=== PATIENT | female | born 1955 | race African-American/Black ===

== ENCOUNTER 2019-03-14 11:44 | Inpatient (IN) | payer MEDICARE, MEDICAID ==
[~2019-03-14] VITALS: Ht 167.6 cm; Wt 110.7 kg
[~2019-03-14 11:44] MED LIST: ADVIL200 M2 ORAL; ALBUTEROL SULF8.5 GM INH; AMLODIPINE BESY10 MG ORAL; ASPIRIN81 MG ORAL; ATORVASTATIN CA40 MG ORAL; CELEXA20 MG PO; FUROSEMIDE40 MG ORAL; HYDROCHLOROTHIA25 MG ORAL; LANTUS SOL100 UNIT/1 SUBQ; LISINOPRIL20 MG ORAL; METFORMIN HCL1000 M1 ORAL; MEVACOR40 MG PO; QVAR7.3 GM INH; SPIRONOLACTONE25 MG ORAL; TYLENOL EXTRA500 MG ORAL; UNOBMED; ZANTAC150 MG ORAL
--- NOTE | 2019-03-14 11:45 | NUR ---
ED Nurse Note: Patient brought in by ambulance from home c/o shortness of breath since last night, not relieved with prescribed breathing treatment. patient is alert awake x4 ambulatory with assistance, daughter at bedside. patient placed on the athletic monitor, vitals stable at this time, daughter by the bedside.
[2019-03-14] MEDS: Levalbuterol Inh UD 1.25mg/0.5ml HHN SCH ×5 (12:06→13:00)
[2019-03-14] MEDS: Ipratropium 0.02% Inh Soln 2.5ml UD HHN SCH ×3 (12:06→12:22)
[2019-03-14 12:11] VITALS: BP 110/87
[2019-03-14 12:23] LABS: HEMATOCRIT 41.8 % (37.0-47.0); HEMOGLOBIN 12.9 G/DL (12.0-16.0); MEAN CORPUSCULAR VOLUME 93 FL (80-99); PLATELET COUNT 309 K/UL (150-450); RED BLOOD COUNT 4.48 M/UL (4.20-5.40); RED CELL DISTRIBUTION WIDTH 15.3 % (11.6-14.8); WHITE BLOOD COUNT 18.7 K/UL (4.8-10.8)
--- NOTE | 2019-03-14 12:30 | NUR ---
ED Nurse Note: bed side commode provided
[2019-03-14] MEDS ORDERED: Levalbuterol Inh UD 1.25mg/0.5ml HHN ONE (12:45)
[2019-03-14] MEDS ORDERED: Ipratropium 0.02% Inh Soln 2.5ml UD HHN ONE (12:45)
[2019-03-14] MEDS ORDERED: LORazepam 1mg tab ORAL ONE (13:00)
[2019-03-14] MEDS ORDERED: LEVOTHYROXINE75 MCG ORAL (13:01)
[2019-03-14] MEDS ORDERED: HUMALOG100 UNIT/4 SUBQ (13:01)
[2019-03-14] MEDS ORDERED: FLOVENT2 PUFF1 INH (13:01)
--- NOTE | 2019-03-14 13:25 | NUR ---
ED Nurse Note: sandwich and water provided to the patient, Dr Areli ahuja for the patient eating.
--- NOTE | 2019-03-14 13:58 | Diagnostic Imaging Report ---
Indication: Shortness of breath Technique: One view of the chest Comparison: 08/23/2013 Findings: The heart is enlarged. There is bilateral mild interstitial edema, extent of which appears similar to the previous study. There is a left chest unifocal AICD now present. Impression: Cardiomegaly with mild interstitial edema
[2019-03-14 14:24] LABS: ANION GAP 12 mmol/L (5-15); BLOOD UREA NITROGEN 31 mg/dL (7-18); CARBON DIOXIDE 22 MMOL/L (21-32); CHLORIDE 103 MMOL/L (98-107); CREATININE 1.4 MG/DL (0.55-1.30); POTASSIUM 4.7 MMOL/L (3.5-5.1); SODIUM 137 MMOL/L (136-145)
[2019-03-14 14:37] LABS: ALANINE AMINOTRANSFERASE 43 U/L (12-78); ALBUMIN 3.7 G/DL (3.4-5.0); ALBUMIN/GLOBULIN RATIO 0.9 (1.0-2.7); ALKALINE PHOSPHATASE 110 U/L (46-116); ASPARTATE AMINO TRANSFERASE 20 U/L (15-37); BILIRUBIN,TOTAL 0.7 MG/DL (0.2-1.0); CKMB 2.4 NG/ML (0.0-3.6); CREATINE KINASE 97 U/L (26-308)
--- NOTE | 2019-03-14 14:51 | Emergency Room Report ---
History of Present Illness General Chief Complaint: Dyspnea/Respdistress Source: Patient Present Illness HPI 63-year-old female presents ED for evaluation. Brought in by EMS from home for shortness of breath. Per EMS patient noted to have wheezing. Was given breathing treatments. Patient states she still feels short of breath but somewhat better. Also had some chest pain initially but denies any chest pain at this time. States that she does have a defibrillator in place. Denies fevers or chills. Denies cough. No other aggravating relieving factors. Denies any other associated symptoms Allergies: Coded Allergies: No Known Allergies (Unverified , 08/21/13) Patient History Past Medical History: DM, HTN, CO, CAD, CHF Past Surgical History: none, other - defibrillator Pertinent Family History: none Social History: Denies: smoking, alcohol use, drug use Now: No Immunizations: UTD Reviewed Nursing Documentation: PMH: Agreed; PSxH: Agreed Nursing Documentation-PMH Hx Cardiac Problems: Yes - CHF Hx Hypertension: Yes Hx Pacemaker: Yes - defibrillator Hx Asthma: Yes Hx COPD: Yes Hx Diabetes: Yes Hx Cancer: No Hx Neurological Problems: No Review of Systems All Other Systems: negative except mentioned in HPI Physical Exam Vital Signs Date Time Temp Pulse Resp B/P (MAP) Pulse Ox O2 Delivery O2 Flow Rate FiO2 03/14/19 11:39 118 22 118/77 (91) 100 Simple Mask 8.0 03/14/19 11:59 28 03/14/19 12:11 97.2 Sp02 EP Interpretation: reviewed, normal General Appearance: alert, GCS 15, non-toxic, obese Head: normocephalic, atraumatic Eyes: bilateral eye normal inspection, bilateral eye PERRL ENT: hearing grossly normal, normal pharynx, no angioedema, normal voice Neck: full range of motion, supple/symm/no masses Respiratory: chest non-tender, lungs clear, speaking full sentences, wheezing Cardiovascular #1: regular rate, rhythm, no edema Cardiovascular #2: 2+ carotid (R), 2+ carotid (L), 2+ radial (R), 2+ radial (L) , 2+ dorsalis pedis (R), 2+ dorsalis pedis (L) Gastrointestinal: normal bowel sounds, non tender, soft, non-distended, no guarding, no rebound Rectal: deferred Genitourinary: normal inspection, no CVA tenderness Musculoskeletal: back normal, gait/station normal, normal range of motion, non- tender Neurologic: alert, oriented x3, responsive, motor strength/tone normal, sensory intact, speech normal Psychiatric: judgement/insight normal, memory normal, mood/affect normal, no suicidal/homicidal ideation Reflexes: 3+ bicep (R), 3+ bicep (L), 3+ tricep (R), 3+ tricep (L), 3+ knee (R) , 3+ knee (L) Lymphatic: no adenopathy Medical Decision Making Diagnostic Impression: Primary Impression: CHF (congestive heart failure) Qualified Codes: I50.9 - Heart failure, unspecified Additional Impression: Renal insufficiency ER Course Hospital Course 63-year-old female presents ED complaining of shortness of breath. h/o asthma and CHF Differential diagnoses include: CO/unstable angina, contusion, muscle strain, PTX, rib fracture Clinical course Patient placed on stretcher. on campus monitor. After initial history and physical I ordered labs, EKG, chest x-ray, nebs labs reviewed- noted leukocytosis, hemoglobin/hematocrit stable, creatinine elevated, troponins negative, BNP elevated EKG - sinus tachycardia, no acute ischemic changes interpreted by me Chest x-ray- pulmonary congestion , defbrilator, chf Antibiotics given. Lasix given. Case discussed with Dr. Lambert and he agreed to accept the patient to his service for further care and support I. I feel this is a highly complex case requiring extensive working including EKG/Rhythm strip, Xray/CT/US, Blood/urine lab work, repeat exams while in ED, and administration of strong opiates/narcotics for pain control, admission to hospital or close patient follow up. Diagnosis - CHF exacerbation, renal insufficiency admitted to telemetry in serious condition Labs Test 03/14/19 12:00 03/14/19 13:45 White Blood Count 18.7 K/UL (4.8-10.8) Red Blood Count 4.48 M/UL (4.20-5.40) Hemoglobin 12.9 G/DL (12.0-16.0) Hematocrit 41.8 % (37.0-47.0) Mean Corpuscular Volume 93 FL (80-99) Mean Corpuscular Hemoglobin 28.7 PG (27.0-31.0) Mean Corpuscular Hemoglobin Concent 30.8 G/DL (32.0-36.0) Red Cell Distribution Width 15.3 % (11.6-14.8) Platelet Count 309 K/UL (150-450) Mean Platelet Volume 6.6 FL (6.5-10.1) Neutrophils (%) (Auto) % (45.0-75.0) Lymphocytes (%) (Auto) % (20.0-45.0) Monocytes (%) (Auto) % (1.0-10.0) Eosinophils (%) (Auto) % (0.0-3.0) Basophils (%) (Auto) % (0.0-2.0) Differential Total Cells Counted 100 Neutrophils % (Manual) 85 % (45-75) Lymphocytes % (Manual) 12 % (20-45) Monocytes % (Manual) 3 % (1-10) Eosinophils % (Manual) 0 % (0-3) Basophils % (Manual) 0 % (0-2) Band Neutrophils 0 % (0-8) Platelet Estimate Adequate Platelet Morphology Normal Anisocytosis 1+ Troponin I 0.001 ng/mL (0.000-0.056) Sodium Level 137 MMOL/L (136-145) Potassium Level 4.7 MMOL/L (3.5-5.1) Chloride Level 103 MMOL/L (98-107) Carbon Dioxide Level 22 MMOL/L (21-32) Anion Gap 12 mmol/L (5-15) Blood Urea Nitrogen 31 mg/dL (7-18) Creatinine 1.4 MG/DL (0.55-1.30) Estimat Glomerular Filtration Rate 45.8 mL/min (>60) Glucose Level 169 MG/DL (74-106) Calcium Level 9.0 MG/DL (8.5-10.1) Total Bilirubin 0.7 MG/DL (0.2-1.0) Aspartate Amino Transf (AST/SGOT) 20 U/L (15-37) Alanine Aminotransferase (ALT/SGPT) 43 U/L (12-78) Alkaline Phosphatase 110 U/L (46-116) Total Creatine Kinase 97 U/L (26-308) Creatine Kinase MB 2.4 NG/ML (0.0-3.6) Creatine Kinase MB Relative Index 2.4 Pro-B-Type Natriuretic Peptide 6639 pg/mL (0-125) Total Protein 7.7 G/DL (6.4-8.2) Albumin 3.7 G/DL (3.4-5.0) Globulin 4.0 g/dL Albumin/Globulin Ratio 0.9 (1.0-2.7) EKG Diagnostic Results Rate: tachycardiac Rhythm: NSR ST Segments: no acute changes ASA given to the pt in ED: No Rhythm Strip Diag. Results EP Interpretation: yes Rhythm: NSR, no PVC's, no ectopy Chest X-Ray Diagnostic Results Chest X-Ray Diagnostic Results : Chest X-Ray Ordered: Yes # of Views/Limited/Complete: 1 View Indication: Shortness of Breath EP Interpretation: Yes Interpretation: no pneumothorax, other - cardiomegaly. bilateral interstitial congestion. defibrillator Impression: Other Electronically Signed by: Electronically signed by Shashank Rowan MD Last Vital Signs Date Time Temp Pulse Resp B/P (MAP) Pulse Ox O2 Delivery O2 Flow Rate FiO2 03/14/19 12:58 113 18 100 Nasal Cannula 2.0 28 03/14/19 12:11 97.2 110/87 Status: improved Disposition: ADMITTED INPATIENT Condition: Serious Referrals: NON PHYSICIAN (PCP) Shashank Rowan MD Mar 14, 2019 14:51
[2019-03-14 15:14] VITALS: BP 115/85
--- NOTE | 2019-03-14 15:21 | NUR ---
ED Nurse Note: per Dr Singleton it's ok to transfer pt to 2E w/o urine sample.
--- NOTE | 2019-03-14 15:25 | NUR ---
ED Nurse Note: called 2E, unable to talk to the nurse at this time, will call back later.
--- NOTE | 2019-03-14 15:40 | NUR ---
ED Nurse Note: patient is being transferred to with all of her belongings. , report given to COLEMAN MELGOZA. ENDORSED ALL PLAN OF CARE TO COLEMAN MELGOZA.
--- NOTE | 2019-03-14 16:27 | NUR ---
NURSE NOTES: Patient transferred from ED to tele, received report from ABAD Albarran. ledger poster on, Patient on 2L oxygen, no active s/s cardiac distress noticed at this time. Patient having SOB, O2 sat 99% on 2L via NC. 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 Bed in lowest position, side rails upx2, call light within reach. Will continue to monitor.
[2019-03-14] MEDS ORDERED: Albuterol 90mcg Inhaler 8gm INH SCH (18:00)
--- NOTE | 2019-03-14 19:23 | Consultation ---
History of Present Illness General Date patient seen: Mar 14, 2019 Time patient seen: 19:17 Chief Complaint: Dyspnea/Respdistress Present Illness HPI Patient brought in by ambulance from home c/o shortness of breath since last night, not relieved with prescribed breathing treatment. Hx of CHF and CAD. Last stress test in 2012 Large infarcts in the distribution of the anterior and posterior descending arteries. No evidence of myocardial ischemia. Dilated left ventricle with diffuse wall motion abnormality and decreased left ventricular ejection fraction LVEF 30% no perfusion defects Echo LVEF 20-25 % Allergies: Coded Allergies: No Known Allergies (Unverified , 08/21/13) Medication History Scheduled Albuterol Sulfate* (Albuterol Sulfate Mdi*), 2 PUFF INH Q6H, (Reported) Amlodipine Besylate* (Amlodipine Besylate*), 10 MG ORAL DAILY, (Reported) Aspirin* (Aspirin*), 81 MG ORAL DAILY, (Reported) Atorvastatin Calcium* (Atorvastatin Calcium*), 80 MG ORAL BEDTIME, (Reported) Beclomethasone Dipropionate 40MCG Oral Inh (Qvar 40*), 2 PUFFS INH TWICE A DAY, (Reported) Citalopram Hydrobromide* (Celexa*), 20 MG PO DAILY, (Reported) Fluticasone Propionate (Flovent Hfa), 2 PUFFS INH BID, (Reported) Furosemide* (Lasix*), 40 MG ORAL DAILY, (Reported) Hydrochlorothiazide* (Hydrochlorothiazide*), 25 MG ORAL DAILY, (Reported) Ibuprofen* (Advil*), 600 MG ORAL BID, (Reported) Insulin Glargine (Lantus), 20 SUBQ DAILY, (Reported) Levothyroxine Sodium* (Levothyroxine Sodium*), 25 MCG ORAL DAILY, (Reported) Lisinopril (Lisinopril*), 20 MG ORAL DAILY, (Reported) Lovastatin (Mevacor), 40 MG PO HS, (Reported) Metformin Hcl* (Metformin Hcl*), 1,000 MG ORAL BID, (Reported) Ranitidine Hcl* (Zantac*), 150 MG ORAL TWICE A DAY, (Reported) Spironolactone* (Aldactone*), 25 MG ORAL DAILY, (Reported) Scheduled PRN Acetaminophen* (Tylenol Extra Strength*), 500 MG ORAL Q6H PRN for Mild Pain/ Temp > 100.5 Miscellaneous Medications Insulin Lispro (Humalog), 0 SUBQ, (Reported) Patient History Healthcare decision maker Vesta Robertson, Daughter Resuscitation status Full Code Advanced Directive on File Review of Systems Constitutional: Reports: no symptoms Eye: Reports: no symptoms ENT: Reports: no symptoms Respiratory: Reports: orthopnea, shortness of breath, wheezing, BLOCK Cardiovascular: Reports: PND Gastrointestinal: Reports: no symptoms Genitourinary: Reports: no symptoms Musculoskeletal: Reports: no symptoms Skin: Reports: no symptoms Psychiatric: Reports: no symptoms Neurological: Reports: no symptoms Endocrine: Reports: no symptoms Hematologic/Lymphatic: Reports: no symptoms Physical Exam General Appearance: mild distress Lines, tubes and drains: peripheral HEENT: normocephalic, atraumatic, anicteric, mucous membranes moist, PERRL Neck: non-tender, normal alignment Respiratory/Chest: chest wall non-tender, accessory muscle use, crackles/rales , rhonchi - bilaterally Cardiovascular/Chest: normal peripheral pulses, normal rate, regular rhythm Abdomen: normal bowel sounds, non tender, no organomegaly, no mass Extremities: normal range of motion, non-tender, normal inspection Skin Exam: normal pigmentation, warm/dry, cyanotic Neurologic: cardiac nurse II-XII grossly normal, no motor/sensory deficits Last 24 Hour Vital Signs Date Time Temp Pulse Resp B/P (MAP) Pulse Ox O2 Delivery O2 Flow Rate FiO2 03/14/19 16:46 Nasal Cannula 2.0 03/14/19 16:27 119 03/14/19 15:40 97.2 103 13 115/85 100 Nasal Cannula 2.0 03/14/19 15:14 97.2 103 13 115/85 100 Nasal Cannula 2.0 03/14/19 12:58 113 18 100 Nasal Cannula 2.0 03/14/19 12:47 116 17 100 Nasal Cannula 2.0 03/14/19 12:34 115 20 100 Nasal Cannula 2.0 03/14/19 12:21 112 19 100 Nasal Cannula 2.0 03/14/19 12:19 112 19 100 Nasal Cannula 2.0 03/14/19 12:13 116 24 Room Air 2.0 03/14/19 12:11 97.2 116 24 110/87 98 Room Air 03/14/19 12:10 112 21 100 Nasal Cannula 2.0 03/14/19 12:09 112 21 100 Nasal Cannula 2.0 03/14/19 12:04 100 Nasal Cannula 2.0 03/14/19 12:01 113 21 100 Nasal Cannula 2.0 03/14/19 11:59 113 21 100 Nasal Cannula 2.0 03/14/19 11:39 118 22 118/77 (91) 100 Simple Mask 8.0 Laboratory Tests Test 03/14/19 12:00 03/14/19 13:45 White Blood Count 18.7 K/UL (4.8-10.8) H Red Blood Count 4.48 M/UL (4.20-5.40) Hemoglobin 12.9 G/DL (12.0-16.0) Hematocrit 41.8 % (37.0-47.0) Mean Corpuscular Volume 93 FL (80-99) Mean Corpuscular Hemoglobin 28.7 PG (27.0-31.0) Mean Corpuscular Hemoglobin Concent 30.8 G/DL (32.0-36.0) L Red Cell Distribution Width 15.3 % (11.6-14.8) H Platelet Count 309 K/UL (150-450) Mean Platelet Volume 6.6 FL (6.5-10.1) Neutrophils (%) (Auto) % (45.0-75.0) Lymphocytes (%) (Auto) % (20.0-45.0) Monocytes (%) (Auto) % (1.0-10.0) Eosinophils (%) (Auto) % (0.0-3.0) Basophils (%) (Auto) % (0.0-2.0) Differential Total Cells Counted 100 Neutrophils % (Manual) 85 % (45-75) H Lymphocytes % (Manual) 12 % (20-45) L Monocytes % (Manual) 3 % (1-10) Eosinophils % (Manual) 0 % (0-3) Basophils % (Manual) 0 % (0-2) Band Neutrophils 0 % (0-8) Platelet Estimate Adequate Platelet Morphology Normal Anisocytosis 1+ Troponin I 0.001 ng/mL (0.000-0.056) Sodium Level 137 MMOL/L (136-145) Potassium Level 4.7 MMOL/L (3.5-5.1) Chloride Level 103 MMOL/L (98-107) Carbon Dioxide Level 22 MMOL/L (21-32) Anion Gap 12 mmol/L (5-15) Blood Urea Nitrogen 31 mg/dL (7-18) H Creatinine 1.4 MG/DL (0.55-1.30) H Estimat Glomerular Filtration Rate 45.8 mL/min (>60) Glucose Level 169 MG/DL (74-106) H Calcium Level 9.0 MG/DL (8.5-10.1) Total Bilirubin 0.7 MG/DL (0.2-1.0) Aspartate Amino Transf (AST/SGOT) 20 U/L (15-37) Alanine Aminotransferase (ALT/SGPT) 43 U/L (12-78) Alkaline Phosphatase 110 U/L (46-116) Total Creatine Kinase 97 U/L (26-308) Creatine Kinase MB 2.4 NG/ML (0.0-3.6) Creatine Kinase MB Relative Index 2.4 Pro-B-Type Natriuretic Peptide 6639 pg/mL (0-125) H Total Protein 7.7 G/DL (6.4-8.2) Albumin 3.7 G/DL (3.4-5.0) Globulin 4.0 g/dL Albumin/Globulin Ratio 0.9 (1.0-2.7) L Height (Feet): 5 Height (Inches): 6.00 Weight (Pounds): 240 Medications Current Medications Medications (Trade) Dose Ordered Sig/Cassidy Route PRN Reason Start Time Stop Time Status Last Admin Dose Admin Albuterol Sulfate (Proventil MDI) 2 puff Q6H PRN INH Shortness of Breath 03/14/19 18:00 04/13/19 17:59 Atorvastatin Calcium (Lipitor) 80 mg BEDTIME ORAL 03/14/19 21:00 04/13/19 20:59 Beclomethasone Dipropionate (Qvar 40 Inhaler) 2 puff TWICE A DAY INH 03/14/19 18:00 04/13/19 17:59 Dextrose (Dextrose 50%) 25 ml Q30M PRN IV Hypoglycemia 03/14/19 17:15 04/13/19 17:14 Dextrose (Dextrose 50%) 50 ml Q30M PRN IV Hypoglycemia 03/14/19 17:15 04/13/19 17:14 Insulin Aspart (NovoLOG) BEFORE MEALS AND HS SUBQ 03/14/19 21:00 04/13/19 20:59 Levothyroxine Sodium (Synthroid) 25 mcg DAILY@0630 ORAL 03/15/19 06:30 04/14/19 06:29 Metformin HCl (Glucophage) 1,000 mg BID ORAL 03/15/19 09:00 04/14/19 08:59 Spironolactone (Aldactone) 25 mg DAILY ORAL 03/15/19 09:00 04/14/19 08:59 Assessment/Plan Status: stable Assessment/Plan: Assessment: (1) CHF (congestive heart failure) (2) Respiratory insufficiency (3) Cardiomyopathy (4) COPD exacerbation (5) Leukocytosis (6) Hypoxemia (7) Coronary artery disease PLAN: -Aspirin -high dose statin -Echocardiogram -IV lasix -Aldactone -Hold beta blockers until discharge -Start lisinopril 5 mg for afterload reduction -Breathing treatment/steroids/pulmonary toilet -Viability study to be done outpatient/cedars to determine if revascularization is possible -Life vest -> ICD Aaron Guerra MD Mar 14, 2019 19:23
--- NOTE | 2019-03-14 19:25 | NUR ---
CASE MANAGEMENT: REVIEW 63Y/F BIBA FROM HOME CC: SOB . CHEST PAIN SI: CHF . RENAL INSUFFICIENCY T 97.2 HR 116 RR 110/87 SAT 98% ROOM AIR WBC 18.7 BUN 31 CR 1.4 BNP 6639 IS: XOPENEX HHN X1 ATROVENT HHN X1 ATIVAN PO X1 LASIX IV X1 LEVOFLOXACIN IV X1 PATIENT ADMITTED TO TELEMETRY UNIT 03/14/2019 DCP: PATIENT IS FROM HOME
[2019-03-14] MEDS ORDERED: ATROVENT HFA12.9 GM IH (19:33)
[2019-03-14] MEDS ORDERED: CARVEDILOL3.125 MG ORAL (19:33)
--- NOTE | 2019-03-14 19:48 | NUR ---
NURSE NOTES: Dr. Tomlin made aware patient anxious, shaking, c/o chest pain 10 min ago. EKG done, ST with HR 126. Xanax 0.25 mg PO TID. Order noted, entered, carried out.
--- NOTE | 2019-03-14 19:51 | NUR ---
HAND-OFF: Report given to ABAD Ruiz.
--- NOTE | 2019-03-14 19:52 | NUR ---
NURSE NOTES: Received pt from ABAD Ashraf. Pt awake, alert, and c/o anxiety. Bed in lowest position. Call light within reach. Will continue to monitor.
[2019-03-14] MEDS: Qvar 40mcg Inhaler 6.8 gm INH SCH (19:58)
[2019-03-14 20:00] VITALS: BP 120/79
[2019-03-14] MEDS: ALPRAZolam 0.25mg tab ORAL SCH (20:09)
[2019-03-14] MEDS: Atorvastatin 80mg tab ORAL SCH (20:09)
[2019-03-14] MEDS: NovoLOG Insulin Flexpen SUBQ SCH (20:42)
--- NOTE | 2019-03-14 21:27 | NUR ---
NURSE NOTES: Called and left a message with Dr. Guerra regarding pts sustained sinus tachy. Awaiting call back.
--- NOTE | 2019-03-14 21:35 | NUR ---
NURSE NOTES: Called and left a message with Dr. Lambert regarding pts request for sleep aid and also to report heart rate. He replied with No new orders. Will continue to monitor.
--- NOTE | 2019-03-14 23:45 | History and Physical Report ---
DATE OF ADMISSION: 03/14/2019 HISTORY OF PRESENT ILLNESS: This is a 53-year-old female with a past history of diabetes mellitus and hypertension who came to the hospital with shortness of breath. The patient reports some anxiety. She states that she is still taking medication at home, which was . She has history of dilated left ventricle with decreased LVEF 30%. The patient admitted to the hospital for exacerbation of heart failure. PAST MEDICAL HISTORY: Notable for hypertension, hyperlipidemia, questionable asthma, diabetes mellitus, hyperlipidemia. HOME MEDICATIONS: Aldactone, Zantac, metformin, lovastatin, lisinopril, levothyroxine, Lantus, hydrochlorothiazide, Lasix, fluticasone, Celexa, aspirin, amlodipine. ALLERGIES: None reported. REVIEW OF SYSTEMS: Denies any headaches, hematemesis, melena, or hematochezia. PHYSICAL EXAMINATION: VITAL SIGNS: Blood pressure is 110/80, heart rate 104, respirations 16, she is afebrile, O2 saturation on room air. GENERAL: Reveals an older female. HEENT: Unremarkable. LUNGS: Clear breath sounds bilaterally. ABDOMEN: Soft. NEUROLOGIC: Nonfocal LABORATORY DATA: Lab testing shows white count 8000. Urinalysis unremarkable. Creatinine 1.4. Glucose 159. IMPRESSION: 1. Decompensated heart failure. 2. Leukocytosis. 3. Diabetes mellitus. 4. Hypertension. PLAN: Discussion with the hospitalist. Continue medications. We will start diuresis. Consider empiric antibiotics. We will check serial troponins. Diabetic monitoring. Accu-Cheks. DVT prophylaxis. We will follow. Anders Lambert M.D. DR: Jonel JOB#: [id number] CC:
[2019-03-15] VITALS: BP 125/89
[2019-03-15 04:00] VITALS: BP 118/83
[2019-03-15] MEDS: ALPRAZolam 0.25mg tab ORAL SCH ×3 (05:16→17:29)
[2019-03-15] MEDS: Levothyroxine 25mcg tab ORAL SCH (05:40)
[2019-03-15] MEDS: NovoLOG Insulin Flexpen SUBQ SCH ×4 (05:41→20:42)
[2019-03-15] MEDS: Albuterol 90mcg Inhaler 8gm INH PRN ×2 (05:45→14:37)
--- NOTE | 2019-03-15 06:15 | NUR ---
NURSE NOTES: Called and left a message with Dr. Lambert asking for Venous duplex to be done before applying SCDs d/t pts darkening feet. No new orders.
--- NOTE | 2019-03-15 07:17 | NUR ---
NURSE NOTES: Report received from ABAD Ruiz. Patient awake. AOx4. In 3L NC. Complained of coughing. Denies any pain. IV flushed and SL. Bed on lowest position, side rails upx2, brakes engaged. Purewick canister changed. Patient positioned for comfort. Call light within easy reach.
--- NOTE | 2019-03-15 07:57 | NUR ---
HAND-OFF: Report given to ABAD Ashraf. Pt stable. Addendum: 03/15/19 at 0804 by Sara Tariq RN Report given to: ABAD Han*
[2019-03-15 08:00] VITALS: BP 105/73
[2019-03-15] MEDS: Qvar 40mcg Inhaler 6.8 gm INH SCH ×2 (08:29→18:48)
[2019-03-15 08:33] LABS: EOSINOPHILS % (AUTO) 0.6 % (0.0-3.0); HEMATOCRIT 40.1 % (37.0-47.0); HEMOGLOBIN 12.7 G/DL (12.0-16.0); LYMPHOCYTES % (AUTO) 20.4 % (20.0-45.0); MEAN CORPUSCULAR VOLUME 92 FL (80-99); MONOCYTES % (AUTO) 7.4 % (1.0-10.0); NEUTROPHILS % (AUTO) 70.7 % (45.0-75.0); PLATELET COUNT 252 K/UL (150-450); RED BLOOD COUNT 4.35 M/UL (4.20-5.40); RED CELL DISTRIBUTION WIDTH 15.2 % (11.6-14.8); WHITE BLOOD COUNT 13.7 K/UL (4.8-10.8)
[2019-03-15 08:39] LABS: ANION GAP 12 mmol/L (5-15); BLOOD UREA NITROGEN 33 mg/dL (7-18); CALCIUM 9.2 MG/DL (8.5-10.1); CARBON DIOXIDE 23 MMOL/L (21-32); CHLORIDE 100 MMOL/L (98-107); CREATININE 1.4 MG/DL (0.55-1.30); POTASSIUM 4.4 MMOL/L (3.5-5.1); SODIUM 135 MMOL/L (136-145)
[2019-03-15] MEDS: metFORMIN 500mg tab ORAL SCH ×2 (09:10→17:29)
[2019-03-15] MEDS: Lisinopril 2.5mg tab ORAL SCH (09:10)
[2019-03-15] MEDS: Spironolactone 25mg tab ORAL SCH (09:10)
--- NOTE | 2019-03-15 09:43 | NUR ---
CASE MANAGEMENT:REVIEW 03/15/19 SI: AC/CHR CHF. RESPIRATORY INSUFF LEUKOCYTOSIS. COPD EXACERBATION 98.4 124 22 105/73 99% ON 2L/NC WBC+13.7 BUN+33 CR+1.4 IS: ALDACTONE PO QD LISINOPRIL PO QD QVAR INH BID : TELEMETRY STATUS DCP: FROM HOME
--- NOTE | 2019-03-15 10:58 | Pulmonology Progress Note ---
Assessment/Plan Assessment/Plan IMPRESSION: 1. Decompensated heart failure. 2. Leukocytosis. 3. Diabetes mellitus. 4. Hypertension. PLAN: Continue medications including diuresis. continue empiric antibiotics. her serial troponins are negative. Diabetic monitoring. Accu-Cheks. DVT prophylaxis. Subjective Interval Events: states she is feeling better. WBC improved Constitutional: Reports: no symptoms HEENT: Repors: no symptoms Respiratory: Reports: no symptoms Cardiovascular: Reports: no symptoms Gastrointestinal/Abdominal: Reports: no symptoms Genitourinary: Reports: no symptoms Allergies: Coded Allergies: No Known Allergies (Unverified , 08/21/13) Objective Last 24 Hour Vital Signs Date Time Temp Pulse Resp B/P (MAP) Pulse Ox O2 Delivery O2 Flow Rate FiO2 03/15/19 09:10 105/73 03/15/19 08:33 124 22 99 Nasal Cannula 2.0 03/15/19 08:33 125 22 98 Nasal Cannula 2.0 28 03/15/19 08:00 98.4 112 18 105/73 (84) 100 03/15/19 08:00 129 03/15/19 07:45 98 Nasal Cannula 3.0 32 03/15/19 05:45 93 18 98 Nasal Cannula 2.0 28 03/15/19 05:45 93 18 98 Nasal Cannula 2.0 28 03/15/19 04:00 97.7 97 18 118/83 (95) 100 03/15/19 04:00 92 03/15/19 00:08 133 03/15/19 00:00 97.5 95 22 125/89 (101) 100 03/14/19 23:57 127 03/14/19 21:00 Nasal Cannula 2.0 03/14/19 20:00 97.4 130 22 120/79 (93) 100 03/14/19 19:53 126 22 98 Nasal Cannula 2.0 28 03/14/19 19:51 126 22 98 Nasal Cannula 2.0 03/14/19 19:51 98 Nasal Cannula 2.0 03/14/19 16:46 Nasal Cannula 2.0 03/14/19 16:27 119 03/14/19 15:40 97.2 103 13 115/85 100 Nasal Cannula 2.0 03/14/19 15:14 97.2 103 13 115/85 100 Nasal Cannula 2.0 03/14/19 12:58 113 18 100 Nasal Cannula 2.0 03/14/19 12:47 116 17 100 Nasal Cannula 2.0 03/14/19 12:34 115 20 100 Nasal Cannula 2.0 03/14/19 12:21 112 19 100 Nasal Cannula 2.0 03/14/19 12:19 112 19 100 Nasal Cannula 2.0 03/14/19 12:13 116 24 Room Air 2.0 03/14/19 12:11 97.2 116 24 110/87 98 Room Air 03/14/19 12:10 112 21 100 Nasal Cannula 2.0 03/14/19 12:09 112 21 100 Nasal Cannula 2.0 03/14/19 12:04 100 Nasal Cannula 2.0 03/14/19 12:01 113 21 100 Nasal Cannula 2.0 03/14/19 11:59 113 21 100 Nasal Cannula 2.0 03/14/19 11:39 118 22 118/77 (91) 100 Simple Mask 8.0 Intake and Output 03/14/19 03/15/19 19:00 07:00 Intake Total 240 ml 200 ml Output Total 600 ml Balance -360 ml 200 ml Intake Oral 240 ml 200 ml Output Urine Total 600 ml # Voids 4 # Bowel Movements 2 General Appearance: no acute distress HEENT: normocephalic Respiratory/Chest: chest wall non-tender, lungs clear Cardiovascular: normal peripheral pulses, normal rate Abdomen: normal bowel sounds, soft, non tender Laboratory Tests 03/14/19 12:00: White Blood Count 18.7H, Red Blood Count 4.48, Hemoglobin 12.9, Hematocrit 41.8 , Mean Corpuscular Volume 93, Mean Corpuscular Hemoglobin 28.7, Mean Corpuscular Hemoglobin Concent 30.8L, Red Cell Distribution Width 15.3H, Platelet Count 309, Mean Platelet Volume 6.6, Neutrophils (%) (Auto) , Lymphocytes (%) (Auto) , Monocytes (%) (Auto) , Eosinophils (%) (Auto) , Basophils (%) (Auto) , Differential Total Cells Counted 100, Neutrophils % ( Manual) 85H, Lymphocytes % (Manual) 12L, Monocytes % (Manual) 3, Eosinophils % ( Manual) 0, Basophils % (Manual) 0, Band Neutrophils 0, Platelet Estimate Adequate, Platelet Morphology Normal, Anisocytosis 1+, Troponin I 0.001 03/14/19 13:45: Sodium Level 137, Potassium Level 4.7, Chloride Level 103, Carbon Dioxide Level 22, Anion Gap 12, Blood Urea Nitrogen 31H, Creatinine 1.4H, Estimat Glomerular Filtration Rate 45.8, Glucose Level 169H, Calcium Level 9.0, Total Bilirubin 0.7 , Aspartate Amino Transf (AST/SGOT) 20, Alanine Aminotransferase (ALT/SGPT) 43, Alkaline Phosphatase 110, Total Creatine Kinase 97, Creatine Kinase MB 2.4, Creatine Kinase MB Relative Index 2.4, Pro-B-Type Natriuretic Peptide 6639H, Total Protein 7.7, Albumin 3.7, Globulin 4.0, Albumin/Globulin Ratio 0.9L 03/15/19 07:04: White Blood Count 13.7H, Red Blood Count 4.35, Hemoglobin 12.7, Hematocrit 40.1 , Mean Corpuscular Volume 92, Mean Corpuscular Hemoglobin 29.3, Mean Corpuscular Hemoglobin Concent 31.7L, Red Cell Distribution Width 15.2H, Platelet Count 252, Mean Platelet Volume 6.5, Neutrophils (%) (Auto) 70.7, Lymphocytes (%) (Auto) 20.4, Monocytes (%) (Auto) 7.4, Eosinophils (%) (Auto) 0.6, Basophils (%) (Auto) 1.0, Troponin I 0.000, Sodium Level 135L, Potassium Level 4.4, Chloride Level 100, Carbon Dioxide Level 23, Anion Gap 12, Blood Urea Nitrogen 33H, Creatinine 1.4H, Estimat Glomerular Filtration Rate 45.8, Glucose Level 148H, Calcium Level 9.2 Current Medications Medications (Trade) Dose Ordered Sig/Cassidy Route PRN Reason Start Time Stop Time Status Last Admin Dose Admin Albuterol Sulfate (Proventil MDI) 2 puff Q6H PRN INH Shortness of Breath 03/14/19 18:00 04/13/19 17:59 03/15/19 05:45 Alprazolam (Xanax) 0.25 mg THREE TIMES A DAY ORAL 03/14/19 19:48 03/21/19 19:47 03/15/19 05:16 Atorvastatin Calcium (Lipitor) 80 mg BEDTIME ORAL 03/14/19 21:00 04/13/19 20:59 03/14/19 20:09 Beclomethasone Dipropionate (Qvar 40 Inhaler) 2 puff TWICE A DAY INH 03/14/19 18:00 04/13/19 17:59 03/15/19 08:29 Dextrose (Dextrose 50%) 25 ml Q30M PRN IV Hypoglycemia 03/14/19 17:15 04/13/19 17:14 Dextrose (Dextrose 50%) 50 ml Q30M PRN IV Hypoglycemia 03/14/19 17:15 04/13/19 17:14 Insulin Aspart (NovoLOG) BEFORE MEALS AND HS SUBQ 03/14/19 21:00 04/13/19 20:59 03/15/19 05:41 Levothyroxine Sodium (Synthroid) 25 mcg DAILY@0630 ORAL 03/15/19 06:30 04/14/19 06:29 03/15/19 05:40 Lisinopril (Zestril) 2.5 mg DAILY ORAL 03/15/19 09:00 04/14/19 08:59 03/15/19 09:10 Metformin HCl (Glucophage) 1,000 mg BID ORAL 03/15/19 09:00 04/14/19 08:59 03/15/19 09:10 Spironolactone (Aldactone) 25 mg DAILY ORAL 03/15/19 09:00 04/14/19 08:59 03/15/19 09:10 Anders Lambert MD Mar 15, 2019 10:58
[2019-03-15 12:00] VITALS: BP 115/83
--- NOTE | 2019-03-15 12:03 | Cardiology Progress Note ---
Assessment/Plan Status: stable Assessment/Plan Assessment/Plan Status: stable Assessment/Plan: Assessment: (1) CHF (congestive heart failure) (2) Respiratory insufficiency (3) Cardiomyopathy (4) COPD exacerbation (5) Leukocytosis (6) Hypoxemia (7) Coronary artery disease PLAN: -Aspirin -high dose statin -Echocardiogram pending -IV lasix -> transition to PO in a few days -Aldactone -Start coreg 3.125 bid -Continue lisinopril 5 mg for afterload reduction -Breathing treatment/steroids/pulmonary toilet -Viability study to be done outpatient/[facility] to determine if revascularization is possible -Life vest -> ICD Subjective Cardiovascular: Reports: no symptoms Respiratory: Reports: no symptoms Gastrointestinal/Abdominal: Reports: no symptoms Genitourinary: Reports: no symptoms Subjective NO acute events, no chest pain, Pulse elevated, troponin negative. Objective Last 24 Hour Vital Signs Date Time Temp Pulse Resp B/P (MAP) Pulse Ox O2 Delivery O2 Flow Rate FiO2 03/15/19 09:10 105/73 03/15/19 08:33 124 22 99 Nasal Cannula 2.0 28 03/15/19 08:33 125 22 98 Nasal Cannula 2.0 28 03/15/19 08:00 98.4 112 18 105/73 (84) 100 03/15/19 08:00 129 03/15/19 07:45 98 Nasal Cannula 3.0 32 03/15/19 05:45 93 18 98 Nasal Cannula 2.0 28 03/15/19 05:45 93 18 98 Nasal Cannula 2.0 28 03/15/19 04:00 97.7 97 18 118/83 (95) 100 03/15/19 04:00 92 03/15/19 00:08 133 03/15/19 00:00 97.5 95 22 125/89 (101) 100 03/14/19 23:57 127 03/14/19 21:00 Nasal Cannula 2.0 03/14/19 20:00 97.4 130 22 120/79 (93) 100 03/14/19 19:53 126 22 98 Nasal Cannula 2.0 28 03/14/19 19:51 126 22 98 Nasal Cannula 2.0 28 03/14/19 19:51 98 Nasal Cannula 2.0 28 03/14/19 16:46 Nasal Cannula 2.0 03/14/19 16:27 119 03/14/19 15:40 97.2 103 13 115/85 100 Nasal Cannula 2.0 28 03/14/19 15:14 97.2 103 13 115/85 100 Nasal Cannula 2.0 03/14/19 12:58 113 18 100 Nasal Cannula 2.0 03/14/19 12:47 116 17 100 Nasal Cannula 2.0 03/14/19 12:34 115 20 100 Nasal Cannula 2.0 03/14/19 12:21 112 19 100 Nasal Cannula 2.0 03/14/19 12:19 112 19 100 Nasal Cannula 2.0 03/14/19 12:13 116 24 Room Air 2.0 03/14/19 12:11 97.2 116 24 110/87 98 Room Air 03/14/19 12:10 112 21 100 Nasal Cannula 2.0 03/14/19 12:09 112 21 100 Nasal Cannula 2.0 03/14/19 12:04 100 Nasal Cannula 2.0 03/14/19 12:01 113 21 100 Nasal Cannula 2.0 28 General Appearance: no apparent distress EENT: PERRL/EOMI, normal ENT inspection Neck: non-tender, normal alignment, supple, normal inspection, no JVD Rhythm: ST Cardiovascular: normal rate, tachycardia Respiratory/Chest: lungs clear, normal breath sounds Abdomen: normal bowel sounds, non tender, soft Extremities: normal range of motion, non-tender, normal inspection 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, no motor/sensory deficits Intake and Output 03/14/19 03/15/19 19:00 07:00 Intake Total 240 ml 200 ml Output Total 600 ml Balance -360 ml 200 ml Intake Oral 240 ml 200 ml Output Urine Total 600 ml # Voids 4 # Bowel Movements 2 Laboratory Tests Test 03/14/19 13:45 03/15/19 07:04 Sodium Level 137 MMOL/L (136-145) 135 MMOL/L (136-145) L Potassium Level 4.7 MMOL/L (3.5-5.1) 4.4 MMOL/L (3.5-5.1) Chloride Level 103 MMOL/L (98-107) 100 MMOL/L (98-107) Carbon Dioxide Level 22 MMOL/L (21-32) 23 MMOL/L (21-32) Anion Gap 12 mmol/L (5-15) 12 mmol/L (5-15) Blood Urea Nitrogen 31 mg/dL (7-18) H 33 mg/dL (7-18) H Creatinine 1.4 MG/DL (0.55-1.30) H 1.4 MG/DL (0.55-1.30) H Estimat Glomerular Filtration Rate 45.8 mL/min (>60) 45.8 mL/min (>60) Glucose Level 169 MG/DL (74-106) H 148 MG/DL (74-106) H Calcium Level 9.0 MG/DL (8.5-10.1) 9.2 MG/DL (8.5-10.1) Total Bilirubin 0.7 MG/DL (0.2-1.0) Aspartate Amino Transf (AST/SGOT) 20 U/L (15-37) Alanine Aminotransferase (ALT/SGPT) 43 U/L (12-78) Alkaline Phosphatase 110 U/L (46-116) Total Creatine Kinase 97 U/L (26-308) Creatine Kinase MB 2.4 NG/ML (0.0-3.6) Creatine Kinase MB Relative Index 2.4 Pro-B-Type Natriuretic Peptide 6639 pg/mL (0-125) H Total Protein 7.7 G/DL (6.4-8.2) Albumin 3.7 G/DL (3.4-5.0) Globulin 4.0 g/dL Albumin/Globulin Ratio 0.9 (1.0-2.7) L White Blood Count 13.7 K/UL (4.8-10.8) H Red Blood Count 4.35 M/UL (4.20-5.40) Hemoglobin 12.7 G/DL (12.0-16.0) Hematocrit 40.1 % (37.0-47.0) Mean Corpuscular Volume 92 FL (80-99) Mean Corpuscular Hemoglobin 29.3 PG (27.0-31.0) Mean Corpuscular Hemoglobin Concent 31.7 G/DL (32.0-36.0) L Red Cell Distribution Width 15.2 % (11.6-14.8) H Platelet Count 252 K/UL (150-450) Mean Platelet Volume 6.5 FL (6.5-10.1) Neutrophils (%) (Auto) 70.7 % (45.0-75.0) Lymphocytes (%) (Auto) 20.4 % (20.0-45.0) Monocytes (%) (Auto) 7.4 % (1.0-10.0) Eosinophils (%) (Auto) 0.6 % (0.0-3.0) Basophils (%) (Auto) 1.0 % (0.0-2.0) Troponin I 0.000 ng/mL (0.000-0.056) Aaron Guerra MD Mar 15, 2019 12:03
--- NOTE | 2019-03-15 12:58 | Cardiology Report ---
APPROVED REPORT EXAM: Two-dimensional and M-mode echocardiogram with Doppler and color Doppler. INDICATION Dyspnea M-Mode DIMENSIONS LVDd7.7 (3.5-5.6cm) PWd0.9 (0.7-1.1cm) IVSs1.1 cm LVDs6.6 (2.5-4.0cm) PWs0.9 cm Technically difficult study due to poor acoustical windows . VERY POOR ENDOCARDIAL AND VALVULAR DEFINITION left ventricular enlargement . Global left ventricular hypokinesis . RV FUNCTION APPEARS NORMAL ON THE SUBCOSTAL IMAGES Left ventricular ejection fraction estimated to be 15-20%. No evidence of left ventricular hypertrophy. Possible pericardial effusion. Mild left atrial enlargement . Right cardiac chamber sizes are within normal limits. Focal aortic valve sclerosis with adequate cusp excursion. Thickened mitral valve leaflets with normal excursion. Mitral annulus and aortic root calcification. Pulmonic valve not well visualized. PACING WIRE IN RV Normal tricuspid valve structure. IVC at normal size with physiologic collapse. A color flow and spectral Doppler study was performed and revealed: No aortic insufficiency. Mild mitral regurgitation. Mild tricuspid regurgitation. Tricuspid systolic velocities suggests peak right ventricular systolic pressure of 27 mmHg.
--- NOTE | 2019-03-15 13:13 | Cardiology Report ---
APPROVED REPORT EKG Measurement Heart [id number] [id number] Sinus tachycardia Left axis deviation Moderate voltage criteria for LVH, may be normal variant Abnormal ECG
--- NOTE | 2019-03-15 15:57 | NUR ---
*-* INSURANCE *-* ALL CLINICALS AND REVIEWS HAVE BEEN FAXED TO: [facility] F:[phone]
[2019-03-15 16:00] VITALS: BP 101/70
--- NOTE | 2019-03-15 19:35 | NUR ---
HAND-OFF: Report given to ABAD Esposito. Patient in stable condition.
--- NOTE | 2019-03-15 19:45 | NUR ---
NURSE NOTES: Received patient AOx4, breathing O2 via NC at 3L, verbalized no acute distress. monitoring analyst is in place. Fall and safety precautions maintained. Placed call junior within patient's easy reach. Will continue patient plan of care.
[2019-03-15 20:00] VITALS: BP 108/76
[2019-03-15] MEDS: Atorvastatin 80mg tab ORAL SCH (20:40)
[2019-03-16] VITALS: BP 100/64
[2019-03-16 04:00] VITALS: BP 102/70
[2019-03-16] MEDS: NovoLOG Insulin Flexpen SUBQ SCH ×4 (05:20→20:56)
[2019-03-16] MEDS: Levothyroxine 25mcg tab ORAL SCH (05:51)
--- NOTE | 2019-03-16 07:15 | NUR ---
NURSE NOTES: Report received from ABAD sEposito. Patient awake, having breakfast. AOx4. In 2L NC. Denies any pain or SOB. IV patent, SL. Bed on lowest position, side rails upx2, brakes engaged. Call light within easy reach.
--- NOTE | 2019-03-16 07:22 | NUR ---
HAND-OFF: Report given to ABAD Quiñonez. No acute s/s of distress noted.
[2019-03-16 08:00] VITALS: BP 130/87
[2019-03-16] MEDS: metFORMIN 500mg tab ORAL SCH ×2 (08:42→17:21)
[2019-03-16] MEDS: ALPRAZolam 0.25mg tab ORAL SCH ×3 (08:42→17:21)
[2019-03-16] MEDS: Lisinopril 2.5mg tab ORAL SCH (08:43)
[2019-03-16] MEDS: Spironolactone 25mg tab ORAL SCH (08:43)
[2019-03-16] MEDS: Qvar 40mcg Inhaler 6.8 gm INH SCH ×2 (09:02→19:21)
--- NOTE | 2019-03-16 09:02 | Cardiology Progress Note ---
Assessment/Plan Status: stable Assessment/Plan Assessment/Plan Status: stable Assessment/Plan: Assessment: (1) CHF (congestive heart failure) (2) Respiratory insufficiency (3) Cardiomyopathy (4) COPD exacerbation (5) Leukocytosis (6) Hypoxemia (7) Coronary artery disease PLAN: -Aspirin -high dose statin -Echocardiogram reviewed, severe systolic dysfunction -IV lasix -> transition to PO in a few days -Aldactone -Continue coreg 3.125 bid - increase to max tolerated as outpatient -Continue lisinopril 5 mg for afterload reduction -Breathing treatment/steroids/pulmonary toilet -Viability study to be done outpatient/[facility] to determine if revascularization is possible -Patient has ICD - will need to interrogate as outpatient Subjective Cardiovascular: Reports: no symptoms Respiratory: Reports: no symptoms Gastrointestinal/Abdominal: Reports: no symptoms Genitourinary: Reports: no symptoms Subjective NO acute events, no chest pain, Pulse elevated from breathing treatment, troponin negative. Echo with severe LV dysfunction LVEF 15-20% Objective Last 24 Hour Vital Signs Date Time Temp Pulse Resp B/P (MAP) Pulse Ox O2 Delivery O2 Flow Rate FiO2 03/16/19 08:54 95 Nasal Cannula 2.0 03/16/19 08:43 130/87 03/16/19 08:42 105 130/87 03/16/19 08:00 97.5 105 18 130/87 (101) 96 03/16/19 04:00 101 03/16/19 04:00 97.6 101 18 102/70 (81) 96 03/16/19 00:00 97.9 105 18 100/64 (76) 97 03/15/19 21:00 Nasal Cannula 2.0 03/15/19 20:40 124 117/69 03/15/19 20:00 91 03/15/19 20:00 97.8 95 18 108/76 (87) 100 03/15/19 18:52 113 20 97 Nasal Cannula 2.0 03/15/19 18:48 112 20 97 Nasal Cannula 2.0 03/15/19 18:47 97 Nasal Cannula 2.0 03/15/19 16:00 102 03/15/19 16:00 98.7 108 20 101/70 (80) 100 03/15/19 14:40 103 20 98 Nasal Cannula 2.0 03/15/19 14:39 103 20 97 Nasal Cannula 2.0 28 03/15/19 12:00 97.3 126 20 115/83 (94) 100 03/15/19 12:00 121 03/15/19 09:10 105/73 General Appearance: no apparent distress, alert EENT: PERRL/EOMI, normal ENT inspection, TMs normal Neck: non-tender, normal alignment, supple, normal inspection, JVD Rhythm: ST Cardiovascular: normal peripheral pulses, tachycardia, gallop/S4 Respiratory/Chest: chest wall non-tender, lungs clear, normal breath sounds Abdomen: normal bowel sounds, non tender, soft, no organomegaly, no mass Extremities: normal range of motion, non-tender, normal inspection Neurologic: screening representative II-XII grossly normal, no motor/sensory deficits Intake and Output 03/15/19 03/16/19 19:00 07:00 Intake Total 800 ml Output Total 1300 ml 1300 ml Balance -500 ml -1300 ml Intake Oral 800 ml Output Urine Total 1300 ml 1300 ml Aaron uGerra MD Mar 16, 2019 09:02
--- NOTE | 2019-03-16 09:30 | Pulmonology Progress Note ---
Assessment/Plan Assessment/Plan IMPRESSION: 1. Decompensated heart failure. 2. Leukocytosis. 3. Diabetes mellitus. 4. Hypertension. 5. Exacerbation of COPD PLAN: Continue medications including diuresis. continue empiric antibiotics. her serial troponins are negative. Diabetic monitoring. Accu-Cheks. DVT prophylaxis. Dc planning for homr in AM Added Xanax for anxiety Subjective Interval Events: Feeling better Constitutional: Reports: no symptoms HEENT: Repors: no symptoms Respiratory: Reports: no symptoms Cardiovascular: Reports: no symptoms Gastrointestinal/Abdominal: Reports: no symptoms Allergies: Coded Allergies: No Known Allergies (Unverified , 08/21/13) Objective Last 24 Hour Vital Signs Date Time Temp Pulse Resp B/P (MAP) Pulse Ox O2 Delivery O2 Flow Rate FiO2 03/16/19 09:03 76 20 96 Nasal Cannula 2.0 03/16/19 08:59 75 20 95 Nasal Cannula 2.0 03/16/19 08:54 95 Nasal Cannula 2.0 03/16/19 08:43 130/87 03/16/19 08:42 105 130/87 03/16/19 08:00 97.5 105 18 130/87 (101) 96 03/16/19 04:00 101 03/16/19 04:00 97.6 101 18 102/70 (81) 96 03/16/19 00:00 97.9 105 18 100/64 (76) 97 03/15/19 21:00 Nasal Cannula 2.0 03/15/19 20:40 124 117/69 03/15/19 20:00 91 03/15/19 20:00 97.8 95 18 108/76 (87) 100 03/15/19 18:52 113 20 97 Nasal Cannula 2.0 03/15/19 18:48 112 20 97 Nasal Cannula 2.0 03/15/19 18:47 97 Nasal Cannula 2.0 03/15/19 16:00 102 03/15/19 16:00 98.7 108 20 101/70 (80) 100 03/15/19 14:40 103 20 98 Nasal Cannula 2.0 03/15/19 14:39 103 20 97 Nasal Cannula 2.0 03/15/19 12:00 97.3 126 20 115/83 (94) 100 03/15/19 12:00 121 Intake and Output 03/15/19 03/16/19 19:00 07:00 Intake Total 800 ml Output Total 1300 ml 1300 ml Balance -500 ml -1300 ml Intake Oral 800 ml Output Urine Total 1300 ml 1300 ml General Appearance: no acute distress HEENT: normocephalic Respiratory/Chest: chest wall non-tender, lungs clear Abdomen: soft, non tender Current Medications Medications (Trade) Dose Ordered Sig/Cassidy Route PRN Reason Start Time Stop Time Status Last Admin Dose Admin Albuterol Sulfate (Proventil MDI) 2 puff Q6H PRN INH Shortness of Breath 03/14/19 18:00 04/13/19 17:59 03/15/19 14:37 Alprazolam (Xanax) 0.25 mg THREE TIMES A DAY ORAL 03/14/19 19:48 03/21/19 19:47 03/16/19 08:42 Atorvastatin Calcium (Lipitor) 80 mg BEDTIME ORAL 03/14/19 21:00 04/13/19 20:59 03/15/19 20:40 Beclomethasone Dipropionate (Qvar 40 Inhaler) 2 puff TWICE A DAY INH 03/14/19 18:00 04/13/19 17:59 03/16/19 09:02 Carvedilol (Coreg) 3.125 mg EVERY 12 HOURS ORAL 03/15/19 21:00 04/14/19 20:59 03/16/19 08:42 Dextrose (Dextrose 50%) 25 ml Q30M PRN IV Hypoglycemia 03/14/19 17:15 04/13/19 17:14 Dextrose (Dextrose 50%) 50 ml Q30M PRN IV Hypoglycemia 03/14/19 17:15 04/13/19 17:14 Furosemide (Lasix) 20 mg EVERY 12 HOURS IV 03/15/19 21:00 04/14/19 20:59 03/16/19 08:43 Insulin Aspart (NovoLOG) BEFORE MEALS AND HS SUBQ 03/14/19 21:00 04/13/19 20:59 03/15/19 20:42 Levofloxacin 150 ml @ 100 mls/hr Q48H IVPB 03/15/19 13:00 03/22/19 12:59 03/15/19 12:19 Levothyroxine Sodium (Synthroid) 25 mcg DAILY@0630 ORAL 03/15/19 06:30 04/14/19 06:29 03/16/19 05:51 Lisinopril (Zestril) 2.5 mg DAILY ORAL 03/15/19 09:00 04/14/19 08:59 03/16/19 08:43 Metformin HCl (Glucophage) 1,000 mg BID ORAL 03/15/19 09:00 04/14/19 08:59 03/16/19 08:42 Spironolactone (Aldactone) 25 mg DAILY ORAL 03/15/19 09:00 04/14/19 08:59 03/16/19 08:43 Anders Lambert MD Mar 16, 2019 09:30
--- NOTE | 2019-03-16 09:47 | NUR ---
*-* INSURANCE *-* UDPATED CLINICALS AND REVIEWS HAVE BEEN FAXED TO: [facility] F:[phone]
--- NOTE | 2019-03-16 10:30 | NUR ---
NURSE NOTES: Helped Pt. to turn right. Reminder given not to stay on back for long. Cavilon applied on old sacral healed site. Will help turn side to side per protocol to avoid skin breakdown.
[2019-03-16 12:00] VITALS: BP 97/63
--- NOTE | 2019-03-16 15:50 | CDS Physician Query ---
Clarification is required for compliance, coding accuracy, and to reflect severity of illness for this patient Dear Dr. Aaron Guerra Date: 03/16/2019 Program Control Analyst/CDS Name: Marianne Hedrick Clinical Documentation States: HNP: 53-year-old female with a past history of diabetes mellitus and hypertension who came to the hospital with shortness of breath...Decompensated heart failure Echo: Left ventricular ejection fraction estimated to be 15-20% Please Clarify: Acuity [] Acute [] Chronic [] Acute on Chronic Type [] Systolic [] Diastolic [] Systolic & Diastolic (Combined) [] Other: Present on Admission: [] Yes [] No [] Clinically Undetermined Physician signature Date Please also document in your Progress Notes and/or Discharge Summary and indicate if the condition was present on admission. LAURA
[2019-03-16 16:00] VITALS: BP 95/61
--- NOTE | 2019-03-16 16:01 | CDS Physician Query ---
Clarification is required for compliance, coding accuracy, and to reflect severity of illness for this patient Dear Dr. Anders Lambert Date: 03/16/2019 Problem Manager/CDS Name: Marianne Hedrick Clinical Documentation States: HNP: 53-year-old female with a past history of diabetes mellitus and hypertension who came to the hospital with shortness of breath...Decompensated heart failure Labs: creat on 03/14 and 03/15: 1.4 Please respond to the following question: Is there a diagnosis specific to these symptoms or values? If so please state below. PHYSICIAN RESPONSE: [] CKD - please specify stage: [] KENNETH [] Other [] Unknown Present on Admission: [] Yes [] No [] Clinically Undetermined Physician signature Date Please also document in your Progress Notes and/or Discharge Summary and indicate if the condition was present on admission. ELVIRAD
--- NOTE | 2019-03-16 16:06 | NUR ---
CASE MANAGEMENT:REVIEW 03/16/19 SI: AC/CHR CHF. LEUKOCYTOSIS. COPD EXACERBATION 97.8 100 18 97/63 97% ON 2L/NC IS: COREG PO Q12 IV LASIX Q12 IV LEVAQUIN Q48HRS ALDACTONE PO QD LISINOPRIL PO QD QVAR INH BID XANAX PO TID : TELEMETRY STATUS DCP: FROM HOME PLAN: XANAX ADDED FOR ANXIETY PLAN TO DC HOME IN AM
--- NOTE | 2019-03-16 16:09 | NUR ---
NURSE NOTES:Pt presented on admission with dusky discoloration to 3rd through 5th metatarsals of R foot. R 2nd metatarsal is more black in colour and noted to have stable dry eschar at tip of R 2nd metatarsal.Pt stated post CABG all 5 metatarsals R foot became black but gradually colour returned to feet with exception of R 2nd metatarsal. Pt also stated eschar was being debrided by a silver solderer at previous skilled facility. last debridement was done in November 2018 per pt. small scars also noted at base of metatarsals of R foot and per pt scars from Historical surgical repair of Hammer toes. Both heels are dry and callused .Pt is mobile in bed .No other skin concerns noted .Pt educated on wound prevention and good foot care. Encouraged to frequently turn while in bed . Recommendations: Swab R 2nd metatarsal with Betadine Daily. Encourage and assist as needed with repositioning at least every 2hours or as tolerated. Off-load heels with pillow.
--- NOTE | 2019-03-16 16:53 | NUR ---
NURSE NOTES: Informed Dr. Guerra regarding Pt.'s decreased BP after admin Lasix and spironolactone. confirmed Ok to give both. No new orders at this time.
--- NOTE | 2019-03-16 16:56 | NUR ---
NURSE NOTES: Left a message to Dr. Guerra regarding PT eval. Waiting for a call back.
--- NOTE | 2019-03-16 19:42 | NUR ---
HAND-OFF: Report given to ABAD Sharma. Pt. in stable condition.
--- NOTE | 2019-03-16 19:45 | NUR ---
NURSE NOTES: Report received from ABAD Jaquez. Observed pt lying in bed, denies any pain at this time. SR with supervisor stave finishing. On 2L NC, with no signs of SOB. Abd round, soft, and non-tender. IV on RH 22G, SL. Noted sacral DTI with maroon color. Bed in the lowest position. Side rails up x2. Call light within reach. Will continue to monitor.
[2019-03-16 20:00] VITALS: BP 102/65
[2019-03-16] MEDS: Atorvastatin 80mg tab ORAL SCH (20:56)
[2019-03-17] VITALS: BP 106/63
--- NOTE | 2019-03-17 | NUR ---
NURSE NOTES: PT c/o chest pain when lying flat. BP of 110/81, P [address] on EKG noted. Notified and no new order received. Will continue to monitor.
[2019-03-17 04:00] VITALS: BP 105/68
[2019-03-17] MEDS: Levothyroxine 25mcg tab ORAL SCH (06:01)
[2019-03-17] MEDS: NovoLOG Insulin Flexpen SUBQ SCH ×4 (06:01→21:25)
--- NOTE | 2019-03-17 07:40 | NUR ---
HAND-OFF: Report given to ABAD Horton. No acute distress noted at this time.
[2019-03-17 08:00] VITALS: BP 96/64
[2019-03-17] MEDS: Qvar 40mcg Inhaler 6.8 gm INH SCH ×2 (08:20→20:52)
--- NOTE | 2019-03-17 08:37 | Cardiology Progress Note ---
Assessment/Plan Status: stable Assessment/Plan Assessment/Plan Status: stable Assessment/Plan: Assessment: (1) CHF (congestive heart failure) (2) Respiratory insufficiency (3) Cardiomyopathy (4) COPD exacerbation (5) Leukocytosis (6) Hypoxemia (7) Coronary artery disease PLAN: -Aspirin -high dose statin -Echocardiogram reviewed, severe systolic dysfunction -PO lasix and aldactone -Continue coreg 3.125 bid - increase to max tolerated as outpatient -Continue lisinopril 5 mg for afterload reduction -Breathing treatment/steroids/pulmonary toilet -Viability study to be done outpatient/[facility] to determine if revascularization is possible -Patient has ICD - will need to interrogate as outpatient -Recommend JOLLY to evaluate for peripheral vascular disease Subjective Cardiovascular: Reports: no symptoms Respiratory: Reports: no symptoms Gastrointestinal/Abdominal: Reports: no symptoms Genitourinary: Reports: no symptoms Subjective NO acute events, no chest pain, Pulse elevated from breathing treatment, troponin negative. Echo with severe LV dysfunction LVEF 15-20% Breathing improved. Nurses note dusky LE, no swelling, reduce pulse amplitude likely from poor cardiac output Objective Last 24 Hour Vital Signs Date Time Temp Pulse Resp B/P (MAP) Pulse Ox O2 Delivery O2 Flow Rate FiO2 03/17/19 08:22 72 21 97 Nasal Cannula 2.0 28 03/17/19 08:20 72 22 97 Nasal Cannula 2.0 28 03/17/19 07:50 97 Nasal Cannula 2.0 28 03/17/19 04:00 97.5 108 18 105/68 (80) 100 03/17/19 04:00 108 03/17/19 00:00 100 03/17/19 00:00 98.2 105 18 106/63 (77) 100 03/16/19 21:00 Nasal Cannula 2.0 03/16/19 20:58 100 102/65 03/16/19 20:00 100 03/16/19 20:00 97.3 104 20 102/65 (77) 95 03/16/19 19:21 94 20 98 Nasal Cannula 2.0 28 03/16/19 19:21 94 20 98 Nasal Cannula 2.0 28 03/16/19 19:21 98 Nasal Cannula 2.0 28 03/16/19 16:00 97.6 98 20 95/61 (72) 97 03/16/19 16:00 98 03/16/19 12:00 97.8 100 18 97/63 (74) 97 03/16/19 12:00 100 03/16/19 09:03 76 20 96 Nasal Cannula 2.0 28 03/16/19 09:00 Nasal Cannula 2.0 03/16/19 08:59 75 20 95 Nasal Cannula 2.0 28 03/16/19 08:54 95 Nasal Cannula 2.0 28 03/16/19 08:43 130/87 03/16/19 08:42 105 130/87 General Appearance: no apparent distress, alert EENT: PERRL/EOMI, normal ENT inspection, TMs normal, pharynx normal Neck: non-tender, normal alignment, supple, normal inspection, no JVD Rhythm: ST Cardiovascular: normal peripheral pulses, regular rhythm, tachycardia, gallop/ S4 Respiratory/Chest: chest wall non-tender, crackles/rales, expiratory wheezing Abdomen: normal bowel sounds, non tender, soft, no organomegaly, no mass Extremities: normal range of motion, non-tender, normal inspection, slow capillary refill 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
[2019-03-17] MEDS: metFORMIN 500mg tab ORAL SCH ×2 (09:23→18:10)
[2019-03-17] MEDS: ALPRAZolam 0.25mg tab ORAL SCH ×3 (09:24→18:10)
[2019-03-17] MEDS: Spironolactone 25mg tab ORAL SCH (09:24)
[2019-03-17] MEDS: Lisinopril 2.5mg tab ORAL SCH (09:25)
--- NOTE | 2019-03-17 09:50 | NUR ---
CASE MANAGEMENT:REVIEW 03/17/19 SI: CHF. COPD. CAD RESPIRATORY INSUFFICIENCY. HAS AICD 98.3 110 24 96/64 97% ON 2L/NC IS: IV LEVAQUIN Q48 COREG PO Q12 IV LASIX Q12 ALDACTONE PO QD LISINOPRIL PO QD XANAX PO TID QVAR INHALER INH BID : TELEMETRY STATUS DCP: FROM HOME
--- NOTE | 2019-03-17 11:42 | Pulmonology Progress Note ---
Assessment/Plan Assessment/Plan IMPRESSION: 1. Decompensated heart failure. 2. Leukocytosis. 3. Diabetes mellitus. 4. Hypertension. 5. Exacerbation of COPD PLAN: Continue medications including diuresis. continue empiric antibiotics. her serial troponins are negative. Diabetic monitoring. Accu-Cheks. DVT prophylaxis. ECHO noted; EF 15% Dc planning for home in AM 03/18/19 On Xanax for anxiety Subjective Interval Events: Still SOB; requiring O2 Constitutional: Reports: no symptoms HEENT: Repors: no symptoms Respiratory: Reports: shortness of breath Cardiovascular: Reports: no symptoms Gastrointestinal/Abdominal: Reports: no symptoms Genitourinary: Reports: no symptoms Allergies: Coded Allergies: No Known Allergies (Unverified , 08/21/13) Objective Last 24 Hour Vital Signs Date Time Temp Pulse Resp B/P (MAP) Pulse Ox O2 Delivery O2 Flow Rate FiO2 03/17/19 09:25 96/64 03/17/19 09:24 72 96/64 03/17/19 09:00 Nasal Cannula 2.0 03/17/19 08:22 72 21 97 Nasal Cannula 2.0 28 03/17/19 08:20 72 22 97 Nasal Cannula 2.0 28 03/17/19 08:00 108 03/17/19 08:00 98.3 110 24 96/64 (75) 03/17/19 07:50 97 Nasal Cannula 2.0 28 03/17/19 04:00 97.5 108 18 105/68 (80) 100 03/17/19 04:00 108 03/17/19 00:00 100 03/17/19 00:00 98.2 105 18 106/63 (77) 100 03/16/19 21:00 Nasal Cannula 2.0 03/16/19 20:58 100 102/65 03/16/19 20:00 100 03/16/19 20:00 97.3 104 20 102/65 (77) 95 03/16/19 19:21 94 20 98 Nasal Cannula 2.0 28 03/16/19 19:21 94 20 98 Nasal Cannula 2.0 28 03/16/19 19:21 98 Nasal Cannula 2.0 28 03/16/19 16:00 97.6 98 20 95/61 (72) 97 03/16/19 16:00 98 03/16/19 12:00 97.8 100 18 97/63 (74) 97 03/16/19 12:00 100 Intake and Output 03/16/19 03/17/19 19:00 07:00 Intake Total 720 ml 240 ml Output Total 1300 ml 700 ml Balance -580 ml -460 ml Intake Oral 720 ml 240 ml Output Urine Total 1300 ml 700 ml General Appearance: no acute distress HEENT: normocephalic Respiratory/Chest: chest wall non-tender Cardiovascular: normal peripheral pulses, normal rate Abdomen: soft, non tender Current Medications Medications (Trade) Dose Ordered Sig/Cassidy Route PRN Reason Start Time Stop Time Status Last Admin Dose Admin Acetaminophen (Tylenol) 650 mg Q6H PRN ORAL Mild Pain/Temp > 100.5 03/16/19 10:00 04/15/19 09:59 03/16/19 20:57 Albuterol Sulfate (Proventil MDI) 2 puff Q6H PRN INH Shortness of Breath 03/14/19 18:00 04/13/19 17:59 03/15/19 14:37 Alprazolam (Xanax) 0.25 mg THREE TIMES A DAY ORAL 03/14/19 19:48 03/21/19 19:47 03/17/19 09:24 Atorvastatin Calcium (Lipitor) 80 mg BEDTIME ORAL 03/14/19 21:00 04/13/19 20:59 03/16/19 20:56 Beclomethasone Dipropionate (Qvar 40 Inhaler) 2 puff TWICE A DAY INH 03/14/19 18:00 04/13/19 17:59 03/17/19 08:20 Carvedilol (Coreg) 3.125 mg EVERY 12 HOURS ORAL 03/15/19 21:00 04/14/19 20:59 03/17/19 09:24 Dextrose (Dextrose 50%) 25 ml Q30M PRN IV Hypoglycemia 03/14/19 17:15 04/13/19 17:14 Dextrose (Dextrose 50%) 50 ml Q30M PRN IV Hypoglycemia 03/14/19 17:15 04/13/19 17:14 Furosemide (Lasix) 20 mg EVERY 12 HOURS IV 03/15/19 21:00 04/14/19 20:59 03/17/19 09:24 Insulin Aspart (NovoLOG) BEFORE MEALS AND HS SUBQ 03/14/19 21:00 04/13/19 20:59 03/16/19 20:56 Levofloxacin 150 ml @ 100 mls/hr Q48H IVPB 03/15/19 13:00 03/22/19 12:59 03/15/19 12:19 Levothyroxine Sodium (Synthroid) 25 mcg DAILY@0630 ORAL 03/15/19 06:30 04/14/19 06:29 03/17/19 06:01 Lisinopril (Zestril) 2.5 mg DAILY ORAL 03/15/19 09:00 04/14/19 08:59 03/17/19 09:25 Metformin HCl (Glucophage) 1,000 mg BID ORAL 03/15/19 09:00 04/14/19 08:59 03/17/19 09:23 Spironolactone (Aldactone) 25 mg DAILY ORAL 03/15/19 09:00 04/14/19 08:59 03/17/19 09:24 Anders Lambert MD Mar 17, 2019 11:42
--- NOTE | 2019-03-17 11:43 | CDS Physician Query ---
Clarification is required for compliance, coding accuracy, and to reflect severity of illness for this patient Dear Dr. Anders Lambert Date: 03/16/2019 Booster Station Operator/CDS Name: Marianne Hedrick Clinical Documentation States: HNP: 53-year-old female with a past history of diabetes mellitus and hypertension who came to the hospital with shortness of breath...Decompensated heart failure Echo: Left ventricular ejection fraction estimated to be 15-20% Please Clarify: Acuity [] Acute [] Chronic [] Acute on Chronic Type [] Systolic [] Diastolic [] Systolic & Diastolic (Combined) [] Other: Present on Admission: [] Yes [] No [] Clinically Undetermined Physician signature Date Please also document in your Progress Notes and/or Discharge Summary and indicate if the condition was present on admission. LAURA
[2019-03-17 12:00] VITALS: BP 90/54
--- NOTE | 2019-03-17 13:46 | NUR ---
RADIOLOGY DEPT., CHEST X-RAY DONE.-P.DYE
[2019-03-17 16:00] VITALS: BP 100/68
[2019-03-17] MEDS: Albuterol 90mcg Inhaler 8gm INH PRN (16:27)
--- NOTE | 2019-03-17 16:41 | Diagnostic Imaging Report ---
Indication: Abnormal breath sounds Comparison: 03/14/2019 A single view chest radiograph was obtained. Findings: Cardiomegaly and central pulmonary venous congestion demonstrated. There is a pacemaker on the left. Sternotomy noted. Similar findings noted previously. IMPRESSION: CHF/vascular congestion without significant change
--- NOTE | 2019-03-17 16:45 | NUR ---
HAND-OFF: Report given to .LES MELGOZA.
--- NOTE | 2019-03-17 16:49 | NUR ---
*-* INSURANCE *-* UDPATED CLINICALS AND REVIEWS HAVE BEEN FAXED TO: [facility] F:[phone]
[2019-03-17] MEDS ORDERED: Ipratropium 0.02% Inh Soln 2.5ml UD HHN PRN ×2 (18:30→18:45)
--- NOTE | 2019-03-17 18:30 | NUR ---
NURSE NOTES: Dr. Guerra paged for sinus tachycardia(HR: 130/MIN). Pt c/o chest pain but she states that the pain level has been the same as admission. Albuterol HHN D/C'd and changed Atrovent 500mcg HHN Q6 PRN for SOB and order read back and carried out.
--- NOTE | 2019-03-17 19:30 | NUR ---
HAND-OFF: Report given to Sara MELGOZA. Pt remains stable.
--- NOTE | 2019-03-17 19:54 | NUR ---
NURSE NOTES: Received pt from ABAD Durand. Pt asleep. Bed in lowest position. Call light within reach. Will continue to monitor.
[2019-03-17 20:00] VITALS: BP 103/72
[2019-03-17] MEDS: Atorvastatin 80mg tab ORAL SCH (21:24)
[2019-03-18] VITALS: BP 90/66
[2019-03-18] MEDS: ALPRAZolam 0.25mg tab ORAL SCH (02:56)
[2019-03-18 04:00] VITALS: BP 92/65
[2019-03-18] MEDS: Levothyroxine 25mcg tab ORAL SCH (05:27)
[2019-03-18] MEDS: NovoLOG Insulin Flexpen SUBQ SCH (05:32)
[2019-03-18 06:54] LABS: BASOPHILS % (AUTO) 0.7 % (0.0-2.0); EOSINOPHILS % (AUTO) 3.3 % (0.0-3.0); HEMATOCRIT 33.2 % (37.0-47.0); HEMOGLOBIN 10.9 G/DL (12.0-16.0); LYMPHOCYTES % (AUTO) 25.7 % (20.0-45.0); MEAN CORPUSCULAR VOLUME 86 FL (80-99); MONOCYTES % (AUTO) 5.1 % (1.0-10.0); NEUTROPHILS % (AUTO) 65.3 % (45.0-75.0); PLATELET COUNT 216 K/UL (150-450); RED BLOOD COUNT 3.87 M/UL (4.20-5.40); RED CELL DISTRIBUTION WIDTH 11.3 % (11.6-14.8)
[2019-03-18 07:15] LABS: ANION GAP 7 mmol/L (5-15); BLOOD UREA NITROGEN 9 mg/dL (7-18); CALCIUM 8.8 MG/DL (8.5-10.1); CARBON DIOXIDE 26 MMOL/L (21-32); CHLORIDE 107 MMOL/L (98-107); POTASSIUM 3.7 MMOL/L (3.5-5.1); SODIUM 140 MMOL/L (136-145)
--- NOTE | 2019-03-18 07:20 | NUR ---
NURSE NOTES: I received the patient resting in bed. Patient does not display any signs of distress or SOB. Bed in the lowest position and call light within reach. I will continue to monitor the patient and implement care.
[2019-03-18 08:00] VITALS: BP 80/59
--- NOTE | 2019-03-18 08:04 | NUR ---
HAND-OFF: Report given to ABAD Shea. Pt stable.
[2019-03-18] MEDS: Qvar 40mcg Inhaler 6.8 gm INH SCH (08:31)
[2019-03-18] MEDS: metFORMIN 500mg tab ORAL SCH (08:42)
[2019-03-18 08:43] VITALS: BP 101/69
[2019-03-18] MEDS: Lisinopril 2.5mg tab ORAL SCH (09:00)
--- NOTE | 2019-03-18 09:21 | Pulmonology Progress Note ---
Assessment/Plan Assessment/Plan IMPRESSION: 1. Decompensated heart failure. 2. Leukocytosis. 3. Diabetes mellitus. 4. Hypertension. 5. Exacerbation of COPD PLAN: Dc home Outpt fopllow up Subjective Interval Events: Much better Constitutional: Reports: no symptoms HEENT: Repors: no symptoms Respiratory: Reports: no symptoms Cardiovascular: Reports: no symptoms Gastrointestinal/Abdominal: Reports: no symptoms Genitourinary: Reports: no symptoms Neurologic: Reports: no symptoms Allergies: Coded Allergies: No Known Allergies (Unverified , 08/21/13) Objective Last 24 Hour Vital Signs Date Time Temp Pulse Resp B/P (MAP) Pulse Ox O2 Delivery O2 Flow Rate FiO2 03/18/19 09:00 Nasal Cannula 2.0 03/18/19 08:43 109 101/69 (80) 03/18/19 08:32 70 18 97 Nasal Cannula 2.0 28 03/18/19 08:32 70 18 97 Nasal Cannula 2.0 28 03/18/19 08:00 105 03/18/19 08:00 98.7 112 18 80/59 (66) 97 03/18/19 06:48 97 Nasal Cannula 2.0 28 03/18/19 04:44 91 18 99 Nasal Cannula 2.0 28 03/18/19 04:34 87 16 96 Nasal Cannula 2.0 28 03/18/19 04:00 130 03/18/19 04:00 97.9 108 18 92/65 (74) 100 03/18/19 00:00 104 03/18/19 00:00 98.1 109 18 90/66 (74) 100 03/17/19 21:24 101 103/72 03/17/19 21:00 Nasal Cannula 2.0 03/17/19 20:52 101 20 99 Nasal Cannula 2.0 28 03/17/19 20:51 99 Nasal Cannula 2.0 03/17/19 20:50 103 20 99 Nasal Cannula 2.0 28 03/17/19 20:00 98.1 132 18 103/72 (82) 100 03/17/19 20:00 129 03/17/19 16:27 89 18 98 Nasal Cannula 2.0 28 03/17/19 16:27 90 16 97 Nasal Cannula 2.0 28 03/17/19 16:00 97.7 116 22 100/68 (79) 100 03/17/19 16:00 114 7/11/19 12:00 117 03/17/19 12:00 98.2 112 22 90/54 (66) 98 03/17/19 09:25 96/64 03/17/19 09:24 72 96/64 Intake and Output 03/17/19 03/18/19 18:59 06:59 Output Total 400 ml 1800 ml Balance -400 ml -1800 ml Output Urine Total 400 ml 1800 ml # Voids 6 General Appearance: no acute distress HEENT: normocephalic Respiratory/Chest: chest wall non-tender, lungs clear Cardiovascular: normal peripheral pulses, normal rate Abdomen: normal bowel sounds Laboratory Tests 03/18/19 04:49: White Blood Count 7.0, Red Blood Count 3.87L, Hemoglobin 10.9L, Hematocrit 33.2L , Mean Corpuscular Volume 86, Mean Corpuscular Hemoglobin 28.0, Mean Corpuscular Hemoglobin Concent 32.7, Red Cell Distribution Width 11.3L, Platelet Count 216, Mean Platelet Volume 7.8, Neutrophils (%) (Auto) 65.3, Lymphocytes (%) (Auto) 25.7, Monocytes (%) (Auto) 5.1, Eosinophils (%) (Auto) 3.3H, Basophils (%) (Auto) 0.7, Sodium Level 140, Potassium Level 3.7, Chloride Level 107, Carbon Dioxide Level 26, Anion Gap 7, Blood Urea Nitrogen 9, Creatinine 1.0, Estimat Glomerular Filtration Rate > 60, Glucose Level 187H, Calcium Level 8.8 Current Medications Medications (Trade) Dose Ordered Sig/Cassidy Route PRN Reason Start Time Stop Time Status Last Admin Dose Admin Acetaminophen (Tylenol) 650 mg Q6H PRN ORAL Mild Pain/Temp > 100.5 03/16/19 10:00 04/15/19 09:59 03/16/19 20:57 Alprazolam (Xanax) 0.25 mg THREE TIMES A DAY ORAL 03/14/19 19:48 03/21/19 19:47 03/18/19 02:56 Atorvastatin Calcium (Lipitor) 80 mg BEDTIME ORAL 03/14/19 21:00 04/13/19 20:59 03/17/19 21:24 Beclomethasone Dipropionate (Qvar 40 Inhaler) 2 puff TWICE A DAY INH 03/14/19 18:00 04/13/19 17:59 03/18/19 08:31 Carvedilol (Coreg) 3.125 mg EVERY 12 HOURS ORAL 03/15/19 21:00 04/14/19 20:59 03/17/19 21:24 Dextrose (Dextrose 50%) 25 ml Q30M PRN IV Hypoglycemia 03/14/19 17:15 04/13/19 17:14 Dextrose (Dextrose 50%) 50 ml Q30M PRN IV Hypoglycemia 03/14/19 17:15 04/13/19 17:14 Furosemide (Lasix) 20 mg EVERY 12 HOURS IV 03/15/19 21:00 04/14/19 20:59 03/17/19 21:24 Insulin Aspart (NovoLOG) BEFORE MEALS AND HS SUBQ 03/14/19 21:00 04/13/19 20:59 03/18/19 05:32 Ipratropium [place] (Atrovent) 500 mcg Q6H PRN HHN Shortness of Breath 03/17/19 18:30 03/22/19 18:29 03/18/19 04:34 Levofloxacin 150 ml @ 100 mls/hr Q48H IVPB 03/15/19 13:00 03/22/19 12:59 03/17/19 12:32 Levofloxacin (Levaquin) 750 mg Q48H ORAL 03/19/19 09:00 03/22/19 08:59 Levothyroxine Sodium (Synthroid) 25 mcg DAILY@0630 ORAL 03/15/19 06:30 04/14/19 06:29 03/18/19 05:27 Lisinopril (Zestril) 2.5 mg DAILY ORAL 03/15/19 09:00 04/14/19 08:59 03/17/19 09:25 Metformin HCl (Glucophage) 1,000 mg BID ORAL 03/15/19 09:00 04/14/19 08:59 03/18/19 08:42 Spironolactone (Aldactone) 25 mg DAILY ORAL 03/15/19 09:00 04/14/19 08:59 03/17/19 09:24 Anders Lambert MD Mar 18, 2019 09:21
[2019-03-18] MEDS ORDERED: FUROSEMIDE40 MG ORAL (09:22)
[2019-03-18] MEDS: Spironolactone 25mg tab ORAL SCH (09:34)
--- NOTE | 2019-03-18 11:44 | Cardiology Progress Note ---
Assessment/Plan Status: stable, progressing Assessment/Plan Assessment/Plan Status: stable Assessment/Plan: Assessment: (1) CHF (congestive heart failure) (2) Respiratory insufficiency (3) Cardiomyopathy (4) COPD exacerbation (5) Leukocytosis (6) Hypoxemia (7) Coronary artery disease PLAN: -Aspirin -high dose statin -Echocardiogram reviewed, severe systolic dysfunction -PO lasix and aldactone -Continue coreg 3.125 bid - increase to max tolerated as outpatient -Continue lisinopril 5 mg for afterload reduction -Breathing treatment/steroids/pulmonary toilet -Viability [facility] be done [facility] determine if [facility] is possible -Patient has ICD - will need to interrogate as outpatient -Recommend JOLLY to evaluate for peripheral vascular disease - can do as outpatient -Ok to d/c home today Subjective Cardiovascular: Reports: no symptoms Respiratory: Reports: no symptoms Gastrointestinal/Abdominal: Reports: no symptoms Genitourinary: Reports: no symptoms Subjective NO acute events, no chest pain, Pulse elevated from breathing treatment, troponin negative. Echo with severe LV dysfunction LVEF 15-20% Breathing improved. Nurses note dusky LE, no swelling, reduce pulse amplitude likely from poor cardiac output Objective Last 24 Hour Vital Signs Date Time Temp Pulse Resp B/P (MAP) Pulse Ox O2 Delivery O2 Flow Rate FiO2 03/18/19 09:00 Nasal Cannula 2.0 03/18/19 09:00 109 101/69 03/18/19 09:00 101/69 03/18/19 08:43 109 101/69 (80) 03/18/19 08:32 70 18 97 Nasal Cannula 2.0 28 03/18/19 08:32 70 18 97 Nasal Cannula 2.0 28 03/18/19 08:00 105 03/18/19 08:00 98.7 112 18 80/59 (66) 97 03/18/19 06:48 97 Nasal Cannula 2.0 28 03/18/19 04:44 91 18 99 Nasal Cannula 2.0 28 03/18/19 04:34 87 16 96 Nasal Cannula 2.0 28 03/18/19 04:00 130 03/18/19 04:00 97.9 108 18 92/65 (74) 100 03/18/19 00:00 104 03/18/19 00:00 98.1 109 18 90/66 (74) 100 03/17/19 21:24 101 103/72 03/17/19 21:00 Nasal Cannula 2.0 03/17/19 20:52 101 20 99 Nasal Cannula 2.0 28 03/17/19 20:51 99 Nasal Cannula 2.0 28 03/17/19 20:50 103 20 99 Nasal Cannula 2.0 28 03/17/19 20:00 98.1 132 18 103/72 (82) 100 03/17/19 20:00 129 03/17/19 16:27 89 18 98 Nasal Cannula 2.0 28 03/17/19 16:27 90 16 97 Nasal Cannula 2.0 28 03/17/19 16:00 97.7 116 22 100/68 (79) 100 03/17/19 16:00 114 03/17/19 12:00 117 03/17/19 12:00 98.2 112 22 90/54 (66) 98 General Appearance: no apparent distress, alert EENT: PERRL/EOMI, normal ENT inspection, TMs normal, pharynx normal Neck: non-tender, normal alignment, supple, normal inspection, no JVD Rhythm: NSR Cardiovascular: normal peripheral pulses, normal rate, regular rhythm Respiratory/Chest: chest wall non-tender, lungs clear, normal breath sounds Abdomen: normal bowel sounds, non tender, soft, no organomegaly, no mass Extremities: normal range of motion, non-tender, normal inspection, no calf tenderness, no swelling 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 normal, no motor/sensory deficits Intake and Output 03/17/19 03/18/19 19:00 07:00 Output Total 400 ml 1800 ml Balance -400 ml -1800 ml Output Urine Total 400 ml 1800 ml # Voids 6 Laboratory Tests Test 03/18/19 04:49 White Blood Count 7.0 K/UL (4.8-10.8) Red Blood Count 3.87 M/UL (4.20-5.40) L Hemoglobin 10.9 G/DL (12.0-16.0) L Hematocrit 33.2 % (37.0-47.0) L Mean Corpuscular Volume 86 FL (80-99) Mean Corpuscular Hemoglobin 28.0 PG (27.0-31.0) Mean Corpuscular Hemoglobin Concent 32.7 G/DL (32.0-36.0) Red Cell Distribution Width 11.3 % (11.6-14.8) L Platelet Count 216 K/UL (150-450) Mean Platelet Volume 7.8 FL (6.5-10.1) Neutrophils (%) (Auto) 65.3 % (45.0-75.0) Lymphocytes (%) (Auto) 25.7 % (20.0-45.0) Monocytes (%) (Auto) 5.1 % (1.0-10.0) Eosinophils (%) (Auto) 3.3 % (0.0-3.0) H Basophils (%) (Auto) 0.7 % (0.0-2.0) Sodium Level 140 MMOL/L (136-145) Potassium Level 3.7 MMOL/L (3.5-5.1) Chloride Level 107 MMOL/L (98-107) Carbon Dioxide Level 26 MMOL/L (21-32) Anion Gap 7 mmol/L (5-15) Blood Urea Nitrogen 9 mg/dL (7-18) Creatinine 1.0 MG/DL (0.55-1.30) Estimat Glomerular Filtration Rate > 60 mL/min (>60) Glucose Level 187 MG/DL (74-106) H Calcium Level 8.8 MG/DL (8.5-10.1) Aaron Guerra MD Mar 18, 2019 11:44
[2019-03-18 12:00] VITALS: BP 95/65
--- NOTE | 2019-03-18 12:09 | NUR ---
NURSE NOTES: Patient discharged in stable condition. Patient's IV removed and the IV site did not display any signs of bleeding or redness. Patient confirmed she was in possession of all her belongings. Patient provided with discharge instructions and a prescription. Patient was transported to the [facility] in a wheelchair and transported home in a private vehicle. Patient was alert and oriented x4 and did not display any signs of distress or SOB.
--- NOTE | 2019-03-18 12:51 | NUR ---
P.T Note: late entry 03/17/19 1130 P.T evaluation completed and tx initiated. Please refer to P.T evaluation for current functional status. Pt is alert, oriented x 4, pleasant and cooperative. Pt denied pain however reports c/o generalized weakness and fatigue. Pt currently require MIN A X 1 and extended on bed mobility and transfer mobility tasks. Pt was able to ambulate 10 ft using the FWW , MIN A x 1 with c/o fatigue but no SOB. BP: was 87/64 mmhg however asymptomatic. SKilled P.T service is warranted to increase her strength , endurance and balance to increase her mobility independence and safety. Recommend home P.T at [place].
--- NOTE | 2019-03-18 12:57 | NUR ---
NURSE NOTES: Information faxed for [employer] Vest to .
[2019-03-18] MEDS ORDERED: Levofloxacin 750mg tab ORAL SCH (13:00)
--- NOTE | 2019-03-18 15:54 | NUR ---
INSURANCE UPDATED CLINICALS and REVIEW HAVE BEEN FAXED TO: JENN [facility]ERDA (PROFESSIONAL) P: [phone] F: [phone] (FAX CLINICALS) [facility] FAX CLINICALS TO: [phone] PLEASE FAX THE REVIEW AND CLINICAL TO
--- NOTE | 2019-03-18 16:00 | Cardiology Report ---
APPROVED REPORT EKG Measurement Heart [id number] [place] P23 [id number] Sinus tachycardia with occasional premature ventricular complexes Left axis deviation Anterior infarct, age undetermined Abnormal ECG
--- NOTE | 2019-03-20 11:55 | Discharge Summary ---
Discharge Summary Discharge Summary _ DATE OF ADMISSION: 03/14/2019 DATE OF DISCHARGE: 03/18/2019 DISCHARGED BY: Dr. Lambert REASON FOR ADMISSION: 63 years old female with past medical history of hypertension, hyperlipidemia, diabetes mellitus, coronary artery disease, status post OR, congestive heart failure, defibrillator, questionable asthma, presented to the hospital with shortness of breath. Per EMS patient noted to be wheezing and received breathing treatment en route to the hospital. Patient somewhat improved, but still felt short of breath. She also reported chest pain initially, but denied chest pain upon presentation to emergency department. Patient reported that she had a defibrillator in place. No fever, no chills. No cough. Upon evaluation patient was hypoxic and required simple mask to keep pulse oximetry at 100%. Laboratory work-up revealed significant leukocytosis WBC 18.7, stable hemoglobin and hematocrit. Troponin- 0.001. Stable electrolytes. BUN 31, creatinine 1.4. Glucose 169. Stable LFT. Pro BNP 669. CK 97. Albumin 3.7. EKG revealed sinus tachycardia , no acute ischemic changes. Chest x-ray revealed evidence of left chest unifocal automatic implantable cardiac defibrillator. Noted cardiomegaly with mild interstitial edema. In emergency department patient received 1 dose of diuretic and started on empiric antibiotic Patient subsequently admitted for further evaluation and management to telemetry floor. CONSULTANTS: stock trader dr. Guerra HOSPITAL COURSE: Patient admitted to telemetry floor. Director Of Patient Care followed. Echocardiogram demonstrated global left ventricular hypokinesis with left ventricular ejection fraction estimated to be 15 to 20%. No evidence of left ventricular hypertrophy. Pacing wires in right ventricle. Right ventricular function appeared normal in the subcostal images. The study was technically difficult due to poor acoustic windows and very poor endocardial and valvular definition. Right ventricular systolic pressure of 27. Supplemental oxygen provided as needed to keep pulse oximetry above 92%. Pulmonary toilet provided as needed. Patient provided with bronchodilator treatment with Xopenex [id number] and as needed via handheld nebulizing therapy. Patient was started on Qvar. Repeated troponin was negative. EKG revealed no acute ischemic changes. Patient was ruled out for acute myocardial infarction. Patient was on antiplatelet therapy with aspirin and high-dose statin. Diuresis provided with IV Lasix twice daily and Aldactone. Volumes and renal parameters were closely monitored. Guideline directed medical therapy for congestive heart failure with reduced ejection fraction continued with beta-hiro, PHILIPPE inhibitor, Lasix and Aldactone. Director Of Patient Care recommended to increase beta-hiro to maximum dose as tolerated as outpatient. Director Of Patient Care recommended outpatient interrogation of ICD. Patient will need JOLLY/arterial brachial index/ study to evaluate for peripheral vascular disease , which can be done as outpatient. Director Of Patient Care also recommended a viability study to be done as outpatient at [facility] to determine if revascularization was possible. Patient started on empiric antibiotic due to leukocytosis. Leukocytosis resolved, no fever. Antibiotic stopped. Follow-up chest x-ray revealed CHF/pulmonary vascular congestion without significant changes. Blood sugar was managed with sliding scale of insulin. Synthroid continued. Renal parameters and electrolytes were closely monitored. Creatinine from 1.4 down to 1.0 and BUN from 21 down to 9 prior to discharge. Patient clinically stabilized and was ready for discharge home with outpatient follow-up with primary care provider and stock trader. FINAL DIAGNOSES: Congestive heart failure , decompensated Cardiomyopathy with ejection fraction 15 to 20% COPD exacerbation Leukocytosis-resolved Coronary artery disease Respiratory insufficiency with hypoxemia- improved Diabetes mellitus Hypertension Renal insufficiency /acute kidney injury-present on admission DISCHARGE MEDICATIONS: See Medication Reconciliation list. DISCHARGE INSTRUCTIONS: Patient was discharged home. Follow up with primary care provider in one week. Follow-up with stock trader as outpatient. I have been assigned to dictate discharge summary for this account. I was not involved in the patient's management. Katelyn Alfaro NP Mar 20, 2019 11:55
--- NOTE | 2019-03-21 10:00 | NUR ---
*-* INSURANCE *-* DISCHARGE SUMMARY HAS BEEN FAXED TO: JENN CERDA (PROFESSIONAL) P: [phone] F: [phone] (FAX CLINICALS) & [facility] FAX CLINICALS TO: [phone] PLEASE FAX THE REVIEW AND CLINICAL TO
== END 2019-03-18 12:12 | disposition home or self-care (01) | DRG 194 ==
LOC: EDBD 11:44 → EMR 12:20 → 2E 13:16 → EDBEDREQ 15:02 → 2E 03-15 10:33
DX: I13.0 Hypertensive heart and chronic kidney disease with heart failure and stage 1 through stage 4 chronic kidney disease, or unspecified chronic kidney disease (principal); N17.9 Acute kidney failure, unspecified; E11.22 Type 2 diabetes mellitus with diabetic chronic kidney disease; I42.9 Cardiomyopathy, unspecified; J44.1 Chronic obstructive pulmonary disease with (acute) exacerbation; N18.3 Chronic kidney disease, stage 3 (moderate); I50.23 Acute on chronic systolic (congestive) heart failure; R09.02 Hypoxemia; E11.9 Type 2 diabetes mellitus without complications; I25.10 Atherosclerotic heart disease of native coronary artery without angina pectoris; N18.9 Chronic kidney disease, unspecified; Z79.4 Long term (current) use of insulin
CPT/HCPCS: 36415; 71045; 80048; 80053; 82550; 82553; 82962; 83880; 84484; 85007; 85025; 93005; 93306; 94640; 94664; 96365; 96375; 99285; J1815

== ENCOUNTER 2019-03-19 16:44 | Inpatient (IN) | payer MEDICARE, MEDICAID ==
[~2019-03-19] VITALS: Ht 170.2 cm; Wt 105.7 kg
[~2019-03-19 16:44] MED LIST changes: +ATROVENT HFA12.9 GM IH; +CARVEDILOL3.125 MG ORAL; +FLOVENT2 PUFF1 INH; +HUMALOG100 UNIT/4 SUBQ; +LEVOTHYROXINE75 MCG ORAL
--- NOTE | 2019-03-19 16:59 | Emergency Room Report ---
History of Present Illness General Chief Complaint: Dyspnea/Respdistress Source: Medical Record, EMS Present Illness HPI 63-year-old female, past no history of CHF, hypertension, multiple comorbidities , presents with chest pressure that comes and goes, worsened with exertion, alleviated with rest, patient states she was just discharged, chart review shows she was just discharged, in stable condition, she started having symptoms prior to arrival, was brought in by EMS, she denies any nausea, she does endorse some shortness of breath, no diaphoresis, patient presents for evaluation Allergies: Coded Allergies: No Known Allergies (Unverified , 08/21/13) Patient History Past Medical History: see triage record Reviewed Nursing Documentation: PMH: Agreed; PSxH: Agreed Nursing Documentation-PMH Past Medical History: No History, Except For Hx Cardiac Problems: Yes - CHF, open heart surgery 2018 Hx Hypertension: Yes Hx Pacemaker: Yes - defibrillator Hx Asthma: Yes Hx COPD: Yes Hx Diabetes: Yes Hx Cancer: No Hx Neurological Problems: No Review of Systems Constitutional: Denies: chills, fever Eye: Denies: blurred vision, double vision ENT: Denies: throat pain, nasal discharge Respiratory: Reports: shortness of breath; Denies: cough Cardiovascular: Reports: chest pain, palpitations Gastrointestinal: Denies: abdominal pain, diarrhea, nausea, vomiting Genitourinary: Denies: dysuria, pain Musculoskeletal: Denies: back pain, muscle pain Skin: Denies: rash, lesions Neurological: Denies: headache, focal weakness Hematologic/Lymphatic: Denies: easy bleeding, easy bruising All Other Systems: negative except mentioned in HPI Physical Exam Vital Signs Date Time Temp Pulse Resp B/P (MAP) Pulse Ox O2 Delivery O2 Flow Rate FiO2 03/19/19 16:37 97.9 128 19 95/71 (79) 99 Room Air Sp02 EP Interpretation: reviewed, normal General Appearance: well appearing, no apparent distress, alert Head: normocephalic, atraumatic Eyes: bilateral eye PERRL, bilateral eye EOMI ENT: uvula midline, moist mucus membranes Neck: supple, thyroid normal, supple/symm/no masses Respiratory: no respiratory distress, no retraction, no accessory muscle use, crackles - Some crackles right base Cardiovascular #1: normal peripheral pulses, no gallop, no murmur, tachycardia Gastrointestinal: non tender, soft, no guarding, no rebound Musculoskeletal: normal inspection Neurologic: alert, oriented x3 Psychiatric: mood/affect normal Skin: no rash, warm/dry Medical Decision Making Diagnostic Impression: Primary Impression: Chest pain Additional Impressions: CHF (congestive heart failure) SOB (shortness of breath) Acute kidney injury ER Course 63-year-old female multiple comorbidities presents with symptoms of chest pain, shortness of breath, concerns for ACS, pneumonia. Patient found to have crackles on exam, consistent with CHF exacerbation, patient also with an acute kidney injury, will admit patient to stepdown unit for observation Lasix given, antibiotics given. Patient endorsed to inpatient doctor Laboratory Tests Test 03/19/19 17:00 03/19/19 17:29 White Blood Count 13.8 K/UL (4.8-10.8) H Red Blood Count 4.29 M/UL (4.20-5.40) Hemoglobin 12.3 G/DL (12.0-16.0) Hematocrit 39.3 % (37.0-47.0) Mean Corpuscular Volume 92 FL (80-99) Mean Corpuscular Hemoglobin 28.7 PG (27.0-31.0) Mean Corpuscular Hemoglobin Concent 31.3 G/DL (32.0-36.0) L Red Cell Distribution Width 14.8 % (11.6-14.8) Platelet Count 324 K/UL (150-450) Mean Platelet Volume 5.8 FL (6.5-10.1) L Neutrophils (%) (Auto) 76.5 % (45.0-75.0) H Lymphocytes (%) (Auto) 17.3 % (20.0-45.0) L Monocytes (%) (Auto) 3.9 % (1.0-10.0) Eosinophils (%) (Auto) 0.8 % (0.0-3.0) Basophils (%) (Auto) 1.5 % (0.0-2.0) Sodium Level 138 MMOL/L (136-145) Potassium Level 4.6 MMOL/L (3.5-5.1) Chloride Level 100 MMOL/L (98-107) Carbon Dioxide Level 26 MMOL/L (21-32) Anion Gap 12 mmol/L (5-15) Blood Urea Nitrogen 47 mg/dL (7-18) H Creatinine 1.7 MG/DL (0.55-1.30) H Estimate Glomerular Filtration Rate 36.6 mL/min (>60) Glucose Level 112 MG/DL (74-106) H Calcium Level 9.2 MG/DL (8.5-10.1) Total Bilirubin 0.2 MG/DL (0.2-1.0) Aspartate Amino Transferase (AST) 22 U/L (15-37) Alanine Aminotransferase (ALT) 25 U/L (12-78) Alkaline Phosphatase 92 U/L (46-116) Total Creatine Kinase 112 U/L (26-308) Creatine Kinase MB 1.8 NG/ML (0.0-3.6) Creatine Kinase MB Relative Index 1.6 Troponin I 0.025 ng/mL (0.000-0.056) Pro-B-Type Natriuretic Peptide 2020 pg/mL (0-125) H Total Protein 7.9 G/DL (6.4-8.2) Albumin 3.9 G/DL (3.4-5.0) Globulin 4.0 g/dL Albumin/Globulin Ratio 1.0 (1.0-2.7) Urine Color Pale yellow Urine Appearance Clear Urine pH 5 (4.5-8.0) Urine Specific Mcdaniels 1.010 (1.005-1.035) Urine Protein 1+ (NEGATIVE) H Urine Glucose (UA) Negative (NEGATIVE) Urine Ketones 1+ (NEGATIVE) H Urine Blood Negative (NEGATIVE) Urine Nitrite Negative (NEGATIVE) Urine Bilirubin Negative (NEGATIVE) Urine Urobilinogen 1 MG/DL (0.0-1.0) H Urine Leukocyte Esterase 1+ (NEGATIVE) H Urine RBC 0-2 /HPF (0 - 2) Urine WBC 2-4 /HPF (0 - 2) Urine Squamous Epithelial Cells Moderate /LPF (NONE/OCC) H Urine Bacteria Few /HPF (NONE) Lab Results Impression KENNETH EKG Diagnostic Results EKG Time: 16:49 EP Interpretation: Sinus tachycardia, rate 128, QTc 475, no acute ST elevations , left axis dev Rate: tachycardiac ST Segments: no acute changes ASA given to the pt in ED: Yes Rhythm Strip Diag. Results Rhythm Strip Time: 16:59 EP Interpretation: yes Rate: 126 Rhythm: no PVC's, no ectopy, other - Sinus tachycardia Last Vital Signs Date Time Temp Pulse Resp B/P (MAP) Pulse Ox O2 Delivery O2 Flow Rate FiO2 03/19/19 16:37 97.9 128 19 95/71 (79) 99 Room Air Disposition: ADMITTED INPATIENT Condition: Improved Alfie Barreto M.D. Mar 19, 2019 16:59
[2019-03-19 17:00] VITALS: BP 90/70
[2019-03-19] MEDS ORDERED: Nitroglycerin 2% oint pkt TOPIC ONE (17:00)
--- NOTE | 2019-03-19 17:00 | NUR ---
ED Nurse Note: pt was brought in by ambulance c/o shortness of breath. pt was dc in the hospital few days ago. pt stated she feels short of breath when walking, and has that symptom like when he was admitted in the past. pt has defibrilator attached to her, seen by gustavo. iv stablished in pt right hand. blood drawn and sent to lab. will continue to monitor.
--- NOTE | 2019-03-19 17:07 | NUR ---
ED Nurse Note: pt medicated as ordered. pt bp 90/70, ermd rinku hogan and dc nitroglycerin patch. aspirin po given and pt able to tolerate. will continue to monitor
[2019-03-19 17:34] LABS: BASOPHILS % (AUTO) 1.5 % (0.0-2.0); EOSINOPHILS % (AUTO) 0.8 % (0.0-3.0); HEMATOCRIT 39.3 % (37.0-47.0); HEMOGLOBIN 12.3 G/DL (12.0-16.0); LYMPHOCYTES % (AUTO) 17.3 % (20.0-45.0); MEAN CORPUSCULAR VOLUME 92 FL (80-99); MONOCYTES % (AUTO) 3.9 % (1.0-10.0); NEUTROPHILS % (AUTO) 76.5 % (45.0-75.0); PLATELET COUNT 324 K/UL (150-450); RED BLOOD COUNT 4.29 M/UL (4.20-5.40); RED CELL DISTRIBUTION WIDTH 14.8 % (11.6-14.8); WHITE BLOOD COUNT 13.8 K/UL (4.8-10.8)
[2019-03-19 17:45] LABS: APPEARANCE,URINE CLEAR; BILIRUBIN, URINE NEGATIVE (NEGATIVE); COLOR,URINE PALE YELLOW; GLUCOSE, URINE (UA) NEGATIVE (NEGATIVE); KETONES,URINE 1+ (NEGATIVE); LEUKOCYTE ESTERASE ,URINE 1+ (NEGATIVE); NITRITE,URINE NEGATIVE (NEGATIVE); PH,URINE 5 (4.5-8.0); PROTEIN,URINE 1+ (NEGATIVE); UROBILINOGEN,URINE 1 MG/DL (0.0-1.0)
[2019-03-19] MEDS ORDERED: Metoprolol 5mg/5ml Inj IVP ONE (17:45)
[2019-03-19 17:47] LABS: ANION GAP 12 mmol/L (5-15); BLOOD UREA NITROGEN 47 mg/dL (7-18); CALCIUM 9.2 MG/DL (8.5-10.1); CARBON DIOXIDE 26 MMOL/L (21-32); CHLORIDE 100 MMOL/L (98-107); CREATININE 1.7 MG/DL (0.55-1.30); POTASSIUM 4.6 MMOL/L (3.5-5.1); SODIUM 138 MMOL/L (136-145)
[2019-03-19 18:02] LABS: ALANINE AMINOTRANSFERASE 25 U/L (12-78); ALBUMIN 3.9 G/DL (3.4-5.0); ALKALINE PHOSPHATASE 92 U/L (46-116); ASPARTATE AMINO TRANSFERASE 22 U/L (15-37); BILIRUBIN,TOTAL 0.2 MG/DL (0.2-1.0); CKMB 1.8 NG/ML (0.0-3.6); CREATINE KINASE 112 U/L (26-308)
[2019-03-19] MEDS ORDERED: cefTRIAXone 1 GM in NS 55 ML IVPB ONE (18:15)
[2019-03-19 18:51] VITALS: BP 107/74
[2019-03-19 19:45] VITALS: BP 97/70
--- NOTE | 2019-03-19 19:45 | NUR ---
ED Nurse Note: Patient is relaxing, no one at bedside. vital signs stable and updated.
--- NOTE | 2019-03-19 20:15 | NUR ---
NURSE NOTES: Received patient from ER Nurse Bertha MELGOZA. Patient is awake and oriented x4. She is receiving oxygen via Nasal Cannula at 3L/min, tolerating well. IV site is Right hand 20g, patent and intact. Purewick is patent and draining. Heart Monitor is on and tracing. Bed is locked, placed in lowest position, side rails up x3, bed alarm on, call light within reach. Will continue to monitor.
--- NOTE | 2019-03-19 20:55 | NUR ---
ED Nurse Note: Patient reports abdominal pain on the right abdomen 04/16, ERMd informed. No orders from this department pending.
--- NOTE | 2019-03-19 21:40 | NUR ---
ED Nurse Note: Report called in to Omid RN. Still awaiting packet.
--- NOTE | 2019-03-19 22:00 | NUR ---
ED Nurse Note: Patient transported to floor by sewing pattern layout technician and RN without incident.
[2019-03-19 22:14] VITALS: BP 100/73
[2019-03-20] VITALS: BP 99/72
[2019-03-20] MEDS: Nitroglycerin Subl 0.4mg tab SL PRN ×4 (00:03→23:45)
--- NOTE | 2019-03-20 00:18 | NUR ---
NURSE NOTES: Patient complained of chest pain, after 0.4mg of Nitroglycerin sublingual was given, patient was relieved of chest pain. EKG was done and will notify professional driver.
--- NOTE | 2019-03-20 02:16 | NUR ---
NURSE NOTES: Patient complained of chest pain. 0.4mg of nitroglycerin sublingual was given. Will continue to monitor.
--- NOTE | 2019-03-20 02:28 | NUR ---
NURSE NOTES: After 0.8mg of nitroglycerin, patient no longer has symptoms of chest pain.
[2019-03-20 04:00] VITALS: BP 107/70
[2019-03-20] MEDS: NovoLOG Insulin Flexpen SUBQ SCH ×4 (06:25→20:36)
[2019-03-20 06:54] LABS: BASOPHILS % (AUTO) 0.9 % (0.0-2.0); EOSINOPHILS % (AUTO) 0.8 % (0.0-3.0); HEMATOCRIT 39.3 % (37.0-47.0); HEMOGLOBIN 12.8 G/DL (12.0-16.0); LYMPHOCYTES % (AUTO) 23.4 % (20.0-45.0); MEAN CORPUSCULAR VOLUME 90 FL (80-99); MONOCYTES % (AUTO) 4.8 % (1.0-10.0); NEUTROPHILS % (AUTO) 70.1 % (45.0-75.0); PLATELET COUNT 309 K/UL (150-450); RED BLOOD COUNT 4.37 M/UL (4.20-5.40); RED CELL DISTRIBUTION WIDTH 14.8 % (11.6-14.8); WHITE BLOOD COUNT 14.1 K/UL (4.8-10.8)
[2019-03-20 07:02] LABS: ANION GAP 11 mmol/L (5-15); BLOOD UREA NITROGEN 46 mg/dL (7-18); CALCIUM 9.5 MG/DL (8.5-10.1); CARBON DIOXIDE 30 MMOL/L (21-32); CHLORIDE 103 MMOL/L (98-107); CREATININE 1.7 MG/DL (0.55-1.30); POTASSIUM 4.3 MMOL/L (3.5-5.1); SODIUM 143 MMOL/L (136-145)
--- NOTE | 2019-03-20 07:34 | NUR ---
HAND-OFF: Report given to Leonid MELGOZA. Patient in stable condition.
--- NOTE | 2019-03-20 07:57 | NUR ---
NURSE NOTES: Report received from ABAD Marcos. Patient awake and having breakfast. AOx4. Denies chest pain at this time. On 3L NC. IV flushed, SL. Bed on lowest position, side rails upx2, brakes engaged. Call light within easy reach.
[2019-03-20 08:00] VITALS: BP 107/75
[2019-03-20] MEDS ORDERED: Enoxaparin 30mg Inj SUBQ SCH (09:00)
[2019-03-20] MEDS ORDERED: Aspirin Baby 81mg ORAL SCH (09:00)
--- NOTE | 2019-03-20 09:30 | History and Physical Report ---
DATE OF ADMISSION: 03/19/2019 REASON FOR ADMISSION: 1. Shortness of breath. 2. Chest pressure. HISTORY OF PRESENT ILLNESS: The patient is a 63-year-old female who was recently discharged from [facility] for similar complaint. She returns feeling some shortness of breath and chest pressure. She denies any current nausea, vomiting, or diarrhea. Her shortness of breath is mild. She does say that her chest pressure comes and goes and feels better with nitroglycerin. In the emergency room, the patient was noted to be slightly hypotensive with an elevated creatinine of 1.7. ALLERGIES: No known drug allergies. PAST MEDICAL HISTORY: 1. CHF. 2. Hypertension. 3. Hypothyroidism. 4. Diabetes mellitus. 5. COPD. FAMILY HISTORY: Positive for hypertension and diabetes. PAST SURGICAL HISTORY: Noncontributory. REVIEW OF SYSTEMS: NEUROLOGIC: The patient denies headache, change in vision, syncope, presyncopal episodes. CARDIOVASCULAR: No current palpitations. Having mild chest pressure and pain. GASTROINTESTINAL/GENITOURINARY: No change in urine or bowel habits. No nausea, vomiting, diarrhea. ENDOCRINOLOGY: No night sweats, fevers, chills. MUSCULOSKELETAL: The patient feeling tired, fatigued. LABORATORY DATA: Labs dated 03/20/2019, sodium 143, potassium 4.3, creatinine 1.7. Troponin 0.02. Natriuretic peptide 2020. PHYSICAL EXAMINATION: VITAL SIGNS: Blood pressure 107/70, respiratory rate 20, pulse 124, temperature 97.5, 97% oxygen saturation on 3 liters by nasal cannula. GENERAL: The patient awake, alert, in no overt distress. HEENT: Extraocular muscles intact. No lymphadenopathy noted. CARDIOVASCULAR: S1, S2. No rubs or gallops. PULMONARY: Mild upper rhonchi with fair air movement in all foy. ABDOMEN: Obese, nondistended, nontender. EXTREMITIES: No edema noted. ASSESSMENT AND PLAN: 1. Acute kidney injury. At this time secondary to component of cardiorenal and hypotension. Avoid nephrotoxins and hypotensive ischemic events. Maintain mean arterial blood pressure greater than 65 mmHg to ensure adequate renal perfusion. Renal ultrasound to rule out the possibility of any obstruction. 2. Acute coronary syndrome, chest pain. Cardiology has been consulted. 3. CHF. Could be secondary to mild volume overload. Continue gentle diuresis. We are consulting Pulmonary. 4. Diabetes mellitus. Continue insulin therapy, Accu-Cheks, and low-carbohydrate diet. 5. Hypothyroidism. The patient on Synthroid. 6. DVT prophylaxis with Lovenox. Alejandro Boland MD DR: SILVIO JOB#: [id number] CC:
[2019-03-20 12:00] VITALS: BP 117/78
--- NOTE | 2019-03-20 14:30 | Diagnostic Imaging Report ---
Indication: Chest pain Comparison: 03/17/2019 A single view chest radiograph was obtained. Findings: Pulmonary vascularity is mildly prominent as is heart size without overt CHF. Sternotomy is noted. There is a pacemaker on the left. Left hemidiaphragm is slightly elevated. IMPRESSION: No acute findings
--- NOTE | 2019-03-20 15:50 | NUR ---
HAND-OFF: Report given to ABAD Mcmanus. Patient in stable condition.
--- NOTE | 2019-03-20 15:51 | NUR ---
NURSE NOTES: Received patient in bed. Awake, alert, on room air. No respiratory distress. Call light within reach. Will continue plan of care.
[2019-03-20 16:55] VITALS: BP 99/72
--- NOTE | 2019-03-20 17:45 | Consultation ---
DATE OF CONSULTATION: 03/20/2019 PULMONARY CONSULTATION HISTORY OF PRESENT ILLNESS: This is a 53-year-old female who was discharged recently from [facility] after being admitted for exacerbation of chronic obstructive pulmonary disease and mild congestive heart failure. She was discharged home with medications however she returned with worsening renal function. She also feels short of breath. She also report that she is having chest pain which comes and goes. PAST HISTORY: CHF, hypertension, hypothyroidism, diabetes mellitus, COPD. FAMILY HISTORY: Notable for hypertension, diabetes. PAST SURGICAL HISTORY: None. ALLERGIES: None. HOME MEDICATIONS: Reviewed and reconciled on chart. REVIEW OF SYSTEMS: Denies any headaches, hematemesis, melena, or hematochezia. PHYSICAL EXAMINATION: GENERAL: Reveals a 63-year-old female. HEENT: Unremarkable. LUNGS: Decreased breath sounds bilaterally with normal heart sounds. ABDOMEN: Soft. EXTREMITIES: There is no edema. IMPRESSION: 1. Renal insufficiency. 2. Chest pain. 3. Mild CHF. 4. COPD. 5. Diabetes mellitus. 6. Hypothyroidism. DISCUSSION: Agree with admission and care. I note, the patient has been started on aspirin, Coreg, Rocephin, Lovenox, Pepcid, Lasix, insulin sliding scale, Synthroid with which I concur. Cardiology has been consulted. Currently her laboratory testings are noncontributory with mild leukocytosis which may be due to steroid usage. We will follow carefully. X-ray chest is from several days ago which only shows mild vascular congestion. We will follow carefully. Anders Lambert M.D. DR: Jonel JOB#: [id number] CC:
[2019-03-20] MEDS ORDERED: cefTRIAXone 1 GM in NS 55 ML IVPB SCH (18:00)
[2019-03-20] MEDS ORDERED: traMADol 50mg tab ORAL PRN (19:15)
--- NOTE | 2019-03-20 19:15 | NUR ---
HAND-OFF: Report given to BART Berger RN.
--- NOTE | 2019-03-20 19:16 | NUR ---
NURSE NOTES: Received bedside report from ABAD Mcmanus.Patient stable,sitting in a bed,watching TV,no c/o pain,no respiratory distress noted,A&Ox 4,ST on head automatic sawyer,tolerated r/air well,BS active in all quadrants,IV asymptomatic,intact on R hand G 20 SL,bed secured in a low safety position,call light within a reach,will continue to follow POC
[2019-03-20 20:00] VITALS: BP 110/67
--- NOTE | 2019-03-20 21:45 | NUR ---
NURSE NOTES: Transferred pt to Tele 208-2.Report given to ABAD Coulter.Patient stable,tolerated portable Oxygen well,no respiratory distress during transfer,belongings list signed,cell phone at bedside with weigher and charger.All orders transferred.
--- NOTE | 2019-03-20 22:00 | NUR ---
NURSE NOTES: Report received from ABAD Cervantes. Pt is in stable condition and lying comfortably in bed. radiation monitor applied and belongings verified. Bed in the lowest position, bed brakes engaged, side rails up x3 and call light within reach. Will continue to monitor.
--- NOTE | 2019-03-20 22:18 | Consultation ---
History of Present Illness General Date patient seen: Mar 20, 2019 Time patient seen: 19:52 Chief Complaint: Dyspnea/Respdistress Present Illness HPI The patient is a 63-year-old female who was recently discharged from [facility] for similar complaint. She returns feeling some shortness of breath and chest pressure. She denies any current nausea, vomiting, or diarrhea. Her shortness of breath is mild. She does say that her chest pressure comes and goes and feels better with nitroglycerin. In the emergency room, the patient was noted to be slightly hypotensive with an elevated creatinine of 1.7. Allergies: Coded Allergies: SIMVASTATIN (Verified Adverse Reaction, Intermediate, NAUSEA AND VOMITTING , 03/20/19) Medication History Scheduled Albuterol Sulfate* (Albuterol Sulfate Mdi*), 2 PUFF INH Q6H, (Reported) Beclomethasone Dipropionate 40MCG Oral Inh (Qvar 40*), 2 PUFFS INH TWICE A DAY, (Reported) Carvedilol* (Carvedilol*), 1 TAB ORAL BID, (Reported) Fluticasone Propionate (Flovent Hfa), 2 PUFFS INH BID, (Reported) Furosemide* (Lasix*), 40 MG ORAL DAILY Insulin Lispro (Humalog), Unknown Dose SUBQ BID, (Reported) Ipratropium [place] (Atrovent Hfa), 12.9 GM IH FOUR TIMES A DAY, (Reported) Levothyroxine Sodium* (Levothyroxine Sodium*), 75 MCG ORAL DAILY, (Reported) Metformin Hcl* (Metformin Hcl*), 1,000 MG ORAL BID, (Reported) Spironolactone* (Aldactone*), 25 MG ORAL DAILY, (Reported) Scheduled PRN Acetaminophen* (Tylenol Extra Strength*), 500 MG ORAL Q6H PRN for Mild Pain/ Temp > 100.5 Discontinued Medications Amlodipine Besylate* (Amlodipine Besylate*), 10 MG ORAL DAILY, (Reported) Discontinued Reason: Pt stopped taking med Aspirin* (Aspirin*), 81 MG ORAL DAILY, (Reported) Discontinued Reason: Pt stopped taking med Atorvastatin Calcium* (Atorvastatin Calcium*), 80 MG ORAL BEDTIME, (Reported) Discontinued Reason: Pt stopped taking med Citalopram Hydrobromide* (Celexa*), 20 MG PO DAILY, (Reported) Discontinued Reason: Pt stopped taking med Furosemide* (Lasix*), 40 MG ORAL DAILY, (Reported) Discontinued Reason: Pt stopped taking med Hydrochlorothiazide* (Hydrochlorothiazide*), 25 MG ORAL DAILY, (Reported) Discontinued Reason: Pt stopped taking med Ibuprofen* (Advil*), 600 MG ORAL BID, (Reported) Discontinued Reason: Pt stopped taking med Insulin Glargine (Lantus), 20 SUBQ DAILY, (Reported) Discontinued Reason: Pt stopped taking med Lisinopril (Lisinopril*), 20 MG ORAL DAILY, (Reported) Discontinued Reason: Pt stopped taking med Lovastatin (Mevacor), 40 MG PO HS, (Reported) Discontinued Reason: Pt stopped taking med Ranitidine Hcl* (Zantac*), 150 MG ORAL TWICE A DAY, (Reported) Discontinued Reason: Pt stopped taking med Patient History Healthcare decision maker Resuscitation status Full Code Advanced Directive on File Review of Systems Constitutional: Reports: malaise, weakness Eye: Reports: no symptoms ENT: Reports: no symptoms Respiratory: Reports: cough, orthopnea, shortness of breath, stridor, wheezing , BLOCK Cardiovascular: Reports: no symptoms Gastrointestinal: Reports: no symptoms Genitourinary: Reports: no symptoms Musculoskeletal: Reports: no symptoms Skin: Reports: no symptoms Psychiatric: Reports: no symptoms Neurological: Reports: no symptoms Endocrine: Reports: no symptoms Hematologic/Lymphatic: Reports: no symptoms Physical Exam General Appearance: no apparent distress, alert Lines, tubes and drains: peripheral HEENT: normocephalic, atraumatic, anicteric, mucous membranes moist, PERRL Neck: normal alignment, supple, normal inspection Respiratory/Chest: chest wall non-tender, lungs clear Cardiovascular/Chest: normal peripheral pulses, normal rate, regular rhythm Abdomen: normal bowel sounds, non tender, soft, no organomegaly, no mass Extremities: normal range of motion, non-tender, normal inspection, no calf tenderness, normal capillary refill, non-pitting Skin Exam: normal pigmentation, warm/dry 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, no motor/sensory deficits Last 24 Hour Vital Signs Date Time Temp Pulse Resp B/P (MAP) Pulse Ox O2 Delivery O2 Flow Rate FiO2 03/20/19 20:00 97.4 114 26 110/67 (81) 99 03/20/19 20:00 Nasal Cannula 3.0 7/14/19 19:47 131 03/20/19 17:04 126 99/72 03/20/19 16:55 97.2 126 20 99/72 (81) 100 03/20/19 16:00 Nasal Cannula 3.0 03/20/19 15:27 109 03/20/19 12:00 97.7 121 22 117/78 (91) 99 03/20/19 12:00 Nasal Cannula 3.0 03/20/19 11:30 128 03/20/19 08:48 126 107/75 03/20/19 08:00 Nasal Cannula 3.0 03/20/19 08:00 97.9 126 22 107/75 (86) 99 03/20/19 08:00 123 03/20/19 07:21 97 Nasal Cannula 3.0 32 03/20/19 04:00 97.5 124 20 107/70 (82) 98 03/20/19 04:00 Nasal Cannula 3.0 03/20/19 03:43 126 03/20/19 02:20 110/70 03/20/19 02:12 102/60 03/20/19 00:03 99/72 03/20/19 00:00 97.7 118 22 99/72 (81) 98 03/20/19 00:00 Nasal Cannula 3.0 03/19/19 23:36 118 03/19/19 22:30 Nasal Cannula 3.0 Intake and Output 03/19/19 03/20/19 19:00 07:00 Intake Total 240 ml Output Total 300 ml Balance -60 ml Intake Oral 240 ml Output Urine Total 300 ml # Bowel Movements 2 Laboratory Tests Test 03/20/19 05:35 White Blood Count 14.1 K/UL (4.8-10.8) H Red Blood Count 4.37 M/UL (4.20-5.40) Hemoglobin 12.8 G/DL (12.0-16.0) Hematocrit 39.3 % (37.0-47.0) Mean Corpuscular Volume 90 FL (80-99) Mean Corpuscular Hemoglobin 29.2 PG (27.0-31.0) Mean Corpuscular Hemoglobin Concent 32.5 G/DL (32.0-36.0) Red Cell Distribution Width 14.8 % (11.6-14.8) Platelet Count 309 K/UL (150-450) Mean Platelet Volume 5.5 FL (6.5-10.1) L Neutrophils (%) (Auto) 70.1 % (45.0-75.0) Lymphocytes (%) (Auto) 23.4 % (20.0-45.0) Monocytes (%) (Auto) 4.8 % (1.0-10.0) Eosinophils (%) (Auto) 0.8 % (0.0-3.0) Basophils (%) (Auto) 0.9 % (0.0-2.0) Sodium Level 143 MMOL/L (136-145) Potassium Level 4.3 MMOL/L (3.5-5.1) Chloride Level 103 MMOL/L (98-107) Carbon Dioxide Level 30 MMOL/L (21-32) Anion Gap 11 mmol/L (5-15) Blood Urea Nitrogen 46 mg/dL (7-18) H Creatinine 1.7 MG/DL (0.55-1.30) H Estimat Glomerular Filtration Rate 36.6 mL/min (>60) Glucose Level 151 MG/DL (74-106) H Calcium Level 9.5 MG/DL (8.5-10.1) Height (Feet): 5 Height (Inches): 7.00 Weight (Pounds): 242 Medications Current Medications Medications (Trade) Dose Ordered Sig/Cassidy Route PRN Reason Start Time Stop Time Status Last Admin Dose Admin Acetaminophen (Tylenol) 650 mg Q4H PRN ORAL Mild Pain (Pain Scale 1-3) 03/21/19 00:15 04/18/19 20:14 UNV Aspirin (ASA) 81 mg DAILY ORAL 03/21/19 09:00 04/19/19 08:59 UNV Carvedilol (Coreg) 3.125 mg BID ORAL 03/21/19 09:00 04/19/19 08:59 UNV Ceftriaxone Sodium 1 gm/ Sodium Chloride 55 ml @ 110 mls/hr DAILY@1800 IVPB 03/21/19 18:00 03/27/19 17:59 UNV Dextrose (Dextrose 50%) 25 ml Q30M PRN IV Hypoglycemia 03/20/19 21:45 04/18/19 20:14 UNV Dextrose (Dextrose 50%) 50 ml Q30M PRN IV Hypoglycemia 03/20/19 21:45 8/12/19 20:14 UNV Enoxaparin Sodium (Lovenox) 30 mg DAILY SUBQ 03/21/19 09:00 04/19/19 08:59 UNV Famotidine (Pepcid) 20 mg DAILY ORAL 03/21/19 09:00 04/19/19 08:59 UNV Furosemide (Lasix) 20 mg TID IV 03/21/19 09:00 04/19/19 08:59 UNV Insulin Aspart (NovoLOG) BEFORE MEALS AND HS SUBQ 03/21/19 06:30 04/19/19 06:29 UNV Levothyroxine Sodium (Synthroid) 75 mcg DAILY@0630 ORAL 03/21/19 06:30 04/19/19 06:29 UNV Nitroglycerin (Ntg) 0.4 mg Q5M PRN SL Prn Chest Pain 03/20/19 21:35 04/19/19 00:00 UNV Ondansetron HCl (Zofran) 4 mg Q6H PRN IVP Nausea & Vomiting 03/21/19 02:15 04/18/19 20:14 UNV Tramadol HCl (Ultram) 50 mg Q6H PRN ORAL pain 4-10 03/21/19 01:15 03/27/19 19:14 UNV Assessment/Plan Status: stable Assessment/Plan: Assessment/Plan Status: stable Assessment/Plan: Assessment: (1) CHF (congestive heart failure) (2) Respiratory insufficiency (3) Cardiomyopathy (4) COPD exacerbation (5) Leukocytosis (6) Hypoxemia (7) Coronary artery disease PLAN: -Aspirin -high dose statin -Echocardiogram reviewed, severe systolic dysfunction -PO lasix and aldactone -Continue coreg 3.125 bid - increase to max tolerated as outpatient -Continue lisinopril 5 mg for afterload reduction -Breathing treatment/steroids/pulmonary toilet -Viability study to be done outpatient/cedars to determine if revascularization is possible -Patient has ICD - will need to interrogate as outpatient -Recommend JOLLY to evaluate for peripheral vascular disease - can do as outpatient Aaron Guerra MD Mar 20, 2019 22:18
[2019-03-21] VITALS: BP 116/84
[2019-03-21] MEDS: traMADol 50mg tab ORAL PRN ×3 (03:00→21:39)
[2019-03-21 04:00] VITALS: BP 120/88
[2019-03-21] MEDS: NovoLOG Insulin Flexpen SUBQ SCH ×4 (05:30→21:40)
[2019-03-21 06:59] LABS: BASOPHILS % (AUTO) 1.6 % (0.0-2.0); HEMATOCRIT 41.7 % (37.0-47.0); HEMOGLOBIN 13.5 G/DL (12.0-16.0); LYMPHOCYTES % (AUTO) 22.5 % (20.0-45.0); MEAN CORPUSCULAR VOLUME 90 FL (80-99); MONOCYTES % (AUTO) 6.2 % (1.0-10.0); NEUTROPHILS % (AUTO) 68.8 % (45.0-75.0); PLATELET COUNT 344 K/UL (150-450); RED BLOOD COUNT 4.62 M/UL (4.20-5.40); RED CELL DISTRIBUTION WIDTH 15.1 % (11.6-14.8); WHITE BLOOD COUNT 13.6 K/UL (4.8-10.8)
[2019-03-21 07:04] LABS: ANION GAP 5 mmol/L (5-15); BLOOD UREA NITROGEN 38 mg/dL (7-18); CALCIUM 9.7 MG/DL (8.5-10.1); CARBON DIOXIDE 29 MMOL/L (21-32); CHLORIDE 102 MMOL/L (98-107); CREATININE 1.5 MG/DL (0.55-1.30); POTASSIUM 4.2 MMOL/L (3.5-5.1); SODIUM 136 MMOL/L (136-145)
--- NOTE | 2019-03-21 07:26 | NUR ---
HAND-OFF: Report given to ABAD Dasilva.
--- NOTE | 2019-03-21 07:30 | NUR ---
NURSE NOTES: Received report from ABAD Coulter. The patient is resting on the bed without acute distress or shortness of breath. The patient's bed in the lowest position, call light in reach, and fall and aspiration precaution reinforced. IV is intact and patent. Will continue plan of care.
--- NOTE | 2019-03-21 07:46 | Nephrology Progress Note ---
Assessment/Plan Status: stable Assessment/Plan: A/P 1. KENNETH- CRS - hold PHILIPPE-I and Aldactone until renal function stabilizes - Cr improved to 1.5 2. CHF- on IV tid lasix, convert to po tomorrow - anticipate DC tomorrow 3. SOB- improved, defer to pulmonary 4. Hypotension- resolved 5. DVT prophylaxsis- with lovenox Subjective Date patient seen: Mar 21, 2019 Time patient seen: 07:44 Allergies: Coded Allergies: SIMVASTATIN (Verified Adverse Reaction, Intermediate, NAUSEA AND VOMITTING , 03/20/19) Subjective Patient feeling better. Still ocassional chest pain Objective Last 24 Hour Vital Signs Date Time Temp Pulse Resp B/P (MAP) Pulse Ox O2 Delivery O2 Flow Rate FiO2 03/21/19 04:00 98.7 112 16 120/88 (99) 96 03/21/19 04:00 107 03/21/19 03:30 97.6 03/21/19 00:00 97.6 128 16 116/84 (95) 98 03/21/19 00:00 122 03/20/19 23:45 115/82 03/20/19 22:17 94 Nasal Cannula 3.0 32 03/20/19 20:00 97.4 114 26 110/67 (81) 99 03/20/19 20:00 Nasal Cannula 3.0 03/20/19 19:47 131 03/20/19 17:04 126 99/72 03/20/19 16:55 97.2 126 20 99/72 (81) 100 03/20/19 16:00 Nasal Cannula 3.0 03/20/19 15:27 109 03/20/19 12:00 97.7 121 22 117/78 (91) 99 03/20/19 12:00 Nasal Cannula 3.0 03/20/19 11:30 128 03/20/19 08:48 126 107/75 03/20/19 08:00 Nasal Cannula 3.0 03/20/19 08:00 97.9 126 22 107/75 (86) 99 03/20/19 08:00 123 Intake and Output 03/20/19 03/21/19 19:00 07:00 Intake Total 55 ml Output Total 1000 ml 300 ml Balance -1000 ml -245 ml IV Total 55 ml Output Urine Total 1000 ml 300 ml # Bowel Movements 2 Laboratory Tests 03/21/19 06:02: White Blood Count 13.6H, Red Blood Count 4.62, Hemoglobin 13.5, Hematocrit 41.7 , Mean Corpuscular Volume 90, Mean Corpuscular Hemoglobin 29.2, Mean Corpuscular Hemoglobin Concent 32.4, Red Cell Distribution Width 15.1H, Platelet Count 344, Mean Platelet Volume 5.7L, Neutrophils (%) (Auto) 68.8, Lymphocytes (%) (Auto) 22.5, Monocytes (%) (Auto) 6.2, Eosinophils (%) (Auto) 1.0, Basophils (%) (Auto) 1.6, Sodium Level 136, Potassium Level 4.2, Chloride Level 102, Carbon Dioxide Level 29, Anion Gap 5, Blood Urea Nitrogen 38H, Creatinine 1.5H, Estimat Glomerular Filtration Rate 42.3, Glucose Level 166H, Calcium Level 9.7 Height (Feet): 5 Height (Inches): 7.00 Weight (Pounds): 240 General Appearance: no apparent distress, alert EENT: normal ENT inspection Neck: normal alignment, supple Cardiovascular: normal rate, regular rhythm Respiratory/Chest: lungs clear, normal breath sounds Abdomen: non tender, soft Edema: no edema noted Arm (L), no edema noted Arm (R), no edema noted Leg (L), no edema noted Leg (R), no edema noted Pedal (L), no edema noted Pedal (R), no edema noted Generalized Alejandro Boland MD Mar 21, 2019 07:46
[2019-03-21 08:00] VITALS: BP 121/83
[2019-03-21] MEDS: Aspirin Baby 81mg ORAL SCH (08:55)
[2019-03-21] MEDS: Nitroglycerin Subl 0.4mg tab SL PRN ×2 (08:57→21:48)
[2019-03-21] MEDS: Enoxaparin 40mg Inj SUBQ SCH (08:57)
--- NOTE | 2019-03-21 08:57 | NUR ---
NURSE NOTES: The patient complained of 5/10 chest pain and NTG SL administered. After 5 minute, the patient verbalized that she does not have chest pain anymore. Notified to Dr. Guerra. Per Dr. Guerra, stress test, jordi scan cardiolite SPECT for tomorrow. Will continue to monitor the patient. Will carry out the order.
--- NOTE | 2019-03-21 09:00 | NUR ---
NURSE NOTES: Dr. Guerra was notified regarding Troponin of 0.019 and 0.025 on 03/19/2019. Will continue plan of care.
--- NOTE | 2019-03-21 09:30 | NUR ---
CASE MANAGEMENT:REVIEW 63 YR OLD FEMALE BIBA FROM HOME CC; CHEST PAIN AND SOB. 89% ON RA PMH: OPEN HEART SURGERY. PACEMAKER. COPD SI: CHF. KENNETH. SOB. CHEST PAIN 97.8 128 19 95/71 99% ON RA WBC+13.8 BUN+47 CR+1.7 IS: ASA GIVEN EN ROUTE PLACED ON OXYGEN EN ROUTE ASA PO NITRO 1" IV METOPROLOL IV LASIX IV ROCEPHIN CHEST XRAY : TO TELEMETRY 03/21/19 SI: RENAL INSUFFICIENCY. COPD. MILD CHF 98.1 113 18 121/83 99% ON 3L/NC WBC+13.6 IS: IV ROCEPHIN Q24 ASA PO QD COREG PO BID LOVENOX SQ QD IV LASIX TID : TELEMETRY STATUS DCP: FROM HOME
--- NOTE | 2019-03-21 10:03 | NUR ---
*-* NO INSURANCE INFORMATION IN THE BAR UNABLE TO SEND CLINICALS OR REVIEWS *-*
[2019-03-21] MEDS ORDERED: Lexiscan 0.4mg/5ml syringe IV PRN (11:00)
[2019-03-21 12:00] VITALS: BP 113/81
--- NOTE | 2019-03-21 12:00 | NUR ---
NURSE NOTES: Dr. Lambert and Dr. Guerra was notified regarding consistent sinus tachycardia. Will continue to monitor the patient. Will carry out the order as soon as receives it.
--- NOTE | 2019-03-21 12:00 | NUR ---
NURSE NOTES: Dr. Guerra ordered Brisa scan for 03/22/2019. Kuldip, manufacturing plant technician, said that Brisa scan may not be good option for her due to underlying condition of left chest defibrillator and history of COPD. The patient verbalized that she has history of stress test in the past but was not able to continue due to symptom of heart attack. Vesta Robertson, daughter, called in and said that she was informed that the patient is scheduled for the Brisa scan procedure tomorrow but concerned due to history of [place] like symptom during stress test in the past. Notified to charge nurse. Per charge nurse, it is better to contact Dr. Guerra so that he can explain the necessity of the Brisa scan so that the testing can be done. Contacted Dr. Guerra again. Per Dr. Guerra, he will come and explain the Brisa scan procedure so that the procedure can be done. Per Dr. Guerra, keep the Brisa scan order for tomorrow. Will continue plan of care for the patient.
--- NOTE | 2019-03-21 12:24 | Cardiology Progress Note ---
Assessment/Plan Status: stable Assessment/Plan Assessment/Plan Status: stable Assessment/Plan: Assessment: (1) CHF (congestive heart failure) (2) Respiratory insufficiency (3) Cardiomyopathy (4) COPD exacerbation (5) Leukocytosis (6) Hypoxemia (7) Coronary artery disease PLAN: -Aspirin -high dose statin -Echocardiogram reviewed, severe systolic dysfunction -PO lasix and aldactone -Continue coreg 3.125 bid - increase to max tolerated as outpatient -Continue lisinopril 5 mg for afterload reduction -Breathing treatment/steroids/pulmonary toilet -Given recurrent chest pain will do stress test this admission -Patient has ICD - will need to interrogate as outpatient -Recommend JOLLY to evaluate for peripheral vascular disease - can do as outpatient -May need cardiac cath depending on degree of ischemia Subjective Cardiovascular: Reports: no symptoms Respiratory: Reports: no symptoms Gastrointestinal/Abdominal: Reports: no symptoms Genitourinary: Reports: no symptoms Subjective NO acute events, patient continues to have chest pain, relieved with nitro SL For stress test tomorrow Objective Last 24 Hour Vital Signs Date Time Temp Pulse Resp B/P (MAP) Pulse Ox O2 Delivery O2 Flow Rate FiO2 03/21/19 09:00 Nasal Cannula 3.0 03/21/19 08:57 121/83 03/21/19 08:56 113 121/83 03/21/19 08:00 98.1 113 18 121/83 (96) 99 03/21/19 04:00 98.7 112 16 120/88 (99) 96 03/21/19 04:00 107 03/21/19 03:30 97.6 03/21/19 00:00 97.6 128 16 116/84 (95) 98 03/21/19 00:00 122 03/20/19 23:45 115/82 03/20/19 22:17 94 Nasal Cannula 3.0 32 03/20/19 20:00 97.4 114 26 110/67 (81) 99 03/20/19 20:00 Nasal Cannula 3.0 03/20/19 19:47 131 03/20/19 17:04 126 99/72 03/20/19 16:55 97.2 126 20 99/72 (81) 100 03/20/19 16:00 Nasal Cannula 3.0 03/20/19 15:27 109 General Appearance: no apparent distress, alert EENT: PERRL/EOMI, normal ENT inspection, TMs normal Neck: non-tender, normal alignment, supple, normal inspection, no JVD Rhythm: NSR Cardiovascular: normal peripheral pulses, normal rate, regular rhythm Respiratory/Chest: chest wall non-tender, lungs clear, normal breath sounds Abdomen: normal bowel sounds, non tender, soft, no organomegaly Extremities: normal range of motion, non-tender, normal inspection, no calf tenderness Neurologic: slubber hand II-XII grossly normal, no motor/sensory deficits, oriented x 3 Intake and Output 03/20/19 03/21/19 19:00 07:00 Intake Total 55 ml Output Total 1000 ml 300 ml Balance -1000 ml -245 ml IV Total 55 ml Output Urine Total 1000 ml 300 ml # Bowel Movements 2 Laboratory Tests Test 03/21/19 06:02 White Blood Count 13.6 K/UL (4.8-10.8) H Red Blood Count 4.62 M/UL (4.20-5.40) Hemoglobin 13.5 G/DL (12.0-16.0) Hematocrit 41.7 % (37.0-47.0) Mean Corpuscular Volume 90 FL (80-99) Mean Corpuscular Hemoglobin 29.2 PG (27.0-31.0) Mean Corpuscular Hemoglobin Concent 32.4 G/DL (32.0-36.0) Red Cell Distribution Width 15.1 % (11.6-14.8) H Platelet Count 344 K/UL (150-450) Mean Platelet Volume 5.7 FL (6.5-10.1) L Neutrophils (%) (Auto) 68.8 % (45.0-75.0) Lymphocytes (%) (Auto) 22.5 % (20.0-45.0) Monocytes (%) (Auto) 6.2 % (1.0-10.0) Eosinophils (%) (Auto) 1.0 % (0.0-3.0) Basophils (%) (Auto) 1.6 % (0.0-2.0) Sodium Level 136 MMOL/L (136-145) Potassium Level 4.2 MMOL/L (3.5-5.1) Chloride Level 102 MMOL/L (98-107) Carbon Dioxide Level 29 MMOL/L (21-32) Anion Gap 5 mmol/L (5-15) Blood Urea Nitrogen 38 mg/dL (7-18) H Creatinine 1.5 MG/DL (0.55-1.30) H Estimat Glomerular Filtration Rate 42.3 mL/min (>60) Glucose Level 166 MG/DL (74-106) H Calcium Level 9.7 MG/DL (8.5-10.1) Microbiology Date/Time Source Procedure Growth Status 03/19/19 19:00 Nasal Nares MRSA Culture - Final NO METHICILLIN RESISTANT STAPH AUREUS... Complete 03/19/19 19:00 Rectum VRE Culture - Final Enterococcus Faecalis - Vre Resulted 03/19/19 19:00 Rectum Pending Resulted Aaron Guerra MD Mar 21, 2019 12:24
--- NOTE | 2019-03-21 13:00 | NUR ---
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 Per wound care nurse and the nurse in charge of the patient, there is no pressure ulcer but hyperpigmentation on sacral area. Also, there is healed but no s/s of infection on right 2nd toe amputation area. Dressing change completed. Will continue plan of care.
--- NOTE | 2019-03-21 15:30 | NUR ---
NURSE NOTES: The patient requested medication for constipation and mouth sore. Left VM to Dr. Lambert for the order. Will carry out the order as soon as receives it. Will continue plan of care.
[2019-03-21 16:00] VITALS: BP 114/84
--- NOTE | 2019-03-21 16:28 | Pulmonology Progress Note ---
Assessment/Plan Assessment/Plan IMPRESSION: 1. Renal insufficiency. 2. Chest pain. 3. Mild CHF. 4. COPD. 5. Diabetes mellitus. 6. Hypothyroidism. DISCUSSION: Continue aspirin, Coreg, Rocephin, Lovenox, Pepcid, Lasix, insulin sliding scale, Synthroid. I will follow carefully. Agree with stress test. May need cath Subjective Interval Events: C/o constipation; reluctant to undergo stress test Constitutional: Reports: no symptoms HEENT: Repors: no symptoms Respiratory: Reports: shortness of breath Cardiovascular: Reports: no symptoms Gastrointestinal/Abdominal: Reports: no symptoms Genitourinary: Reports: no symptoms Allergies: Coded Allergies: SIMVASTATIN (Verified Adverse Reaction, Intermediate, NAUSEA AND VOMITTING , 03/20/19) Objective Last 24 Hour Vital Signs Date Time Temp Pulse Resp B/P (MAP) Pulse Ox O2 Delivery O2 Flow Rate FiO2 03/21/19 16:00 112 03/21/19 16:00 97.4 111 20 114/84 (94) 98 03/21/19 12:00 107 03/21/19 12:00 98.2 113 20 113/81 (92) 99 03/21/19 09:00 Nasal Cannula 3.0 03/21/19 08:57 121/83 03/21/19 08:56 113 121/83 03/21/19 08:00 98.1 113 18 121/83 (96) 99 03/21/19 08:00 113 03/21/19 04:00 98.7 112 16 120/88 (99) 96 03/21/19 04:00 107 03/21/19 03:30 97.6 03/21/19 00:00 97.6 128 16 116/84 (95) 98 03/21/19 00:00 122 03/20/19 23:45 115/82 03/20/19 22:17 94 Nasal Cannula 3.0 32 03/20/19 20:00 97.4 114 26 110/67 (81) 99 03/20/19 20:00 Nasal Cannula 3.0 03/20/19 19:47 131 03/20/19 17:04 126 99/72 03/20/19 16:55 97.2 126 20 99/72 (81) 100 Intake and Output 03/20/19 03/21/19 18:59 06:59 Intake Total 55 ml Output Total 1000 ml 300 ml Balance -1000 ml -245 ml IV Total 55 ml Output Urine Total 1000 ml 300 ml # Bowel Movements 2 General Appearance: WD/WN HEENT: normocephalic Respiratory/Chest: chest wall non-tender Cardiovascular: normal peripheral pulses Microbiology Date/Time Source Procedure Growth Status 03/19/19 19:00 Nasal Nares MRSA Culture - Final NO METHICILLIN RESISTANT STAPH AUREUS... Complete 03/19/19 19:00 Rectum VRE Culture - Final Enterococcus Faecalis - Vre Resulted 03/19/19 19:00 Rectum Pending Resulted Laboratory Tests 03/21/19 06:02: White Blood Count 13.6H, Red Blood Count 4.62, Hemoglobin 13.5, Hematocrit 41.7 , Mean Corpuscular Volume 90, Mean Corpuscular Hemoglobin 29.2, Mean Corpuscular Hemoglobin Concent 32.4, Red Cell Distribution Width 15.1H, Platelet Count 344, Mean Platelet Volume 5.7L, Neutrophils (%) (Auto) 68.8, Lymphocytes (%) (Auto) 22.5, Monocytes (%) (Auto) 6.2, Eosinophils (%) (Auto) 1.0, Basophils (%) (Auto) 1.6, Sodium Level 136, Potassium Level 4.2, Chloride Level 102, Carbon Dioxide Level 29, Anion Gap 5, Blood Urea Nitrogen 38H, Creatinine 1.5H, Estimat Glomerular Filtration Rate 42.3, Glucose Level 166H, Calcium Level 9.7 Current Medications Medications (Trade) Dose Ordered Sig/Cassidy Route PRN Reason Start Time Stop Time Status Last Admin Dose Admin Acetaminophen (Tylenol) 650 mg Q4H PRN ORAL Mild Pain (Pain Scale 1-3) 03/21/19 00:15 04/18/19 20:14 Aspirin (ASA) 81 mg DAILY ORAL 03/21/19 09:00 04/19/19 08:59 03/21/19 08:55 Carvedilol (Coreg) 3.125 mg BID ORAL 03/21/19 09:00 04/19/19 08:59 03/21/19 08:56 Ceftriaxone Sodium 1 gm/ Sodium Chloride 55 ml @ 110 mls/hr DAILY@1800 IVPB 03/21/19 18:00 03/27/19 17:59 Dextrose (Dextrose 50%) 25 ml Q30M PRN IV Hypoglycemia 03/20/19 21:45 8/12/19 20:14 Dextrose (Dextrose 50%) 50 ml Q30M PRN IV Hypoglycemia 03/20/19 21:45 04/18/19 20:14 Enoxaparin Sodium (Lovenox) 40 mg DAILY SUBQ 03/21/19 09:00 04/20/19 08:59 03/21/19 08:57 Famotidine (Pepcid) 20 mg DAILY ORAL 03/21/19 09:00 04/19/19 08:59 03/21/19 08:56 Furosemide (Lasix) 20 mg TID IV 03/21/19 09:00 04/19/19 08:59 03/21/19 13:23 Insulin Aspart (NovoLOG) BEFORE MEALS AND HS SUBQ 03/21/19 06:30 04/19/19 06:29 03/21/19 12:25 Levothyroxine Sodium (Synthroid) 75 mcg DAILY@0630 ORAL 03/21/19 06:30 04/19/19 06:29 03/21/19 05:34 Nitroglycerin (Ntg) 0.4 mg Q5M PRN SL Prn Chest Pain 03/20/19 21:35 04/19/19 00:00 03/21/19 08:57 Ondansetron HCl (Zofran) 4 mg Q6H PRN IVP Nausea & Vomiting 03/21/19 02:15 04/18/19 20:14 Regadenoson (Lexiscan) 0.4 mg ONCE PRN IV STRESS TEST 03/21/19 11:00 03/23/19 23:59 Tramadol HCl (Ultram) 50 mg Q6H PRN ORAL pain 4-10 03/21/19 01:15 03/27/19 19:14 03/21/19 12:27 Anders Lambert MD Mar 21, 2019 16:28
[2019-03-21] MEDS: Docusate 250mg cap ORAL SCH (17:14)
--- NOTE | 2019-03-21 17:57 | NUR ---
NURSE NOTES: Waiting for Dr. Guerra to arrive to the unit for explanation of Brisa scan procedure and clarification. Will continue to monitor the patient.
[2019-03-21] MEDS: cefTRIAXone 1 GM in NS 55 ML IVPB SCH (18:07)
--- NOTE | 2019-03-21 19:26 | NUR ---
HAND-OFF: Report given to ABAD Frey. The patient is resting on the bed without acute distress or shortness of breath. Informed about possible Brisa scan tomorrow, but Dr. Guerra needs to come in and explain before moving forward. The patient's bed in the lowest position, call light in reach, call and aspiration precaution reinforced. Endorsed plan of care.
--- NOTE | 2019-03-21 19:27 | NUR ---
HAND-OFF: The patient is awake, alert resting in the bed with no acute distress or shortness of breath. Informed about Brisa scan tomorrow, but Dr. Guerra still needs to come in and explain before moving forward. The patient's bed in the lowest position, call light in reach, bed alarm on, side railsx2 call and aspiration precaution reinforced. Addendum: 03/22/19 at 0025 by Shante Monson RN not hand off NURSE NOTES: The patient is awake, alert resting in the bed with no acute distress or shortness of breath. Informed about Brisa scan tomorrow, but Dr. Guerra still needs to come in and explain before moving forward. The patient's bed in the lowest position, call light in reach, bed alarm on, side railsx2 call and aspiration precaution reinforced.
[2019-03-21 20:00] VITALS: BP 121/89
--- NOTE | 2019-03-21 21:54 | NUR ---
NURSE NOTES: Pt had episode of chest pain. Gave nitroglycerin 1 tablet sublingual. BP taken initially, 130/77. After 1 tablet at 21:44 BP 113/81. Relief within another 5 minutes was a 0/10. Pt is no longer experiencing chest pain. Current vitals at 22:05 is 102/66. Will continue to monitor pt. pt on 2 L NC satting at 99%
[2019-03-22] VITALS: BP 118/88
[2019-03-22 03:22] VITALS: BP 121/87
--- NOTE | 2019-03-22 03:23 | NUR ---
NURSE NOTES: Pt is feeling SOB, said her head is spinning and feels anxious about the procedure this morning, is worried about her health. I asked her if she has ever had this happen before and she said she has a history of panic attacks.
--- NOTE | 2019-03-22 03:33 | NUR ---
All vital signs are within normal limits BP 117/84, she is tachycardic at 125 and has been tachycardic - trending high. I placed head of ed up in high fowlers and she has 2 L NC on satting at 99 % O2.
[2019-03-22] MEDS: traMADol 50mg tab ORAL PRN ×3 (03:58→20:14)
[2019-03-22] MEDS: NovoLOG Insulin Flexpen SUBQ SCH ×3 (06:30→17:00)
--- NOTE | 2019-03-22 07:17 | NUR ---
HAND-OFF: Report given to Landon Acevedo RN.
--- NOTE | 2019-03-22 07:20 | NUR ---
NURSE NOTES: Received report from ABAD Frey. The patient is resting on the bed without acute distress or shortness of breath. The patient's bed in the lowest position, call light in reach, and fall and aspiration precaution reinforced. ABAD Frey completed 2nd part of cardiology procedure checklist and will complete the 3rd part by the nurse. Dr. Guerra was notified yesterday and today regarding contraindication of Brisa scan due to left chest ICD placement, active history of asthma and COPD. Also informed Dr. Guerra regarding history of WI like symptom during the stress test in the past. Shared the patient's anxiousness of the procedure today to Dr. Guerra. Spoke with Kuldip, rn cardiology, and still the consent was obtained 03/21/2019. Dr. Rodríguez is attending dairy farmer and will reach back to me around 0900. Waiting for response from Dr. Guerra for the final decision regarding Brisa scan today. Will continue plan of care.
--- NOTE | 2019-03-22 07:21 | NUR ---
MEDIA JOB TITLES Landon quintanaod me. I said Lexiscan was not a good choice of test because pt has asthma. But I was also concerned that Dobutamine stress test may not be a good choice of test either because pt has Defibrillator.
[2019-03-22 07:37] LABS: ANION GAP 12 mmol/L (5-15); BLOOD UREA NITROGEN 39 mg/dL (7-18); CALCIUM 9.8 MG/DL (8.5-10.1); CARBON DIOXIDE 26 MMOL/L (21-32); CHLORIDE 102 MMOL/L (98-107); CREATININE 1.5 MG/DL (0.55-1.30); POTASSIUM 4.1 MMOL/L (3.5-5.1); SODIUM 140 MMOL/L (136-145)
[2019-03-22 08:00] VITALS: BP 115/83
--- NOTE | 2019-03-22 08:00 | NUR ---
NURSE NOTES: Kuldip, the communications technician, misunderstood about the communication that was made. Per Kuldip, Brisa scan is not a good choice for the patient do to history of asthma but no contraindication notified regarding Dobutamine stress test. Understood correctly.
--- NOTE | 2019-03-22 08:09 | NUR ---
NURSE NOTES: Per Dr. Guerra, cancel Brisa scan due to contraindication. Dr. Guerra ordered dobutamine test and case management consult to transfer the patient to [facility] for cardiac cath. Reported to the charge nurse. Will carry out the order.
[2019-03-22] MEDS ORDERED: Lexiscan 0.4mg/5ml syringe IV PRN (08:19)
--- NOTE | 2019-03-22 08:19 | NUR ---
NURSE NOTES: Spoke with Kim, case filler, regarding Dr. Guerra's order to transfer the patient to [facility] for cardiac cath. Kim, the case filler, will work on the case. Will wait for the response.
--- NOTE | 2019-03-22 08:30 | NUR ---
Attempted to start first part of Myocardial Perfusion scan. Apparently there is confusion between the RN, ordering physician, and supervising bell spinner whether the stress test will be conducted or the pt will be transferred out of the facility. Was told by ABAD Dasilva and lye boiler to wait and not start scan yet. RN is to be in contact with Dr. Rodríguez (supervising bell spinner) at 0900hrs and will call Nuclear Medicine Department with further instruction. Addendum: 03/22/19 at 1054 by LAI PRESTON Received phone call from ABAD Dasilva. Pt is declining stress test and will await transfer to outside facility.
--- NOTE | 2019-03-22 09:07 | NUR ---
CASE MANAGEMENT:REVIEW 03/22/19 SI: CHF. COPD. CARDIOMYOPATHY 97.7 113 18 115/83 99% ON RA IS: IV LEXISCAN X1 IV ROCEPHIN Q24 ASA PO QD COREG PO BID LOVENOX SQ QD IV LASIX TID : TELEMETRY STATUS DCP: FROM HOME PLAN: TRANSFER TO HIGHER LEVEL OF CARE FOR CARDIAC CATH
--- NOTE | 2019-03-22 09:11 | Nephrology Progress Note ---
Assessment/Plan Status: stable Assessment/Plan: A/P 1. KENNETH- CRS - hold PHILIPPE-I and Aldactone until renal function stabilizes. Cr down to 1.5 2. CHF- switch lasix to po - anticipate DC once cleared by cards 3. SOB- improved, defer to pulmonary 4. Hypotension- resolved 5. DVT prophylaxsis- with lovenox 6. UTI- Rocephin Patient has requested assistance at home with medications and Home Health Subjective Date patient seen: Mar 22, 2019 Time patient seen: 09:09 ROS Limited/Unobtainable: No Allergies: Coded Allergies: SIMVASTATIN (Verified Adverse Reaction, Intermediate, NAUSEA AND VOMITTING , 03/20/19) Subjective Patient resting. Awaiting stress test Objective Last 24 Hour Vital Signs Date Time Temp Pulse Resp B/P (MAP) Pulse Ox O2 Delivery O2 Flow Rate FiO2 03/22/19 08:00 97.7 113 18 115/83 (94) 99 03/22/19 04:00 114 03/22/19 03:22 97.4 130 20 121/87 (98) 98 03/22/19 00:00 98.3 132 20 118/88 (98) 100 03/22/19 00:00 133 03/21/19 21:48 130/77 03/21/19 21:00 Nasal Cannula 2.0 03/21/19 20:00 132 03/21/19 20:00 97.7 136 20 121/89 (100) 98 03/21/19 17:24 113 115/86 03/21/19 16:00 112 03/21/19 16:00 97.4 111 20 114/84 (94) 98 03/21/19 12:00 107 03/21/19 12:00 98.2 113 20 113/81 (92) 99 Intake and Output 03/21/19 03/22/19 19:00 07:00 Intake Total 240 ml Output Total 1200 ml 700 ml Balance -960 ml -700 ml Intake Oral 240 ml Output Urine Total 1200 ml 700 ml # Voids 2 Laboratory Tests 03/22/19 06:09: Sodium Level 140, Potassium Level 4.1, Chloride Level 102, Carbon Dioxide Level 26, Anion Gap 12, Blood Urea Nitrogen 39H, Creatinine 1.5H, Estimat Glomerular Filtration Rate 42.3, Glucose Level 184H, Calcium Level 9.8 Height (Feet): 5 Height (Inches): 7.00 Weight (Pounds): 233 General Appearance: no apparent distress, alert EENT: normal ENT inspection Neck: normal alignment, supple Cardiovascular: normal rate, regular rhythm Respiratory/Chest: lungs clear, normal breath sounds Abdomen: non tender, soft Edema: no edema noted Arm (L), no edema noted Arm (R), no edema noted Leg (L), no edema noted Leg (R), no edema noted Pedal (L), no edema noted Pedal (R), no edema noted Generalized Alejandro Boland MD Mar 22, 2019 09:11
--- NOTE | 2019-03-22 09:11 | NUR ---
TRANSFER ORDER NOTED CALLED [facility] AND SPOKE WITH ISMAEL. PER ISMAEL PATIENT HAS NOT BEEN PLACED ON TRANSFER LIST. [employer] CONTACTED DR SYED AND REQUESTED HE PLACE PATIENT ON LIST FOR TRANSFER. FAXED FACESHEET TO [facility] F: [phone] THIS [employer] CALLED PAT[facility]'S H[facility], [facility], AND LEFT [facility] REQUESTING AUTHORIZATION FOR TRANSFER TO [facility] OR ANY OTHER HIGHER LEVEL OF CARE FOR CARDIAC CATH AWAITING RETURNING CALL
[2019-03-22] MEDS: Docusate 250mg cap ORAL SCH (09:12)
[2019-03-22] MEDS: Aspirin Baby 81mg ORAL SCH (09:12)
[2019-03-22] MEDS: Enoxaparin 40mg Inj SUBQ SCH (09:13)
[2019-03-22 09:36] LABS: BASOPHILS % (AUTO) 0.8 % (0.0-2.0); EOSINOPHILS % (AUTO) 0.9 % (0.0-3.0); HEMATOCRIT 41.9 % (37.0-47.0); HEMOGLOBIN 13.6 G/DL (12.0-16.0); LYMPHOCYTES % (AUTO) 17.8 % (20.0-45.0); MEAN CORPUSCULAR VOLUME 90 FL (80-99); MONOCYTES % (AUTO) 6.3 % (1.0-10.0); NEUTROPHILS % (AUTO) 74.3 % (45.0-75.0); PLATELET COUNT 358 K/UL (150-450); RED BLOOD COUNT 4.63 M/UL (4.20-5.40); RED CELL DISTRIBUTION WIDTH 15.4 % (11.6-14.8); WHITE BLOOD COUNT 16.9 K/UL (4.8-10.8)
--- NOTE | 2019-03-22 09:38 | NUR ---
INSURANCE FAXED CLINICALS TO [facility] T; [phone] [id number] F: [phone] Addendum: 03/22/19 at 1004 by ALEX MEJIA LVN LVN LEFT [facility] AND FAXED CLINICALS TO [facility] T; [phone] [id number] F: [phone] REF #[id number] Addendum: 03/22/19 at 1008 by ALEX MEJIA LVN LVN SPOKE WITH RICHELLE AT [facility] WHO STATED [facility] NEEDED TO BE CONTACTED FOR TRANSFER CALLED [facility] AND SPOKE WITH POLO WHO STATED [facility] IS RESPONSIBLE FOR TRANSFER
--- NOTE | 2019-03-22 10:15 | NUR ---
TRANSFER UPDATE RECEIVED CALL FROM POLO SALAMANCA SHE WILL HELP COORDINATE TRANSFER
--- NOTE | 2019-03-22 10:46 | NUR ---
NURSE NOTES: Communicated with the patient and Vesta Robertson, the daughter, regarding Dr. Guerra's order in cancellation of Brisa scan but ordering of Dobutamine stress ECHO and Myoview and transferring the patient to other hospital possibly [facility] for cardiac cath. The patient and Vesta declined to do dobutamine stress test at this time and would like to be transferred to other hospital. Communicated the patient's and family member's decision to Dr. Guerra. Per Dr. Guerra, cancel dobutamine stress test but wait to be transferred to other hospital for cardiac cath as soon as possible. Spoke with iKm, the nurse outreach case manager, and she is working on the patient to be transferred to other hospital for the proper service. Spoke with Kuldip, the engine test cell technician, for change of Dr. Guerra's order. Communicated with Merrick, the senior nuclear medicine technologist, regarding change of Dr. Guerra's order. Will continue to monitor the patient closely. Will carry out the additional order as soon as receives it.
--- NOTE | 2019-03-22 10:55 | NUR ---
NURSE NOTES: Notified Dr. Lambert regarding change and cancellation of Brisa scan and Dobutamine stress test. Also, notified elevation of WBC from 13.6 to 16.9. No new order at this time. Will continue to monitor the patient.
--- NOTE | 2019-03-22 11:03 | NUR ---
NURSE NOTES: Waiting to get a call from Kim block and case maker, for transferring information. Will continue plan of care.
--- NOTE | 2019-03-22 11:17 | NUR ---
NURSE NOTES: 0900 Carvedilol was hold per Dr. Guerra's order prior to Dobutamine test today. The patient and Vesta, the family member, declined Dobutamine test but would like to be transferred to other hospital. Asked Dr. Guerra whether late dose of Carvedilol should be given since the patient's heart rate is 110s. Per Dr. Guerra, do not give medication as she is going to be transferred to other hospital today. Will continue to monitor the patient and will continue plan of care.
--- NOTE | 2019-03-22 11:50 | Cardiology Progress Note ---
Assessment/Plan Status: stable Assessment/Plan Assessment/Plan Status: stable Assessment/Plan: Assessment: (1) CHF (congestive heart failure) (2) Respiratory insufficiency (3) Cardiomyopathy (4) COPD exacerbation (5) Leukocytosis (6) Hypoxemia (7) Coronary artery disease PLAN: -Aspirin -high dose statin -Echocardiogram reviewed, severe systolic dysfunction -PO lasix and aldactone -Continue coreg 3.125 bid - increase to max tolerated as outpatient -Continue lisinopril 5 mg for afterload reduction -Breathing treatment/steroids/pulmonary toilet -Patient has ICD - will need to interrogate as outpatient -Recommend JOLLY to evaluate for peripheral vascular disease - can do as outpatient -May need cardiac cath depending on degree of ischemia ->plan to transfer to [place] for cath Subjective Cardiovascular: Reports: no symptoms Respiratory: Reports: no symptoms Gastrointestinal/Abdominal: Reports: no symptoms Genitourinary: Reports: no symptoms Subjective NO acute events, patient continues to have chest pain, relieved with nitro SL Plan to transfer to [place] for cath Objective Last 24 Hour Vital Signs Date Time Temp Pulse Resp B/P (MAP) Pulse Ox O2 Delivery O2 Flow Rate FiO2 03/22/19 09:00 Nasal Cannula 3.0 03/22/19 09:00 113 115/83 03/22/19 08:00 97.7 113 18 115/83 (94) 99 03/22/19 08:00 112 03/22/19 04:00 114 03/22/19 03:22 97.4 130 20 121/87 (98) 98 03/22/19 00:00 98.3 132 20 118/88 (98) 100 03/22/19 00:00 133 03/21/19 21:48 130/77 03/21/19 21:00 Nasal Cannula 2.0 03/21/19 20:00 132 03/21/19 20:00 97.7 136 20 121/89 (100) 98 03/21/19 17:24 113 115/86 03/21/19 16:00 112 03/21/19 16:00 97.4 111 20 114/84 (94) 98 03/21/19 12:00 107 03/21/19 12:00 98.2 113 20 113/81 (92) 99 General Appearance: no apparent distress, alert EENT: PERRL/EOMI, normal ENT inspection, TMs normal, pharynx normal Neck: non-tender, normal alignment, supple, normal inspection, no JVD Rhythm: NSR Cardiovascular: normal peripheral pulses, normal rate Respiratory/Chest: chest wall non-tender, lungs clear Abdomen: normal bowel sounds, non tender, soft, no organomegaly, no mass Extremities: normal range of motion, non-tender, normal inspection, no calf tenderness, no swelling Neurologic: university relations director II-XII grossly normal, no motor/sensory deficits Intake and Output 03/21/19 03/22/19 19:00 07:00 Intake Total 240 ml Output Total 1200 ml 700 ml Balance -960 ml -700 ml Intake Oral 240 ml Output Urine Total 1200 ml 700 ml # Voids 2 Laboratory Tests Test 03/22/19 06:09 White Blood Count 16.9 K/UL (4.8-10.8) H Red Blood Count 4.63 M/UL (4.20-5.40) Hemoglobin 13.6 G/DL (12.0-16.0) Hematocrit 41.9 % (37.0-47.0) Mean Corpuscular Volume 90 FL (80-99) Mean Corpuscular Hemoglobin 29.4 PG (27.0-31.0) Mean Corpuscular Hemoglobin Concent 32.5 G/DL (32.0-36.0) Red Cell Distribution Width 15.4 % (11.6-14.8) H Platelet Count 358 K/UL (150-450) Mean Platelet Volume 5.8 FL (6.5-10.1) L Neutrophils (%) (Auto) 74.3 % (45.0-75.0) Lymphocytes (%) (Auto) 17.8 % (20.0-45.0) L Monocytes (%) (Auto) 6.3 % (1.0-10.0) Eosinophils (%) (Auto) 0.9 % (0.0-3.0) Basophils (%) (Auto) 0.8 % (0.0-2.0) Sodium Level 140 MMOL/L (136-145) Potassium Level 4.1 MMOL/L (3.5-5.1) Chloride Level 102 MMOL/L (98-107) Carbon Dioxide Level 26 MMOL/L (21-32) Anion Gap 12 mmol/L (5-15) Blood Urea Nitrogen 39 mg/dL (7-18) H Creatinine 1.5 MG/DL (0.55-1.30) H Estimat Glomerular Filtration Rate 42.3 mL/min (>60) Glucose Level 184 MG/DL (74-106) H Calcium Level 9.8 MG/DL (8.5-10.1) Microbiology Date/Time Source Procedure Growth Status 03/19/19 19:00 Nasal Nares MRSA Culture - Final NO METHICILLIN RESISTANT STAPH AUREUS... Complete 03/19/19 19:00 Rectum VRE Culture - Final Enterococcus Faecalis - Vre Resulted 03/19/19 19:00 Rectum Pending Resulted Aaron Guerra MD Mar 22, 2019 11:50
[2019-03-22 12:00] VITALS: BP 114/81
--- NOTE | 2019-03-22 12:49 | Diagnostic Imaging Report ---
Indication: Abnormal renal function tests, history of diabetes and urinary tract infection Technique: Grayscale and duplex images of the kidneys, retroperitoneum, and bladder were obtained. Comparison: none Findings: Right kidney measures 10.1 cm in length. Left kidney measures 9.6 cm in length. Both kidneys demonstrate normal echogenicity. No hydronephrosis. The right kidney demonstrates a small interpolar region cyst. Normal inferior vena cava. Bladder is normal, calculated volume 75 mL. Impression: Negative for hydronephrosis Incidental finding right renal cyst.
--- NOTE | 2019-03-22 12:56 | Pulmonology Progress Note ---
Assessment/Plan Assessment/Plan IMPRESSION: 1. Renal insufficiency. 2. Chest pain. 3. Mild CHF. 4. COPD. 5. Diabetes mellitus. 6. Hypothyroidism. DISCUSSION: Continue aspirin, Coreg, Rocephin, Lovenox, Pepcid, Lasix, insulin sliding scale, Synthroid. I will follow carefully. May need cath Subjective Interval Events: None new; refuses dobutamine stress test Constitutional: Reports: no symptoms HEENT: Repors: no symptoms Respiratory: Reports: no symptoms Cardiovascular: Reports: no symptoms Gastrointestinal/Abdominal: Reports: no symptoms Genitourinary: Reports: no symptoms Allergies: Coded Allergies: SIMVASTATIN (Verified Adverse Reaction, Intermediate, NAUSEA AND VOMITTING , 03/20/19) Objective Last 24 Hour Vital Signs Date Time Temp Pulse Resp B/P (MAP) Pulse Ox O2 Delivery O2 Flow Rate FiO2 03/22/19 12:00 97.9 117 18 114/81 (92) 100 03/22/19 09:00 Nasal Cannula 3.0 03/22/19 09:00 113 115/83 03/22/19 08:00 97.7 113 18 115/83 (94) 99 03/22/19 08:00 112 03/22/19 04:00 114 03/22/19 03:22 97.4 130 20 121/87 (98) 98 03/22/19 00:00 98.3 132 20 118/88 (98) 100 03/22/19 00:00 133 03/21/19 21:48 130/77 03/21/19 21:00 Nasal Cannula 2.0 03/21/19 20:00 132 03/21/19 20:00 97.7 136 20 121/89 (100) 98 03/21/19 17:24 113 115/86 03/21/19 16:00 112 03/21/19 16:00 97.4 111 20 114/84 (94) 98 Intake and Output 03/21/19 03/22/19 19:00 07:00 Intake Total 240 ml Output Total 1200 ml 700 ml Balance -960 ml -700 ml Intake Oral 240 ml Output Urine Total 1200 ml 700 ml # Voids 2 General Appearance: no acute distress HEENT: normocephalic Respiratory/Chest: chest wall non-tender, lungs clear Cardiovascular: normal peripheral pulses, normal rate Abdomen: normal bowel sounds Extremities: no cyanosis Microbiology Date/Time Source Procedure Growth Status 03/19/19 19:00 Nasal Nares MRSA Culture - Final NO METHICILLIN RESISTANT STAPH AUREUS... Complete 03/19/19 19:00 Rectum VRE Culture - Final Enterococcus Faecalis - Vre Resulted 03/19/19 19:00 Rectum Pending Resulted Laboratory Tests 03/22/19 06:09: White Blood Count 16.9H, Red Blood Count 4.63, Hemoglobin 13.6, Hematocrit 41.9 , Mean Corpuscular Volume 90, Mean Corpuscular Hemoglobin 29.4, Mean Corpuscular Hemoglobin Concent 32.5, Red Cell Distribution Width 15.4H, Platelet Count 358, Mean Platelet Volume 5.8L, Neutrophils (%) (Auto) 74.3, Lymphocytes (%) (Auto) 17.8L, Monocytes (%) (Auto) 6.3, Eosinophils (%) (Auto) 0.9, Basophils (%) (Auto) 0.8, Sodium Level 140, Potassium Level 4.1, Chloride Level 102, Carbon Dioxide Level 26, Anion Gap 12, Blood Urea Nitrogen 39H, Creatinine 1.5H, Estimat Glomerular Filtration Rate 42.3, Glucose Level 184H, Calcium Level 9.8 Current Medications Medications (Trade) Dose Ordered Sig/Cassidy Route PRN Reason Start Time Stop Time Status Last Admin Dose Admin Acetaminophen (Tylenol) 650 mg Q4H PRN ORAL Mild Pain (Pain Scale 1-3) 03/21/19 00:15 04/18/19 20:14 Aspirin (ASA) 81 mg DAILY ORAL 03/21/19 09:00 04/19/19 08:59 03/22/19 09:12 Carvedilol (Coreg) 3.125 mg BID ORAL 03/21/19 09:00 04/19/19 08:59 03/21/19 17:24 Ceftriaxone Sodium 1 gm/ Sodium Chloride 55 ml @ 110 mls/hr DAILY@1800 IVPB 03/21/19 18:00 03/27/19 17:59 03/21/19 18:07 Dextrose (Dextrose 50%) 25 ml Q30M PRN IV Hypoglycemia 03/20/19 21:45 04/18/19 20:14 Dextrose (Dextrose 50%) 50 ml Q30M PRN IV Hypoglycemia 03/20/19 21:45 04/18/19 20:14 Docusate Sodium (Colace) 250 mg DAILY ORAL 03/21/19 16:30 04/20/19 16:29 03/22/19 09:12 Enoxaparin Sodium (Lovenox) 40 mg DAILY SUBQ 03/21/19 09:00 04/20/19 08:59 03/22/19 09:13 Famotidine (Pepcid) 20 mg DAILY ORAL 03/21/19 09:00 04/19/19 08:59 03/22/19 09:12 Furosemide (Lasix) 20 mg TID IV 03/21/19 09:00 04/19/19 08:59 03/22/19 12:13 Insulin Aspart (NovoLOG) BEFORE MEALS AND HS SUBQ 03/21/19 06:30 04/19/19 06:29 03/22/19 12:13 Levothyroxine Sodium (Synthroid) 75 mcg DAILY@0630 ORAL 03/21/19 06:30 04/19/19 06:29 03/22/19 06:53 Nitroglycerin (Ntg) 0.4 mg Q5M PRN SL Prn Chest Pain 03/20/19 21:35 04/19/19 00:00 03/21/19 21:48 Ondansetron HCl (Zofran) 4 mg Q6H PRN IVP Nausea & Vomiting 03/21/19 02:15 04/18/19 20:14 03/22/19 03:58 Tramadol HCl (Ultram) 50 mg Q6H PRN ORAL pain 4-10 03/21/19 01:15 03/27/19 19:14 03/22/19 03:58 Anders Lambert MD Mar 22, 2019 12:55
--- NOTE | 2019-03-22 13:29 | NUR ---
TRANSFER UPDATE PATIENT WILL TRANSFER TO [facility] FOR CARDIAC CATH.....DO NOT HAVE AN ETA AT THIS TIME ACCEPTING PHYSICIANS AT [facility] ARE DR YG MCKEON DIRECTOR PROSPECT DR LOVETT ~ HOSPITALIST [facility] T: [phone] F: [phone] WAITING FOR ROOM NUMBER, PHONE NUMBER FOR REPORT AND THE OKAY TO TRANSFER
--- NOTE | 2019-03-22 14:22 | NUR ---
NURSE NOTES: Per Kim, the spring encaser, the patient will be transferred to [place] for cardia cath procedure. Per Kim, still waiting for ETA and room #. Will continue to monitor the patient and will continue plan of care.
--- NOTE | 2019-03-22 14:59 | NUR ---
P.T Note: P.T evaluation completed and tx initiated. Please refer to P.T evaluation for current functional status. Pt is alert, oriented x 4, pleasant and cooperative. Pt denied pain however reports c/o generalized weakness and fatigue. Pt currently requires MIN A X 1 and extended on bed mobility and transfer mobility tasks. Pt was able to ambulate 15 ft using the FWW , MIN A x 1 with c/o fatigue. Skilled P.T service is warranted to increase her strength , endurance and balance to increase her mobility independence and safety. Recommend home P.T at [place].
[2019-03-22 16:00] VITALS: BP 111/82
--- NOTE | 2019-03-22 16:19 | NUR ---
DISCHARGE PLANNED PATIENT HAS BEEN ACCEPTED AT [facility] ROOM [id number] T: [phone] FOR NURSE TO NURSE REPORT [facility] HAS BEEN ARRANGED FOR [id number] FRAME [facility] ACCEPTING PHYSICIANS ARE: DR YG MCKEON~ OIL DERRICK OPERATOR DR LOVETT ~ HOSPITALIST
--- NOTE | 2019-03-22 16:20 | NUR ---
NURSE NOTES: Kim informed that [facility] will cook pickled meat the patient between 1730 to 1800. Called the family member about the update in status. Will continue plan of care.
[2019-03-22] MEDS ORDERED: ACETAMINOPHEN325 M1 ORAL (16:42)
[2019-03-22] MEDS ORDERED: ASPIRIN81 MG ORAL (16:42)
[2019-03-22] MEDS ORDERED: CARVEDILOL3.125 MG ORAL (16:43)
[2019-03-22] MEDS ORDERED: DOCUSATE SODIU250 MG ORAL (16:43)
[2019-03-22] MEDS ORDERED: FAMOTIDINE20 MG ORAL (16:44)
[2019-03-22] MEDS ORDERED: LOVENOX10 M4 SUBQ (16:44)
[2019-03-22] MEDS ORDERED: FUROSEMIDE20 M1 IVP (16:46)
[2019-03-22] MEDS ORDERED: NOVOLOG100 UNITS1 (16:47)
[2019-03-22] MEDS ORDERED: LEVOTHYROXINE75 MCG ORAL (16:47)
[2019-03-22] MEDS ORDERED: NITROSTAT0.4 M2 SL (16:49)
[2019-03-22] MEDS ORDERED: ZOFRAN4 M3 IVP (16:50)
[2019-03-22] MEDS ORDERED: TRAMADOL HCL50 MG ORAL (16:50)
[2019-03-22] MEDS ORDERED: NOVOLOG100 UNIT/4 SQ (17:44)
[2019-03-22] MEDS ORDERED: NITROSTAT0.4 M1 SL (17:47)
--- NOTE | 2019-03-22 18:00 | NUR ---
Gave report to ABAD Shields who is receiving nurse at [place]. Course of hospitalization, medications, and reason for transfer which is cardiac cath. Ninoska and Vesta, the daughters, are also informed that the patient is expected to be transferred to [place] room 620. The patient is stable without acute distress or shortness of breath at this time. Will continue to monitor the patient until the transportation arrives.
[2019-03-22] MEDS ORDERED: Albuterol/Ipratropium 3ml neb HHN PRN (18:15)
[2019-03-22] MEDS: cefTRIAXone 1 GM in NS 55 ML IVPB SCH (18:29)
--- NOTE | 2019-03-22 19:45 | NUR ---
HAND-OFF: Report given to ABAD Stewart. The patient is resting on the bed without acute distress or shortness of breath. The patient's bed in the lowest position, call light in reach, and fall and aspiration precaution reinforced. Discharge instruction and teaching given and signed by the patient. Belongings checked with the patient and signed by the patient. Wound care done and picture taken and signed by the patient. After having case management consult, the patient will be transferred to [place] for cadiac cath placement. Informed to ABAD Shields the receiving nurse, Ninoska and Vesta who are daughters, and ABAD Stewart who is mine shifter nurse. Tele box removed by the nurse. Per ABAD Shields, keep the IV. Endorsed plan of care.
--- NOTE | 2019-03-22 19:46 | NUR ---
NURSE NOTES: RECEIVED PATIENT RESTING IN BED. ENDORSED BY OUTGOING RN AMBULANCE SHOULD ARRIVE AROUND 194
[2019-03-22 20:00] VITALS: BP 99/65
--- NOTE | 2019-03-22 20:45 | CDS Physician Query ---
Clarification is required for compliance, coding accuracy, and to reflect severity of illness for this patient Dear Severino Iraheta Date: 03/22/2019 Superintendent Sales/CDS Name: Sara Waddell 63 year old female, admitted with shortness of breath and chest pressure. BNP 2019, ECHO severe systolic dysfunction, CXR- no acute disease. Cardiology, consulted patient started on coreg 3.125 mg bid, lasix iv 20 mg bid. "Heart Failure / CHF" documented in cassandra consultant /progress notes. Please Clarify: Acuity Acute Type Systolic & Diastolic (Combined) Present on Admission: [] Yes joo crowley _03/23/2019____ Physician signature Date Please also document in your Progress Notes and/or Discharge Summary and indicate if the condition was present on admission. MTDD
--- NOTE | 2019-03-22 21:52 | NUR ---
NURSE NOTES: AT 2050 PATIENT LEFT FLOOR VIA [facility]. PATIENT HAD NO SIGNS OF DISTRESS, SOB OR PAIN. BELONGINGS WERE WITH PATIENT.
--- NOTE | 2019-03-23 15:10 | Discharge Summary ---
Discharge Summary Discharge Summary _ Summary DATE OF ADMISSION: 03/19/2019 DATE OF DISCHARGE: 03/22/2019 DISCHARGED BY: Dr. Boland REASON FOR ADMISSION: 63 years old female with past medical 30 of CHF, cardiomyopathy, COPD, diabetes mellitus, was recently discharged from [facility] , presented with shortness of breath and chest pressure. She denied nausea , vomiting, or diarrhea. Chest pressure reported as intermittent, improved with nitroglycerin. In emergency department patient was slightly hypotensive. Laboratory work-up revealed mild leukocytosis with WBC 13.8, stable hemoglobin and hematocrit. BUN 47, creatinine 1.7. Troponin 0 0.025. pro BNP 2020. EKG reveals sinus tachycardia, no acute ischemic changes. Urinalysis revealed +1 protein +1 leukocyte esterase few bacteria. No pyuria. Chest x-ray demonstrated no acute cardiopulmonary pathology. Patient subsequently was admitted for further management. CONSULTANTS: labor custodian pulmonary Dr. Lambert [facility] COURSE: Patient admitted to telemetry floor. Research Associate Professor consulted. Patient started on diuresis with close monitoring of volumes and cardiorenal parameters. Serial troponin were negative. EKG revealed no acute ischemic changes. Patient was rule out for acute myocardial infarction. Echocardiogram on previous admission demonstrated global left ventricular hypokinesis with left ventricular ejection fraction estimated to be 15 to 20%. No evidence of left ventricular hypertrophy. Right ventricular systolic pressure 27. Patient was on antiplatelet therapy with aspirin. Diuresis provided with close monitoring of volumes and cardiorenal parameters. Patient was continued on beta-hiro with plan to maximize dose as tolerated. Consider PHILIPPE inhibitor for afterload reduction if blood pressures allow. Patient will require AICD interrogation as outpatient. Research Associate Professor recommended arterial brachial index to evaluate for peripheral vascular disease , which can be done as outpatient. Research Associate Professor advised on cardiac catheterization and transfer to higher level of care. DVT and GI prophylaxis provided. Hemodynamic status was closely monitored to keep mean arterial blood pressure above 65. Lacquer Coater followed. Supplemental oxygen provided as needed to keep pulse oximetry above 92%. Pulmonary toilet was on standby as needed. Pulse oximetry on 3 L of oxygen via nasal cannula was stable. He plans to keep it still stable he still renal parameters electrolytes are closely monitor electrolytes corrected as needed nephrotoxins were avoided. Hemodynamic status was closely monitored to keep mean arterial blood pressure above 65. PHILIPPE inhibitor and Aldactone were hold until renal function stabilized. Renal ultrasound revealed no evidence of hydronephrosis, bilateral normal kidney echogenicity. Creatinine trended down to 1.5 from initial 1.7. Lasix changed to oral. Hypotension resolved. Levothyroxine continued. Blood sugar was managed with sliding scale of insulin. Diabetic diet provided. Patient initially started on antibiotic for possible UTI. Urinalysis revealed +1 leukocyte esterase, no evidence of pyuria and only few bacteria. Leukocytosis was probably due to steroids the patient was taken when discharged , no fevers. Antibiotic stopped. Placement was secured , and patient was ready for transfer via [facility] ambulance to [facility] for cardiac catheterization. FINAL DIAGNOSES: Congestive heart failure with severe systolic dysfunction Chest pain, possible acute coronary syndrome Cardiomyopathy with ejection fraction 15 to 20% Acute kidney injury COPD Diabetes mellitus Hypothyroidism Hypoxemia Coronary artery disease DISCHARGE MEDICATIONS: See Medication Reconciliation list. DISCHARGE INSTRUCTIONS: Patient was transferred to [facility] for further management I have been assigned to dictate discharge summary for this account. I was not involved in the patient's management. Katelyn Alfaro NP Mar 23, 2019 15:10
== END 2019-03-22 20:51 | disposition short-term general hospital (02) | DRG 198 ==
LOC: EDBD 16:44 → EMR 18:50 → 2W 19:07 → EDBEDREQ 19:27 → EDBEDREQSVC 20:13 → EDBEDREQ 21:37 → 2E 03-20 21:41
DX: I24.9 Acute ischemic heart disease, unspecified (principal); N17.9 Acute kidney failure, unspecified; I95.9 Hypotension, unspecified; I11.0 Hypertensive heart disease with heart failure; I42.9 Cardiomyopathy, unspecified; I50.20 Unspecified systolic (congestive) heart failure; J44.1 Chronic obstructive pulmonary disease with (acute) exacerbation; I10 Essential (primary) hypertension; E11.9 Type 2 diabetes mellitus without complications; E03.9 Hypothyroidism, unspecified; N39.0 Urinary tract infection, site not specified; R09.02 Hypoxemia; Z88.8 Allergy status to other drugs, medicaments and biological substances; I25.10 Atherosclerotic heart disease of native coronary artery without angina pectoris; Z95.810 Presence of automatic (implantable) cardiac defibrillator
CPT/HCPCS: 36415; 71045; 76770; 80048; 80053; 81003; 82550; 82553; 83880; 84484; 85025; 87081; 93005; 94640; 94664; 96365; 96375; 99285; J1815; J2405; J7620

== ENCOUNTER 2019-04-06 00:58 | Emergency (ER) | payer MEDICARE, MEDICAID ==
[~2019-04-06] VITALS: Ht 170.2 cm; Wt 99.8 kg
[~2019-04-06 00:58] MED LIST changes: +ACETAMINOPHEN325 M1 ORAL; +DOCUSATE SODIU250 MG ORAL; +FAMOTIDINE20 MG ORAL; +FUROSEMIDE20 M1 IVP; +LOVENOX10 M4 SUBQ; +NITROSTAT0.4 M1 SL; +NITROSTAT0.4 M2 SL; +NOVOLOG100 UNIT/4 SQ; +NOVOLOG100 UNITS1; +TRAMADOL HCL50 MG ORAL; +ZOFRAN4 M3 IVP
[2019-04-06 01:00] VITALS: BP 132/76
--- NOTE | 2019-04-06 01:00 | NUR ---
ED Nurse Note: Pt BIBA RA 66, brought from home, c/o 810 pain in saccrum from previous decub ulcers, Pt is A&Ox4. Skin is intact on saccrum
--- NOTE | 2019-04-06 01:14 | Emergency Room Report ---
History of Present Illness General Chief Complaint: Lower Back Pain or Injury Source: Patient Present Illness HPI 63-year-old female presents with perianal pain that started 1 week ago, patient with a history of decubitus ulcers, she states her decubitus ulcer has healed but she now has residual left buttock pain, no fever no chills, no chest pain or shortness of breath, she endorses a moderate pain achy in nature does not radiate, has acutely worsened over the past day, patient presents for evaluation of her decubitus ulcer Allergies: Coded Allergies: SIMVASTATIN (Verified Adverse Reaction, Intermediate, NAUSEA AND VOMITTING , 03/20/19) Patient History Past Medical History: see triage record Last Menstrual Period: n/a Reviewed Nursing Documentation: PMH: Agreed; PSxH: Agreed Nursing Documentation-PMH Past Medical History: No History, Except For Hx Cardiac Problems: Yes - CHF, open heart surgery 2018 Hx Hypertension: Yes Hx Pacemaker: Yes - defibrillator Hx Asthma: Yes Hx COPD: Yes Hx Diabetes: Yes Hx Cancer: No Hx Neurological Problems: No Hx Cerebrovascular Accident: No Hx Transient Ischemic Attacks: No Hx Dementia: No Hx Alzheimer's Disease: No Hx Parkinson's Disease: No Hx Meningitis: No Hx Encephalitis: No Hx Seizures: No Hx Epilepsy: No Hx Multiple Sclerosis: No Hx Cerebral Palsy: No Hx Amyotrophic Lat Sclerosis: No Hx Guillian-Oliver Syndrome: No Hx Paralysis: No Hx Peripheral Neuropathy: No Hx Spinal Cord Injury: No Hx Head Trauma: No Hx Traumatic Brain Injury: No Hx Memory Loss: No Hx Concentration Difficulty: No Hx Speech Problem: No Hx Tremors: No Hx Vertigo: No Hx Dizziness: Yes Hx Syncope: No Hx Headaches: Yes Hx Aphasia: No Hx Dysphasia: No Hx Numbness: Yes - Bilateral feet Hx Weakness: Yes - General weakness Hx Fatigue: Yes Hx Neurologic Surgery: No Hx Brain Shunt: No Review of Systems Constitutional: Denies: chills, fever Eye: Denies: blurred vision, double vision ENT: Denies: throat pain, nasal discharge Respiratory: Denies: cough, shortness of breath Cardiovascular: Denies: chest pain, palpitations Gastrointestinal: Reports: other - Left buttock pain; Denies: abdominal pain, diarrhea, nausea, vomiting Genitourinary: Denies: dysuria, pain Musculoskeletal: Denies: back pain, muscle pain Skin: Denies: rash, lesions Neurological: Denies: headache, focal weakness Hematologic/Lymphatic: Denies: easy bleeding, easy bruising All Other Systems: negative except mentioned in HPI Physical Exam Vital Signs Date Time Temp Pulse Resp B/P (MAP) Pulse Ox O2 Delivery O2 Flow Rate FiO2 04/06/19 00:55 98.4 91 18 132/76 (94) 98 Room Air Sp02 EP Interpretation: reviewed, normal General Appearance: well appearing, no apparent distress, alert Head: normocephalic, atraumatic Eyes: bilateral eye PERRL, bilateral eye EOMI ENT: uvula midline, moist mucus membranes Neck: supple, thyroid normal, supple/symm/no masses Respiratory: lungs clear, no respiratory distress, no retraction, no accessory muscle use Cardiovascular #1: normal peripheral pulses, regular rate, rhythm, no edema, no gallop, no murmur Gastrointestinal: non tender, soft, no guarding, no rebound Rectal: other - Supervisor [employer] Emily RN, well-healed decubitus ulcer left buttock, tender to palpation, no erythema, no fluctuance, no evidence of infection Musculoskeletal: normal inspection Neurologic: alert, oriented x3 Psychiatric: mood/affect normal Skin: no rash, warm/dry Medical Decision Making Diagnostic Impression: Primary Impression: Skin ulcer ER Course 63-year-old female presents with pain perianally, no evidence of infection, wound is clean dry and intact, CT abdomen pelvis shows no acute changes, CBC shows an elevated white count, which may be secondary to a stress reaction however previous hospital visits show an increased white count, and states she has recently been taking steroids. Patient on reevaluation pain is well controlled, joint decision-making was made with patient to pursue outpatient care, patient states that she will get a prescription for pain medication with her doctor. Cures was checked Disposition home with return precautions Laboratory Tests Test 04/06/19 01:45 White Blood Count 18.6 K/UL (4.8-10.8) H Red Blood Count 4.31 M/UL (4.20-5.40) Hemoglobin 12.6 G/DL (12.0-16.0) Hematocrit 39.6 % (37.0-47.0) Mean Corpuscular Volume 92 FL (80-99) Mean Corpuscular Hemoglobin 29.2 PG (27.0-31.0) Mean Corpuscular Hemoglobin Concent 31.8 G/DL (32.0-36.0) L Red Cell Distribution Width 15.3 % (11.6-14.8) H Platelet Count 325 K/UL (150-450) Mean Platelet Volume 6.7 FL (6.5-10.1) Neutrophils (%) (Auto) % (45.0-75.0) Lymphocytes (%) (Auto) % (20.0-45.0) Monocytes (%) (Auto) % (1.0-10.0) Eosinophils (%) (Auto) % (0.0-3.0) Basophils (%) (Auto) % (0.0-2.0) Prothrombin Time 10.3 SEC (9.30-11.50) Prothrombin Time INR 1.0 (0.9-1.1) PTT 33 SEC (23-33) Sodium Level 139 MMOL/L (136-145) Potassium Level 4.5 MMOL/L (3.5-5.1) Chloride Level 104 MMOL/L (98-107) Carbon Dioxide Level 27 MMOL/L (21-32) Anion Gap 8 mmol/L (5-15) Blood Urea Nitrogen 27 mg/dL (7-18) H Creatinine 1.3 MG/DL (0.55-1.30) Estimate Glomerular Filtration Rate 49.8 mL/min (>60) Glucose Level 137 MG/DL (74-106) H Calcium Level 9.9 MG/DL (8.5-10.1) Total Bilirubin 0.3 MG/DL (0.2-1.0) Aspartate Amino Transferase (AST) 16 U/L (15-37) Alanine Aminotransferase (ALT) 22 U/L (12-78) Alkaline Phosphatase 102 U/L (46-116) Total Protein 8.1 G/DL (6.4-8.2) Albumin 3.6 G/DL (3.4-5.0) Globulin 4.5 g/dL Albumin/Globulin Ratio 0.8 (1.0-2.7) L Lipase 230 U/L (73-393) CT/MRI/US Diagnostic Results CT/MRI/US Diagnostic Results : Impression T ABDOMEN & PELVIS With Contrast: Normal appendix. Diverticulosis of the colon. No acute diverticulitis. Status post cholecystectomy. Degenerative changes of the spine. Bibasilar subsegmental atelectasis. Radiologist: Mitchell Sherman MD Last Vital Signs Date Time Temp Pulse Resp B/P (MAP) Pulse Ox O2 Delivery O2 Flow Rate FiO2 04/06/19 00:55 98.4 91 18 132/76 (94) 98 Room Air Disposition: HOME, SELF-CARE Condition: Stable Scripts Psyllium Husk (METAMUCIL) 0.52 Gm Capsule 0.52 GM PO DAILY, #30 CAP Prov: Alfie Barreto MD 04/06/19 Referrals: [facility] Patient Instructions: Pressure Ulcer, Skin Ulcer Additional Instructions: The patient was provided with discharge instructions, notified to follow-up with a primary care doctor and or specialist in the next 24-48 hours, and to return to the ED if they have worsening of their symptoms. Please note that this report is being documented using DRAGON technology. This can lead to erroneous entry secondary to incorrect interpretation by the dictating instrument. Alfie Barreto MD Apr 06, 2019 01:14
[2019-04-06] MEDS ORDERED: Morphine Sulfate 4mg/ml Inj (IV USE ONLY) IVP ONE ×2 (01:15→04:15)
[2019-04-06] MEDS ORDERED: Isovue-300 100ml vial INJ PRN (01:15)
[2019-04-06] MEDS ORDERED: Albuterol ud Inhalation HHN ONE (01:30)
[2019-04-06] MEDS ORDERED: Ipratropium 0.02% Inh Soln 2.5ml UD HHN ONE (01:30)
[2019-04-06 01:54] LABS: HEMATOCRIT 39.6 % (37.0-47.0); HEMOGLOBIN 12.6 G/DL (12.0-16.0); MEAN CORPUSCULAR VOLUME 92 FL (80-99); PLATELET COUNT 325 K/UL (150-450); RED BLOOD COUNT 4.31 M/UL (4.20-5.40); RED CELL DISTRIBUTION WIDTH 15.3 % (11.6-14.8); WHITE BLOOD COUNT 18.6 K/UL (4.8-10.8)
[2019-04-06] MEDS ORDERED: LORazepam Inj 2mg/ml 1ml IV ONE (02:00)
[2019-04-06 02:12] LABS: ANION GAP 8 mmol/L (5-15); BLOOD UREA NITROGEN 27 mg/dL (7-18); CALCIUM 9.9 MG/DL (8.5-10.1); CARBON DIOXIDE 27 MMOL/L (21-32); CHLORIDE 104 MMOL/L (98-107); CREATININE 1.3 MG/DL (0.55-1.30); POTASSIUM 4.5 MMOL/L (3.5-5.1); SODIUM 139 MMOL/L (136-145)
[2019-04-06 02:14] LABS: ALANINE AMINOTRANSFERASE 22 U/L (12-78); ALBUMIN 3.6 G/DL (3.4-5.0); ALBUMIN/GLOBULIN RATIO 0.8 (1.0-2.7); ALKALINE PHOSPHATASE 102 U/L (46-116); ASPARTATE AMINO TRANSFERASE 16 U/L (15-37); BILIRUBIN,TOTAL 0.3 MG/DL (0.2-1.0)
--- NOTE | 2019-04-06 03:00 | NUR ---
ED Nurse Note: Pt in bed resting, states breathing tx helped her feel better. will continue to monitor
--- NOTE | 2019-04-06 03:41 | Diagnostic Imaging Report ---
Indication: Abdominal pain Technique: Continuous helical transaxial imaging of the abdomen and pelvis was obtained from the lung bases to the pubic symphysis during intravenous contrast administration. Coronal 2-D reformats were also obtained. Study obtained in a Siemens sensation [address] Automatic Exposure Control was utilized. Total Dose length Product (DLP): 1668.[address] Dose Index Volume (CTDIvol): 19.51,19.75 mGy Comparison: None Findings: Streaky densities are noted at the lung bases nonspecific but probably atelectasis. Cardiomegaly and a pacemaker noted. There is some artifact limiting evaluation of the abdomen. Cholecystectomy clips are present. There is no hydronephrosis. There is right extrarenal pelvis likely present. Aortoiliac calcifications are present. Diverticula noted in the colon. Atrophic uterus demonstrated. Normal appendix noted. There is no free fluid identified. Bladder is unremarkable. There is narrowing of intervertebral discs and accompanying endplate osteophyte formation. Hypertrophied facet joints also demonstrated. IMPRESSION: No acute findings identified. Prominent degenerative changes of the spine moderate to severe in degree. Patchy basilar atelectasis versus infiltrate. Cardiomegaly and pacemaker Status post cholecystectomy Right extrarenal pelvis Normal appendix Diverticulosis of the colon. [facility] has communicated the preliminary results to the Emergency Department. Their findings are largely concordant with this report. The CT scanner at [facility] is accredited by the [employer] and the scans are performed using dose optimization techniques as appropriate to a performed exam including Automatic Exposure control.
[2019-04-06] MEDS ORDERED: METAMUCIL0.52 G1 PO (03:49)
--- NOTE | 2019-04-06 03:50 | NUR ---
Called patient's daughter regarding vegetable picker, [email or web address] states that she is unable to pick her mom up. will arrange transport.
--- NOTE | 2019-04-06 04:04 | NUR ---
ED Nurse Note: Dr Barreto verbal order for 4mg IVP Morphine.
[2019-04-06] MEDS ORDERED: Morphine Sulfate 4mg/ml Inj (IV USE ONLY) ONE (04:07)
[2019-04-06 06:00] VITALS: BP 132/76
--- NOTE | 2019-04-06 06:00 | NUR ---
ER DISCHARGE NOTE: Patient is cleared to be discharged per ERMD, pt is aox4, on room air, with stable vital signs. pt was given dc and prescription instructions, pt was able to verbalize understanding, pt id band and iv site removed without complications. pt is able to ambulate with steady gait. pt took all belongings.
== END 2019-04-06 06:00 | disposition home or self-care (01) ==
LOC: EDBD 00:58 → EMR 01:23
DX: L89.329 Pressure ulcer of left buttock, unspecified stage (principal); M53.3 Sacrococcygeal disorders, not elsewhere classified; E11.9 Type 2 diabetes mellitus without complications; J44.9 Chronic obstructive pulmonary disease, unspecified; Z95.810 Presence of automatic (implantable) cardiac defibrillator; I11.0 Hypertensive heart disease with heart failure; I50.9 Heart failure, unspecified; Z88.8 Allergy status to other drugs, medicaments and biological substances; K57.30 Diverticulosis of large intestine without perforation or abscess without bleeding
CPT/HCPCS: 36415; 74177; 80053; 83690; 85025; 85610; 85730; 94640; 94664; 96374; 96375; 96376; 99284; J2270; J2405; J7040; Q9967

== ENCOUNTER 2019-04-06 20:43 | Inpatient (IN) | payer MEDICARE, MEDICAID ==
[~2019-04-06] VITALS: Ht 165.1 cm; Wt 136.1 kg
[~2019-04-06 20:43] MED LIST changes: -FUROSEMIDE20 M1 IVP; +FUROSEMIDE20 M1 PO; +METAMUCIL0.52 G1 PO; -ZOFRAN4 M3 IVP; +ZOFRAN4 M3 PO
[2019-04-06 20:55] VITALS: BP 110/76
--- NOTE | 2019-04-06 20:55 | NUR ---
ER Nurse Note: Pt BIBDamir 66 from home c/o generalized pain that started years ago s/p various surgeries. Pt stated 10 pain; pain is not controlled by pain meds she takes, unk name and dose, and stated she has an appointment with her PCP on 04/08. Per pt, she was at [facility] 04/05 for same reason. Pt VSS, no signs of distress. Wheezes heard, O2 >96% RA with hx of asthma. Will continue to [facility]. Daughter at bedside; Vesta, .
[2019-04-06] MEDS ORDERED: Morphine Sulfate 4mg/ml Inj (IV USE ONLY) IVP ONE (21:30)
[2019-04-06] MEDS ORDERED: Solu-MEDROL 125mg Inj IVP ONE (21:30)
[2019-04-06] MEDS ORDERED: LORazepam Inj 2mg/ml 1ml IV ONE (21:30)
[2019-04-06 21:38] LABS: BASOPHILS % (AUTO) 1.1 % (0.0-2.0); EOSINOPHILS % (AUTO) 0.5 % (0.0-3.0); HEMATOCRIT 37.5 % (37.0-47.0); HEMOGLOBIN 12.1 G/DL (12.0-16.0); LYMPHOCYTES % (AUTO) 12.9 % (20.0-45.0); MEAN CORPUSCULAR VOLUME 90 FL (80-99); MONOCYTES % (AUTO) 5.6 % (1.0-10.0); NEUTROPHILS % (AUTO) 79.9 % (45.0-75.0); PLATELET COUNT 295 K/UL (150-450); RED BLOOD COUNT 4.16 M/UL (4.20-5.40); RED CELL DISTRIBUTION WIDTH 14.8 % (11.6-14.8); WHITE BLOOD COUNT 15.7 K/UL (4.8-10.8)
[2019-04-06] MEDS: Albuterol ud Inhalation HHN SCH ×3 (21:44→22:44)
[2019-04-06] MEDS: Ipratropium 0.02% Inh Soln 2.5ml UD HHN SCH ×3 (21:44→22:44)
[2019-04-06 21:58] LABS: ANION GAP 8 mmol/L (5-15); BLOOD UREA NITROGEN 24 mg/dL (7-18); CALCIUM 9.7 MG/DL (8.5-10.1); CARBON DIOXIDE 27 MMOL/L (21-32); CHLORIDE 104 MMOL/L (98-107); CREATININE 1.3 MG/DL (0.55-1.30); POTASSIUM 4.8 MMOL/L (3.5-5.1); SODIUM 138 MMOL/L (136-145)
[2019-04-06 22:13] LABS: ALANINE AMINOTRANSFERASE 19 U/L (12-78); ALBUMIN 3.6 G/DL (3.4-5.0); ALBUMIN/GLOBULIN RATIO 0.8 (1.0-2.7); ALKALINE PHOSPHATASE 94 U/L (46-116); ASPARTATE AMINO TRANSFERASE 18 U/L (15-37); BILIRUBIN,TOTAL 0.5 MG/DL (0.2-1.0); CKMB 1.7 NG/ML (0.0-3.6); CREATINE KINASE 133 U/L (26-308)
[2019-04-07 00:18] VITALS: BP 118/78
--- NOTE | 2019-04-07 00:19 | NUR ---
ER Nurse Note: All orders completed per ERMD orders. Pt a&ox4, VSS, no signs of distress; calm. Pt has old scars on chest, RT knee, lower back. Pt was at [facility] 04/05, wound photos taken 04/05. Skin intact. All safety measures met; will conitnue to adelfo.
[2019-04-07] MEDS ORDERED: Morphine Sulfate 4mg/ml Inj (IV USE ONLY) IVP ONE (01:30)
[2019-04-07 01:50] VITALS: BP 122/74
--- NOTE | 2019-04-07 01:50 | NUR ---
ER Nurse Note: Report given to ABAD Mcconnell in tele for continuity of care. Pt a&ox4, VSS, no signs of distress. Pt left with all belongings.
--- NOTE | 2019-04-07 01:54 | NUR ---
NURSE NOTES: Report received from ABAD Infante, patient in stable condition, VSS, AOx4, O2 N/C @2L, denies pain at this time,Left AC, patent, intact, asymptomatic, applied monitoring coordinator, oriented the patient to room and unit, received admission orders, noted and carried out.
[2019-04-07] MEDS ORDERED: Morphine Sulfate 2mg/ml Inj(IV/IM USE ONLY) IVP PRN (02:00)
[2019-04-07] MEDS ORDERED: traMADol 50mg tab ORAL PRN (02:45)
[2019-04-07] MEDS ORDERED: Nitroglycerin Subl 0.4mg tab SL PRN ×2 (02:45→12:00)
--- NOTE | 2019-04-07 02:55 | Emergency Room Report ---
History of Present Illness General Chief Complaint: Pain Source: Patient, Family Member Present Illness HPI 63-year-old female presents ED complaining of chest pain. Brought home by EMS. States she is been having episodic chest pain x1 day. Comes and goes. Sharp , 7 out of 10, nonradiating. Also feels short of breath. History of CHF. History of defibrillator. Also has history of healing decubitus ulcer on her sacrum. Was here yesterday for this and was evaluated including labs and CT. No other aggravating relieving factors. Denies any other associated symptoms Allergies: Coded Allergies: SIMVASTATIN (Verified Adverse Reaction, Intermediate, NAUSEA AND VOMITTING , 03/20/19) Patient History Past Medical History: none, DM, HTN, AR, CAD, CHF, asthma, COPD Past Surgical History: none Pertinent Family History: none Social History: Denies: smoking, alcohol use, drug use Now: No Immunizations: UTD Reviewed Nursing Documentation: PMH: Agreed; PSxH: Agreed Nursing Documentation-PMH Past Medical History: No History, Except For Hx Cardiac Problems: Yes - CHF, open heart surgery 2018 Hx Hypertension: Yes Hx Pacemaker: Yes - defibrillator Hx Asthma: Yes Hx COPD: Yes Hx Diabetes: Yes Hx Cancer: No Hx Neurological Problems: No Hx Cerebrovascular Accident: No Hx Transient Ischemic Attacks: No Hx Dementia: No Hx Alzheimer's Disease: No Hx Parkinson's Disease: No Hx Meningitis: No Hx Encephalitis: No Hx Seizures: No Hx Epilepsy: No Hx Multiple Sclerosis: No Hx Cerebral Palsy: No Hx Amyotrophic Lat Sclerosis: No Hx Guillian-Stuttgart Syndrome: No Hx Paralysis: No Hx Peripheral Neuropathy: No Hx Spinal Cord Injury: No Hx Head Trauma: No Hx Traumatic Brain Injury: No Hx Memory Loss: No Hx Concentration Difficulty: No Hx Speech Problem: No Hx Tremors: No Hx Vertigo: No Hx Dizziness: Yes Hx Syncope: No Hx Headaches: Yes Hx Aphasia: No Hx Dysphasia: No Hx Numbness: Yes - Bilateral feet Hx Weakness: Yes - General weakness Hx Fatigue: Yes Hx Neurologic Surgery: No Hx Brain Shunt: No Review of Systems All Other Systems: negative except mentioned in HPI Physical Exam Vital Signs Date Time Temp Pulse Resp B/P (MAP) Pulse Ox O2 Delivery O2 Flow Rate FiO2 04/06/19 20:43 98.6 90 22 110/76 (87) 90 Room Air 04/06/19 21:45 21 7/31/19 23:10 2.0 Sp02 EP Interpretation: reviewed, normal General Appearance: no apparent distress, alert, GCS 15, non-toxic, obese Head: normocephalic, atraumatic Eyes: bilateral eye normal inspection, bilateral eye PERRL ENT: hearing grossly normal, normal pharynx, no angioedema, normal voice Neck: full range of motion, supple/symm/no masses Respiratory: chest non-tender, normal breath sounds, speaking full sentences, wheezing Cardiovascular #1: regular rate, rhythm, no edema Cardiovascular #2: 2+ carotid (R), 2+ carotid (L), 2+ radial (R), 2+ radial (L) , 2+ dorsalis pedis (R), 2+ dorsalis pedis (L) Gastrointestinal: normal bowel sounds, non tender, soft, non-distended, no guarding, no rebound Rectal: deferred Genitourinary: normal inspection, no CVA tenderness Musculoskeletal: non-tender Neurologic: alert, oriented x3, responsive, motor strength/tone normal, sensory intact, speech normal Psychiatric: judgement/insight normal, memory normal, mood/affect normal, no suicidal/homicidal ideation Reflexes: 3+ bicep (R), 3+ bicep (L), 3+ tricep (R), 3+ tricep (L), 3+ knee (R) , 3+ knee (L) Skin: other - healing decubitus ulcer on sacrum. see nursing notes. Lymphatic: no adenopathy Medical Decision Making Diagnostic Impression: Primary Impression: ACS (acute coronary syndrome) Additional Impression: CHF (congestive heart failure) Qualified Codes: I50.9 - Heart failure, unspecified ER Course Hospital Course 63 yo F presents to ED c/o chest pain, SOB Differential diagnoses include: AR/unstable angina, contusion, muscle strain, PTX, rib fracture Clinical course Patient placed on stretcher. on ekg monitor tech. After initial history and physical I ordered labs, EKG, chest x-ray, pain meds, nebs labs reviewed- noted leukocytosis, hemoglobin/hematocrit stable, troponins negative, BNP greater than 2000 EKG - NSR, no acute ischemic changes interpreted by me Chest x-ray- CHF, ICD in place Review of labs from yesterday's visit patient's leukocytosis is improving. Given significant cardiac risk factors with ICD patient will be admitted given aspirin. patient will be admitted to Dr Pimentel's service I. I feel this is a highly complex case requiring extensive working including EKG/Rhythm strip, Xray/CT/US, Blood/urine lab work, repeat exams while in ED, and administration of strong opiates/narcotics for pain control, admission to hospital or close patient follow up. Diagnosis - CHF exacerbation, ACS admitted to telemetry in serious condition Labs Test 04/06/19 21:20 04/07/19 02:45 White Blood Count 15.7 K/UL (4.8-10.8) Red Blood Count 4.16 M/UL (4.20-5.40) Hemoglobin 12.1 G/DL (12.0-16.0) Hematocrit 37.5 % (37.0-47.0) Mean Corpuscular Volume 90 FL (80-99) Mean Corpuscular Hemoglobin 29.2 PG (27.0-31.0) Mean Corpuscular Hemoglobin Concent 32.4 G/DL (32.0-36.0) Red Cell Distribution Width 14.8 % (11.6-14.8) Platelet Count 295 K/UL (150-450) Mean Platelet Volume 6.1 FL (6.5-10.1) Neutrophils (%) (Auto) 79.9 % (45.0-75.0) Lymphocytes (%) (Auto) 12.9 % (20.0-45.0) Monocytes (%) (Auto) 5.6 % (1.0-10.0) Eosinophils (%) (Auto) 0.5 % (0.0-3.0) Basophils (%) (Auto) 1.1 % (0.0-2.0) Sodium Level 138 MMOL/L (136-145) Potassium Level 4.8 MMOL/L (3.5-5.1) Chloride Level 104 MMOL/L (98-107) Carbon Dioxide Level 27 MMOL/L (21-32) Anion Gap 8 mmol/L (5-15) Blood Urea Nitrogen 24 mg/dL (7-18) Creatinine 1.3 MG/DL (0.55-1.30) Estimat Glomerular Filtration Rate 49.8 mL/min (>60) Glucose Level 164 MG/DL (74-106) Calcium Level 9.7 MG/DL (8.5-10.1) Total Bilirubin 0.5 MG/DL (0.2-1.0) Aspartate Amino Transf (AST/SGOT) 18 U/L (15-37) Alanine Aminotransferase (ALT/SGPT) 19 U/L (12-78) Alkaline Phosphatase 94 U/L (46-116) Total Creatine Kinase 133 U/L (26-308) Creatine Kinase MB 1.7 NG/ML (0.0-3.6) Creatine Kinase MB Relative Index 1.2 Troponin I 0.011 ng/mL (0.000-0.056) Pro-B-Type Natriuretic Peptide 2435 pg/mL (0-125) Total Protein 8.3 G/DL (6.4-8.2) Albumin 3.6 G/DL (3.4-5.0) Globulin 4.7 g/dL Albumin/Globulin Ratio 0.8 (1.0-2.7) Digoxin Level 0.9 NG/ML (0.9-2.0) EKG Diagnostic Results Rate: normal Rhythm: NSR ST Segments: no acute changes ASA given to the pt in ED: No Rhythm Strip Diag. Results EP Interpretation: yes Rhythm: NSR, no PVC's, no ectopy Chest X-Ray Diagnostic Results Chest X-Ray Diagnostic Results : Chest X-Ray Ordered: Yes # of Views/Limited/Complete: 1 View Indication: Chest Pain EP Interpretation: Yes Interpretation: no pneumothorax, other - cardiomegaly. interstital congestion. ICD Impression: Other - chf Electronically Signed by: Electronically signed by Shashank Rowan MD Last Vital Signs Date Time Temp Pulse Resp B/P (MAP) Pulse Ox O2 Delivery O2 Flow Rate FiO2 04/07/19 00:18 98.5 80 18 118/78 96 Nasal Cannula 2.0 28 Status: improved Disposition: ADMITTED INPATIENT Condition: Serious Referrals: NOT CHOSEN IPA/,REFERRING (PCP) Shashank Rowan MD Apr 07, 2019 02:55
[2019-04-07 03:22] LABS: HEMATOCRIT 36.4 % (37.0-47.0); HEMOGLOBIN 11.3 G/DL (12.0-16.0); MEAN CORPUSCULAR VOLUME 93 FL (80-99); PLATELET COUNT 267 K/UL (150-450); RED BLOOD COUNT 3.92 M/UL (4.20-5.40); RED CELL DISTRIBUTION WIDTH 15.3 % (11.6-14.8); WHITE BLOOD COUNT 17.8 K/UL (4.8-10.8)
[2019-04-07 03:23] LABS: ANION GAP 10 mmol/L (5-15); BLOOD UREA NITROGEN 25 mg/dL (7-18); CALCIUM 9.2 MG/DL (8.5-10.1); CARBON DIOXIDE 26 MMOL/L (21-32); CHLORIDE 104 MMOL/L (98-107); CREATININE 1.2 MG/DL (0.55-1.30); POTASSIUM 4.6 MMOL/L (3.5-5.1); SODIUM 139 MMOL/L (136-145)
[2019-04-07] MEDS ORDERED: Albuterol/Ipratropium 3ml neb HHN SCH (07:00)
--- NOTE | 2019-04-07 07:34 | NUR ---
NURSE NOTES: Received report from ABAD Borrego. Patient in bed resting, no active s/s cardiac, respiratory distress noticed at this time, denies pain at this time. Patient AOx4, patient on 2L oxygen via NC, SR with HR 86. IV on left AC 20G, asymptomatic, patent, intact. Bed in lowest position, side rails upx3, call light within reach. Will continue to monitor.
--- NOTE | 2019-04-07 07:34 | NUR ---
HAND-OFF: Report given to ABAD Ashraf, patient in stable condition, plan of care endorsed.
[2019-04-07] MEDS: Albuterol/Ipratropium 3ml neb HHN SCH ×3 (07:40→18:50)
[2019-04-07 08:00] VITALS: BP 100/68
[2019-04-07] MEDS: Docusate 250mg cap ORAL SCH (08:16)
[2019-04-07] MEDS: Enoxaparin 40mg Inj SUBQ SCH (08:17)
[2019-04-07] MEDS: traMADol 50mg tab ORAL PRN ×2 (08:21→14:40)
[2019-04-07] MEDS ORDERED: Aspirin Baby 81mg ORAL SCH (09:00)
--- NOTE | 2019-04-07 09:17 | NUR ---
CASE MANAGEMENT:REVIEW 63 YR OLD FEMALE BIBA FROM HOME PMH: CHF. OPEN HEART SURGERY. HTN. PACEMAKER. ASTHMA. COPD. DM CC: PAIN SI: PAIN 98.6 90 22 110/76 90% ON RA WBC+15.7 IS: DUONEB HHN X3 IV SOLUMEDROL IV ATIVAN X1 IV MORPHINE X1 CXR : TO TELEMETRY DCP: FROM HOME
--- NOTE | 2019-04-07 11:07 | Cardiac Electrophysiology PN ---
Subjective Subjective [id number] Objective Last 24 Hour Vital Signs Date Time Temp Pulse Resp B/P (MAP) Pulse Ox O2 Delivery O2 Flow Rate FiO2 04/07/19 09:00 Nasal Cannula 2.0 Nasal Cannula 2.0 04/07/19 08:27 79 100/68 04/07/19 08:00 97.3 79 12 100/68 (79) 99 04/07/19 07:48 78 20 99 Nasal Cannula 2.0 04/07/19 07:44 98 Nasal Cannula 2.0 04/07/19 07:43 76 20 98 Nasal Cannula 2.0 04/07/19 07:39 75 04/07/19 03:17 Nasal Cannula 2.0 Nasal Cannula 2.0 04/07/19 02:57 98.4 04/07/19 02:16 86 04/07/19 01:50 98.4 86 17 122/74 100 Nasal Cannula 2.0 04/07/19 01:50 98.4 86 17 122/74 100 Nasal Cannula 2.0 04/07/19 00:18 98.5 80 18 118/78 96 Nasal Cannula 2.0 04/06/19 23:10 81 21 97 Nasal Cannula 2.0 04/06/19 22:45 89 24 98 Room Air 04/06/19 22:39 86 21 100 Room Air 04/06/19 22:14 86 23 100 Room Air 04/06/19 22:12 98.6 04/06/19 22:01 87 21 100 Room Air 04/06/19 21:45 87 23 97 Room Air 04/06/19 21:45 87 23 97 Room Air 04/06/19 20:55 98.6 88 22 110/76 90 Room Air 04/06/19 20:43 98.6 90 22 110/76 (87) 90 Room Air Intake and Output 04/06/19 04/07/19 19:00 07:00 Intake Total 1416 ml Output Total 275 ml Balance 1141 ml Intake Oral 416 ml IV Total 1000 ml Output Urine Total 275 ml # Bowel Movements 1 Laboratory Tests Test 04/06/19 21:20 04/07/19 02:45 White Blood Count 15.7 K/UL (4.8-10.8) H 17.8 K/UL (4.8-10.8) H Red Blood Count 4.16 M/UL (4.20-5.40) L 3.92 M/UL (4.20-5.40) L Hemoglobin 12.1 G/DL (12.0-16.0) 11.3 G/DL (12.0-16.0) L Hematocrit 37.5 % (37.0-47.0) 36.4 % (37.0-47.0) L Mean Corpuscular Volume 90 FL (80-99) 93 FL (80-99) Mean Corpuscular Hemoglobin 29.2 PG (27.0-31.0) 28.9 PG (27.0-31.0) Mean Corpuscular Hemoglobin Concent 32.4 G/DL (32.0-36.0) 31.1 G/DL (32.0-36.0) L Red Cell Distribution Width 14.8 % (11.6-14.8) 15.3 % (11.6-14.8) H Platelet Count 295 K/UL (150-450) 267 K/UL (150-450) Mean Platelet Volume 6.1 FL (6.5-10.1) L 6.6 FL (6.5-10.1) Neutrophils (%) (Auto) 79.9 % (45.0-75.0) H % (45.0-75.0) Lymphocytes (%) (Auto) 12.9 % (20.0-45.0) L % (20.0-45.0) Monocytes (%) (Auto) 5.6 % (1.0-10.0) % (1.0-10.0) Eosinophils (%) (Auto) 0.5 % (0.0-3.0) % (0.0-3.0) Basophils (%) (Auto) 1.1 % (0.0-2.0) % (0.0-2.0) Sodium Level 138 MMOL/L (136-145) 139 MMOL/L (136-145) Potassium Level 4.8 MMOL/L (3.5-5.1) 4.6 MMOL/L (3.5-5.1) Chloride Level 104 MMOL/L (98-107) 104 MMOL/L (98-107) Carbon Dioxide Level 27 MMOL/L (21-32) 26 MMOL/L (21-32) Anion Gap 8 mmol/L (5-15) 10 mmol/L (5-15) Blood Urea Nitrogen 24 mg/dL (7-18) H 25 mg/dL (7-18) H Creatinine 1.3 MG/DL (0.55-1.30) 1.2 MG/DL (0.55-1.30) Estimat Glomerular Filtration Rate 49.8 mL/min (>60) 54.7 mL/min (>60) Glucose Level 164 MG/DL (74-106) H 220 MG/DL (74-106) H Calcium Level 9.7 MG/DL (8.5-10.1) 9.2 MG/DL (8.5-10.1) Total Bilirubin 0.5 MG/DL (0.2-1.0) Aspartate Amino Transf (AST/SGOT) 18 U/L (15-37) Alanine Aminotransferase (ALT/SGPT) 19 U/L (12-78) Alkaline Phosphatase 94 U/L (46-116) Total Creatine Kinase 133 U/L (26-308) Creatine Kinase MB 1.7 NG/ML (0.0-3.6) Creatine Kinase MB Relative Index 1.2 Troponin I 0.011 ng/mL (0.000-0.056) 0.012 ng/mL (0.000-0.056) Pro-B-Type Natriuretic Peptide 2435 pg/mL (0-125) H Total Protein 8.3 G/DL (6.4-8.2) H Albumin 3.6 G/DL (3.4-5.0) Globulin 4.7 g/dL Albumin/Globulin Ratio 0.8 (1.0-2.7) L Digoxin Level 0.9 NG/ML (0.9-2.0) Microbiology Date/Time Source Procedure Growth Status 04/07/19 00:00 Rectum Received Dexter Dewitt MD Apr 07, 2019 11:07
[2019-04-07] MEDS ORDERED: Lexiscan 0.4mg/5ml syringe IV PRN (11:15)
--- NOTE | 2019-04-07 11:45 | Consultation ---
History of Present Illness General Chief Complaint: Pain Present Illness Allergies: Coded Allergies: SIMVASTATIN (Verified Adverse Reaction, Intermediate, NAUSEA AND VOMITTING , 03/20/19) Medication History Scheduled Aspirin* (Aspirin*), 81 MG ORAL DAILY, (Reported) Carvedilol* (Carvedilol*), 1 TAB ORAL BID, (Reported) Docusate Sodium* (Docusate Sodium*), 250 MG ORAL DAILY, (Reported) Enoxaparin* (Lovenox*), 40 MG SUBQ DAILY, (Reported) Famotidine (Famotidine), 20 MG ORAL DAILY, (Reported) Furosemide* (Lasix*), 20 MG IVP TID, (Reported) Insulin Aspart (Novolog), 100 UNIT SQ AC+HS, (Reported) Levothyroxine Sodium* (Levothyroxine Sodium*), 75 MCG ORAL DAILY, (Reported) Psyllium Husk (Metamucil), 0.52 GM PO DAILY Scheduled PRN Acetaminophen* (Acetaminophen 325MG Tablet*), 650 MG ORAL Q4H PRN for For Pain, (Reported) Nitroglycerin (Nitrostat), 0.4 MG SL Q5M X3 DOSES PRN for CHEST PAIN, (Reported) Ondansetron* (Zofran*), 4 MG IVP Q6H PRN for Nausea & Vomiting, (Reported) Tramadol Hcl* (Ultram*), 50 MG ORAL Q6H PRN for For Pain, (Reported) Patient History Healthcare decision maker Resuscitation status Full Code Advanced Directive on File Physical Exam Last 24 Hour Vital Signs Date Time Temp Pulse Resp B/P (MAP) Pulse Ox O2 Delivery O2 Flow Rate FiO2 04/07/19 09:00 Nasal Cannula 2.0 Nasal Cannula 2.0 04/07/19 08:27 79 100/68 04/07/19 08:00 97.3 79 12 100/68 (79) 99 04/07/19 07:48 78 20 99 Nasal Cannula 2.0 28 04/07/19 07:44 98 Nasal Cannula 2.0 28 04/07/19 07:43 76 20 98 Nasal Cannula 2.0 28 04/07/19 07:39 75 04/07/19 03:17 Nasal Cannula 2.0 Nasal Cannula 2.0 04/07/19 02:57 98.4 04/07/19 02:16 86 04/07/19 01:50 98.4 86 17 122/74 100 Nasal Cannula 2.0 04/07/19 01:50 98.4 86 17 122/74 100 Nasal Cannula 2.0 04/07/19 00:18 98.5 80 18 118/78 96 Nasal Cannula 2.0 04/06/19 23:10 81 21 97 Nasal Cannula 2.0 04/06/19 22:45 89 24 98 Room Air 04/06/19 22:39 86 21 100 Room Air 04/06/19 22:14 86 23 100 Room Air 04/06/19 22:12 98.6 04/06/19 22:01 87 21 100 Room Air 04/06/19 21:45 87 23 97 Room Air 04/06/19 21:45 87 23 97 Room Air 04/06/19 20:55 98.6 88 22 110/76 90 Room Air 04/06/19 20:43 98.6 90 22 110/76 (87) 90 Room Air Intake and Output 04/06/19 04/07/19 19:00 07:00 Intake Total 1416 ml Output Total 275 ml Balance 1141 ml Intake Oral 416 ml IV Total 1000 ml Output Urine Total 275 ml # Bowel Movements 1 Laboratory Tests Test 04/06/19 21:20 04/07/19 02:45 White Blood Count 15.7 K/UL (4.8-10.8) H 17.8 K/UL (4.8-10.8) H Red Blood Count 4.16 M/UL (4.20-5.40) L 3.92 M/UL (4.20-5.40) L Hemoglobin 12.1 G/DL (12.0-16.0) 11.3 G/DL (12.0-16.0) L Hematocrit 37.5 % (37.0-47.0) 36.4 % (37.0-47.0) L Mean Corpuscular Volume 90 FL (80-99) 93 FL (80-99) Mean Corpuscular Hemoglobin 29.2 PG (27.0-31.0) 28.9 PG (27.0-31.0) Mean Corpuscular Hemoglobin Concent 32.4 G/DL (32.0-36.0) 31.1 G/DL (32.0-36.0) L Red Cell Distribution Width 14.8 % (11.6-14.8) 15.3 % (11.6-14.8) H Platelet Count 295 K/UL (150-450) 267 K/UL (150-450) Mean Platelet Volume 6.1 FL (6.5-10.1) L 6.6 FL (6.5-10.1) Neutrophils (%) (Auto) 79.9 % (45.0-75.0) H % (45.0-75.0) Lymphocytes (%) (Auto) 12.9 % (20.0-45.0) L % (20.0-45.0) Monocytes (%) (Auto) 5.6 % (1.0-10.0) % (1.0-10.0) Eosinophils (%) (Auto) 0.5 % (0.0-3.0) % (0.0-3.0) Basophils (%) (Auto) 1.1 % (0.0-2.0) % (0.0-2.0) Sodium Level 138 MMOL/L (136-145) 139 MMOL/L (136-145) Potassium Level 4.8 MMOL/L (3.5-5.1) 4.6 MMOL/L (3.5-5.1) Chloride Level 104 MMOL/L (98-107) 104 MMOL/L (98-107) Carbon Dioxide Level 27 MMOL/L (21-32) 26 MMOL/L (21-32) Anion Gap 8 mmol/L (5-15) 10 mmol/L (5-15) Blood Urea Nitrogen 24 mg/dL (7-18) H 25 mg/dL (7-18) H Creatinine 1.3 MG/DL (0.55-1.30) 1.2 MG/DL (0.55-1.30) Estimat Glomerular Filtration Rate 49.8 mL/min (>60) 54.7 mL/min (>60) Glucose Level 164 MG/DL (74-106) H 220 MG/DL (74-106) H Calcium Level 9.7 MG/DL (8.5-10.1) 9.2 MG/DL (8.5-10.1) Total Bilirubin 0.5 MG/DL (0.2-1.0) Aspartate Amino Transf (AST/SGOT) 18 U/L (15-37) Alanine Aminotransferase (ALT/SGPT) 19 U/L (12-78) Alkaline Phosphatase 94 U/L (46-116) Total Creatine Kinase 133 U/L (26-308) Creatine Kinase MB 1.7 NG/ML (0.0-3.6) Creatine Kinase MB Relative Index 1.2 Troponin I 0.011 ng/mL (0.000-0.056) 0.012 ng/mL (0.000-0.056) Pro-B-Type Natriuretic Peptide 2435 pg/mL (0-125) H Total Protein 8.3 G/DL (6.4-8.2) H Albumin 3.6 G/DL (3.4-5.0) Globulin 4.7 g/dL Albumin/Globulin Ratio 0.8 (1.0-2.7) L Digoxin Level 0.9 NG/ML (0.9-2.0) Microbiology Date/Time Source Procedure Growth Status 04/07/19 00:00 Rectum Received Height (Feet): 5 Height (Inches): 5.00 Weight (Pounds): 300 Medications Current Medications Medications (Trade) Dose Ordered Sig/Cassidy Route PRN Reason Start Time Stop Time Status Last Admin Dose Admin Acetaminophen (Tylenol) 650 mg Q4H PRN ORAL Mild Pain/Temp > 100.5 04/07/19 03:45 05/07/19 03:44 Albuterol/ Ipratropium (Albuterol/ Ipratropium) 3 ml Q6HRT HHN 04/07/19 07:00 04/12/19 06:59 04/07/19 07:40 Aspirin (ASA) 81 mg DAILY ORAL 04/07/19 09:00 05/07/19 08:59 04/07/19 08:15 Carvedilol (Coreg) 3.125 mg BID@0900,2100 ORAL 04/07/19 21:00 05/07/19 08:59 Docusate Sodium (Colace) 250 mg DAILY ORAL 04/07/19 09:00 05/07/19 08:59 04/07/19 08:16 Enoxaparin Sodium (Lovenox) 40 mg DAILY SUBQ 04/07/19 09:00 05/07/19 08:59 8/1/19 08:17 Famotidine (Pepcid) 20 mg DAILY ORAL 04/07/19 09:00 05/07/19 08:59 04/07/19 08:15 Furosemide (Lasix) 40 mg EVERY 12 HOURS IV 04/07/19 21:00 05/07/19 20:59 Levothyroxine Sodium (Synthroid) 75 mcg DAILY@0630 ORAL 04/07/19 06:30 05/07/19 06:29 04/07/19 06:04 Nitroglycerin (Ntg) 0.4 mg PRN PRN SL Prn Chest Pain 04/07/19 02:45 05/07/19 02:44 Ondansetron HCl (Zofran) 4 mg Q6H PRN IVP Nausea & Vomiting 04/07/19 02:45 05/07/19 02:44 Regadenoson (Lexiscan) 0.4 mg ONCE PRN IV stress test 04/07/19 11:15 04/09/19 11:14 Tramadol HCl (Ultram) 50 mg Q6H PRN ORAL Moderate Pain (Pain Scale 4-6) 04/07/19 03:45 04/14/19 03:44 04/07/19 08:21 Assessment/Plan Assessment/Plan: Hematology Consultation REQ MD: Chiki Pimentel DOS: 04/07/19 RFC: Anemia, leukocytosis and high protein ID 63-year-old female presents ED complaining of chest pain. Brought home by EMS. States she is been having episodic chest pain x1 day. Comes and goes. Sharp , 7 out of 10, nonradiating. Also feels short of breath. History of CHF. History of defibrillator. Also has history of healing decubitus ulcer on her sacrum. Was here yesterday for this and was evaluated including labs and CT. No other aggravating relieving factors. Denies any other associated symptoms, has been seen by cardiology, recs to be reviewed Allergies: SIMVASTATIN (Verified Adverse Reaction, Intermediate, NAUSEA AND VOMITTING , 03/20/19) Patient History Past Medical History: none, DM, HTN, NH, CAD, CHF, asthma, COPD Past Surgical History: none Pertinent Family History: none Social History: Denies: smoking, alcohol use, drug use Now: No Past Medical History: No History, Except For Hx Cardiac Problems: Yes - CHF, open heart surgery 2018 Hx Hypertension: Yes Hx Pacemaker: Yes - defibrillator Hx Asthma: Yes Hx COPD: Yes Hx Diabetes: Yes Hx Cancer: No Hx Neurological Problems: No Hx Cerebrovascular Accident: No Hx Transient Ischemic Attacks: No Hx Dementia: No Hx Alzheimer's Disease: No Hx Parkinson's Disease: No Hx Meningitis: No Hx Encephalitis: No Hx Seizures: No Hx Epilepsy: No Hx Multiple Sclerosis: No Hx Cerebral Palsy: No Hx Amyotrophic Lat Sclerosis: No Hx Guillian-H[place]gro[place] Syndrome: No Hx Paralysis: No Hx Peripheral Neuropathy: No Hx Spinal Cord Injury: No Hx Head Trauma: No Hx Traumatic Brain Injury: No Hx Memory Loss: No Hx Concentration Difficulty: No Hx Speech Problem: No Hx Tremors: No Hx Vertigo: No Hx Dizziness: Yes Hx Syncope: No Hx Headaches: Yes Hx Aphasia: No Hx Dysphasia: No Hx Numbness: Yes - Bilateral feet Hx Weakness: Yes - General weakness Hx Fatigue: Yes Hx Neurologic Surgery: No Hx Brain Shunt: No Review of Systems negative except mentioned in HPI Physical Exam Vital Signs reviewed General: nad, alert, GCS 15, non-toxic Head: PERRL ENT: hearing grossly normal, normal pharynx Neck: full range of motion, supple/symm/no masses Respiratory: chest non-tender, normal breath sounds, speaking full sentences, wheezing CV: regular rate, rhythm, no edema Gastrointestinal: normal bowel sounds, nt, nd Lymphatic: no adenopathy Labs: noted Imaging: noted Assessment and Recs: # Anemia of chronic disease (or of iron deficiency) due to underlying chronic medical issues, multifactorial --> Anemia workup has been ordered, rule out gi bleed --> No evidence of hemolysis is noted, peripheral smear has been reviewed. --> Hgb goal >7. Transfuse prn. --> Epogen or iron at this time is not particularly indicated --> Medications have been reviewed --> low threshold for gi evaluation in case has occult + # Leukocytosis/elevated white blood cell count, unspecified likely related to underlying stress reaction, smoking --> have reviewed peripheral smear and bandemia/neutrophilia noted --> continue antibiotics if they have been started by ID team # Hyperproteinemia with decreased albumin -- this is a dissociation that is abnormal --> obtain SPEP (serum protein electrophoresis) and UPEP (urine protein electrophoresis) if spep is negative --> if above results in a m-spike or abnormally enhanced protein, will need to send off immunofixation serum/urine --> in the case of a m-spike or abnormally enhanced protein, will obtain a bone marrow biopsy # ACS (acute coronary syndrome), asa was given --> troponins negative, BNP greater than 2000 --> EKG - NSR, no acute ischemic changes interpreted by me # CHF (congestive heart failure) --> Chest x-ray- CHF, ICD in place --> appreciate cards recs Greatly appreciate consultation. Emmett Evangelista MD Apr 07, 2019 11:45
--- NOTE | 2019-04-07 11:50 | NUR ---
NURSE NOTES: Dr. Jo made aware patient history DM, no sliding scale ordered, per Dr. Jo will order insulin, and made aware patient c/o anxiety, requesting Ativan, per Dr. Jo, Ativan 0.5mg PO Q4h prn anxiety. Will continue to monitor.
--- NOTE | 2019-04-07 11:55 | NUR ---
NURSE NOTES: Dr. Jo made aware patient c/o anxiety, requesting for Ativan. Per Dr. Jo, 0.5mg Ativan PO q4h prn anxiety. Order noted, entered, carried out.
--- NOTE | 2019-04-07 11:58 | Consultation ---
History of Present Illness General Date patient seen: Apr 07, 2019 Chief Complaint: Pain Present Illness HPI 63-year-old female with hx of DM, HTN, MS, CAD, CHF, asthma, COPD presented to ED complaining of episodic chest pain x1 day. . Also feels short of breath. History of CHF. History of defibrillator.No other aggravating relieving factors. she is admitted to telemetry for further evaluation. Allergies: Coded Allergies: SIMVASTATIN (Verified Adverse Reaction, Intermediate, NAUSEA AND VOMITTING , 03/20/19) Medication History Scheduled Aspirin* (Aspirin*), 81 MG ORAL DAILY, (Reported) Carvedilol* (Carvedilol*), 1 TAB ORAL BID, (Reported) Docusate Sodium* (Docusate Sodium*), 250 MG ORAL DAILY, (Reported) Enoxaparin* (Lovenox*), 40 MG SUBQ DAILY, (Reported) Famotidine (Famotidine), 20 MG ORAL DAILY, (Reported) Furosemide* (Lasix*), 20 MG IVP TID, (Reported) Insulin Aspart (Novolog), 100 UNIT SQ AC+HS, (Reported) Levothyroxine Sodium* (Levothyroxine Sodium*), 75 MCG ORAL DAILY, (Reported) Psyllium Husk (Metamucil), 0.52 GM PO DAILY Scheduled PRN Acetaminophen* (Acetaminophen 325MG Tablet*), 650 MG ORAL Q4H PRN for For Pain, (Reported) Nitroglycerin (Nitrostat), 0.4 MG SL Q5M X3 DOSES PRN for CHEST PAIN, (Reported) Ondansetron* (Zofran*), 4 MG IVP Q6H PRN for Nausea & Vomiting, (Reported) Tramadol Hcl* (Ultram*), 50 MG ORAL Q6H PRN for For Pain, (Reported) Patient History Healthcare decision maker Resuscitation status Full Code Advanced Directive on File Past Medical/Surgical History Past Medical/Surgical History: (1) COPD (chronic obstructive pulmonary disease) (2) Diabetes mellitus (3) Hypertension Review of Systems Constitutional: Reports: no symptoms ENT: Reports: no symptoms All Other Systems: negative except mentioned in HPI Physical Exam General Appearance: WD/WN, no apparent distress Lines, tubes and drains: peripheral, central line HEENT: normocephalic, atraumatic Neck: non-tender, normal alignment Respiratory/Chest: chest wall non-tender, lungs clear Breasts: no masses Cardiovascular/Chest: normal rate Abdomen: normal bowel sounds, non tender Genitourinary/Rectal: normal genital exam Extremities: normal range of motion Last 24 Hour Vital Signs Date Time Temp Pulse Resp B/P (MAP) Pulse Ox O2 Delivery O2 Flow Rate FiO2 04/07/19 09:00 Nasal Cannula 2.0 Nasal Cannula 2.0 04/07/19 08:27 79 100/68 04/07/19 08:00 97.3 79 12 100/68 (79) 99 04/07/19 07:48 78 20 99 Nasal Cannula 2.0 28 04/07/19 07:44 98 Nasal Cannula 2.0 28 04/07/19 07:43 76 20 98 Nasal Cannula 2.0 04/07/19 07:39 75 04/07/19 03:17 Nasal Cannula 2.0 Nasal Cannula 2.0 04/07/19 02:57 98.4 04/07/19 02:16 86 04/07/19 01:50 98.4 86 17 122/74 100 Nasal Cannula 2.0 28 04/07/19 01:50 98.4 86 17 122/74 100 Nasal Cannula 2.0 28 04/07/19 00:18 98.5 80 18 118/78 96 Nasal Cannula 2.0 04/06/19 23:10 81 21 97 Nasal Cannula 2.0 04/06/19 22:45 89 24 98 Room Air 21 04/06/19 22:39 86 21 100 Room Air 04/06/19 22:14 86 23 100 Room Air 04/06/19 22:12 98.6 04/06/19 22:01 87 21 100 Room Air 04/06/19 21:45 87 23 97 Room Air 21 04/06/19 21:45 87 23 97 Room Air 04/06/19 20:55 98.6 88 22 110/76 90 Room Air 04/06/19 20:43 98.6 90 22 110/76 (87) 90 Room Air Intake and Output 04/06/19 04/07/19 19:00 07:00 Intake Total 1416 ml Output Total 275 ml Balance 1141 ml Intake Oral 416 ml IV Total 1000 ml Output Urine Total 275 ml # Bowel Movements 1 Laboratory Tests Test 04/06/19 21:20 04/07/19 02:45 White Blood Count 15.7 K/UL (4.8-10.8) H 17.8 K/UL (4.8-10.8) H Red Blood Count 4.16 M/UL (4.20-5.40) L 3.92 M/UL (4.20-5.40) L Hemoglobin 12.1 G/DL (12.0-16.0) 11.3 G/DL (12.0-16.0) L Hematocrit 37.5 % (37.0-47.0) 36.4 % (37.0-47.0) L Mean Corpuscular Volume 90 FL (80-99) 93 FL (80-99) Mean Corpuscular Hemoglobin 29.2 PG (27.0-31.0) 28.9 PG (27.0-31.0) Mean Corpuscular Hemoglobin Concent 32.4 G/DL (32.0-36.0) 31.1 G/DL (32.0-36.0) L Red Cell Distribution Width 14.8 % (11.6-14.8) 15.3 % (11.6-14.8) H Platelet Count 295 K/UL (150-450) 267 K/UL (150-450) Mean Platelet Volume 6.1 FL (6.5-10.1) L 6.6 FL (6.5-10.1) Neutrophils (%) (Auto) 79.9 % (45.0-75.0) H % (45.0-75.0) Lymphocytes (%) (Auto) 12.9 % (20.0-45.0) L % (20.0-45.0) Monocytes (%) (Auto) 5.6 % (1.0-10.0) % (1.0-10.0) Eosinophils (%) (Auto) 0.5 % (0.0-3.0) % (0.0-3.0) Basophils (%) (Auto) 1.1 % (0.0-2.0) % (0.0-2.0) Sodium Level 138 MMOL/L (136-145) 139 MMOL/L (136-145) Potassium Level 4.8 MMOL/L (3.5-5.1) 4.6 MMOL/L (3.5-5.1) Chloride Level 104 MMOL/L (98-107) 104 MMOL/L (98-107) Carbon Dioxide Level 27 MMOL/L (21-32) 26 MMOL/L (21-32) Anion Gap 8 mmol/L (5-15) 10 mmol/L (5-15) Blood Urea Nitrogen 24 mg/dL (7-18) H 25 mg/dL (7-18) H Creatinine 1.3 MG/DL (0.55-1.30) 1.2 MG/DL (0.55-1.30) Estimat Glomerular Filtration Rate 49.8 mL/min (>60) 54.7 mL/min (>60) Glucose Level 164 MG/DL (74-106) H 220 MG/DL (74-106) H Calcium Level 9.7 MG/DL (8.5-10.1) 9.2 MG/DL (8.5-10.1) Total Bilirubin 0.5 MG/DL (0.2-1.0) Aspartate Amino Transf (AST/SGOT) 18 U/L (15-37) Alanine Aminotransferase (ALT/SGPT) 19 U/L (12-78) Alkaline Phosphatase 94 U/L (46-116) Total Creatine Kinase 133 U/L (26-308) Creatine Kinase MB 1.7 NG/ML (0.0-3.6) Creatine Kinase MB Relative Index 1.2 Troponin I 0.011 ng/mL (0.000-0.056) 0.012 ng/mL (0.000-0.056) Pro-B-Type Natriuretic Peptide 2435 pg/mL (0-125) H Total Protein 8.3 G/DL (6.4-8.2) H Albumin 3.6 G/DL (3.4-5.0) Globulin 4.7 g/dL Albumin/Globulin Ratio 0.8 (1.0-2.7) L Digoxin Level 0.9 NG/ML (0.9-2.0) Microbiology Date/Time Source Procedure Growth Status 04/07/19 00:00 Rectum Received Height (Feet): 5 Height (Inches): 5.00 Weight (Pounds): 300 Medications Current Medications Medications (Trade) Dose Ordered Sig/Cassidy Route PRN Reason Start Time Stop Time Status Last Admin Dose Admin Acetaminophen (Tylenol) 650 mg Q4H PRN ORAL Mild Pain/Temp > 100.5 04/07/19 03:45 05/07/19 03:44 Albuterol/ Ipratropium (Albuterol/ Ipratropium) 3 ml Q6HRT HHN 04/07/19 07:00 04/12/19 06:59 04/07/19 07:40 Aspirin (ASA) 81 mg DAILY ORAL 04/07/19 09:00 05/07/19 08:59 04/07/19 08:15 Carvedilol (Coreg) 3.125 mg BID@0900,2100 ORAL 04/07/19 21:00 05/07/19 08:59 Dextrose (Dextrose 50%) STAT PRN IV Hypoglycemia 04/07/19 12:00 05/07/19 11:59 UNV Dextrose (Dextrose 50%) 25 ml Q30M PRN IV Hypoglycemia 04/07/19 12:00 05/07/19 11:53 Dextrose (Dextrose 50%) 50 ml Q30M PRN IV hypoglycemia 04/07/19 12:00 05/07/19 11:59 Docusate Sodium (Colace) 250 mg DAILY ORAL 04/07/19 09:00 05/07/19 08:59 04/07/19 08:16 Enoxaparin Sodium (Lovenox) 40 mg DAILY SUBQ 04/07/19 09:00 05/07/19 08:59 04/07/19 08:17 Famotidine (Pepcid) 20 mg DAILY ORAL 04/07/19 09:00 05/07/19 08:59 04/07/19 08:15 Furosemide (Lasix) 40 mg EVERY 12 HOURS IV 04/07/19 21:00 05/07/19 20:59 Insulin Aspart (NovoLOG) BEFORE MEALS AND HS SUBQ 04/07/19 16:30 05/07/19 16:29 Levothyroxine Sodium (Synthroid) 75 mcg DAILY@0630 ORAL 04/07/19 06:30 05/07/19 06:29 04/07/19 06:04 Nitroglycerin (Ntg) 0.4 mg PRN PRN SL Prn Chest Pain 04/07/19 02:45 05/07/19 02:44 Ondansetron HCl (Zofran) 4 mg Q6H PRN IVP Nausea & Vomiting 04/07/19 02:45 05/07/19 02:44 Regadenoson (Lexiscan) 0.4 mg ONCE PRN IV stress test 04/07/19 11:15 04/09/19 11:14 Tramadol HCl (Ultram) 50 mg Q6H PRN ORAL Moderate Pain (Pain Scale 4-6) 04/07/19 03:45 04/14/19 03:44 04/07/19 08:21 Assessment/Plan Problem List: (1) ACS (acute coronary syndrome) ICD Codes: I24.9 - Acute ischemic heart disease, unspecified SNOMED: 251447968 (2) COPD (chronic obstructive pulmonary disease) ICD Codes: J44.9 - Chronic obstructive pulmonary disease, unspecified SNOMED: 63509713 (3) Cardiomyopathy ICD Codes: I42.9 - Cardiomyopathy SNOMED: 23563290 (4) Hypertension ICD Codes: I10 - Essential (primary) hypertension SNOMED: 96030702 (5) Diabetes mellitus ICD Codes: E11.9 - Type 2 diabetes mellitus without complications SNOMED: 44183611 Assessment/Plan: serial ekg, troponin echo cardiac evaluation symptomatic treatment diabetic diet insulin coverage. Shadi Jo MD Apr 07, 2019 11:58
[2019-04-07 12:00] VITALS: BP 113/71
[2019-04-07] MEDS ORDERED: Dextrose 50% 25ml Syringe IV PRN (12:00)
[2019-04-07] MEDS ORDERED: Miralax 17gm pkt ORAL PRN (12:00)
[2019-04-07] MEDS ORDERED: dilTIAZem HCl 25mg/5ml Inj IV PRN (12:00)
[2019-04-07] MEDS ORDERED: LORazepam 0.5mg tab ORAL PRN (12:00)
[2019-04-07] MEDS ORDERED: Enalaprilat 1.25mg/ml Inj IV PRN (12:00)
[2019-04-07 13:10] LABS: FERRITIN 198 NG/ML (8-388)
[2019-04-07 13:34] LABS: % IRON SATURATION 11 % (15-50); IRON 25 ug/dL (50-175); TOTAL IRON BINDING CAPACITY 222 ug/dL (250-450)
--- NOTE | 2019-04-07 14:29 | Consultation ---
History of Present Illness General Date patient seen: Apr 07, 2019 Chief Complaint: Pain Present Illness HPI 63 y/o F with hx of DM2, HTN, ME/CAD s/p CABG 2018, CHF s/p AICD, Asthma/COPD, sacral decubitus ulcer presented to ED on 04/07/19 with 1 day of chest pain, SOB. Chest pain is intermittent, sharp, 7/10 intensity, non radiating. ID consulted for leukocytosis Allergies: Coded Allergies: SIMVASTATIN (Verified Adverse Reaction, Intermediate, NAUSEA AND VOMITTING , 03/20/19) Medication History Scheduled Aspirin* (Aspirin*), 81 MG ORAL DAILY, (Reported) Carvedilol* (Carvedilol*), 1 TAB ORAL BID, (Reported) Docusate Sodium* (Docusate Sodium*), 250 MG ORAL DAILY, (Reported) Enoxaparin* (Lovenox*), 40 MG SUBQ DAILY, (Reported) Famotidine (Famotidine), 20 MG ORAL DAILY, (Reported) Furosemide* (Lasix*), 20 MG IVP TID, (Reported) Insulin Aspart (Novolog), 100 UNIT SQ AC+HS, (Reported) Levothyroxine Sodium* (Levothyroxine Sodium*), 75 MCG ORAL DAILY, (Reported) Psyllium Husk (Metamucil), 0.52 GM PO DAILY Scheduled PRN Acetaminophen* (Acetaminophen 325MG Tablet*), 650 MG ORAL Q4H PRN for For Pain, (Reported) Nitroglycerin (Nitrostat), 0.4 MG SL Q5M X3 DOSES PRN for CHEST PAIN, (Reported) Ondansetron* (Zofran*), 4 MG IVP Q6H PRN for Nausea & Vomiting, (Reported) Tramadol Hcl* (Ultram*), 50 MG ORAL Q6H PRN for For Pain, (Reported) Patient History Healthcare decision maker Resuscitation status Full Code Advanced Directive on File Patient History Narrative Pmhx: as above Shx: Denies: smoking, alcohol use, drug use Fhx: non contributory Physical Exam Physical Exam Narrative General Appearance: WD/WN, no apparent distress Lines, tubes and drains: peripheral, central line HEENT: normocephalic, atraumatic Neck: non-tender, normal alignment Respiratory/Chest: chest wall non-tender, lungs clear Cardiovascular/Chest: normal rate Abdomen: normal bowel sounds, non tender Extremities: normal range of motion Last 24 Hour Vital Signs Date Time Temp Pulse Resp B/P (MAP) Pulse Ox O2 Delivery O2 Flow Rate FiO2 04/07/19 13:28 75 20 99 Nasal Cannula 2.0 28 04/07/19 13:20 74 20 97 Nasal Cannula 2.0 28 04/07/19 12:00 77 04/07/19 12:00 98.2 84 20 113/71 (85) 98 04/07/19 09:00 Nasal Cannula 2.0 Nasal Cannula 2.0 04/07/19 08:27 79 100/68 04/07/19 08:00 97.3 79 12 100/68 (79) 99 04/07/19 07:48 78 20 99 Nasal Cannula 2.0 04/07/19 07:44 98 Nasal Cannula 2.0 04/07/19 07:43 76 20 98 Nasal Cannula 2.0 04/07/19 07:39 75 04/07/19 03:17 Nasal Cannula 2.0 Nasal Cannula 2.0 04/07/19 02:57 98.4 04/07/19 02:16 86 04/07/19 01:50 98.4 86 17 122/74 100 Nasal Cannula 2.0 04/07/19 01:50 98.4 86 17 122/74 100 Nasal Cannula 2.0 04/07/19 00:18 98.5 80 18 118/78 96 Nasal Cannula 2.0 04/06/19 23:10 81 21 97 Nasal Cannula 2.0 04/06/19 22:45 89 24 98 Room Air 04/06/19 22:39 86 21 100 Room Air 04/06/19 22:14 86 23 100 Room Air 04/06/19 22:12 98.6 04/06/19 22:01 87 21 100 Room Air 04/06/19 21:45 87 23 97 Room Air 04/06/19 21:45 87 23 97 Room Air 04/06/19 20:55 98.6 88 22 110/76 90 Room Air 04/06/19 20:43 98.6 90 22 110/76 (87) 90 Room Air Intake and Output 04/06/19 04/07/19 19:00 07:00 Intake Total 1416 ml Output Total 275 ml Balance 1141 ml Intake Oral 416 ml IV Total 1000 ml Output Urine Total 275 ml # Bowel Movements 1 Laboratory Tests Test 04/06/19 21:20 04/07/19 02:45 04/07/19 12:15 White Blood Count 15.7 K/UL (4.8-10.8) H 17.8 K/UL (4.8-10.8) H Red Blood Count 4.16 M/UL (4.20-5.40) L 3.92 M/UL (4.20-5.40) L Hemoglobin 12.1 G/DL (12.0-16.0) 11.3 G/DL (12.0-16.0) L Hematocrit 37.5 % (37.0-47.0) 36.4 % (37.0-47.0) L Mean Corpuscular Volume 90 FL (80-99) 93 FL (80-99) Mean Corpuscular Hemoglobin 29.2 PG (27.0-31.0) 28.9 PG (27.0-31.0) Mean Corpuscular Hemoglobin Concent 32.4 G/DL (32.0-36.0) 31.1 G/DL (32.0-36.0) L Red Cell Distribution Width 14.8 % (11.6-14.8) 15.3 % (11.6-14.8) H Platelet Count 295 K/UL (150-450) 267 K/UL (150-450) Mean Platelet Volume 6.1 FL (6.5-10.1) L 6.6 FL (6.5-10.1) Neutrophils (%) (Auto) 79.9 % (45.0-75.0) H % (45.0-75.0) Lymphocytes (%) (Auto) 12.9 % (20.0-45.0) L % (20.0-45.0) Monocytes (%) (Auto) 5.6 % (1.0-10.0) % (1.0-10.0) Eosinophils (%) (Auto) 0.5 % (0.0-3.0) % (0.0-3.0) Basophils (%) (Auto) 1.1 % (0.0-2.0) % (0.0-2.0) Sodium Level 138 MMOL/L (136-145) 139 MMOL/L (136-145) Potassium Level 4.8 MMOL/L (3.5-5.1) 4.6 MMOL/L (3.5-5.1) Chloride Level 104 MMOL/L (98-107) 104 MMOL/L (98-107) Carbon Dioxide Level 27 MMOL/L (21-32) 26 MMOL/L (21-32) Anion Gap 8 mmol/L (5-15) 10 mmol/L (5-15) Blood Urea Nitrogen 24 mg/dL (7-18) H 25 mg/dL (7-18) H Creatinine 1.3 MG/DL (0.55-1.30) 1.2 MG/DL (0.55-1.30) Estimat Glomerular Filtration Rate 49.8 mL/min (>60) 54.7 mL/min (>60) Glucose Level 164 MG/DL (74-106) H 220 MG/DL (74-106) H Calcium Level 9.7 MG/DL (8.5-10.1) 9.2 MG/DL (8.5-10.1) Total Bilirubin 0.5 MG/DL (0.2-1.0) Aspartate Amino Transf (AST/SGOT) 18 U/L (15-37) Alanine Aminotransferase (ALT/SGPT) 19 U/L (12-78) Alkaline Phosphatase 94 U/L (46-116) Total Creatine Kinase 133 U/L (26-308) Creatine Kinase MB 1.7 NG/ML (0.0-3.6) Creatine Kinase MB Relative Index 1.2 Troponin I 0.011 ng/mL (0.000-0.056) 0.012 ng/mL (0.000-0.056) 0.000 ng/mL (0.000-0.056) Pro-B-Type Natriuretic Peptide 2435 pg/mL (0-125) H Total Protein 8.3 G/DL (6.4-8.2) H Albumin 3.6 G/DL (3.4-5.0) Globulin 4.7 g/dL Albumin/Globulin Ratio 0.8 (1.0-2.7) L Pending Digoxin Level 0.9 NG/ML (0.9-2.0) Reticulocyte Count 1.1 % (0.5-2.0) Iron Level 25 ug/dL (50-175) L Total Iron Binding Capacity 222 ug/dL (250-450) L Percent Iron Saturation 11 % (15-50) L Unsaturated Iron Binding 197 ug/dL (112-346) Ferritin 198 NG/ML (8-388) Total Protein (PEP) Pending Albumin (PEP) Pending Globulin (PEP) Pending Oynnr-[id number] Pending Nrsnp-6-Wxmabfgfc Pending Beta Globulins Pending Beta Gamma Globulin Pending PEP Abnormal Protein Bands Pending Protein Electrophoresis Interpret Pending Folate 28.3 NG/ML (8.6-58.9) Homocystine Pending Microbiology Date/Time Source Procedure Growth Status 04/07/19 00:00 Rectum Received Height (Feet): 5 Height (Inches): 5.00 Weight (Pounds): 300 Medications Current Medications Medications (Trade) Dose Ordered Sig/Cassidy Route PRN Reason Start Time Stop Time Status Last Admin Dose Admin Acetaminophen (Tylenol) 650 mg Q4H PRN ORAL FEVER 04/07/19 12:00 05/07/19 11:59 Albuterol/ Ipratropium (Albuterol/ Ipratropium) 3 ml Q4H PRN HHN Shortness of Breath 04/07/19 12:00 04/12/19 11:59 Albuterol/ Ipratropium (Albuterol/ Ipratropium) 3 ml Q6HRT HHN 04/07/19 07:00 04/12/19 06:59 04/07/19 13:27 Aspirin (ASA) 162 mg DAILY ORAL 04/08/19 09:00 05/08/19 08:59 Carvedilol (Coreg) 3.125 mg BID@0900,2100 ORAL 04/07/19 21:00 05/07/19 08:59 Dextrose (Dextrose 50%) 25 ml Q30M PRN IV Hypoglycemia 04/07/19 12:00 05/07/19 11:53 Dextrose (Dextrose 50%) 50 ml Q30M PRN IV hypoglycemia 04/07/19 12:00 05/07/19 11:59 Diltiazem HCl (Cardizem) 10 mg Q1H PRN IV heart rate more than 120, 04/07/19 12:00 05/07/19 11:59 Docusate Sodium (Colace) 250 mg DAILY ORAL 04/07/19 09:00 05/07/19 08:59 04/07/19 08:16 Enalaprilat (Vasotec) 2.5 mg Q6H PRN IV sbp more than 160 04/07/19 12:00 05/07/19 11:59 Enoxaparin Sodium (Lovenox) 40 mg DAILY SUBQ 04/07/19 09:00 05/07/19 08:59 04/07/19 08:17 Famotidine (Pepcid) 20 mg DAILY ORAL 04/07/19 09:00 05/07/19 08:59 04/07/19 08:15 Furosemide (Lasix) 40 mg EVERY 12 HOURS IV 04/07/19 21:00 05/07/19 20:59 Insulin Aspart (NovoLOG) BEFORE MEALS AND HS SUBQ 04/07/19 16:30 05/07/19 16:29 Levothyroxine Sodium (Synthroid) 75 mcg DAILY@0630 ORAL 04/07/19 06:30 05/07/19 06:29 04/07/19 06:04 Lorazepam (Ativan) 0.5 mg Q4H PRN ORAL For Anxiety 04/07/19 12:00 04/14/19 11:59 Morphine Sulfate (Morphine Sulfate) 2 mg Q4H PRN IVP severe Pain (Pain Scale 7-10) 04/07/19 12:00 04/14/19 11:59 Nitroglycerin (Ntg) 0.4 mg Q5M PRN SL Prn Chest Pain 04/07/19 12:00 05/07/19 11:59 Ondansetron HCl (Zofran) 4 mg Q6H PRN IVP Nausea & Vomiting 04/07/19 02:45 05/07/19 02:44 Polyethylene Glycol (Miralax) 17 gm DAILYPRN PRN ORAL Constipation 04/07/19 12:00 05/07/19 11:59 Regadenoson (Lexiscan) 0.4 mg ONCE PRN IV stress test 04/07/19 11:15 04/09/19 11:14 Temazepam (Restoril) 15 mg HSPRN PRN ORAL Insomnia 04/07/19 12:00 04/14/19 11:59 Tramadol HCl (Ultram) 50 mg Q6H PRN ORAL Moderate Pain (Pain Scale 4-6) 04/07/19 03:45 04/14/19 03:44 04/07/19 08:21 Assessment/Plan Assessment/Plan: Abx: None Assessment: Afebrile Leukocytosis- r/o PNA (cough), r/o UTI (recent dysuria) Chest pain -CXR -2d Echo: EF 15-20%, no vegetations DM2 HTN ME/CAD s/p CABG 2017 CHF s/p AICD Asthma/COPD sacral decubitus ulcer Plan: -Start empiric Ceftriaxone pending CXR and u/a -f/u cx -Monitor CBC/CMP, temperatures -f.u CXR -Bcx x2 -u/a w/ reflex Thank you for this consultation. Will continue to follow along with you. Discussed with Bijal Montoya M.D. Apr 07, 2019 14:29
[2019-04-07 16:00] VITALS: BP 111/66
[2019-04-07] MEDS ORDERED: cefTRIAXone 1 GM in D5W 55 ML IVPB SCH (16:00)
--- NOTE | 2019-04-07 16:18 | Diagnostic Imaging Report ---
Indication: Chest pain Technique: One view of the chest Comparison: 03/19/2019 Findings: There is mild elevation of the left hemidiaphragm. There is equivocal minimal interstitial prominence. Lungs and pleural spaces are otherwise clear.. There is a left chest bifocal and ICD again demonstrated. There are median sternotomy sutures. No significant interim change Impression: Doubt but cannot exclude minimal interstitial congestion Other stable findings as described This agrees with the preliminary interpretation provided by the emergency room physician
[2019-04-07] MEDS: NovoLOG Insulin Flexpen SUBQ SCH ×2 (16:59→21:38)
--- NOTE | 2019-04-07 18:27 | CDS Physician Query ---
Clarification is required for compliance, coding accuracy, and to reflect severity of illness for this patient Dear Dr. Judd_Jhonny Date: _04/07/19 CDS Name: Elsi "Heart Failure / CHF" documented in consult note and ED CXR: Impression: Doubt but cannot exclude minimal interstitial congestion This agrees with the preliminary interpretation provided by the emergency room physician Echo: 15-20% BNP: 2435 Rx: IV Lasix 40 mg Please Clarify: Acuity [] Acute [] Chronic [] Acute on Chronic Type [] Systolic [] Diastolic [] Systolic & Diastolic (Combined) [] Other: Present on Admission: [] Yes [] No [] Clinically Undetermined Physician signature Date Please also document in your Progress Notes and/or Discharge Summary and indicate if the condition was present on admission. LAURA
--- NOTE | 2019-04-07 19:28 | NUR ---
NURSE NOTES: Received pt and report from ABAD Ashraf. Observed pt resting in bed with both eyes open and watching television. outdoor emergency care technician is in placed, IV site intact, asymptomatic and patent. Bed is in the lowest position and locked. Call light within reach. Pt will be NPO at midnight for stress test tomorrow. No signs/symptoms of acute distress noted at this time. Will continue plan of care.
--- NOTE | 2019-04-07 19:37 | NUR ---
HAND-OFF: Report given to AABD Hinds.
[2019-04-07 20:00] VITALS: BP 112/71
[2019-04-07] MEDS ORDERED: Heparin 5000 units/ml inj SUBQ SCH (21:00)
--- NOTE | 2019-04-07 23:00 | History and Physical Report ---
DATE OF ADMISSION: 04/07/2019 TIME SEEN: 1 p.m. CONSULTANTS: 1. Dexter Dewitt M.D. 2. Shadi Jo M.D. CHIEF COMPLAINT: Shortness of breath, chest pain. BRIEF HISTORY: This is a 63-year-old female, who lives at home, presents with shortness of breath for three weeks, getting worse, had chest pain for about one week, slightly dull, no radiation, slight dizzy, no loss of consciousness. No nausea or vomiting. The patient came to [place] last night, was diagnosed of ACS, CHF, and admitted to telemetry for further care. Currently calm, O2 NC, slight short of breath, no complaint. REVIEW OF SYSTEMS: Slight chest pain. Slight short of breath. No nausea, vomiting, or diarrhea. PAST MEDICAL HISTORY: Hypertension, diabetes, CHF. PAST SURGERY HISTORY: Gallbladder and trach, which was removed. MEDICATIONS: Include aspirin, furosemide, carvedilol, albuterol, nitroglycerin, morphine, , diltiazem, lorazepam, , enoxaparin, famotidine, levothyroxine, tramadol, Zofran. ALLERGIES: Simvastatin. SOCIAL HISTORY: No smoking. No alcohol. No intravenous drug abuse. FAMILY HISTORY: Noncontributory. PHYSICAL EXAMINATION: GENERAL: Slightly weak in bed, slight short of breath, oriented x3, in no acute distress. VITAL SIGNS: Temperature is 98 degrees, pulse 85, respirations 20, and blood pressure 113/71. CARDIOVASCULAR: No murmurs. LUNGS: Poor air exchange. ABDOMEN: Bowel sounds distant. EXTREMITIES: No cyanosis, clubbing, or edema. NEUROLOGIC: The patient moves all extremities, slightly weak. LABORATORY AND DIAGNOSTIC DATA: White count 17, H and H 11/36, otherwise CBC is normal. BMP shows BUN 25, glucose 220. Troponin 0.012 and 0.00. Urine tox . ASSESSMENT: 1. ACS. 2. CHF. 3. Diabetes. 4. Hypertension. 5. Leukocytosis. PLAN: 1. O2, pulmonary treatment, antibiotics per Infectious diseases. 2. Blood pressure and blood sugar control. 3. Resume home medications. 4. Dietary followup. 5. We will add Hematology and ID followup. Chiki Pimentel D.O. DR: Janae JOB#: [id number] CC:
[2019-04-07] MEDS: Morphine Sulfate 2mg/ml Inj(IV/IM USE ONLY) IVP PRN (23:06)
[2019-04-08] VITALS: BP 105/66
[2019-04-08] MEDS: Albuterol/Ipratropium 3ml neb HHN SCH ×4 (00:35→18:58)
[2019-04-08] MEDS: traMADol 50mg tab ORAL PRN ×4 (03:15→23:38)
--- NOTE | 2019-04-08 03:15 | Consultation ---
DATE OF CONSULTATION: 04/07/2019 CARDIOLOGY CONSULTATION REASON FOR CONSULTATION: Chest pain. HISTORY OF PRESENT ILLNESS: The patient is a 63-year-old lady that I am familiar with from previous hospitalization at [facility]. The patient has history of hypertension, diabetes, coronary artery disease, history of coronary artery bypass graft as well as history of a [employer] defibrillator implantation by me. She changed her insurance and was following up at [facility]. The patient presented to the emergency room with chest pain of one-day duration that was 7/10. It was nonradiating. The patient also has healing decubitus ulcer in her sacrum. The patient was here just last week and discharged. The patient came back for her recurrence of chest pain. The defibrillator was not also interrogated during the previous hospitalizations. REVIEW OF SYSTEMS: Review of systems was negative other than what was mentioned in the history of present illness. PAST MEDICAL HISTORY: As mentioned above. FAMILY HISTORY: Noncontributory. SOCIAL HISTORY: She lives at home. Does not smoke or drink alcohol. PHYSICAL EXAMINATION: VITAL SIGNS: Show blood pressure of 110/70, pulse is 70, respirations 18, and she is afebrile. HEAD AND NECK: Shows mild JVD. LUNGS: Clear. CARDIOVASCULAR: Shows regular S1 and S2. Sternotomy scar is intact. Defibrillator is in left subclavian. ABDOMEN: Soft. EXTREMITIES: No pitting edema. LABORATORY AND DIAGNOSTIC DATA: Her labs show white count of 17.8, hemoglobin of 11.3, hematocrit of 36, and platelet count of 267,000. Sodium 139, potassium 4.6, BUN of 25, and creatinine 1.2. Troponin is negative x2. BNP 2435. ASSESSMENT/PLAN: 1. Chest pain, the patient with history of coronary artery bypass graft. The patient will be ruled out for myocardial infarction. Continue aspirin and Coreg and Lipitor current medical regimen. Schedule the patient for nuclear stress test tomorrow. 2. Status post [employer] defibrillator implantation. We will interrogate device to make sure it is functioning normally as well as to further atrial fibrillation. 3. History of cardiomyopathy, high BNP, on Coreg 3.125 mg. Change Lasix to 40 IV b.i.d. and add lisinopril as well. 4. New diagnosis of atrial fibrillation on the EKG . Currently in sinus rhythm. Hold off on anticoagulation until her of atrial fibrillation for pacemaker interrogation. In the meantime, continue the patient on Coreg digitally 0.9. 5. Elevated white count, on antibiotic per ID. 6. COPD. 7. Obesity. Thank you very much for allowing me to participate in the care of this patient. Please do not hesitate to contact me for any questions regarding my evaluation. Dexter Dewitt M.D. DR: FABY JOB#: [id number] CC:
[2019-04-08 04:00] VITALS: BP 100/56
[2019-04-08 06:22] LABS: HEMATOCRIT 32.4 % (37.0-47.0); HEMOGLOBIN 10.3 G/DL (12.0-16.0); MEAN CORPUSCULAR VOLUME 92 FL (80-99); PLATELET COUNT 275 K/UL (150-450); RED BLOOD COUNT 3.53 M/UL (4.20-5.40); RED CELL DISTRIBUTION WIDTH 15.6 % (11.6-14.8); WHITE BLOOD COUNT 20.7 K/UL (4.8-10.8)
[2019-04-08] MEDS: NovoLOG Insulin Flexpen SUBQ SCH ×4 (06:24→22:44)
[2019-04-08 06:29] LABS: INR 0.9 (0.9-1.1)
[2019-04-08 06:34] LABS: ANION GAP 7 mmol/L (5-15); BLOOD UREA NITROGEN 29 mg/dL (7-18); CALCIUM 9.5 MG/DL (8.5-10.1); CARBON DIOXIDE 29 MMOL/L (21-32); CHLORIDE 100 MMOL/L (98-107); CREATININE 1.5 MG/DL (0.55-1.30); POTASSIUM 4.4 MMOL/L (3.5-5.1); SODIUM 136 MMOL/L (136-145)
[2019-04-08 06:56] LABS: CHOLESTEROL 112 MG/DL (< 200); HDL CHOLESTEROL 54 MG/DL (40-60); TRIGLYCERIDES 76 MG/DL (30-150)
--- NOTE | 2019-04-08 07:30 | NUR ---
CASE MANAGEMENT:review 04/08/19 SI: ACS. CHF. DM. HTN. LEUKOCYTOSIS 98.0 77 17 100/56 99% ON 2L/NC WBC+20.7 H/H-10.3/32.4 BUN+29 CR+1.5 IS: IV ROCEPHIN Q24 ASA PO QD IV LASIX Q12 COREG PO BID LOVENOX SQ QD PEPCID PO QD DUONEB HHN Q6HRS RTC SYNTHROID PO QD ULTRAM PO Q6HRS PRN IV MORPHINE Q4HRS PRN : TELEMETRY STATUS DCP: FROM HOME PLAN: BLOOD CX STRESS TEST
--- NOTE | 2019-04-08 07:46 | NUR ---
NURSE NOTES: Received patient in bed. awake and alert. report received from Eulalia Riojas. All safety precautions in place. call junior within reach. will monitor.
--- NOTE | 2019-04-08 07:46 | NUR ---
HAND-OFF: Report given to ABAD Penaloza.
[2019-04-08 08:00] VITALS: BP 95/60
--- NOTE | 2019-04-08 08:21 | General Progress Note ---
Assessment/Plan Problem List: (1) Diabetes mellitus ICD Codes: E11.9 - Type 2 diabetes mellitus without complications SNOMED: 27434390 (2) Hypertension ICD Codes: I10 - Essential (primary) hypertension SNOMED: 45777295 (3) Acute exacerbation of chronic bronchitis ICD Codes: J42 - Acute exacerbation of chronic bronchitis SNOMED: 210605574 (4) ACS (acute coronary syndrome) ICD Codes: I24.9 - Acute ischemic heart disease, unspecified SNOMED: 046937354 Status: unchanged Assessment/Plan: cardio pulm f/u o2 pulm tx abx prn cbc bmp am Subjective Constitutional: Reports: weakness Allergies: Coded Allergies: SIMVASTATIN (Verified Adverse Reaction, Intermediate, NAUSEA AND VOMITTING , 03/20/19) All Systems: reviewed and negative except above Subjective pulm tx sleepy Objective Last 24 Hour Vital Signs Date Time Temp Pulse Resp B/P (MAP) Pulse Ox O2 Delivery O2 Flow Rate FiO2 04/08/19 08:04 99 Nasal Cannula 2.0 28 04/08/19 08:04 75 16 99 Nasal Cannula 2.0 28 04/08/19 08:00 97.4 76 20 95/60 (72) 99 04/08/19 04:00 98.0 77 18 100/56 (71) 95 04/08/19 04:00 79 04/08/19 00:45 83 18 99 Nasal Cannula 2.0 28 04/08/19 00:35 78 18 97 Nasal Cannula 2.0 28 04/08/19 00:00 97.4 82 19 105/66 (79) 97 04/08/19 00:00 78 04/07/19 21:37 84 112/71 04/07/19 21:00 Nasal Cannula 2.0 Nasal Cannula 2.0 04/07/19 20:00 97.5 84 18 112/71 (85) 96 04/07/19 19:03 84 18 99 Nasal Cannula 2.0 28 04/07/19 18:54 84 18 91 Nasal Cannula 2.0 28 04/07/19 18:54 91 Nasal Cannula 2.0 28 04/07/19 16:00 97.8 85 20 111/66 (81) 97 04/07/19 15:51 84 04/07/19 13:28 75 20 99 Nasal Cannula 2.0 28 04/07/19 13:20 74 20 97 Nasal Cannula 2.0 28 04/07/19 12:00 77 04/07/19 12:00 98.2 84 20 113/71 (85) 98 04/07/19 09:00 Nasal Cannula 2.0 Nasal Cannula 2.0 04/07/19 08:27 79 100/68 Intake and Output 04/07/19 04/08/19 19:00 07:00 Intake Total 240 ml Output Total 1150 ml 2400 ml Balance -910 ml -2400 ml Intake Oral 240 ml Output Urine Total 1150 ml 2400 ml Laboratory Tests 04/07/19 12:15: Reticulocyte Count 1.1, Iron Level 25L, Total Iron Binding Capacity 222L, Percent Iron Saturation 11L, Unsaturated Iron Binding 197, Ferritin 198, Troponin I 0.000, Total Protein (PEP) [Pending], Albumin (PEP) [Pending], Globulin (PEP) [Pending], Albumin/Globulin Ratio [Pending], Evvwd-1-Pduvvshzt [ Pending], Gakpu-8-Sjnfwrbpi [Pending], Beta Globulins [Pending], Beta Gamma Globulin [Pending], PEP Abnormal Protein Bands [Pending], Protein Electrophoresis Interpret [Pending], Folate 28.3, Homocystine [Pending] 04/07/19 20:18: Troponin I 0.000 04/08/19 05:30: Troponin I 0.015, White Blood Count 20.7H, Red Blood Count 3.53L, Hemoglobin 10.3L, Hematocrit 32.4L, Mean Corpuscular Volume 92, Mean Corpuscular Hemoglobin 29.3, Mean Corpuscular Hemoglobin Concent 31.9L, Red Cell Distribution Width 15.6H, Platelet Count 275, Mean Platelet Volume 6.7, Neutrophils (%) (Auto) , Lymphocytes (%) (Auto) , Monocytes (%) (Auto) , Eosinophils (%) (Auto) , Basophils (%) (Auto) , Differential Total Cells Counted 100, Neutrophils % (Manual) 86H, Lymphocytes % (Manual) 7L, Monocytes % (Manual) 4, Eosinophils % (Manual) 1, Basophils % (Manual) 2, Band Neutrophils 0 , Platelet Estimate Adequate, Platelet Morphology Normal, Hypochromasia 1+, Anisocytosis 1+, Prothrombin Time 10.1, Prothromb Time International Ratio 0.9, Activated Partial Thromboplast Time 30, Sodium Level 136, Potassium Level 4.4, Chloride Level 100, Carbon Dioxide Level 29, Anion Gap 7, Blood Urea Nitrogen 29H, Creatinine 1.5H, Estimat Glomerular Filtration Rate 42.3, Glucose Level 190H, Calcium Level 9.5, C-Reactive Protein, Quantitative 4.5H, Triglycerides Level 76, Cholesterol Level 112, LDL Cholesterol 40, HDL Cholesterol 54, Cholesterol/HDL Ratio 2.1L, Thyroid Stimulating Hormone (TSH) 26.335H Height (Feet): 5 Height (Inches): 5.00 Weight (Pounds): 300 General Appearance: lethargic EENT: normal ENT inspection Neck: normal alignment Cardiovascular: normal peripheral pulses, normal rate, regular rhythm Respiratory/Chest: chest wall non-tender, lungs clear, no respiratory distress Abdomen: normal bowel sounds, non tender, soft Extremities: normal inspection Edema: no edema noted Arm (L), no edema noted Arm (R), no edema noted Leg (L), no edema noted Leg (R), no edema noted Pedal (L), no edema noted Pedal (R), no edema noted Generalized Neurologic: motor weakness Skin: normal pigmentation, warm/dry Chiki Pimentel DO Apr 08, 2019 08:21
[2019-04-08] MEDS: Aspirin Baby 81mg ORAL SCH (08:26)
[2019-04-08] MEDS: Docusate 250mg cap ORAL SCH (08:26)
[2019-04-08] MEDS: Enoxaparin 40mg Inj SUBQ SCH (08:30)
--- NOTE | 2019-04-08 08:39 | Hematology/Onc Progress Note ---
Assessment/Plan Assessment/Plan Assessment and Recs: # Anemia of chronic disease due to underlying chronic medical issues, multifactorial --> Anemia workup has been ordered, rule out gi bleed --> No evidence of hemolysis is noted, peripheral smear has been reviewed. --> Hgb goal >7. Transfuse prn. --> Epogen or iron at this time is not particularly indicated --> Medications have been reviewed --> low threshold for gi evaluation in case has occult + # Leukocytosis/elevated white blood cell count, unspecified likely related to underlying stress reaction, smoking --> have reviewed peripheral smear and bandemia/neutrophilia noted --> continue antibiotics if they have been started by ID team # Hyperproteinemia with decreased albumin -- this is a dissociation that is abnormal --> obtain SPEP (serum protein electrophoresis) and UPEP (urine protein electrophoresis) if spep is negative --> if above results in a m-spike or abnormally enhanced protein, will need to send off immunofixation serum/urine --> in the case of a m-spike or abnormally enhanced protein, will obtain a bone marrow biopsy # ACS (acute coronary syndrome), asa was given --> troponins negative, BNP greater than 2000 --> EKG - NSR, no acute ischemic changes interpreted by me # CHF (congestive heart failure) --> Chest x-ray- CHF, ICD in place --> stress test per cards --> appreciate cards recs Greatly appreciate consultation. Subjective Constitutional: Denies: no symptoms, chills, fever, malaise, weakness, other HEENT: Denies: no symptoms, eye pain, blurred vision, tearing, double vision, ear pain, ear discharge, nose pain, nose congestion, throat pain, throat swelling, mouth pain, mouth swelling, other Respiratory: Denies: no symptoms, cough, shortness of breath, SOB with excertion, SOB at rest, sputum, wheezing, other Gastrointestinal/Abdominal: Denies: no symptoms, abdomen distended, abdominal pain, black stools, tarry stools, blood in stool, constipated, diarrhea, difficulty swallowing, nausea, poor appetite, poor fluid intake, rectal bleeding , vomiting, other Genitourinary: Denies: no symptoms, burning, discharge, frequency, flank pain, hematuria, incontinence, pain, urgency, other Neurologic/Psychiatric: Denies: no symptoms, anxiety, depressed, emotional problems, headache, numbness, paresthesia, pre-existing deficit, seizure, tingling, tremors, weakness, other Allergies: Coded Allergies: SIMVASTATIN (Verified Adverse Reaction, Intermediate, NAUSEA AND VOMITTING , 03/20/19) Subjective 04/08: no fevers or chills or night sweats, seen by cards, potential for nuclear stress test, on abx Objective Objective Current Medications Medications (Trade) Dose Ordered Sig/Cassidy Route PRN Reason Start Time Stop Time Status Last Admin Dose Admin Acetaminophen (Tylenol) 650 mg Q4H PRN ORAL FEVER 04/07/19 12:00 05/07/19 11:59 Albuterol/ Ipratropium (Albuterol/ Ipratropium) 3 ml Q4H PRN HHN Shortness of Breath 04/07/19 12:00 04/12/19 11:59 Albuterol/ Ipratropium (Albuterol/ Ipratropium) 3 ml Q6HRT HHN 04/07/19 07:00 04/12/19 06:59 04/08/19 08:04 Aspirin (ASA) 162 mg DAILY ORAL 04/08/19 09:00 05/08/19 08:59 04/08/19 08:26 Carvedilol (Coreg) 3.125 mg BID@0900,2100 ORAL 04/07/19 21:00 05/07/19 08:59 04/07/19 21:37 Ceftriaxone Sodium 1 gm/ Dextrose 55 ml @ 110 mls/hr Q24H IVPB 04/07/19 16:00 04/14/19 15:59 04/07/19 16:46 Dextrose (Dextrose 50%) 25 ml Q30M PRN IV Hypoglycemia 04/07/19 12:00 05/07/19 11:53 Dextrose (Dextrose 50%) 50 ml Q30M PRN IV hypoglycemia 04/07/19 12:00 05/07/19 11:59 Diltiazem HCl (Cardizem) 10 mg Q1H PRN IV heart rate more than 120, 04/07/19 12:00 05/07/19 11:59 Docusate Sodium (Colace) 250 mg DAILY ORAL 04/07/19 09:00 05/07/19 08:59 04/08/19 08:26 Enalaprilat (Vasotec) 2.5 mg Q6H PRN IV sbp more than 160 04/07/19 12:00 05/07/19 11:59 Enoxaparin Sodium (Lovenox) 40 mg DAILY SUBQ 04/07/19 09:00 05/07/19 08:59 04/08/19 08:30 Famotidine (Pepcid) 20 mg DAILY ORAL 04/07/19 09:00 05/07/19 08:59 04/08/19 08:26 Furosemide (Lasix) 40 mg EVERY 12 HOURS IV 04/07/19 21:00 05/07/19 20:59 04/08/19 08:27 Insulin Aspart (NovoLOG) BEFORE MEALS AND HS SUBQ 04/07/19 16:30 05/07/19 16:29 04/07/19 21:38 Levothyroxine Sodium (Synthroid) 75 mcg DAILY@0630 ORAL 04/07/19 06:30 05/07/19 06:29 04/08/19 06:23 Lorazepam (Ativan) 0.5 mg Q4H PRN ORAL For Anxiety 04/07/19 12:00 04/14/19 11:59 Morphine Sulfate (Morphine Sulfate) 2 mg Q4H PRN IVP severe Pain (Pain Scale 7-10) 04/07/19 12:00 04/14/19 11:59 04/07/19 23:06 Nitroglycerin (Ntg) 0.4 mg Q5M PRN SL Prn Chest Pain 04/07/19 12:00 05/07/19 11:59 Ondansetron HCl (Zofran) 4 mg Q6H PRN IVP Nausea & Vomiting 04/07/19 02:45 05/07/19 02:44 Polyethylene Glycol (Miralax) 17 gm DAILYPRN PRN ORAL Constipation 04/07/19 12:00 05/07/19 11:59 Regadenoson (Lexiscan) 0.4 mg ONCE PRN IV stress test 04/07/19 11:15 04/09/19 11:14 Temazepam (Restoril) 15 mg HSPRN PRN ORAL Insomnia 04/07/19 12:00 04/14/19 11:59 Tramadol HCl (Ultram) 50 mg Q6H PRN ORAL Moderate Pain (Pain Scale 4-6) 04/07/19 03:45 04/14/19 03:44 04/08/19 03:15 Last 24 Hour Vital Signs Date Time Temp Pulse Resp B/P (MAP) Pulse Ox O2 Delivery O2 Flow Rate FiO2 04/08/19 08:04 99 Nasal Cannula 2.0 28 04/08/19 08:04 75 16 99 Nasal Cannula 2.0 28 04/08/19 08:00 97.4 76 20 95/60 (72) 99 04/08/19 04:00 98.0 77 18 100/56 (71) 95 04/08/19 04:00 79 04/08/19 00:45 83 18 99 Nasal Cannula 2.0 28 04/08/19 00:35 78 18 97 Nasal Cannula 2.0 28 04/08/19 00:00 97.4 82 19 105/66 (79) 97 04/08/19 00:00 78 04/07/19 21:37 84 112/71 04/07/19 21:00 Nasal Cannula 2.0 Nasal Cannula 2.0 04/07/19 20:00 97.5 84 18 112/71 (85) 96 04/07/19 19:03 84 18 99 Nasal Cannula 2.0 04/07/19 18:54 84 18 91 Nasal Cannula 2.0 04/07/19 18:54 91 Nasal Cannula 2.0 04/07/19 16:00 97.8 85 20 111/66 (81) 97 04/07/19 15:51 84 04/07/19 13:28 75 20 99 Nasal Cannula 2.0 28 04/07/19 13:20 74 20 97 Nasal Cannula 2.0 04/07/19 12:00 77 04/07/19 12:00 98.2 84 20 113/71 (85) 98 04/07/19 09:00 Nasal Cannula 2.0 Nasal Cannula 2.0 04/07/19 08:27 79 100/68 04/07/19 08:00 97.3 79 12 100/68 (79) 99 04/07/19 07:48 78 20 99 Nasal Cannula 2.0 28 04/07/19 07:44 98 Nasal Cannula 2.0 04/07/19 07:43 76 20 98 Nasal Cannula 2.0 04/07/19 07:39 75 04/07/19 03:17 Nasal Cannula 2.0 Nasal Cannula 2.0 04/07/19 02:57 98.4 04/07/19 02:16 86 04/07/19 01:50 98.4 86 17 122/74 100 Nasal Cannula 2.0 28 04/07/19 01:50 98.4 86 17 122/74 100 Nasal Cannula 2.0 28 04/07/19 00:18 98.5 80 18 118/78 96 Nasal Cannula 2.0 04/06/19 23:10 81 21 97 Nasal Cannula 2.0 04/06/19 22:45 89 24 98 Room Air 04/06/19 22:39 86 21 100 Room Air 04/06/19 22:14 86 23 100 Room Air 04/06/19 22:12 98.6 04/06/19 22:01 87 21 100 Room Air 04/06/19 21:45 87 23 97 Room Air 04/06/19 21:45 87 23 97 Room Air 04/06/19 20:55 98.6 88 22 110/76 90 Room Air 04/06/19 20:43 98.6 90 22 110/76 (87) 90 Room Air Intake and Output 04/07/19 04/08/19 19:00 07:00 Intake Total 240 ml Output Total 1150 ml 2400 ml Balance -910 ml -2400 ml Intake Oral 240 ml Output Urine Total 1150 ml 2400 ml Labs Test 04/06/19 21:20 04/07/19 02:45 04/07/19 12:15 04/07/19 20:18 White Blood Count 15.7 K/UL (4.8-10.8) 17.8 K/UL (4.8-10.8) Red Blood Count 4.16 M/UL (4.20-5.40) 3.92 M/UL (4.20-5.40) Hemoglobin 12.1 G/DL (12.0-16.0) 11.3 G/DL (12.0-16.0) Hematocrit 37.5 % (37.0-47.0) 36.4 % (37.0-47.0) Mean Corpuscular Volume 90 FL (80-99) 93 FL (80-99) Mean Corpuscular Hemoglobin 29.2 PG (27.0-31.0) 28.9 PG (27.0-31.0) Mean Corpuscular Hemoglobin Concent 32.4 G/DL (32.0-36.0) 31.1 G/DL (32.0-36.0) Red Cell Distribution Width 14.8 % (11.6-14.8) 15.3 % (11.6-14.8) Platelet Count 295 K/UL (150-450) 267 K/UL (150-450) Mean Platelet Volume 6.1 FL (6.5-10.1) 6.6 FL (6.5-10.1) Neutrophils (%) (Auto) 79.9 % (45.0-75.0) % (45.0-75.0) Lymphocytes (%) (Auto) 12.9 % (20.0-45.0) % (20.0-45.0) Monocytes (%) (Auto) 5.6 % (1.0-10.0) % (1.0-10.0) Eosinophils (%) (Auto) 0.5 % (0.0-3.0) % (0.0-3.0) Basophils (%) (Auto) 1.1 % (0.0-2.0) % (0.0-2.0) Sodium Level 138 MMOL/L (136-145) 139 MMOL/L (136-145) Potassium Level 4.8 MMOL/L (3.5-5.1) 4.6 MMOL/L (3.5-5.1) Chloride Level 104 MMOL/L (98-107) 104 MMOL/L (98-107) Carbon Dioxide Level 27 MMOL/L (21-32) 26 MMOL/L (21-32) Anion Gap 8 mmol/L (5-15) 10 mmol/L (5-15) Blood Urea Nitrogen 24 mg/dL (7-18) 25 mg/dL (7-18) Creatinine 1.3 MG/DL (0.55-1.30) 1.2 MG/DL (0.55-1.30) Estimat Glomerular Filtration Rate 49.8 mL/min (>60) 54.7 mL/min (>60) Glucose Level 164 MG/DL (74-106) 220 MG/DL (74-106) Calcium Level 9.7 MG/DL (8.5-10.1) 9.2 MG/DL (8.5-10.1) Total Bilirubin 0.5 MG/DL (0.2-1.0) Aspartate Amino Transf (AST/SGOT) 18 U/L (15-37) Alanine Aminotransferase (ALT/SGPT) 19 U/L (12-78) Alkaline Phosphatase 94 U/L (46-116) Total Creatine Kinase 133 U/L (26-308) Creatine Kinase MB 1.7 NG/ML (0.0-3.6) Creatine Kinase MB Relative Index 1.2 Troponin I 0.011 ng/mL (0.000-0.056) 0.012 ng/mL (0.000-0.056) 0.000 ng/mL (0.000-0.056) 0.000 ng/mL (0.000-0.056) Pro-B-Type Natriuretic Peptide 2435 pg/mL (0-125) Total Protein 8.3 G/DL (6.4-8.2) Albumin 3.6 G/DL (3.4-5.0) Globulin 4.7 g/dL Albumin/Globulin Ratio 0.8 (1.0-2.7) Digoxin Level 0.9 NG/ML (0.9-2.0) Reticulocyte Count 1.1 % (0.5-2.0) Iron Level 25 ug/dL (50-175) Total Iron Binding Capacity 222 ug/dL (250-450) Percent Iron Saturation 11 % (15-50) Unsaturated Iron Binding 197 ug/dL (112-346) Ferritin 198 NG/ML (8-388) Folate 28.3 NG/ML (8.6-58.9) Test 04/08/19 05:30 White Blood Count 20.7 K/UL (4.8-10.8) Red Blood Count 3.53 M/UL (4.20-5.40) Hemoglobin 10.3 G/DL (12.0-16.0) Hematocrit 32.4 % (37.0-47.0) Mean Corpuscular Volume 92 FL (80-99) Mean Corpuscular Hemoglobin 29.3 PG (27.0-31.0) Mean Corpuscular Hemoglobin Concent 31.9 G/DL (32.0-36.0) Red Cell Distribution Width 15.6 % (11.6-14.8) Platelet Count 275 K/UL (150-450) Mean Platelet Volume 6.7 FL (6.5-10.1) Neutrophils (%) (Auto) % (45.0-75.0) Lymphocytes (%) (Auto) % (20.0-45.0) Monocytes (%) (Auto) % (1.0-10.0) Eosinophils (%) (Auto) % (0.0-3.0) Basophils (%) (Auto) % (0.0-2.0) Differential Total Cells Counted 100 Neutrophils % (Manual) 86 % (45-75) Lymphocytes % (Manual) 7 % (20-45) Monocytes % (Manual) 4 % (1-10) Eosinophils % (Manual) 1 % (0-3) Basophils % (Manual) 2 % (0-2) Band Neutrophils 0 % (0-8) Platelet Estimate Adequate Platelet Morphology Normal Hypochromasia 1+ Anisocytosis 1+ Prothrombin Time 10.1 SEC (9.30-11.50) Prothromb Time International Ratio 0.9 (0.9-1.1) Activated Partial Thromboplast Time 30 SEC (23-33) Sodium Level 136 MMOL/L (136-145) Potassium Level 4.4 MMOL/L (3.5-5.1) Chloride Level 100 MMOL/L (98-107) Carbon Dioxide Level 29 MMOL/L (21-32) Anion Gap 7 mmol/L (5-15) Blood Urea Nitrogen 29 mg/dL (7-18) Creatinine 1.5 MG/DL (0.55-1.30) Estimat Glomerular Filtration Rate 42.3 mL/min (>60) Glucose Level 190 MG/DL (74-106) Calcium Level 9.5 MG/DL (8.5-10.1) Troponin I 0.015 ng/mL (0.000-0.056) C-Reactive Protein, Quantitative 4.5 mg/dL (0.00-0.90) Triglycerides Level 76 MG/DL (30-150) Cholesterol Level 112 MG/DL (< 200) LDL Cholesterol 40 mg/dL (<100) HDL Cholesterol 54 MG/DL (40-60) Cholesterol/HDL Ratio 2.1 (3.3-4.4) Thyroid Stimulating Hormone (TSH) 26.335 uiU/mL (0.358-3.740) Height (Feet): 5 Height (Inches): 5.00 Weight (Pounds): 300 Objective Vital Signs reviewed General: nad, alert Head: PERRL ENT: hearing grossly normal, normal pharynx Neck: full range of motion, supple/symm/no masses Respiratory: chest non-tender, normal breath sounds, speaking full sentences, wheezing CV: regular rate, rhythm, no edema ++ icd Gastrointestinal: normal bowel sounds, nt, nd Lymphatic: no adenopathy Emmett Evangelista MD Apr 08, 2019 08:39
--- NOTE | 2019-04-08 09:19 | NUR ---
*-* INSURANCE *-* ALL CLINICALS AND REVIEWS HAVE BEEN FAXED TO: [facility] REF# [id number] F:[phone] [facility] P: [phone]
--- NOTE | 2019-04-08 10:20 | NUR ---
PT EVALUATION NOTE Patient seen for initial evaluation, see complete evaluation for details. Patient presents with generalized weakness and impaired ability to perform bed mobility and transfer tasks, and to ambulate. Patient requires min/mod assist for bed mobility and transfers. Patient was unable to ambulate. Patient will benefit from skilled inpatient PT intervention to address balance, safety, strength and functional mobility. Recommend discharge home with home PT vs short term SNF for rehab once medically cleared by MD. Patient appears to have necessary DME at home. Addendum: 04/08/19 at 1220 by [facility] ESQUIVEL PT Amended: Links added.
--- NOTE | 2019-04-08 11:28 | Infectious Diseases Prog Note ---
Assessment/Plan Assessment/Plan Assessment: Afebrile Leukocytosis; worsening- r/o UTI (recent dysuria), r/o bacteremia (+AICD present ) -CXR: Doubt but cannot exclude minimal interstitial congestion. Other stable findings as described -u/a p Chest pain -2d Echo: EF 15-20%, no vegetations DM2 HTN DC/CAD s/p CABG 2018 CHF s/p AICD Asthma/COPD sacral decubitus ulcer VRE colonized Plan: -Switch empiric Ceftriaxone #2 to Zosyn and add IV Vancomycin pending u/a and Bcx -f/u cx -Monitor CBC/CMP, temperatures -f.u CXR -Bcx x2 -u/a w/ reflex -Cdiff if diarrhea Thank you for this consultation. Will continue to follow along with you. Discussed with RN. Subjective Allergies: Coded Allergies: SIMVASTATIN (Verified Adverse Reaction, Intermediate, NAUSEA AND VOMITTING , 03/20/19) Subjective afebrile wbc increased to 20 Objective Vital Signs Last 24 Hour Vital Signs Date Time Temp Pulse Resp B/P (MAP) Pulse Ox O2 Delivery O2 Flow Rate FiO2 04/08/19 10:27 97.4 04/08/19 09:00 78 04/08/19 09:00 Nasal Cannula 2.0 Nasal Cannula 2.0 04/08/19 08:50 75 95/60 04/08/19 08:14 85 18 99 Nasal Cannula 2.0 28 04/08/19 08:04 99 Nasal Cannula 2.0 28 04/08/19 08:04 75 16 99 Nasal Cannula 2.0 28 04/08/19 08:00 97.4 76 20 95/60 (72) 99 04/08/19 04:00 98.0 77 18 100/56 (71) 95 04/08/19 04:00 79 04/08/19 00:45 83 18 99 Nasal Cannula 2.0 28 04/08/19 00:35 78 18 97 Nasal Cannula 2.0 28 04/08/19 00:00 97.4 82 19 105/66 (79) 97 04/08/19 00:00 78 04/07/19 21:37 84 112/71 04/07/19 21:00 Nasal Cannula 2.0 Nasal Cannula 2.0 04/07/19 20:00 97.5 84 18 112/71 (85) 96 04/07/19 19:03 84 18 99 Nasal Cannula 2.0 28 04/07/19 18:54 84 18 91 Nasal Cannula 2.0 28 04/07/19 18:54 91 Nasal Cannula 2.0 28 04/07/19 16:00 97.8 85 20 111/66 (81) 97 04/07/19 15:51 84 04/07/19 13:28 75 20 99 Nasal Cannula 2.0 28 04/07/19 13:20 74 20 97 Nasal Cannula 2.0 28 04/07/19 12:00 77 04/07/19 12:00 98.2 84 20 113/71 (85) 98 Height (Feet): 5 Height (Inches): 5.00 Weight (Pounds): 300 Objective General Appearance: lethargic EENT: normal ENT inspection Neck: normal alignment Cardiovascular: normal peripheral pulses, normal rate, regular rhythm Respiratory/Chest: chest wall non-tender, lungs clear, no respiratory distress Abdomen: normal bowel sounds, non tender, soft Extremities: normal inspection Edema: no edema noted Arm (L), no edema noted Arm (R), no edema noted Leg (L), no edema noted Leg (R), no edema noted Pedal (L), no edema noted Pedal (R), no edema noted Generalized Neurologic: motor weakness Skin: normal pigmentation, warm/dry Microbiology Date/Time Source Procedure Growth Status 04/07/19 00:00 Rectum VRE Culture - Final Enterococcus Faecium - Vre Complete Laboratory Tests Test 04/07/19 12:15 04/07/19 20:18 04/08/19 05:30 Reticulocyte Count 1.1 % (0.5-2.0) Iron Level 25 ug/dL (50-175) L Total Iron Binding Capacity 222 ug/dL (250-450) L Percent Iron Saturation 11 % (15-50) L Unsaturated Iron Binding 197 ug/dL (112-346) Ferritin 198 NG/ML (8-388) Troponin I 0.000 ng/mL (0.000-0.056) 0.000 ng/mL (0.000-0.056) 0.015 ng/mL (0.000-0.056) Total Protein (PEP) 6.7 g/dL (6.0-8.5) Albumin (PEP) 3.3 g/dL (2.9-4.4) Globulin (PEP) 3.4 g/dL (2.2-3.9) Albumin/Globulin Ratio 1.0 (0.7-1.7) Epfdp-8-Rtdhxtbns 0.3 g/dL (0.0-0.4) Xftum-9-Nwcblyxhu 0.9 g/dL (0.4-1.0) Beta Globulins 1.1 g/dL (0.7-1.3) Beta Gamma Globulin 1.0 g/dL (0.4-1.8) PEP Abnormal Protein Bands Not observed g/dL (Not Protein Electrophoresis Interpret Comment (.) Folate 28.3 NG/ML (8.6-58.9) Homocystine 4.9 umol/L (0.0-15.0) White Blood Count 20.7 K/UL (4.8-10.8) H Red Blood Count 3.53 M/UL (4.20-5.40) L Hemoglobin 10.3 G/DL (12.0-16.0) L Hematocrit 32.4 % (37.0-47.0) L Mean Corpuscular Volume 92 FL (80-99) Mean Corpuscular Hemoglobin 29.3 PG (27.0-31.0) Mean Corpuscular Hemoglobin Concent 31.9 G/DL (32.0-36.0) L Red Cell Distribution Width 15.6 % (11.6-14.8) H Platelet Count 275 K/UL (150-450) Mean Platelet Volume 6.7 FL (6.5-10.1) Neutrophils (%) (Auto) % (45.0-75.0) Lymphocytes (%) (Auto) % (20.0-45.0) Monocytes (%) (Auto) % (1.0-10.0) Eosinophils (%) (Auto) % (0.0-3.0) Basophils (%) (Auto) % (0.0-2.0) Differential Total Cells Counted 100 Neutrophils % (Manual) 86 % (45-75) H Lymphocytes % (Manual) 7 % (20-45) L Monocytes % (Manual) 4 % (1-10) Eosinophils % (Manual) 1 % (0-3) Basophils % (Manual) 2 % (0-2) Band Neutrophils 0 % (0-8) Platelet Estimate Adequate Platelet Morphology Normal Hypochromasia 1+ Anisocytosis 1+ Prothrombin Time 10.1 SEC (9.30-11.50) Prothromb Time International Ratio 0.9 (0.9-1.1) Activated Partial Thromboplast Time 30 SEC (23-33) Sodium Level 136 MMOL/L (136-145) Potassium Level 4.4 MMOL/L (3.5-5.1) Chloride Level 100 MMOL/L (98-107) Carbon Dioxide Level 29 MMOL/L (21-32) Anion Gap 7 mmol/L (5-15) Blood Urea Nitrogen 29 mg/dL (7-18) H Creatinine 1.5 MG/DL (0.55-1.30) H Estimat Glomerular Filtration Rate 42.3 mL/min (>60) Glucose Level 190 MG/DL (74-106) H Calcium Level 9.5 MG/DL (8.5-10.1) C-Reactive Protein, Quantitative 4.5 mg/dL (0.00-0.90) H Triglycerides Level 76 MG/DL (30-150) Cholesterol Level 112 MG/DL (< 200) LDL Cholesterol 40 mg/dL (<100) HDL Cholesterol 54 MG/DL (40-60) Cholesterol/HDL Ratio 2.1 (3.3-4.4) L Thyroid Stimulating Hormone (TSH) 26.335 uiU/mL (0.358-3.740) Current Medications Medications (Trade) Dose Ordered Sig/Cassidy Route PRN Reason Start Time Stop Time Status Last Admin Dose Admin Acetaminophen (Tylenol) 650 mg Q4H PRN ORAL FEVER 04/07/19 12:00 05/07/19 11:59 Albuterol/ Ipratropium (Albuterol/ Ipratropium) 3 ml Q4H PRN HHN Shortness of Breath 04/07/19 12:00 04/12/19 11:59 Albuterol/ Ipratropium (Albuterol/ Ipratropium) 3 ml Q6HRT HHN 04/07/19 07:00 04/12/19 06:59 04/08/19 08:04 Aspirin (ASA) 162 mg DAILY ORAL 04/08/19 09:00 05/08/19 08:59 04/08/19 08:26 Carvedilol (Coreg) 3.125 mg BID@0900,2100 ORAL 04/07/19 21:00 05/07/19 08:59 04/07/19 21:37 Ceftriaxone Sodium 1 gm/ Dextrose 55 ml @ 110 mls/hr Q24H IVPB 04/07/19 16:00 04/14/19 15:59 04/07/19 16:46 Dextrose (Dextrose 50%) 25 ml Q30M PRN IV Hypoglycemia 04/07/19 12:00 05/07/19 11:53 Dextrose (Dextrose 50%) 50 ml Q30M PRN IV hypoglycemia 04/07/19 12:00 05/07/19 11:59 Diltiazem HCl (Cardizem) 10 mg Q1H PRN IV heart rate more than 120, 04/07/19 12:00 05/07/19 11:59 Docusate Sodium (Colace) 250 mg DAILY ORAL 04/07/19 09:00 05/07/19 08:59 04/08/19 08:26 Enalaprilat (Vasotec) 2.5 mg Q6H PRN IV sbp more than 160 04/07/19 12:00 05/07/19 11:59 Enoxaparin Sodium (Lovenox) 40 mg DAILY SUBQ 04/07/19 09:00 05/07/19 08:59 04/08/19 08:30 Famotidine (Pepcid) 20 mg DAILY ORAL 04/07/19 09:00 05/07/19 08:59 04/08/19 08:26 Furosemide (Lasix) 40 mg EVERY 12 HOURS IV 04/07/19 21:00 05/07/19 20:59 04/08/19 08:27 Insulin Aspart (NovoLOG) BEFORE MEALS AND HS SUBQ 04/07/19 16:30 05/07/19 16:29 04/07/19 21:38 Levothyroxine Sodium (Synthroid) 75 mcg DAILY@0630 ORAL 04/07/19 06:30 05/07/19 06:29 04/08/19 06:23 Lorazepam (Ativan) 0.5 mg Q4H PRN ORAL For Anxiety 04/07/19 12:00 04/14/19 11:59 Morphine Sulfate (Morphine Sulfate) 2 mg Q4H PRN IVP severe Pain (Pain Scale 7-10) 04/07/19 12:00 04/14/19 11:59 04/07/19 23:06 Nitroglycerin (Ntg) 0.4 mg Q5M PRN SL Prn Chest Pain 04/07/19 12:00 05/07/19 11:59 Ondansetron HCl (Zofran) 4 mg Q6H PRN IVP Nausea & Vomiting 04/07/19 02:45 05/07/19 02:44 Polyethylene Glycol (Miralax) 17 gm DAILYPRN PRN ORAL Constipation 04/07/19 12:00 05/07/19 11:59 Regadenoson (Lexiscan) 0.4 mg ONCE PRN IV stress test 04/07/19 11:15 04/09/19 11:14 Temazepam (Restoril) 15 mg HSPRN PRN ORAL Insomnia 04/07/19 12:00 04/14/19 11:59 Tramadol HCl (Ultram) 50 mg Q6H PRN ORAL Moderate Pain (Pain Scale 4-6) 04/07/19 03:45 04/14/19 03:44 04/08/19 09:57 Bijal Luque M.D. Apr 08, 2019 11:28
[2019-04-08 12:00] VITALS: BP 94/67
--- NOTE | 2019-04-08 12:50 | NUR ---
NURSE NOTES: Dobutamine Stress Test done at bedside @12:40 Dr. Martel present at bedside with 2 RN's and 3 technicians. Patient monitored closely the entire time. Complained of Chest pain towards the end of test but later subsided after discontinuation @ 12:47. VSS. Patient resting comfortably at this time. will continue to follow
[2019-04-08] MEDS ORDERED: Vancomycin 1.5gm Premix IVPB SCH (13:00)
--- NOTE | 2019-04-08 15:10 | NUR ---
Myocardial Perfusion scan complete.
--- NOTE | 2019-04-08 15:45 | Cardiac Electrophysiology PN ---
Assessment/Plan Assessment/Plan 1. Chest pain, the patient with history of heart surgery but denies CABG. 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 Will get records from [facility]. Ruled out for myocardial infarction. Continue aspirin and Coreg and Lipitor current medical regimen. Nuclear stress test report is pending. 2. Status post [employer] defibrillator implantation. We will interrogate device to make sure it is functioning normally as well as to atrial fibrillation. 3. History of cardiomyopathy, high BNP,EF 15% on Coreg 3.125 mg Lasix 40 IV b.i.d. and lisinopril 4. New diagnosis of atrial fibrillation on the EKG . Currently in sinus rhythm. Hold off on anticoagulation on Coreg 5. Elevated white count, on antibiotic per ID. 6. COPD. 7. Obesity. Subjective Subjective Feeling better. No CP. Had nuclear stress test today. Objective Last 24 Hour Vital Signs Date Time Temp Pulse Resp B/P (MAP) Pulse Ox O2 Delivery O2 Flow Rate FiO2 04/08/19 13:25 Nasal Cannula 2.0 28 04/08/19 13:25 Nasal Cannula 2.0 04/08/19 12:00 80 04/08/19 12:00 97.3 78 18 94/67 (76) 99 04/08/19 10:27 97.4 04/08/19 09:00 78 04/08/19 09:00 Nasal Cannula 2.0 Nasal Cannula 2.0 04/08/19 08:50 75 95/60 04/08/19 08:14 85 18 99 Nasal Cannula 2.0 28 04/08/19 08:04 99 Nasal Cannula 2.0 04/08/19 08:04 75 16 99 Nasal Cannula 2.0 04/08/19 08:00 97.4 76 20 95/60 (72) 99 04/08/19 04:00 98.0 77 18 100/56 (71) 95 04/08/19 04:00 79 04/08/19 00:45 83 18 99 Nasal Cannula 2.0 28 04/08/19 00:35 78 18 97 Nasal Cannula 2.0 28 04/08/19 00:00 97.4 82 19 105/66 (79) 97 04/08/19 00:00 78 04/07/19 21:37 84 112/71 04/07/19 21:00 Nasal Cannula 2.0 Nasal Cannula 2.0 04/07/19 20:00 97.5 84 18 112/71 (85) 96 04/07/19 19:03 84 18 99 Nasal Cannula 2.0 28 04/07/19 18:54 84 18 91 Nasal Cannula 2.0 28 04/07/19 18:54 91 Nasal Cannula 2.0 28 04/07/19 16:00 97.8 85 20 111/66 (81) 97 04/07/19 15:51 84 Intake and Output 04/07/19 04/08/19 19:00 07:00 Intake Total 240 ml Output Total 1150 ml 2400 ml Balance -910 ml -2400 ml Intake Oral 240 ml Output Urine Total 1150 ml 2400 ml Laboratory Tests Test 04/07/19 20:18 04/08/19 05:30 Troponin I 0.000 ng/mL (0.000-0.056) 0.015 ng/mL (0.000-0.056) White Blood Count 20.7 K/UL (4.8-10.8) H Red Blood Count 3.53 M/UL (4.20-5.40) L Hemoglobin 10.3 G/DL (12.0-16.0) L Hematocrit 32.4 % (37.0-47.0) L Mean Corpuscular Volume 92 FL (80-99) Mean Corpuscular Hemoglobin 29.3 PG (27.0-31.0) Mean Corpuscular Hemoglobin Concent 31.9 G/DL (32.0-36.0) L Red Cell Distribution Width 15.6 % (11.6-14.8) H Platelet Count 275 K/UL (150-450) Mean Platelet Volume 6.7 FL (6.5-10.1) Neutrophils (%) (Auto) % (45.0-75.0) Lymphocytes (%) (Auto) % (20.0-45.0) Monocytes (%) (Auto) % (1.0-10.0) Eosinophils (%) (Auto) % (0.0-3.0) Basophils (%) (Auto) % (0.0-2.0) Differential Total Cells Counted 100 Neutrophils % (Manual) 86 % (45-75) H Lymphocytes % (Manual) 7 % (20-45) L Monocytes % (Manual) 4 % (1-10) Eosinophils % (Manual) 1 % (0-3) Basophils % (Manual) 2 % (0-2) Band Neutrophils 0 % (0-8) Platelet Estimate Adequate Platelet Morphology Normal Hypochromasia 1+ Anisocytosis 1+ Prothrombin Time 10.1 SEC (9.30-11.50) Prothromb Time International Ratio 0.9 (0.9-1.1) Activated Partial Thromboplast Time 30 SEC (23-33) Sodium Level 136 MMOL/L (136-145) Potassium Level 4.4 MMOL/L (3.5-5.1) Chloride Level 100 MMOL/L (98-107) Carbon Dioxide Level 29 MMOL/L (21-32) Anion Gap 7 mmol/L (5-15) Blood Urea Nitrogen 29 mg/dL (7-18) H Creatinine 1.5 MG/DL (0.55-1.30) H Estimat Glomerular Filtration Rate 42.3 mL/min (>60) Glucose Level 190 MG/DL (74-106) H Calcium Level 9.5 MG/DL (8.5-10.1) C-Reactive Protein, Quantitative 4.5 mg/dL (0.00-0.90) H Triglycerides Level 76 MG/DL (30-150) Cholesterol Level 112 MG/DL (< 200) LDL Cholesterol 40 mg/dL (<100) HDL Cholesterol 54 MG/DL (40-60) Cholesterol/HDL Ratio 2.1 (3.3-4.4) L Thyroid Stimulating Hormone (TSH) 26.335 uiU/mL (0.358-3.740) Microbiology Date/Time Source Procedure Growth Status 04/07/19 00:00 Rectum VRE Culture - Final Enterococcus Faecium - Vre Complete Objective HEAD AND NECK: Mild JVD. LUNGS: Clear. CARDIOVASCULAR: Shows regular S1 and S2. Sternotomy scar is intact. Defibrillator is in left subclavian. ABDOMEN: Soft. EXTREMITIES: No pitting edema. Dexter Dewitt MD Apr 08, 2019 15:45
[2019-04-08] MEDS: Piperacillin/Tazobactam 3.375 GM in NS 110 ML IVPB SCH ×2 (15:59→22:20)
[2019-04-08 16:30] VITALS: BP 91/60
--- NOTE | 2019-04-08 16:46 | Diagnostic Imaging Report ---
Indications: Chest pain Technique: Single day single isotope protocol utilized. Initially, resting images obtained using IV administration 10.9 millicuries 99M technetium Myoview. Subsequently, patient underwent Dobutamine stress testing. See cardiology report for details. During dobutamine infusion, IV administration 32.5 mCi 99 M technetium Myoview. SPECT and planar images obtained. SPECT images gated to 8 phases of the cardiac cycle were also obtained, and reformatted into cine images for evaluation of ejection fraction. Comparison: 08/24/2013 Findings: Per cardiology report, patient experienced left-sided chest pain during infusion. Per cardiology report, resting EKG demonstrates normal sinus rhythm with nonspecific ST-T wave changes. No ST-T wave changes reported during infusion, although premature ventricular complexes were noted during infusion. Patient reached a peak heart rate of 108 these for minute, short of the target heart rate of 132 bpm. Imaging demonstrates a perfusion defect involving the apex and inferior wall. This appears mostly fixed, although there is equivocally some increased perfusion at the lateral wall edge of the defect on the resting images. Left ventricle is dilated. The calculated post stress ejection fraction is 26%. There is global hypokinesis with near akinesis of the inferior wall and apex on the gated images. The left ventricle is dilated. When compared to the previous exam, the previously demonstrated large fixed anterior wall defect is not evident on the current exam. Impression: Ischemic clinical response to pharmacologic stress, per cardiology report Nonischemic electrocardiographic response to pharmacologic stress, per cardiology report Inferoapical infarct. Doubt but cannot completely exclude a small area of ignacio-infarct ischemia at the lateral wall border of the infarct. Note that the anterior wall infarct described on prior 2013 exam is not evident on this study but the inferior wall infarct appears similar. The ejection fraction is similar to the previous value of 30% Calculated post stress ejection fraction 26%
--- NOTE | 2019-04-08 17:36 | Pulmonology Progress Note ---
Assessment/Plan Problems: (1) ACS (acute coronary syndrome) (2) COPD (chronic obstructive pulmonary disease) (3) Cardiomyopathy (4) Hypertension (5) Diabetes mellitus Assessment/Plan serial ekg, troponin cardiology to see sliding scale diabetic diet Subjective ROS Limited/Unobtainable: No Constitutional: Reports: no symptoms HEENT: Repors: no symptoms Respiratory: Reports: no symptoms Allergies: Coded Allergies: SIMVASTATIN (Verified Adverse Reaction, Intermediate, NAUSEA AND VOMITTING , 03/20/19) Objective Last 24 Hour Vital Signs Date Time Temp Pulse Resp B/P (MAP) Pulse Ox O2 Delivery O2 Flow Rate FiO2 04/08/19 16:00 87 04/08/19 13:25 Nasal Cannula 2.0 28 04/08/19 13:25 Nasal Cannula 2.0 04/08/19 12:00 80 04/08/19 12:00 97.3 78 18 94/67 (76) 99 04/08/19 10:27 97.4 04/08/19 09:00 78 04/08/19 09:00 Nasal Cannula 2.0 Nasal Cannula 2.0 04/08/19 08:50 75 95/60 04/08/19 08:14 85 18 99 Nasal Cannula 2.0 28 04/08/19 08:04 99 Nasal Cannula 2.0 28 04/08/19 08:04 75 16 99 Nasal Cannula 2.0 28 04/08/19 08:00 97.4 76 20 95/60 (72) 99 04/08/19 04:00 98.0 77 18 100/56 (71) 95 04/08/19 04:00 79 04/08/19 00:45 83 18 99 Nasal Cannula 2.0 28 04/08/19 00:35 78 18 97 Nasal Cannula 2.0 28 04/08/19 00:00 97.4 82 19 105/66 (79) 97 04/08/19 00:00 78 04/07/19 21:37 84 112/71 04/07/19 21:00 Nasal Cannula 2.0 Nasal Cannula 2.0 04/07/19 20:00 97.5 84 18 112/71 (85) 96 04/07/19 19:03 84 18 99 Nasal Cannula 2.0 28 04/07/19 18:54 84 18 91 Nasal Cannula 2.0 28 04/07/19 18:54 91 Nasal Cannula 2.0 28 Intake and Output 04/07/19 04/08/19 19:00 07:00 Intake Total 240 ml Output Total 1150 ml 2400 ml Balance -910 ml -2400 ml Intake Oral 240 ml Output Urine Total 1150 ml 2400 ml General Appearance: WD/WN HEENT: normocephalic, atraumatic Cardiovascular: normal peripheral pulses, normal rate Abdomen: normal bowel sounds, soft, non tender Extremities: no cyanosis 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 Lymphatic: no neck adenopathy Musculoskeletal: normal muscle bulk Microbiology Date/Time Source Procedure Growth Status 04/07/19 00:00 Rectum VRE Culture - Final Enterococcus Faecium - Vre Complete Laboratory Tests 04/07/19 20:18: Troponin I 0.000 04/08/19 05:30: Troponin I 0.015, White Blood Count 20.7H, Red Blood Count 3.53L, Hemoglobin 10.3L, Hematocrit 32.4L, Mean Corpuscular Volume 92, Mean Corpuscular Hemoglobin 29.3, Mean Corpuscular Hemoglobin Concent 31.9L, Red Cell Distribution Width 15.6H, Platelet Count 275, Mean Platelet Volume 6.7, Neutrophils (%) (Auto) , Lymphocytes (%) (Auto) , Monocytes (%) (Auto) , Eosinophils (%) (Auto) , Basophils (%) (Auto) , Differential Total Cells Counted 100, Neutrophils % (Manual) 86H, Lymphocytes % (Manual) 7L, Monocytes % (Manual) 4, Eosinophils % (Manual) 1, Basophils % (Manual) 2, Band Neutrophils 0 , Platelet Estimate Adequate, Platelet Morphology Normal, Hypochromasia 1+, Anisocytosis 1+, Prothrombin Time 10.1, Prothromb Time International Ratio 0.9, Activated Partial Thromboplast Time 30, Sodium Level 136, Potassium Level 4.4, Chloride Level 100, Carbon Dioxide Level 29, Anion Gap 7, Blood Urea Nitrogen 29H, Creatinine 1.5H, Estimat Glomerular Filtration Rate 42.3, Glucose Level 190H, Calcium Level 9.5, C-Reactive Protein, Quantitative 4.5H, Triglycerides Level 76, Cholesterol Level 112, LDL Cholesterol 40, HDL Cholesterol 54, Cholesterol/HDL Ratio 2.1L, Thyroid Stimulating Hormone (TSH) 26.335H Current Medications Medications (Trade) Dose Ordered Sig/Cassidy Route PRN Reason Start Time Stop Time Status Last Admin Dose Admin Acetaminophen (Tylenol) 650 mg Q4H PRN ORAL FEVER 04/07/19 12:00 05/07/19 11:59 Albuterol/ Ipratropium (Albuterol/ Ipratropium) 3 ml Q4H PRN HHN Shortness of Breath 04/07/19 12:00 04/12/19 11:59 Albuterol/ Ipratropium (Albuterol/ Ipratropium) 3 ml Q6HRT HHN 04/07/19 07:00 04/12/19 06:59 04/08/19 08:04 Aspirin (ASA) 162 mg DAILY ORAL 04/08/19 09:00 05/08/19 08:59 04/08/19 08:26 Carvedilol (Coreg) 3.125 mg BID@0900,2100 ORAL 04/07/19 21:00 05/07/19 08:59 04/07/19 21:37 Dextrose (Dextrose 50%) 25 ml Q30M PRN IV Hypoglycemia 04/07/19 12:00 05/07/19 11:53 Dextrose (Dextrose 50%) 50 ml Q30M PRN IV hypoglycemia 04/07/19 12:00 05/07/19 11:59 Diltiazem HCl (Cardizem) 10 mg Q1H PRN IV heart rate more than 120, 04/07/19 12:00 05/07/19 11:59 Docusate Sodium (Colace) 250 mg DAILY ORAL 04/07/19 09:00 05/07/19 08:59 04/08/19 08:26 Enalaprilat (Vasotec) 2.5 mg Q6H PRN IV sbp more than 160 04/07/19 12:00 05/07/19 11:59 Enoxaparin Sodium (Lovenox) 40 mg DAILY SUBQ 04/07/19 09:00 05/07/19 08:59 04/08/19 08:30 Famotidine (Pepcid) 20 mg DAILY ORAL 04/07/19 09:00 05/07/19 08:59 04/08/19 08:26 Furosemide (Lasix) 40 mg EVERY 12 HOURS IV 04/07/19 21:00 05/07/19 20:59 04/08/19 08:27 Insulin Aspart (NovoLOG) BEFORE MEALS AND HS SUBQ 04/07/19 16:30 05/07/19 16:29 04/08/19 17:00 Levothyroxine Sodium (Synthroid) 75 mcg DAILY@0630 ORAL 04/07/19 06:30 05/07/19 06:29 04/08/19 06:23 Lisinopril (Zestril) 10 mg DAILY ORAL 04/09/19 09:00 05/09/19 08:59 Lorazepam (Ativan) 0.5 mg Q4H PRN ORAL For Anxiety 04/07/19 12:00 04/14/19 11:59 Morphine Sulfate (Morphine Sulfate) 2 mg Q4H PRN IVP severe Pain (Pain Scale 7-10) 04/07/19 12:00 04/14/19 11:59 04/07/19 23:06 Nitroglycerin (Ntg) 0.4 mg Q5M PRN SL Prn Chest Pain 04/07/19 12:00 05/07/19 11:59 Ondansetron HCl (Zofran) 4 mg Q6H PRN IVP Nausea & Vomiting 04/07/19 02:45 05/07/19 02:44 Piperacillin Sod/ Tazobactam Sod 3.375 gm/Sodium Chloride 110 ml @ 27.5 mls/hr EVERY 8 HOURS IVPB 04/08/19 14:00 04/15/19 13:59 04/08/19 15:59 Polyethylene Glycol (Miralax) 17 gm DAILYPRN PRN ORAL Constipation 04/07/19 12:00 05/07/19 11:59 Regadenoson (Lexiscan) 0.4 mg ONCE PRN IV stress test 04/07/19 11:15 04/09/19 11:14 Temazepam (Restoril) 15 mg HSPRN PRN ORAL Insomnia 04/07/19 12:00 04/14/19 11:59 Tramadol HCl (Ultram) 50 mg Q6H PRN ORAL Moderate Pain (Pain Scale 4-6) 04/07/19 03:45 04/14/19 03:44 04/08/19 09:57 Vancomycin HCl (Vanco rx to dose) 1 ea DAILY PRN MISC Per rx protocol 04/08/19 11:30 05/08/19 11:29 Shadi Jo MD Apr 08, 2019 17:36
--- NOTE | 2019-04-08 19:23 | NUR ---
HAND-OFF: Report given to Eulalia Borrego. Patient stable. paln of care endorsed.
[2019-04-08 20:00] VITALS: BP 99/62
[2019-04-08] MEDS: Albuterol/Ipratropium 3ml neb HHN PRN (21:22)
[2019-04-09] VITALS (7 sets, daily range): BP systolic 80–120; BP diastolic 53–73
[2019-04-09] MEDS: Albuterol/Ipratropium 3ml neb HHN SCH ×4 (01:05→19:05)
[2019-04-09] MEDS: traMADol 50mg tab ORAL PRN ×2 (05:59→13:18)
[2019-04-09] MEDS: Piperacillin/Tazobactam 3.375 GM in NS 110 ML IVPB SCH ×3 (06:00→16:20)
[2019-04-09] MEDS: NovoLOG Insulin Flexpen SUBQ SCH ×4 (06:31→22:44)
--- NOTE | 2019-04-09 07:15 | NUR ---
NURSE NOTES: HAND-OFF: Report given to ABAD Richardson, patient in stable condition, plan of care endorsed.
--- NOTE | 2019-04-09 07:15 | NUR ---
NURSE NOTES: Nurse report given by ABAD Borrego. Patient's awake and comfortable in bed, laying on her right side with supporting pillow. No s/s of acute distress or SOB. Denies pain. L wrist IV site is running medication, asymptomatic and patent. Bed at lowest position, break engaged and call light within reach. Will continue to monitor.
[2019-04-09 07:40] LABS: BASOPHILS % (AUTO) 0.7 % (0.0-2.0); EOSINOPHILS % (AUTO) 0.8 % (0.0-3.0); HEMATOCRIT 36.1 % (37.0-47.0); HEMOGLOBIN 11.6 G/DL (12.0-16.0); LYMPHOCYTES % (AUTO) 18.4 % (20.0-45.0); MEAN CORPUSCULAR VOLUME 92 FL (80-99); MONOCYTES % (AUTO) 4.9 % (1.0-10.0); NEUTROPHILS % (AUTO) 75.2 % (45.0-75.0); PLATELET COUNT 313 K/UL (150-450); RED BLOOD COUNT 3.91 M/UL (4.20-5.40); WHITE BLOOD COUNT 16.5 K/UL (4.8-10.8)
[2019-04-09 07:52] LABS: ANION GAP 10 mmol/L (5-15); BLOOD UREA NITROGEN 31 mg/dL (7-18); CALCIUM 9.8 MG/DL (8.5-10.1); CARBON DIOXIDE 30 MMOL/L (21-32); CHLORIDE 96 MMOL/L (98-107); CREATININE 1.5 MG/DL (0.55-1.30); POTASSIUM 3.4 MMOL/L (3.5-5.1); SODIUM 135 MMOL/L (136-145)
[2019-04-09] MEDS: Lisinopril 10mg tab ORAL SCH (08:25)
[2019-04-09] MEDS: Docusate 250mg cap ORAL SCH (08:25)
[2019-04-09] MEDS: Aspirin Baby 81mg ORAL SCH (08:26)
[2019-04-09] MEDS: Enoxaparin 40mg Inj SUBQ SCH (08:28)
--- NOTE | 2019-04-09 08:55 | General Progress Note ---
Assessment/Plan Problem List: (1) Diabetes mellitus ICD Codes: E11.9 - Type 2 diabetes mellitus without complications SNOMED: 75692654 (2) Hypertension ICD Codes: I10 - Essential (primary) hypertension SNOMED: 41138261 (3) Acute exacerbation of chronic bronchitis ICD Codes: J42 - Acute exacerbation of chronic bronchitis SNOMED: 029634246 (4) ACS (acute coronary syndrome) ICD Codes: I24.9 - Acute ischemic heart disease, unspecified SNOMED: 921466599 Status: stable, progressing Assessment/Plan: cardio pulm f/u o2 pulm tx abx prn cbc bmp am Subjective Respiratory: Reports: shortness of breath Allergies: Coded Allergies: SIMVASTATIN (Verified Adverse Reaction, Intermediate, NAUSEA AND VOMITTING , 03/20/19) All Systems: reviewed and negative except above Subjective o2nc sleepy Objective Last 24 Hour Vital Signs Date Time Temp Pulse Resp B/P (MAP) Pulse Ox O2 Delivery O2 Flow Rate FiO2 04/09/19 08:26 75 120/63 04/09/19 08:25 120/63 04/09/19 08:00 Nasal Cannula 2.0 Nasal Cannula 2.0 04/09/19 07:56 97.9 75 18 120/63 (82) 98 04/09/19 06:39 88 18 100 Nasal Cannula 2.0 04/09/19 06:27 70 16 97 Nasal Cannula 2.0 04/09/19 06:27 97 Nasal Cannula 2.0 04/09/19 04:00 97.4 84 18 102/73 (83) 98 04/09/19 04:00 113 04/09/19 01:17 89 18 99 Nasal Cannula 2.0 04/09/19 01:08 86 20 94 Nasal Cannula 2.0 04/09/19 00:00 86 04/09/19 00:00 97.5 88 18 97/62 (74) 94 04/08/19 21:32 84 18 98 Nasal Cannula 2.0 04/08/19 21:22 86 18 97 Nasal Cannula 2.0 04/08/19 21:00 Nasal Cannula 2.0 Nasal Cannula 2.0 04/08/19 21:00 91 92/61 04/08/19 20:00 88 04/08/19 20:00 97.5 91 19 99/62 (74) 97 04/08/19 19:10 89 18 99 Nasal Cannula 2.0 28 04/08/19 19:00 95 Nasal Cannula 2.0 28 04/08/19 19:00 89 18 95 Nasal Cannula 2.0 28 04/08/19 18:13 97.6 04/08/19 16:30 97.6 89 20 91/60 (70) 100 04/08/19 16:00 87 04/08/19 13:25 Nasal Cannula 2.0 28 04/08/19 13:25 Nasal Cannula 2.0 04/08/19 12:00 80 04/08/19 12:00 97.3 78 18 94/67 (76) 99 04/08/19 09:00 78 04/08/19 09:00 Nasal Cannula 2.0 Nasal Cannula 2.0 Intake and Output 04/08/19 04/09/19 18:59 06:59 Intake Total 240 ml Output Total 1900 ml 2200 ml Balance -1660 ml -2200 ml Intake Oral 240 ml Output Urine Total 1900 ml 2200 ml Laboratory Tests 04/09/19 06:12: White Blood Count 16.5H, Red Blood Count 3.91L, Hemoglobin 11.6L, Hematocrit 36.1L, Mean Corpuscular Volume 92, Mean Corpuscular Hemoglobin 29.6, Mean Corpuscular Hemoglobin Concent 32.0, Red Cell Distribution Width 15.0H, Platelet Count 313, Mean Platelet Volume 5.8L, Neutrophils (%) (Auto) 75.2H, Lymphocytes (%) (Auto) 18.4L, Monocytes (%) (Auto) 4.9, Eosinophils (%) (Auto) 0.8, Basophils (%) (Auto) 0.7, Sodium Level 135L, Potassium Level 3.4L, Chloride Level 96L, Carbon Dioxide Level 30, Anion Gap 10, Blood Urea Nitrogen 31H, Creatinine 1.5H, Estimat Glomerular Filtration Rate 42.3, Glucose Level 144H, Calcium Level 9.8, Random Vancomycin Level 11.1 Height (Feet): 5 Height (Inches): 5.00 Weight (Pounds): 300 General Appearance: lethargic EENT: normal ENT inspection Neck: normal alignment Cardiovascular: normal peripheral pulses, normal rate, regular rhythm Respiratory/Chest: chest wall non-tender, lungs clear, normal breath sounds Abdomen: normal bowel sounds, non tender, soft Extremities: normal inspection Edema: no edema noted Arm (L), no edema noted Arm (R), no edema noted Leg (L), no edema noted Leg (R), no edema noted Pedal (L), no edema noted Pedal (R), no edema noted Generalized Neurologic: motor weakness Skin: normal pigmentation, warm/dry Chiki Pimentel Apr 09, 2019 08:55
--- NOTE | 2019-04-09 09:06 | Pulmonology Progress Note ---
Assessment/Plan Assessment/Plan ASSESSMENT Chest pain CHF with systolic dysfunction / EF 15 to 20% AICD A. fib Leukocytosis ? possible PNA COPD/asthma Hypertension Coronary artery disease with history of DC Diabetes mellitus Sacral decubitus ulcer , present on admission -healing Obesity Hypothyroidism with elevated TSH PLAN OF CARE tele serial troponin negative, EKG no acute ischemic changes, rule out for acute DC Echo with EF 15 to 20% , global LV hypokinesis grade 2 diastolic dysfunction RVSP 24 On a/PLT therapy with ASA and BB guideline directed medical therapy for CHF with BB, PHILIPPE inhibitor and IV Lasix monitor volumes and cardiorenal parameters BP management with BB, PHILIPPE inhibitor and Lasix stress test: Inferoapical infarct. Cannot completely exclude a small area of ignacio-infarct ischemia at the lateral wall border of the infarct. Anterior wall infarct described on prior 2012 exam was not evident on this study , but the inferior wall infarct appeared similar. The ejection fraction is similar to the previous value of 30%. currently in SR, no a/coag as per cardiology AICD interrogation - per cardio lipid panel stable ,continue statin O2 titrate to keep pulse ox above 92% HHN ATC and prn give steroid low dose repeat CXR DVT prophylaxis empiric antibiotic, follow-up with culture BS management with sliding scale of insulin TSH elevated , will increase Levothyroxine dose, repeat TSH in 1 month replace K case discussed and evaluated by supervising physician Subjective Allergies: Coded Allergies: SIMVASTATIN (Verified Adverse Reaction, Intermediate, NAUSEA AND VOMITTING , 03/20/19) Subjective leukocytosis trending down, afebrile, still cough with small amount of phlegm denies CP, SOB , remains tachy wheezing K-3.4 Objective Last 24 Hour Vital Signs Date Time Temp Pulse Resp B/P (MAP) Pulse Ox O2 Delivery O2 Flow Rate FiO2 04/09/19 08:26 75 120/63 04/09/19 08:25 120/63 04/09/19 08:00 Nasal Cannula 2.0 Nasal Cannula 2.0 04/09/19 07:56 97.9 75 18 120/63 (82) 98 04/09/19 06:39 88 18 100 Nasal Cannula 2.0 04/09/19 06:27 70 16 97 Nasal Cannula 2.0 04/09/19 06:27 97 Nasal Cannula 2.0 04/09/19 04:00 97.4 84 18 102/73 (83) 98 04/09/19 04:00 113 04/09/19 01:17 89 18 99 Nasal Cannula 2.0 28 04/09/19 01:08 86 20 94 Nasal Cannula 2.0 28 04/09/19 00:00 86 04/09/19 00:00 97.5 88 18 97/62 (74) 94 04/08/19 21:32 84 18 98 Nasal Cannula 2.0 28 04/08/19 21:22 86 18 97 Nasal Cannula 2.0 28 04/08/19 21:00 Nasal Cannula 2.0 Nasal Cannula 2.0 04/08/19 21:00 91 92/61 04/08/19 20:00 88 04/08/19 20:00 97.5 91 19 99/62 (74) 97 04/08/19 19:10 89 18 99 Nasal Cannula 2.0 28 04/08/19 19:00 95 Nasal Cannula 2.0 28 04/08/19 19:00 89 18 95 Nasal Cannula 2.0 28 04/08/19 18:13 97.6 04/08/19 16:30 97.6 89 20 91/60 (70) 100 04/08/19 16:00 87 04/08/19 13:25 Nasal Cannula 2.0 28 04/08/19 13:25 Nasal Cannula 2.0 04/08/19 12:00 80 04/08/19 12:00 97.3 78 18 94/67 (76) 99 04/08/19 09:00 78 04/08/19 09:00 Nasal Cannula 2.0 Nasal Cannula 2.0 Intake and Output 04/08/19 04/09/19 18:59 06:59 Intake Total 240 ml Output Total 1900 ml 2200 ml Balance -1660 ml -2200 ml Intake Oral 240 ml Output Urine Total 1900 ml 2200 ml General Appearance: no acute distress HEENT: normocephalic, atraumatic, anicteric, mucous membranes moist, PERRL Respiratory/Chest: no respiratory distress, no accessory muscle use, crackles/ rales - few bibasilar crackles , expiratory wheezing - scattered exp wheezes Cardiovascular: regular rhythm, tachycardia - ST on tele Abdomen: soft, non tender, non distended Extremities: no edema, pedal pulses normal Skin: ulcers - sacral healing Neurologic/Psychiatric: alert, responsive Musculoskeletal: normal muscle bulk Microbiology Date/Time Source Procedure Growth Status 04/07/19 15:25 Blood Blood Culture - Preliminary NO GROWTH AFTER 24 HOURS Resulted 04/07/19 15:17 Blood Blood Culture - Preliminary NO GROWTH AFTER 24 HOURS Resulted 04/07/19 00:00 Nasal Nares MRSA Culture - Final NO METHICILLIN RESISTANT STAPH AUREUS... Complete 04/07/19 00:00 Rectum VRE Culture - Final Enterococcus Faecium - Vre Complete Laboratory Tests 04/09/19 06:12: White Blood Count 16.5H, Red Blood Count 3.91L, Hemoglobin 11.6L, Hematocrit 36.1L, Mean Corpuscular Volume 92, Mean Corpuscular Hemoglobin 29.6, Mean Corpuscular Hemoglobin Concent 32.0, Red Cell Distribution Width 15.0H, Platelet Count 313, Mean Platelet Volume 5.8L, Neutrophils (%) (Auto) 75.2H, Lymphocytes (%) (Auto) 18.4L, Monocytes (%) (Auto) 4.9, Eosinophils (%) (Auto) 0.8, Basophils (%) (Auto) 0.7, Sodium Level 135L, Potassium Level 3.4L, Chloride Level 96L, Carbon Dioxide Level 30, Anion Gap 10, Blood Urea Nitrogen 31H, Creatinine 1.5H, Estimat Glomerular Filtration Rate 42.3, Glucose Level 144H, Calcium Level 9.8, Random Vancomycin Level 11.1 Current Medications Medications (Trade) Dose Ordered Sig/Cassidy Route PRN Reason Start Time Stop Time Status Last Admin Dose Admin Acetaminophen (Tylenol) 650 mg Q4H PRN ORAL FEVER 04/07/19 12:00 05/07/19 11:59 Albuterol/ Ipratropium (Albuterol/ Ipratropium) 3 ml Q4H PRN HHN Shortness of Breath 04/07/19 12:00 04/12/19 11:59 04/08/19 21:22 Albuterol/ Ipratropium (Albuterol/ Ipratropium) 3 ml Q6HRT HHN 04/07/19 07:00 04/12/19 06:59 04/09/19 06:27 Aspirin (ASA) 162 mg DAILY ORAL 04/08/19 09:00 05/08/19 08:59 04/09/19 08:26 Carvedilol (Coreg) 3.125 mg BID@0900,2100 ORAL 04/07/19 21:00 05/07/19 08:59 04/09/19 08:26 Dextrose (Dextrose 50%) 25 ml Q30M PRN IV Hypoglycemia 04/07/19 12:00 05/07/19 11:53 Dextrose (Dextrose 50%) 50 ml Q30M PRN IV hypoglycemia 04/07/19 12:00 05/07/19 11:59 Diltiazem HCl (Cardizem) 10 mg Q1H PRN IV heart rate more than 120, 04/07/19 12:00 05/07/19 11:59 Docusate Sodium (Colace) 250 mg DAILY ORAL 04/07/19 09:00 05/07/19 08:59 04/09/19 08:25 Enalaprilat (Vasotec) 2.5 mg Q6H PRN IV sbp more than 160 04/07/19 12:00 05/07/19 11:59 Enoxaparin Sodium (Lovenox) 40 mg DAILY SUBQ 04/07/19 09:00 05/07/19 08:59 04/09/19 08:28 Famotidine (Pepcid) 20 mg DAILY ORAL 04/07/19 09:00 05/07/19 08:59 04/09/19 08:25 Furosemide (Lasix) 40 mg EVERY 12 HOURS IV 04/07/19 21:00 05/07/19 20:59 04/09/19 08:26 Insulin Aspart (NovoLOG) BEFORE MEALS AND HS SUBQ 04/07/19 16:30 05/07/19 16:29 04/09/19 06:31 Levothyroxine Sodium (Synthroid) 75 mcg DAILY@0630 ORAL 04/07/19 06:30 05/07/19 06:29 04/09/19 05:58 Lisinopril (Zestril) 10 mg DAILY ORAL 04/09/19 09:00 05/09/19 08:59 04/09/19 08:25 Lorazepam (Ativan) 0.5 mg Q4H PRN ORAL For Anxiety 04/07/19 12:00 04/14/19 11:59 Morphine Sulfate (Morphine Sulfate) 2 mg Q4H PRN IVP severe Pain (Pain Scale 7-10) 04/07/19 12:00 04/14/19 11:59 04/07/19 23:06 Nitroglycerin (Ntg) 0.4 mg Q5M PRN SL Prn Chest Pain 04/07/19 12:00 05/07/19 11:59 Ondansetron HCl (Zofran) 4 mg Q6H PRN IVP Nausea & Vomiting 04/07/19 02:45 05/07/19 02:44 Piperacillin Sod/ Tazobactam Sod 3.375 gm/Sodium Chloride 110 ml @ 27.5 mls/hr EVERY 8 HOURS IVPB 04/08/19 14:00 04/15/19 13:59 04/09/19 06:00 Polyethylene Glycol (Miralax) 17 gm DAILYPRN PRN ORAL Constipation 04/07/19 12:00 05/07/19 11:59 Regadenoson (Lexiscan) 0.4 mg ONCE PRN IV stress test 04/07/19 11:15 04/09/19 11:14 Temazepam (Restoril) 15 mg HSPRN PRN ORAL Insomnia 04/07/19 12:00 04/14/19 11:59 Tramadol HCl (Ultram) 50 mg Q6H PRN ORAL Moderate Pain (Pain Scale 4-6) 04/07/19 03:45 04/14/19 03:44 04/09/19 05:59 Vancomycin HCl (Vanco rx to dose) 1 ea DAILY PRN MISC Per rx protocol 04/08/19 11:30 05/08/19 11:29 Katelyn Alfaro NP Apr 09, 2019 09:06
[2019-04-09] MEDS: Solu-MEDROL 40mg Inj IVP SCH ×2 (09:45→22:49)
--- NOTE | 2019-04-09 10:07 | Diagnostic Imaging Report ---
EXAM: XR Chest, 1 View CLINICAL HISTORY: SOB TECHNIQUE: Frontal view of the chest. COMPARISON: No relevant prior studies available. FINDINGS: Lungs: Reduced lung volumes. No confluent consolidation. No edema. Pleural space: Unremarkable. No pneumothorax. Heart: Cardiomegaly, surgical changes and AICD. Mediastinum: Unremarkable. Bones/joints: Sternotomy. IMPRESSION: Reduced lung volumes. No confluent consolidation. No edema.
[2019-04-09] MEDS ORDERED: Vancomycin 1.5gm Premix IVPB SCH (13:00)
--- NOTE | 2019-04-09 14:37 | Cardiology Report ---
APPROVED REPORT EKG Measurement Heart [id number] Sinusl rhythm Nonspecific T wave abnormality Abnormal ECG
--- NOTE | 2019-04-09 15:06 | Cardiac Electrophysiology PN ---
Assessment/Plan Assessment/Plan 1. Chest pain, the patient with history of heart surgery but denies CABG. 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 Awaiting records from [facility]. Ruled out for myocardial infarction. Continue aspirin, Coreg and Lipitor Nuclear stress test report Inferoapical infarct. Doubt but cannot completely exclude a small area of ignacio-infarct ischemia at the lateral wall border of the infarct. 2. Status post [employer] defibrillator implantation. Interrogated and showed nl Fx battery 4 years No events 3. History of cardiomyopathy, high BNP,EF 15% on Coreg 3.125 mg Lasix 40 IV b.i.d. and lisinopril 4. New diagnosis of atrial fibrillation on the EKG . Currently in sinus rhythm. Hold off on anticoagulation on Coreg 5. Elevated white count, on antibiotic per ID. 6. COPD. 7. Obesity. CIRILO RN Subjective Subjective Feeling better. No CP. Had nuclear stress test yesterday Objective Last 24 Hour Vital Signs Date Time Temp Pulse Resp B/P (MAP) Pulse Ox O2 Delivery O2 Flow Rate FiO2 04/09/19 12:57 84 18 99 Nasal Cannula 2.0 28 04/09/19 12:45 74 16 96 Nasal Cannula 2.0 28 04/09/19 12:00 98 04/09/19 12:00 97.2 90 18 91/59 (70) 98 04/09/19 08:26 75 120/63 04/09/19 08:25 120/63 04/09/19 08:00 120 04/09/19 08:00 Nasal Cannula 2.0 Nasal Cannula 2.0 04/09/19 07:56 97.9 75 18 120/63 (82) 98 04/09/19 06:39 88 18 100 Nasal Cannula 2.0 28 04/09/19 06:27 70 16 97 Nasal Cannula 2.0 28 04/09/19 06:27 97 Nasal Cannula 2.0 28 04/09/19 04:00 97.4 84 18 102/73 (83) 98 04/09/19 04:00 113 04/09/19 01:17 89 18 99 Nasal Cannula 2.0 28 04/09/19 01:08 86 20 94 Nasal Cannula 2.0 28 04/09/19 00:00 86 04/09/19 00:00 97.5 88 18 97/62 (74) 94 04/08/19 21:32 84 18 98 Nasal Cannula 2.0 28 04/08/19 21:22 86 18 97 Nasal Cannula 2.0 28 04/08/19 21:00 Nasal Cannula 2.0 Nasal Cannula 2.0 04/08/19 21:00 91 92/61 04/08/19 20:00 88 04/08/19 20:00 97.5 91 19 99/62 (74) 97 04/08/19 19:10 89 18 99 Nasal Cannula 2.0 28 04/08/19 19:00 95 Nasal Cannula 2.0 28 04/08/19 19:00 89 18 95 Nasal Cannula 2.0 28 04/08/19 18:13 97.6 04/08/19 16:30 97.6 89 20 91/60 (70) 100 04/08/19 16:00 87 Intake and Output 04/08/19 04/09/19 19:00 07:00 Intake Total 240 ml Output Total 1900 ml 2200 ml Balance -1660 ml -2200 ml Intake Oral 240 ml Output Urine Total 1900 ml 2200 ml Laboratory Tests Test 04/09/19 06:12 White Blood Count 16.5 K/UL (4.8-10.8) H Red Blood Count 3.91 M/UL (4.20-5.40) L Hemoglobin 11.6 G/DL (12.0-16.0) L Hematocrit 36.1 % (37.0-47.0) L Mean Corpuscular Volume 92 FL (80-99) Mean Corpuscular Hemoglobin 29.6 PG (27.0-31.0) Mean Corpuscular Hemoglobin Concent 32.0 G/DL (32.0-36.0) Red Cell Distribution Width 15.0 % (11.6-14.8) H Platelet Count 313 K/UL (150-450) Mean Platelet Volume 5.8 FL (6.5-10.1) L Neutrophils (%) (Auto) 75.2 % (45.0-75.0) H Lymphocytes (%) (Auto) 18.4 % (20.0-45.0) L Monocytes (%) (Auto) 4.9 % (1.0-10.0) Eosinophils (%) (Auto) 0.8 % (0.0-3.0) Basophils (%) (Auto) 0.7 % (0.0-2.0) Sodium Level 135 MMOL/L (136-145) L Potassium Level 3.4 MMOL/L (3.5-5.1) L Chloride Level 96 MMOL/L (98-107) L Carbon Dioxide Level 30 MMOL/L (21-32) Anion Gap 10 mmol/L (5-15) Blood Urea Nitrogen 31 mg/dL (7-18) H Creatinine 1.5 MG/DL (0.55-1.30) H Estimat Glomerular Filtration Rate 42.3 mL/min (>60) Glucose Level 144 MG/DL (74-106) H Calcium Level 9.8 MG/DL (8.5-10.1) Random Vancomycin Level 11.1 ug/mL Microbiology Date/Time Source Procedure Growth Status 04/07/19 15:25 Blood Blood Culture - Preliminary NO GROWTH AFTER 24 HOURS Resulted 04/07/19 15:17 Blood Blood Culture - Preliminary NO GROWTH AFTER 24 HOURS Resulted 04/07/19 00:00 Nasal Nares MRSA Culture - Final NO METHICILLIN RESISTANT STAPH AUREUS... Complete 04/07/19 00:00 Rectum VRE Culture - Final Enterococcus Faecium - Vre Complete Objective HEAD AND NECK: Mild JVD. LUNGS: Clear. CARDIOVASCULAR: Shows regular S1 and S2. Sternotomy scar is intact. Defibrillator is in left subclavian. ABDOMEN: Soft. EXTREMITIES: No pitting edema. Dexter Dewitt MD Apr 09, 2019 15:06
--- NOTE | 2019-04-09 15:41 | NUR ---
CASE MANAGEMENT: REVIEW SI: SACRAL DECUB . A-FIB T 97.2 HR 120 RR 18 BP 91/59 SAT 96% NC/2L WBC 16.5 H/H 11.6/36.1 NA 135 K 3.4 BUN 31 CR 1.5 IS: SOLU-MEDROL IV Q12HR ZOSYN IV Q8HR VANCO IV Q24HR ASA PO QD LASIX IV Q12HR ALBUTEROL HHN Q6HR LOVENOX SUBQ QD TELE UNIT STATUS DCP: PATIENT IS FROM HOME
[2019-04-09] MEDS: Morphine Sulfate 2mg/ml Inj(IV/IM USE ONLY) IVP PRN (17:39)
--- NOTE | 2019-04-09 19:00 | NUR ---
HAND-OFF: Report given to ABAD Borrego. Patient's comfortable, no s/s of acute distres or SOB. Plan of care endorsed.
[2019-04-09] MEDS ORDERED: ELIQUIS2.5 MG PO (19:09)
--- NOTE | 2019-04-09 19:15 | NUR ---
NURSE NOTES: Received report from ABAD Richardson, patient in stable condition, AOx4, denies pain at this time, O2 N/c @2 L, F/C draining to gravity,IV site L wrist G20, asymptomatic, patent, intact, bed lowest position, brakes on, call light within reach, will continue to monitor and reassess.
--- NOTE | 2019-04-09 22:40 | NUR ---
Patient's BP is low 80/50 L arm , 81/52 R arm, retook it several times, placed patient in Trendelenburg but she didn't tolerate it due to severe back pain.Held BP meds and Furosemide and Called Dr. Jo and obtained orders to D/C morphine and give 500 bolus NS. @2330 BP 90/60 will continue to monitor and reassess.
[2019-04-10] MEDS: Piperacillin/Tazobactam 3.375 GM in NS 110 ML IVPB SCH ×4 (00:17→23:56)
[2019-04-10] MEDS: Albuterol/Ipratropium 3ml neb HHN SCH ×4 (00:24→19:49)
[2019-04-10 04:00] VITALS: BP 96/61
[2019-04-10] MEDS: traMADol 50mg tab ORAL PRN ×4 (04:05→23:56)
--- NOTE | 2019-04-10 04:33 | NUR ---
NURSE NOTES: Received report from ABAD Cuevas. Patient is awake lying semi-sanchez's; resting comfortably. No signs of acute distress noted; denies pain at this time. On 2L nasal cannula. AOx4; able to make needs known. Checked IV site; patent and flushed. No erythema, bleeding, or infiltration noted. Arias catheter draining well to gravity. Bed at lowest position, brakes on, siderails up x3. Call light within reach. Will continue to monitor.
[2019-04-10] MEDS: NovoLOG Insulin Flexpen SUBQ SCH ×4 (06:39→21:53)
--- NOTE | 2019-04-10 07:13 | NUR ---
NURSE NOTES: Notified Dr. Jo regarding patient's positive CRE of rectum result. Awaiting callback.
--- NOTE | 2019-04-10 07:14 | NUR ---
HAND-OFF: Report given to ABAD Ashraf. Patient is awake lying semi-sanchez's receiving breathing treatment; resting comfortably. In stable condition.
[2019-04-10 08:00] VITALS: BP 95/60
[2019-04-10 08:03] LABS: HEMATOCRIT 38.9 % (37.0-47.0); HEMOGLOBIN 12.1 G/DL (12.0-16.0); MEAN CORPUSCULAR VOLUME 93 FL (80-99); PLATELET COUNT 332 K/UL (150-450); RED CELL DISTRIBUTION WIDTH 15.2 % (11.6-14.8); WHITE BLOOD COUNT 20.8 K/UL (4.8-10.8)
--- NOTE | 2019-04-10 08:16 | NUR ---
NURSE NOTES: Received report from ABAD Gardiner. Patient in bed resting, no active s/s cardiac, respiratory distress noticed at this time. Patient on 2L oxygen via NC, AOx4, Arias Catheter draining well to gravity. Endorsed Dr. Jo made aware of positive CRE rectum. IV on left wrist 20G, asymptomatic, patent, intact. Endorsed Dr. Dewitt requesting information from [facility], and was not able to get it yesterday, will try again today. One time 500ml bolus given last night for low BP. Bed in lowest position, side rails upx3, call light within reach. Will continue to monitor.
[2019-04-10] MEDS: Solu-MEDROL 40mg Inj IVP SCH (08:35)
[2019-04-10] MEDS: Docusate 250mg cap ORAL SCH (08:35)
[2019-04-10] MEDS: Enoxaparin 40mg Inj SUBQ SCH (08:36)
--- NOTE | 2019-04-10 08:54 | General Progress Note ---
Assessment/Plan Problem List: (1) Diabetes mellitus ICD Codes: E11.9 - Type 2 diabetes mellitus without complications SNOMED: 53074551 (2) Hypertension ICD Codes: I10 - Essential (primary) hypertension SNOMED: 52199063 (3) Acute exacerbation of chronic bronchitis ICD Codes: J42 - Acute exacerbation of chronic bronchitis SNOMED: 313928991 (4) ACS (acute coronary syndrome) ICD Codes: I24.9 - Acute ischemic heart disease, unspecified SNOMED: 143986599 Status: stable, progressing Assessment/Plan: cardio pulm f/u o2 pulm tx abx prn cbc bmp am aru eval Subjective Constitutional: Reports: weakness Allergies: Coded Allergies: SIMVASTATIN (Verified Adverse Reaction, Intermediate, NAUSEA AND VOMITTING , 03/20/19) All Systems: reviewed and negative except above Subjective o2nc sleepy Objective Last 24 Hour Vital Signs Date Time Temp Pulse Resp B/P (MAP) Pulse Ox O2 Delivery O2 Flow Rate FiO2 04/10/19 08:00 98.1 90 18 95/60 (72) 92 04/10/19 07:18 84 18 100 Nasal Cannula 2.0 28 04/10/19 07:00 98 Nasal Cannula 2.0 28 04/10/19 07:00 68 16 98 Nasal Cannula 2.0 28 04/10/19 04:00 93 04/10/19 04:00 97.5 92 18 96/61 (73) 98 04/10/19 00:34 88 18 99 Nasal Cannula 2.0 28 04/10/19 00:26 90 16 97 Nasal Cannula 2.0 28 04/10/19 00:00 96 04/09/19 23:33 97.7 98 18 87/53 (64) 97 04/09/19 21:00 Nasal Cannula 2.0 Nasal Cannula 2.0 04/09/19 21:00 101 80/54 04/09/19 20:00 97.4 101 18 80/54 (63) 97 04/09/19 20:00 100 04/09/19 19:12 81 18 100 Nasal Cannula 2.0 28 04/09/19 19:05 82 16 97 Nasal Cannula 2.0 28 04/09/19 19:05 97 Nasal Cannula 2.0 28 04/09/19 16:00 97.4 90 18 119/62 (81) 97 04/09/19 16:00 97 04/09/19 12:57 84 18 99 Nasal Cannula 2.0 28 04/09/19 12:45 74 16 96 Nasal Cannula 2.0 28 04/09/19 12:00 98 04/09/19 12:00 97.2 90 18 91/59 (70) 98 Intake and Output 04/09/19 04/10/19 18:59 06:59 Intake Total 930.0 ml 450 ml Output Total 1100 ml 700 ml Balance -170.0 ml -250 ml Intake Oral 600 ml 450 ml IV Total 330.0 ml Output Urine Total 1100 ml 700 ml Laboratory Tests 04/10/19 07:11: White Blood Count 20.8H, Red Blood Count 4.20, Hemoglobin 12.1, Hematocrit 38.9 , Mean Corpuscular Volume 93, Mean Corpuscular Hemoglobin 28.8, Mean Corpuscular Hemoglobin Concent 31.1L, Red Cell Distribution Width 15.2H, Platelet Count 332, Mean Platelet Volume 6.4L, Neutrophils (%) (Auto) , Lymphocytes (%) (Auto) , Monocytes (%) (Auto) , Eosinophils (%) (Auto) , Basophils (%) (Auto) , Sodium Level [Pending], Potassium Level [Pending], Chloride Level [Pending], Carbon Dioxide Level [Pending], Blood Urea Nitrogen [ Pending], Creatinine [Pending], Estimat Glomerular Filtration Rate [Pending], Glucose Level [Pending], Calcium Level [Pending] Height (Feet): 5 Height (Inches): 5.00 Weight (Pounds): 300 General Appearance: lethargic EENT: normal ENT inspection Neck: normal alignment Cardiovascular: normal peripheral pulses, normal rate, regular rhythm Respiratory/Chest: chest wall non-tender, lungs clear, normal breath sounds Abdomen: normal bowel sounds, non tender, soft Extremities: normal range of motion, non-tender, normal inspection Edema: no edema noted Arm (L), no edema noted Arm (R), no edema noted Leg (L), no edema noted Leg (R), no edema noted Pedal (L), no edema noted Pedal (R), no edema noted Generalized Neurologic: responsive, motor weakness Skin: normal pigmentation, warm/dry Chiki Pimentel DO Apr 10, 2019 08:54
--- NOTE | 2019-04-10 08:55 | Pulmonology Progress Note ---
Assessment/Plan Assessment/Plan ASSESSMENT Chest pain CHF with systolic dysfunction / EF15-20% AICD A. fib Leukocytosis ? possible PNA COPD/asthma Hypertension Coronary artery disease with history of IA Diabetes mellitus Sacral decubitus ulcer , present on admission -healing Obesity Hypothyroidism with elevated TSH PLAN OF CARE tele serial troponin negative, EKG no acute ischemic changes, rule out for acute IA Echo with EF 15 -20% , global LV hypokinesis grade 2 diastolic dysfunction RVSP 24 On a/PLT therapy with ASA and BB guideline directed medical therapy for CHF with BB, PHILIPPE inhibitor and IV Lasix monitor volumes and cardiorenal parameters BP management with BB, PHILIPPE inhibitor and Lasix stress test: Inferoapical infarct. Cannot completely exclude a small area of ignacio-infarct ischemia at the lateral wall border of the infarct. Anterior wall infarct described on prior 2012 exam was not evident on this study , but the inferior wall infarct appeared similar. The ejection fraction is similar to the previous value of 30%. currently in SR, no a/coag as per cardiology AICD interrogation - done, no events demonstrated lipid panel stable ,continue statin O2 titrate to keep pulse ox above 92% HHN ATC and prn steroid low dose 8/ and 8 dc after last dose , wheezing decreased, less cough repeat CXR DVT prophylaxis empiric antibiotic, follow-up with culture BS management with sliding scale of insulin TSH elevated , Levothyroxine dose increased , repeat TSH in 1 month chem still pending case discussed and evaluated by supervising physician Subjective Allergies: Coded Allergies: SIMVASTATIN (Verified Adverse Reaction, Intermediate, NAUSEA AND VOMITTING , 03/20/19) Subjective still with leukocytosis , afebrile, some cough with small amount of phlegm denies CP, SOB , tachy resolved wheezing less Objective Last 24 Hour Vital Signs Date Time Temp Pulse Resp B/P (MAP) Pulse Ox O2 Delivery O2 Flow Rate FiO2 04/10/19 08:00 98.1 90 18 95/60 (72) 92 04/10/19 07:18 84 18 100 Nasal Cannula 2.0 28 04/10/19 07:00 98 Nasal Cannula 2.0 28 04/10/19 07:00 68 16 98 Nasal Cannula 2.0 28 04/10/19 04:00 93 04/10/19 04:00 97.5 92 18 96/61 (73) 98 04/10/19 00:34 88 18 99 Nasal Cannula 2.0 28 04/10/19 00:26 90 16 97 Nasal Cannula 2.0 28 04/10/19 00:00 96 04/09/19 23:33 97.7 98 18 87/53 (64) 97 04/09/19 21:00 Nasal Cannula 2.0 Nasal Cannula 2.0 04/09/19 21:00 101 80/54 04/09/19 20:00 97.4 101 18 80/54 (63) 97 04/09/19 20:00 100 04/09/19 19:12 81 18 100 Nasal Cannula 2.0 28 04/09/19 19:05 82 16 97 Nasal Cannula 2.0 28 04/09/19 19:05 97 Nasal Cannula 2.0 28 04/09/19 16:00 97.4 90 18 119/62 (81) 97 04/09/19 16:00 97 04/09/19 12:57 84 18 99 Nasal Cannula 2.0 28 04/09/19 12:45 74 16 96 Nasal Cannula 2.0 28 04/09/19 12:00 98 04/09/19 12:00 97.2 90 18 91/59 (70) 98 Intake and Output 04/09/19 04/10/19 18:59 06:59 Intake Total 930.0 ml 450 ml Output Total 1100 ml 700 ml Balance -170.0 ml -250 ml Intake Oral 600 ml 450 ml IV Total 330.0 ml Output Urine Total 1100 ml 700 ml Objective General Appearance: no acute distress HEENT: normocephalic, atraumatic, anicteric, mucous membranes moist, PERRL Respiratory/Chest: no respiratory distress, no accessory muscle use, few bibasilar crackles , few scattered expiratory wheezes Cardiovascular: regular rhythm, Abdomen: soft, non tender, non distended Extremities: no edema, pedal pulses normal Neurologic/Psychiatric: alert, responsive Musculoskeletal: normal muscle bulk Microbiology Date/Time Source Procedure Growth Status 04/07/19 15:25 Blood Blood Culture - Preliminary NO GROWTH AFTER 48 HOURS Resulted 04/07/19 15:17 Blood Blood Culture - Preliminary NO GROWTH AFTER 48 HOURS Resulted Laboratory Tests 04/10/19 07:11: White Blood Count 20.8H, Red Blood Count 4.20, Hemoglobin 12.1, Hematocrit 38.9 , Mean Corpuscular Volume 93, Mean Corpuscular Hemoglobin 28.8, Mean Corpuscular Hemoglobin Concent 31.1L, Red Cell Distribution Width 15.2H, Platelet Count 332, Mean Platelet Volume 6.4L, Neutrophils (%) (Auto) , Lymphocytes (%) (Auto) , Monocytes (%) (Auto) , Eosinophils (%) (Auto) , Basophils (%) (Auto) , Sodium Level [Pending], Potassium Level [Pending], Chloride Level [Pending], Carbon Dioxide Level [Pending], Blood Urea Nitrogen [ Pending], Creatinine [Pending], Estimat Glomerular Filtration Rate [Pending], Glucose Level [Pending], Calcium Level [Pending] Current Medications Medications (Trade) Dose Ordered Sig/Cassidy Route PRN Reason Start Time Stop Time Status Last Admin Dose Admin Acetaminophen (Tylenol) 650 mg Q4H PRN ORAL FEVER 04/07/19 12:00 05/07/19 11:59 Albuterol/ Ipratropium (Albuterol/ Ipratropium) 3 ml Q4H PRN HHN Shortness of Breath 04/07/19 12:00 04/12/19 11:59 04/08/19 21:22 Albuterol/ Ipratropium (Albuterol/ Ipratropium) 3 ml Q6HRT HHN 04/07/19 07:00 04/12/19 06:59 04/10/19 07:06 Aspirin (ASA) 162 mg DAILY ORAL 04/08/19 09:00 05/08/19 08:59 04/09/19 08:26 Carvedilol (Coreg) 3.125 mg BID@0900,2100 ORAL 04/07/19 21:00 05/07/19 08:59 04/09/19 08:26 Dextrose (Dextrose 50%) 25 ml Q30M PRN IV Hypoglycemia 04/07/19 12:00 05/07/19 11:53 Dextrose (Dextrose 50%) 50 ml Q30M PRN IV hypoglycemia 04/07/19 12:00 05/07/19 11:59 Diltiazem HCl (Cardizem) 10 mg Q1H PRN IV heart rate more than 120, 04/07/19 12:00 05/07/19 11:59 Docusate Sodium (Colace) 250 mg DAILY ORAL 04/07/19 09:00 05/07/19 08:59 04/10/19 08:35 Enalaprilat (Vasotec) 2.5 mg Q6H PRN IV sbp more than 160 04/07/19 12:00 05/07/19 11:59 Enoxaparin Sodium (Lovenox) 40 mg DAILY SUBQ 04/07/19 09:00 05/07/19 08:59 04/10/19 08:36 Famotidine (Pepcid) 20 mg DAILY ORAL 04/07/19 09:00 05/07/19 08:59 04/10/19 08:35 Furosemide (Lasix) 40 mg EVERY 12 HOURS IV 04/07/19 21:00 05/07/19 20:59 04/09/19 08:26 Insulin Aspart (NovoLOG) BEFORE MEALS AND HS SUBQ 04/07/19 16:30 05/07/19 16:29 04/10/19 06:39 Levothyroxine Sodium (Synthroid) 88 mcg DAILY@0630 ORAL 04/10/19 07:30 05/10/19 07:29 04/10/19 08:35 Lisinopril (Zestril) 10 mg DAILY ORAL 04/09/19 09:00 05/09/19 08:59 04/09/19 08:25 Lorazepam (Ativan) 0.5 mg Q4H PRN ORAL For Anxiety 04/07/19 12:00 04/14/19 11:59 Methylprednisolone Sodium Succinate (Solu-MEDROL) 40 mg EVERY 12 HOURS IVP 04/09/19 09:35 05/09/19 09:34 04/10/19 08:35 Nitroglycerin (Ntg) 0.4 mg Q5M PRN SL Prn Chest Pain 04/07/19 12:00 05/07/19 11:59 Ondansetron HCl (Zofran) 4 mg Q6H PRN IVP Nausea & Vomiting 04/07/19 02:45 05/07/19 02:44 Piperacillin Sod/ Tazobactam Sod 3.375 gm/Sodium Chloride 110 ml @ 27.5 mls/hr Q8HR@0000,0800,1600 IVPB 04/09/19 16:00 04/16/19 15:59 04/10/19 08:34 Polyethylene Glycol (Miralax) 17 gm DAILYPRN PRN ORAL Constipation 04/07/19 12:00 05/07/19 11:59 Temazepam (Restoril) 15 mg HSPRN PRN ORAL Insomnia 04/07/19 12:00 04/14/19 11:59 Tramadol HCl (Ultram) 50 mg Q6H PRN ORAL Moderate Pain (Pain Scale 4-6) 04/07/19 03:45 04/14/19 03:44 04/10/19 04:05 Vancomycin HCl (Vanco rx to dose) 1 ea DAILY PRN MISC Per rx protocol 04/08/19 11:30 05/08/19 11:29 Vancomycin HCl/ Dextrose 275 ml @ 137.5 mls/ hr Q24H IVPB 04/09/19 13:00 04/14/19 12:59 04/09/19 13:37 Katelyn Alfaro [employer]E FORMER Apr 10, 2019 08:55
[2019-04-10] MEDS: Lisinopril 10mg tab ORAL SCH (09:00)
[2019-04-10] MEDS ORDERED: Solu-MEDROL 40mg Inj IVP SCH (09:00)
--- NOTE | 2019-04-10 09:00 | NUR ---
NURSE NOTES: Dr. Pimentel at the bedside made aware of patient's BP last night low 80s, 500ml bolus given, recent BP is 95/60. No order given at this time. Will continue to monitor.
--- NOTE | 2019-04-10 09:08 | Hematology/Onc Progress Note ---
Assessment/Plan Assessment/Plan Assessment and Recs: # Anemia of chronic disease due to underlying chronic medical issues, multifactorial --> Anemia workup has been ordered, rule out gi bleed --> No evidence of hemolysis is noted, peripheral smear has been reviewed. --> Hgb goal >7. Transfuse prn. --> Epogen or iron at this time is not particularly indicated --> Medications have been reviewed --> low threshold for gi evaluation in case has occult + # Leukocytosis/elevated white blood cell count, unspecified likely related to underlying stress reaction, smoking --> have reviewed peripheral smear and bandemia/neutrophilia noted --> continue antibiotics if they have been started by ID team (is on vanc/zosyn) --> wbc trend 21-->17-->21k # Hyperproteinemia with decreased albumin -- this is a dissociation that is abnormal --> spep is negative --> may be reactive, decreased prealb # ACS (acute coronary syndrome), asa was given --> troponins negative, BNP greater than 2000 --> EKG - NSR, no acute ischemic changes interpreted by me --> per cards # CHF (congestive heart failure) --> Chest x-ray- CHF, ICD in place --> stress test per cards --> appreciate cards recs Greatly appreciate consultation. Subjective Constitutional: Denies: no symptoms, chills, fever, malaise, weakness, other HEENT: Denies: no symptoms, eye pain, blurred vision, tearing, double vision, ear pain, ear discharge, nose pain, nose congestion, throat pain, throat swelling, mouth pain, mouth swelling, other Cardiovascular: Denies: no symptoms, chest pain, edema, irregular heart rate, lightheadedness, palpitations, syncope, other Respiratory: Denies: no symptoms, cough, shortness of breath, SOB with excertion, SOB at rest, sputum, wheezing, other Genitourinary: Denies: no symptoms, burning, discharge, frequency, flank pain, hematuria, incontinence, pain, urgency, other Neurologic/Psychiatric: Denies: no symptoms, anxiety, depressed, emotional problems, headache, numbness, paresthesia, pre-existing deficit, seizure, tingling, tremors, weakness, other Endocrine: Denies: no symptoms, excessive sweating, flushing, intolerance to cold, intolerance to heat, increased hunger, increased thirst, increased urine, unexplained weight gain, unexplained weight loss, other Hematologic/Lymphatic: Denies: no symptoms, anemia, easy bleeding, easy bruising, adenopathy, other Allergies: Coded Allergies: SIMVASTATIN (Verified Adverse Reaction, Intermediate, NAUSEA AND VOMITTING , 03/20/19) Subjective 04/08: no fevers or chills or night sweats, seen by cards, potential for nuclear stress test, on abx 04/10: remains on abx, 500cc was given ns given low bp, wbc higher Objective Objective Current Medications Medications (Trade) Dose Ordered Sig/Cassidy Route PRN Reason Start Time Stop Time Status Last Admin Dose Admin Acetaminophen (Tylenol) 650 mg Q4H PRN ORAL FEVER 04/07/19 12:00 05/07/19 11:59 Albuterol/ Ipratropium (Albuterol/ Ipratropium) 3 ml Q4H PRN HHN Shortness of Breath 04/07/19 12:00 04/12/19 11:59 04/08/19 21:22 Albuterol/ Ipratropium (Albuterol/ Ipratropium) 3 ml Q6HRT HHN 04/07/19 07:00 04/12/19 06:59 04/10/19 07:06 Aspirin (ASA) 162 mg DAILY ORAL 04/08/19 09:00 05/08/19 08:59 04/09/19 08:26 Carvedilol (Coreg) 3.125 mg BID@0900,2100 ORAL 04/07/19 21:00 05/07/19 08:59 04/09/19 08:26 Dextrose (Dextrose 50%) 25 ml Q30M PRN IV Hypoglycemia 04/07/19 12:00 05/07/19 11:53 Dextrose (Dextrose 50%) 50 ml Q30M PRN IV hypoglycemia 04/07/19 12:00 05/07/19 11:59 Diltiazem HCl (Cardizem) 10 mg Q1H PRN IV heart rate more than 120, 04/07/19 12:00 05/07/19 11:59 Docusate Sodium (Colace) 250 mg DAILY ORAL 04/07/19 09:00 05/07/19 08:59 04/10/19 08:35 Enalaprilat (Vasotec) 2.5 mg Q6H PRN IV sbp more than 160 04/07/19 12:00 05/07/19 11:59 Enoxaparin Sodium (Lovenox) 40 mg DAILY SUBQ 04/07/19 09:00 05/07/19 08:59 04/10/19 08:36 Famotidine (Pepcid) 20 mg DAILY ORAL 04/07/19 09:00 05/07/19 08:59 04/10/19 08:35 Furosemide (Lasix) 40 mg EVERY 12 HOURS IV 04/07/19 21:00 05/07/19 20:59 04/09/19 08:26 Insulin Aspart (NovoLOG) BEFORE MEALS AND HS SUBQ 04/07/19 16:30 05/07/19 16:29 04/10/19 06:39 Levothyroxine Sodium (Synthroid) 88 mcg DAILY@0630 ORAL 04/10/19 07:30 05/10/19 07:29 04/10/19 08:35 Lisinopril (Zestril) 10 mg DAILY ORAL 04/09/19 09:00 05/09/19 08:59 04/09/19 08:25 Lorazepam (Ativan) 0.5 mg Q4H PRN ORAL For Anxiety 04/07/19 12:00 04/14/19 11:59 Nitroglycerin (Ntg) 0.4 mg Q5M PRN SL Prn Chest Pain 04/07/19 12:00 05/07/19 11:59 Ondansetron HCl (Zofran) 4 mg Q6H PRN IVP Nausea & Vomiting 04/07/19 02:45 05/07/19 02:44 Piperacillin Sod/ Tazobactam Sod 3.375 gm/Sodium Chloride 110 ml @ 27.5 mls/hr Q8HR@0000,0800,1600 IVPB 04/09/19 16:00 04/16/19 15:59 04/10/19 08:34 Polyethylene Glycol (Miralax) 17 gm DAILYPRN PRN ORAL Constipation 04/07/19 12:00 05/07/19 11:59 Temazepam (Restoril) 15 mg HSPRN PRN ORAL Insomnia 04/07/19 12:00 04/14/19 11:59 Tramadol HCl (Ultram) 50 mg Q6H PRN ORAL Moderate Pain (Pain Scale 4-6) 04/07/19 03:45 04/14/19 03:44 04/10/19 04:05 Vancomycin HCl (Vanco rx to dose) 1 ea DAILY PRN MISC Per rx protocol 04/08/19 11:30 05/08/19 11:29 Vancomycin HCl/ Dextrose 275 ml @ 137.5 mls/ hr Q24H IVPB 04/09/19 13:00 04/14/19 12:59 04/09/19 13:37 Last 24 Hour Vital Signs Date Time Temp Pulse Resp B/P (MAP) Pulse Ox O2 Delivery O2 Flow Rate FiO2 04/10/19 08:00 98.1 90 18 95/60 (72) 92 04/10/19 07:18 84 18 100 Nasal Cannula 2.0 28 04/10/19 07:00 98 Nasal Cannula 2.0 28 04/10/19 07:00 68 16 98 Nasal Cannula 2.0 28 04/10/19 04:00 93 04/10/19 04:00 97.5 92 18 96/61 (73) 98 04/10/19 00:34 88 18 99 Nasal Cannula 2.0 28 04/10/19 00:26 90 16 97 Nasal Cannula 2.0 28 04/10/19 00:00 96 04/09/19 23:33 97.7 98 18 87/53 (64) 97 04/09/19 21:00 Nasal Cannula 2.0 Nasal Cannula 2.0 04/09/19 21:00 101 80/54 04/09/19 20:00 97.4 101 18 80/54 (63) 97 04/09/19 20:00 100 04/09/19 19:12 81 18 100 Nasal Cannula 2.0 28 04/09/19 19:05 82 16 97 Nasal Cannula 2.0 28 04/09/19 19:05 97 Nasal Cannula 2.0 28 04/09/19 16:00 97.4 90 18 119/62 (81) 97 04/09/19 16:00 97 04/09/19 12:57 84 18 99 Nasal Cannula 2.0 28 04/09/19 12:45 74 16 96 Nasal Cannula 2.0 28 04/09/19 12:00 98 04/09/19 12:00 97.2 90 18 91/59 (70) 98 8/3/19 08:26 75 120/63 04/09/19 08:25 120/63 04/09/19 08:00 120 04/09/19 08:00 Nasal Cannula 2.0 Nasal Cannula 2.0 04/09/19 07:56 97.9 75 18 120/63 (82) 98 04/09/19 06:39 88 18 100 Nasal Cannula 2.0 28 04/09/19 06:27 70 16 97 Nasal Cannula 2.0 28 04/09/19 06:27 97 Nasal Cannula 2.0 28 04/09/19 04:00 97.4 84 18 102/73 (83) 98 04/09/19 04:00 113 04/09/19 01:17 89 18 99 Nasal Cannula 2.0 28 04/09/19 01:08 86 20 94 Nasal Cannula 2.0 04/09/19 00:00 86 04/09/19 00:00 97.5 88 18 97/62 (74) 94 04/08/19 21:32 84 18 98 Nasal Cannula 2.0 28 04/08/19 21:22 86 18 97 Nasal Cannula 2.0 28 04/08/19 21:00 Nasal Cannula 2.0 Nasal Cannula 2.0 04/08/19 21:00 91 92/61 04/08/19 20:00 88 04/08/19 20:00 97.5 91 19 99/62 (74) 97 04/08/19 19:10 89 18 99 Nasal Cannula 2.0 04/08/19 19:00 95 Nasal Cannula 2.0 28 04/08/19 19:00 89 18 95 Nasal Cannula 2.0 04/08/19 18:13 97.6 04/08/19 16:30 97.6 89 20 91/60 (70) 100 04/08/19 16:00 87 04/08/19 13:25 Nasal Cannula 2.0 04/08/19 13:25 Nasal Cannula 2.0 04/08/19 12:00 80 04/08/19 12:00 97.3 78 18 94/67 (76) 99 Intake and Output 04/09/19 04/10/19 18:59 06:59 Intake Total 930.0 ml 450 ml Output Total 1100 ml 700 ml Balance -170.0 ml -250 ml Intake Oral 600 ml 450 ml IV Total 330.0 ml Output Urine Total 1100 ml 700 ml Labs Test 04/07/19 12:15 04/07/19 20:18 04/08/19 05:30 04/09/19 06:12 Reticulocyte Count 1.1 % (0.5-2.0) Iron Level 25 ug/dL (50-175) Total Iron Binding Capacity 222 ug/dL (250-450) Percent Iron Saturation 11 % (15-50) Unsaturated Iron Binding 197 ug/dL (112-346) Ferritin 198 NG/ML (8-388) Troponin I 0.000 ng/mL (0.000-0.056) 0.000 ng/mL (0.000-0.056) 0.015 ng/mL (0.000-0.056) Total Protein (PEP) 6.7 g/dL (6.0-8.5) Albumin (PEP) 3.3 g/dL (2.9-4.4) Globulin (PEP) 3.4 g/dL (2.2-3.9) Albumin/Globulin Ratio 1.0 (0.7-1.7) Qnxhg-8-Iuzthvnui 0.3 g/dL (0.0-0.4) Zihmp-3-Byvjcpjgj 0.9 g/dL (0.4-1.0) Beta Globulins 1.1 g/dL (0.7-1.3) Beta Gamma Globulin 1.0 g/dL (0.4-1.8) PEP Abnormal Protein Bands Not observed g/dL (Not Protein Electrophoresis Interpret Comment (.) Folate 28.3 NG/ML (8.6-58.9) Homocystine 4.9 umol/L (0.0-15.0) White Blood Count 20.7 K/UL (4.8-10.8) 16.5 K/UL (4.8-10.8) Red Blood Count 3.53 M/UL (4.20-5.40) 3.91 M/UL (4.20-5.40) Hemoglobin 10.3 G/DL (12.0-16.0) 11.6 G/DL (12.0-16.0) Hematocrit 32.4 % (37.0-47.0) 36.1 % (37.0-47.0) Mean Corpuscular Volume 92 FL (80-99) 92 FL (80-99) Mean Corpuscular Hemoglobin 29.3 PG (27.0-31.0) 29.6 PG (27.0-31.0) Mean Corpuscular Hemoglobin Concent 31.9 G/DL (32.0-36.0) 32.0 G/DL (32.0-36.0) Red Cell Distribution Width 15.6 % (11.6-14.8) 15.0 % (11.6-14.8) Platelet Count 275 K/UL (150-450) 313 K/UL (150-450) Mean Platelet Volume 6.7 FL (6.5-10.1) 5.8 FL (6.5-10.1) Neutrophils (%) (Auto) % (45.0-75.0) 75.2 % (45.0-75.0) Lymphocytes (%) (Auto) % (20.0-45.0) 18.4 % (20.0-45.0) Monocytes (%) (Auto) % (1.0-10.0) 4.9 % (1.0-10.0) Eosinophils (%) (Auto) % (0.0-3.0) 0.8 % (0.0-3.0) Basophils (%) (Auto) % (0.0-2.0) 0.7 % (0.0-2.0) Differential Total Cells Counted 100 Neutrophils % (Manual) 86 % (45-75) Lymphocytes % (Manual) 7 % (20-45) Monocytes % (Manual) 4 % (1-10) Eosinophils % (Manual) 1 % (0-3) Basophils % (Manual) 2 % (0-2) Band Neutrophils 0 % (0-8) Platelet Estimate Adequate Platelet Morphology Normal Hypochromasia 1+ Anisocytosis 1+ Prothrombin Time 10.1 SEC (9.30-11.50) Prothromb Time International Ratio 0.9 (0.9-1.1) Activated Partial Thromboplast Time 30 SEC (23-33) Sodium Level 136 MMOL/L (136-145) 135 MMOL/L (136-145) Potassium Level 4.4 MMOL/L (3.5-5.1) 3.4 MMOL/L (3.5-5.1) Chloride Level 100 MMOL/L (98-107) 96 MMOL/L (98-107) Carbon Dioxide Level 29 MMOL/L (21-32) 30 MMOL/L (21-32) Anion Gap 7 mmol/L (5-15) 10 mmol/L (5-15) Blood Urea Nitrogen 29 mg/dL (7-18) 31 mg/dL (7-18) Creatinine 1.5 MG/DL (0.55-1.30) 1.5 MG/DL (0.55-1.30) Estimat Glomerular Filtration Rate 42.3 mL/min (>60) 42.3 mL/min (>60) Glucose Level 190 MG/DL (74-106) 144 MG/DL (74-106) Calcium Level 9.5 MG/DL (8.5-10.1) 9.8 MG/DL (8.5-10.1) C-Reactive Protein, Quantitative 4.5 mg/dL (0.00-0.90) Triglycerides Level 76 MG/DL (30-150) Cholesterol Level 112 MG/DL (< 200) LDL Cholesterol 40 mg/dL (<100) HDL Cholesterol 54 MG/DL (40-60) Cholesterol/HDL Ratio 2.1 (3.3-4.4) Thyroid Stimulating Hormone (TSH) 26.335 uiU/mL (0.358-3.740) Random Vancomycin Level 11.1 ug/mL Test 04/10/19 07:11 White Blood Count 20.8 K/UL (4.8-10.8) Red Blood Count 4.20 M/UL (4.20-5.40) Hemoglobin 12.1 G/DL (12.0-16.0) Hematocrit 38.9 % (37.0-47.0) Mean Corpuscular Volume 93 FL (80-99) Mean Corpuscular Hemoglobin 28.8 PG (27.0-31.0) Mean Corpuscular Hemoglobin Concent 31.1 G/DL (32.0-36.0) Red Cell Distribution Width 15.2 % (11.6-14.8) Platelet Count 332 K/UL (150-450) Mean Platelet Volume 6.4 FL (6.5-10.1) Neutrophils (%) (Auto) % (45.0-75.0) Lymphocytes (%) (Auto) % (20.0-45.0) Monocytes (%) (Auto) % (1.0-10.0) Eosinophils (%) (Auto) % (0.0-3.0) Basophils (%) (Auto) % (0.0-2.0) Height (Feet): 5 Height (Inches): 5.00 Weight (Pounds): 300 Objective Vital Signs have been reviewed Gen: nad, alert Head: PERRL ENT: hearing grossly normal Neck: full range of motion, supple/symm/no masses Respiratory: chest non-tender, normal breath sounds, speaking full sentences, wheezing CV: regular rate, rhythm, no edema ++ icd Gastrointestinal: normal BSs, nt, nd Lymphatic: no adenopathy Emmett Evangelista MD Apr 10, 2019 09:08
[2019-04-10 09:20] LABS: ANION GAP 14 mmol/L (5-15); BLOOD UREA NITROGEN 46 mg/dL (7-18); CALCIUM 9.4 MG/DL (8.5-10.1); CARBON DIOXIDE 23 MMOL/L (21-32); CHLORIDE 96 MMOL/L (98-107); CREATININE 1.9 MG/DL (0.55-1.30); POTASSIUM 4.5 MMOL/L (3.5-5.1); SODIUM 133 MMOL/L (136-145)
[2019-04-10] MEDS: Aspirin Baby 81mg ORAL SCH (09:34)
--- NOTE | 2019-04-10 11:53 | NUR ---
NURSE NOTES: Dr. Jo made aware patient BS at 1130 was 401, 14 unit insulin given, BS rechecked at 1200 was 316. No order given at this time. Will continue to monitor.
[2019-04-10 12:00] VITALS: BP 97/69
--- NOTE | 2019-04-10 13:16 | Cardiac Electrophysiology PN ---
Assessment/Plan Assessment/Plan 1. Chest pain, the patient with history of heart surgery but denies CABG. 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 Awaiting records from [facility]. Ruled out for myocardial infarction. Continue aspirin, Coreg and Lipitor Nuclear stress test report Inferoapical infarct. Doubt but cannot completely exclude a small area of ignacio-infarct ischemia at the lateral wall border of the infarct. 2. Status post [employer] defibrillator implantation. Interrogated and showed nl Fx battery 4 years No events 3. History of cardiomyopathy, high BNP,EF 15% on Coreg 3.125 mg Lasix 40 IV b.i.d. and lisinopril 4. New diagnosis of atrial fibrillation on the EKG . Currently in sinus rhythm. Hold off on anticoagulation on Coreg 5. Elevated white count, on Zosyn per ID. 6. COPD. 7. Obesity. DW RN Subjective Subjective Feeling better. No CP. In SR with PVCs Objective Last 24 Hour Vital Signs Date Time Temp Pulse Resp B/P (MAP) Pulse Ox O2 Delivery O2 Flow Rate FiO2 04/10/19 12:00 97.1 83 18 97/69 (78) 100 04/10/19 12:00 83 04/10/19 09:00 Nasal Cannula 2.0 Nasal Cannula 2.0 04/10/19 09:00 95/60 04/10/19 09:00 90 95/60 04/10/19 08:00 98.1 90 18 95/60 (72) 92 04/10/19 08:00 92 04/10/19 07:18 84 18 100 Nasal Cannula 2.0 04/10/19 07:00 98 Nasal Cannula 2.0 28 04/10/19 07:00 68 16 98 Nasal Cannula 2.0 28 04/10/19 04:00 93 04/10/19 04:00 97.5 92 18 96/61 (73) 98 04/10/19 00:34 88 18 99 Nasal Cannula 2.0 28 04/10/19 00:26 90 16 97 Nasal Cannula 2.0 28 04/10/19 00:00 96 04/09/19 23:33 97.7 98 18 87/53 (64) 97 04/09/19 21:00 Nasal Cannula 2.0 Nasal Cannula 2.0 04/09/19 21:00 101 80/54 04/09/19 20:00 97.4 101 18 80/54 (63) 97 04/09/19 20:00 100 04/09/19 19:12 81 18 100 Nasal Cannula 2.0 28 04/09/19 19:05 82 16 97 Nasal Cannula 2.0 28 04/09/19 19:05 97 Nasal Cannula 2.0 28 04/09/19 16:00 97.4 90 18 119/62 (81) 97 04/09/19 16:00 97 Intake and Output 04/09/19 04/10/19 19:00 07:00 Intake Total 930.0 ml 450 ml Output Total 1100 ml 700 ml Balance -170.0 ml -250 ml Intake Oral 600 ml 450 ml IV Total 330.0 ml Output Urine Total 1100 ml 700 ml Laboratory Tests Test 04/10/19 07:11 White Blood Count 20.8 K/UL (4.8-10.8) H Red Blood Count 4.20 M/UL (4.20-5.40) Hemoglobin 12.1 G/DL (12.0-16.0) Hematocrit 38.9 % (37.0-47.0) Mean Corpuscular Volume 93 FL (80-99) Mean Corpuscular Hemoglobin 28.8 PG (27.0-31.0) Mean Corpuscular Hemoglobin Concent 31.1 G/DL (32.0-36.0) L Red Cell Distribution Width 15.2 % (11.6-14.8) H Platelet Count 332 K/UL (150-450) Mean Platelet Volume 6.4 FL (6.5-10.1) L Neutrophils (%) (Auto) % (45.0-75.0) Lymphocytes (%) (Auto) % (20.0-45.0) Monocytes (%) (Auto) % (1.0-10.0) Eosinophils (%) (Auto) % (0.0-3.0) Basophils (%) (Auto) % (0.0-2.0) Differential Total Cells Counted 100 Neutrophils % (Manual) 94 % (45-75) H Lymphocytes % (Manual) 3 % (20-45) L Monocytes % (Manual) 3 % (1-10) Eosinophils % (Manual) 0 % (0-3) Basophils % (Manual) 0 % (0-2) Band Neutrophils 0 % (0-8) Platelet Estimate Adequate Platelet Morphology Normal Anisocytosis 1+ Sodium Level 133 MMOL/L (136-145) L Potassium Level 4.5 MMOL/L (3.5-5.1) Chloride Level 96 MMOL/L (98-107) L Carbon Dioxide Level 23 MMOL/L (21-32) Anion Gap 14 mmol/L (5-15) Blood Urea Nitrogen 46 mg/dL (7-18) H Creatinine 1.9 MG/DL (0.55-1.30) H Estimat Glomerular Filtration Rate 32.2 mL/min (>60) Glucose Level 310 MG/DL (74-106) #H Calcium Level 9.4 MG/DL (8.5-10.1) Microbiology Date/Time Source Procedure Growth Status 04/07/19 15:25 Blood Blood Culture - Preliminary NO GROWTH AFTER 48 HOURS Resulted 04/07/19 15:17 Blood Blood Culture - Preliminary NO GROWTH AFTER 48 HOURS Resulted Objective HEAD AND NECK: Mild JVD. LUNGS: Clear. CARDIOVASCULAR: Shows regular S1 and S2. Sternotomy scar is intact. Defibrillator is in left subclavian. ABDOMEN: Soft. EXTREMITIES: No pitting edema. Dexter Dewitt MD Apr 10, 2019 13:16
--- NOTE | 2019-04-10 13:17 | Cardiac Electrophysiology PN ---
Assessment/Plan Assessment/Plan 1. Chest pain, the patient with history of heart surgery but denies CABG. 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 Awaiting records from [facility]. Ruled out for myocardial infarction. Continue aspirin, Coreg and Lipitor Nuclear stress test report Inferoapical infarct. Doubt but cannot completely exclude a small area of ignacio-infarct ischemia at the lateral wall border of the infarct. 2. Status post [employer] defibrillator implantation. Interrogated and showed nl Fx battery 4 years No events 3. History of cardiomyopathy, high BNP,EF 15% on Coreg 3.125 mg. Change Lasix to 40 po daily. and lisinopril 4. New diagnosis of atrial fibrillation on the EKG . Currently in sinus rhythm. Hold off on anticoagulation on Coreg 5. Elevated white count, on Zosyn per ID. 6. COPD. 7. Obesity. CIRILO RN Subjective Subjective Feeling better. No CP. In SR with PVCs Objective Last 24 Hour Vital Signs Date Time Temp Pulse Resp B/P (MAP) Pulse Ox O2 Delivery O2 Flow Rate FiO2 04/10/19 12:00 97.1 83 18 97/69 (78) 100 04/10/19 12:00 83 04/10/19 09:00 Nasal Cannula 2.0 Nasal Cannula 2.0 04/10/19 09:00 95/60 04/10/19 09:00 90 95/60 04/10/19 08:00 98.1 90 18 95/60 (72) 92 04/10/19 08:00 92 04/10/19 07:18 84 18 100 Nasal Cannula 2.0 28 04/10/19 07:00 98 Nasal Cannula 2.0 28 04/10/19 07:00 68 16 98 Nasal Cannula 2.0 28 04/10/19 04:00 93 04/10/19 04:00 97.5 92 18 96/61 (73) 98 04/10/19 00:34 88 18 99 Nasal Cannula 2.0 28 04/10/19 00:26 90 16 97 Nasal Cannula 2.0 28 04/10/19 00:00 96 04/09/19 23:33 97.7 98 18 87/53 (64) 97 04/09/19 21:00 Nasal Cannula 2.0 Nasal Cannula 2.0 04/09/19 21:00 101 80/54 04/09/19 20:00 97.4 101 18 80/54 (63) 97 04/09/19 20:00 100 04/09/19 19:12 81 18 100 Nasal Cannula 2.0 28 04/09/19 19:05 82 16 97 Nasal Cannula 2.0 28 04/09/19 19:05 97 Nasal Cannula 2.0 28 04/09/19 16:00 97.4 90 18 119/62 (81) 97 04/09/19 16:00 97 Intake and Output 04/09/19 04/10/19 19:00 07:00 Intake Total 930.0 ml 450 ml Output Total 1100 ml 700 ml Balance -170.0 ml -250 ml Intake Oral 600 ml 450 ml IV Total 330.0 ml Output Urine Total 1100 ml 700 ml Laboratory Tests Test 04/10/19 07:11 White Blood Count 20.8 K/UL (4.8-10.8) H Red Blood Count 4.20 M/UL (4.20-5.40) Hemoglobin 12.1 G/DL (12.0-16.0) Hematocrit 38.9 % (37.0-47.0) Mean Corpuscular Volume 93 FL (80-99) Mean Corpuscular Hemoglobin 28.8 PG (27.0-31.0) Mean Corpuscular Hemoglobin Concent 31.1 G/DL (32.0-36.0) L Red Cell Distribution Width 15.2 % (11.6-14.8) H Platelet Count 332 K/UL (150-450) Mean Platelet Volume 6.4 FL (6.5-10.1) L Neutrophils (%) (Auto) % (45.0-75.0) Lymphocytes (%) (Auto) % (20.0-45.0) Monocytes (%) (Auto) % (1.0-10.0) Eosinophils (%) (Auto) % (0.0-3.0) Basophils (%) (Auto) % (0.0-2.0) Differential Total Cells Counted 100 Neutrophils % (Manual) 94 % (45-75) H Lymphocytes % (Manual) 3 % (20-45) L Monocytes % (Manual) 3 % (1-10) Eosinophils % (Manual) 0 % (0-3) Basophils % (Manual) 0 % (0-2) Band Neutrophils 0 % (0-8) Platelet Estimate Adequate Platelet Morphology Normal Anisocytosis 1+ Sodium Level 133 MMOL/L (136-145) L Potassium Level 4.5 MMOL/L (3.5-5.1) Chloride Level 96 MMOL/L (98-107) L Carbon Dioxide Level 23 MMOL/L (21-32) Anion Gap 14 mmol/L (5-15) Blood Urea Nitrogen 46 mg/dL (7-18) H Creatinine 1.9 MG/DL (0.55-1.30) H Estimat Glomerular Filtration Rate 32.2 mL/min (>60) Glucose Level 310 MG/DL (74-106) #H Calcium Level 9.4 MG/DL (8.5-10.1) Microbiology Date/Time Source Procedure Growth Status 04/07/19 15:25 Blood Blood Culture - Preliminary NO GROWTH AFTER 48 HOURS Resulted 04/07/19 15:17 Blood Blood Culture - Preliminary NO GROWTH AFTER 48 HOURS Resulted Objective HEAD AND NECK: Mild JVD. LUNGS: Clear. CARDIOVASCULAR: Shows regular S1 and S2. Sternotomy scar is intact. Defibrillator is in left subclavian. ABDOMEN: Soft. EXTREMITIES: No pitting edema. Dexter Dewitt MD Apr 10, 2019 13:17
--- NOTE | 2019-04-10 13:28 | NUR ---
NURSE NOTES: Dr. Dewitt made aware patient was having low blood pressure last night, one bolus given, recent BP 97/69. Per Dr. Dewitt, change Lasix 40mg IVP to PO daily, no parameter needed, parameter for blood pressure medication will be hold if sbp <100. Order noted, entered, carried out. Will continue to monitor.
[2019-04-10] MEDS ORDERED: NS 275ml ONE (15:35)
[2019-04-10] MEDS ORDERED: NS 500ML ONE (15:35)
[2019-04-10 16:00] VITALS: BP 107/70
--- NOTE | 2019-04-10 16:08 | NUR ---
CASE MANAGEMENT: REVIEW SI: SACRAL DECUB . A-FIB T 97.1 HR 83 RR 18 BP 95/60 SAT 92% NC/2L WBC 20.8 NA 133 BUN 46 CR 1.9 IS: ZOSYN IV Q8HR VANCO IV Q24HR ASA PO QD LASIX PO QD ALBUTEROL HHN Q6HR LOVENOX SUBQ QD TELE UNIT STATUS DCP: PATIENT IS FROM HOME
[2019-04-10] MEDS ORDERED: Vancomycin 1.5gm Premix IVPB ONE (16:30)
--- NOTE | 2019-04-10 18:11 | Infectious Diseases Prog Note ---
Assessment/Plan Assessment/Plan Assessment: Afebrile Leukocytosis; worsening (s/p high dose stseroisd)- r/o UTI (recent dysuria), r/ o bacteremia (+AICD present) -04/09 CXR: Reduced lung volumes. No confluent consolidation. No edema. -CXR: Doubt but cannot exclude minimal interstitial congestion. Other stable findings as described -u/a p -Bcx NTD Chest pain -2d Echo: EF 15-20%, no vegetations DM2 HTN MA/CAD s/p CABG 2018 CHF s/p AICD Asthma/COPD sacral decubitus ulcer VRE and CRE colonized Plan: -Cont empiric Zosyn #3 (abx #4) and add IV Vancomycin #3 pending u/a and Bcx -8/ SP Ceftriaxone #2 -f/u cx -Monitor CBC/CMP, temperatures -f.u CXR -f/u Bcx x2 -f/u u/a w/ reflex -Cdiff if diarrhea Thank you for this consultation. Will continue to follow along with you. Discussed with RN. Subjective Allergies: Coded Allergies: SIMVASTATIN (Verified Adverse Reaction, Intermediate, NAUSEA AND VOMITTING , 03/20/19) Subjective afebrile wbc increased to 20 s/p steroids Bcx NTD Objective Vital Signs Last 24 Hour Vital Signs Date Time Temp Pulse Resp B/P (MAP) Pulse Ox O2 Delivery O2 Flow Rate FiO2 04/10/19 16:00 98.1 86 18 107/70 (82) 100 04/10/19 16:00 95 04/10/19 13:15 88 20 100 Nasal Cannula 2.0 28 04/10/19 13:00 74 18 96 Nasal Cannula 2.0 28 04/10/19 12:00 97.1 83 18 97/69 (78) 100 04/10/19 12:00 83 04/10/19 09:00 Nasal Cannula 2.0 Nasal Cannula 2.0 04/10/19 09:00 95/60 04/10/19 09:00 90 95/60 04/10/19 08:00 98.1 90 18 95/60 (72) 92 04/10/19 08:00 92 04/10/19 07:18 84 18 100 Nasal Cannula 2.0 28 04/10/19 07:00 98 Nasal Cannula 2.0 28 04/10/19 07:00 68 16 98 Nasal Cannula 2.0 28 04/10/19 04:00 93 04/10/19 04:00 97.5 92 18 96/61 (73) 98 04/10/19 00:34 88 18 99 Nasal Cannula 2.0 28 04/10/19 00:26 90 16 97 Nasal Cannula 2.0 28 04/10/19 00:00 96 04/09/19 23:33 97.7 98 18 87/53 (64) 97 04/09/19 21:00 Nasal Cannula 2.0 Nasal Cannula 2.0 04/09/19 21:00 101 80/54 04/09/19 20:00 97.4 101 18 80/54 (63) 97 04/09/19 20:00 100 04/09/19 19:12 81 18 100 Nasal Cannula 2.0 28 04/09/19 19:05 82 16 97 Nasal Cannula 2.0 28 04/09/19 19:05 97 Nasal Cannula 2.0 28 Height (Feet): 5 Height (Inches): 5.00 Weight (Pounds): 300 Objective General Appearance: lethargic EENT: normal ENT inspection Neck: normal alignment Cardiovascular: normal peripheral pulses, normal rate, regular rhythm Respiratory/Chest: chest wall non-tender, lungs clear, no respiratory distress Abdomen: normal bowel sounds, non tender, soft Extremities: normal inspection Edema: no edema noted Arm (L), no edema noted Arm (R), no edema noted Leg (L), no edema noted Leg (R), no edema noted Pedal (L), no edema noted Pedal (R), no edema noted Generalized Neurologic: motor weakness Skin: normal pigmentation, warm/dry Laboratory Tests Test 04/10/19 07:11 04/10/19 14:45 White Blood Count 20.8 K/UL (4.8-10.8) H Red Blood Count 4.20 M/UL (4.20-5.40) Hemoglobin 12.1 G/DL (12.0-16.0) Hematocrit 38.9 % (37.0-47.0) Mean Corpuscular Volume 93 FL (80-99) Mean Corpuscular Hemoglobin 28.8 PG (27.0-31.0) Mean Corpuscular Hemoglobin Concent 31.1 G/DL (32.0-36.0) L Red Cell Distribution Width 15.2 % (11.6-14.8) H Platelet Count 332 K/UL (150-450) Mean Platelet Volume 6.4 FL (6.5-10.1) L Neutrophils (%) (Auto) % (45.0-75.0) Lymphocytes (%) (Auto) % (20.0-45.0) Monocytes (%) (Auto) % (1.0-10.0) Eosinophils (%) (Auto) % (0.0-3.0) Basophils (%) (Auto) % (0.0-2.0) Differential Total Cells Counted 100 Neutrophils % (Manual) 94 % (45-75) H Lymphocytes % (Manual) 3 % (20-45) L Monocytes % (Manual) 3 % (1-10) Eosinophils % (Manual) 0 % (0-3) Basophils % (Manual) 0 % (0-2) Band Neutrophils 0 % (0-8) Platelet Estimate Adequate Platelet Morphology Normal Anisocytosis 1+ Sodium Level 133 MMOL/L (136-145) L Potassium Level 4.5 MMOL/L (3.5-5.1) Chloride Level 96 MMOL/L (98-107) L Carbon Dioxide Level 23 MMOL/L (21-32) Anion Gap 14 mmol/L (5-15) Blood Urea Nitrogen 46 mg/dL (7-18) H Creatinine 1.9 MG/DL (0.55-1.30) H Estimat Glomerular Filtration Rate 32.2 mL/min (>60) Glucose Level 310 MG/DL (74-106) #H Calcium Level 9.4 MG/DL (8.5-10.1) Random Vancomycin Level 13.0 ug/mL Current Medications Medications (Trade) Dose Ordered Sig/Cassidy Route PRN Reason Start Time Stop Time Status Last Admin Dose Admin Acetaminophen (Tylenol) 650 mg Q4H PRN ORAL FEVER 04/07/19 12:00 05/07/19 11:59 Albuterol/ Ipratropium (Albuterol/ Ipratropium) 3 ml Q4H PRN HHN Shortness of Breath 04/07/19 12:00 04/12/19 11:59 04/08/19 21:22 Albuterol/ Ipratropium (Albuterol/ Ipratropium) 3 ml Q6HRT HHN 04/07/19 07:00 04/12/19 06:59 04/10/19 12:30 Aspirin (ASA) 162 mg DAILY ORAL 04/08/19 09:00 05/08/19 08:59 04/10/19 09:34 Carvedilol (Coreg) 3.125 mg BID@0900,2100 ORAL 04/07/19 21:00 05/07/19 08:59 04/09/19 08:26 Dextrose (Dextrose 50%) 25 ml Q30M PRN IV Hypoglycemia 04/07/19 12:00 05/07/19 11:53 Dextrose (Dextrose 50%) 50 ml Q30M PRN IV hypoglycemia 04/07/19 12:00 05/07/19 11:59 Diltiazem HCl (Cardizem) 10 mg Q1H PRN IV heart rate more than 120, 04/07/19 12:00 05/07/19 11:59 Docusate Sodium (Colace) 250 mg DAILY ORAL 04/07/19 09:00 05/07/19 08:59 04/10/19 08:35 Enalaprilat (Vasotec) 2.5 mg Q6H PRN IV sbp more than 160 04/07/19 12:00 05/07/19 11:59 Enoxaparin Sodium (Lovenox) 40 mg DAILY SUBQ 04/07/19 09:00 05/07/19 08:59 04/10/19 08:36 Famotidine (Pepcid) 20 mg DAILY ORAL 04/07/19 09:00 05/07/19 08:59 04/10/19 08:35 Furosemide (Lasix) 40 mg DAILY ORAL 04/11/19 09:00 05/11/19 08:59 Insulin Aspart (NovoLOG) BEFORE MEALS AND HS SUBQ 04/07/19 16:30 05/07/19 16:29 04/10/19 16:20 Levothyroxine Sodium (Synthroid) 88 mcg DAILY@0630 ORAL 04/10/19 07:30 05/10/19 07:29 04/10/19 08:35 Lisinopril (Zestril) 10 mg DAILY ORAL 04/11/19 09:00 05/09/19 08:59 Lorazepam (Ativan) 0.5 mg Q4H PRN ORAL For Anxiety 04/07/19 12:00 04/14/19 11:59 Nitroglycerin (Ntg) 0.4 mg Q5M PRN SL Prn Chest Pain 04/07/19 12:00 05/07/19 11:59 Ondansetron HCl (Zofran) 4 mg Q6H PRN IVP Nausea & Vomiting 04/07/19 02:45 05/07/19 02:44 Piperacillin Sod/ Tazobactam Sod 3.375 gm/Sodium Chloride 110 ml @ 27.5 mls/hr Q8HR@0000,0800,1600 IVPB 04/09/19 16:00 04/16/19 15:59 04/10/19 16:14 Polyethylene Glycol (Miralax) 17 gm DAILYPRN PRN ORAL Constipation 04/07/19 12:00 05/07/19 11:59 Temazepam (Restoril) 15 mg HSPRN PRN ORAL Insomnia 04/07/19 12:00 04/14/19 11:59 Tramadol HCl (Ultram) 50 mg Q6H PRN ORAL Moderate Pain (Pain Scale 4-6) 04/07/19 03:45 04/14/19 03:44 04/10/19 17:34 Vancomycin HCl (Vanco rx to dose) 1 ea DAILY PRN MISC Per rx protocol 04/08/19 11:30 05/08/19 11:29 Vancomycin HCl/ Dextrose 275 ml @ 137.5 mls/ hr ONCE ONCE IVPB 04/10/19 16:30 04/10/19 18:29 04/10/19 16:35 Bijal Luque M.D. Apr 10, 2019 18:11
[2019-04-10 18:48] LABS: APPEARANCE,URINE CLEAR; BILIRUBIN, URINE NEGATIVE (NEGATIVE); COLOR,URINE PALE YELLOW; GLUCOSE, URINE (UA) NEGATIVE (NEGATIVE); KETONES,URINE NEGATIVE (NEGATIVE); LEUKOCYTE ESTERASE ,URINE 1+ (NEGATIVE); NITRITE,URINE NEGATIVE (NEGATIVE); PH,URINE 6 (4.5-8.0); PROTEIN,URINE 1+ (NEGATIVE); UROBILINOGEN,URINE NORMAL MG/DL (0.0-1.0)
--- NOTE | 2019-04-10 19:44 | NUR ---
HAND-OFF: Report given to ABAD Borrego.
[2019-04-10 20:00] VITALS: BP 99/62
[2019-04-11 00:01] VITALS: BP 117/70
[2019-04-11] MEDS: Albuterol/Ipratropium 3ml neb HHN SCH ×4 (01:21→19:52)
[2019-04-11 04:00] VITALS: BP 94/68
[2019-04-11] MEDS: traMADol 50mg tab ORAL PRN ×2 (06:33→13:17)
[2019-04-11] MEDS: NovoLOG Insulin Flexpen SUBQ SCH ×4 (06:36→21:06)
--- NOTE | 2019-04-11 07:30 | NUR ---
HAND-OFF: Report given to ABAD Ashraf, patient in stable condition, plan of care endorsed.
--- NOTE | 2019-04-11 07:39 | NUR ---
NURSE NOTES: Received report from ABAD Borrego. Patient in bed resting, no active s/s cardiac, respiratory distress noticed at this time. Patient on 2L oxygen via NC, AOx4. IV on right wrist 24G, asymptomatic, patent, intact. Endorsed need of OB stool collection. Bed in lowest position, side rails upx2, call light within reach. Will continue to monitor.
[2019-04-11 07:47] LABS: HEMATOCRIT 38.2 % (37.0-47.0); MEAN CORPUSCULAR VOLUME 93 FL (80-99); PLATELET COUNT 329 K/UL (150-450); RED BLOOD COUNT 4.11 M/UL (4.20-5.40); RED CELL DISTRIBUTION WIDTH 15.1 % (11.6-14.8); WHITE BLOOD COUNT 20.3 K/UL (4.8-10.8)
[2019-04-11 08:00] VITALS: BP 92/57
[2019-04-11] MEDS: Docusate 250mg cap ORAL SCH (08:10)
[2019-04-11] MEDS: Piperacillin/Tazobactam 3.375 GM in NS 110 ML IVPB SCH ×2 (08:10→16:56)
[2019-04-11] MEDS: Aspirin Baby 81mg ORAL SCH (08:10)
[2019-04-11] MEDS: Enoxaparin 40mg Inj SUBQ SCH (08:11)
[2019-04-11] MEDS: Furosemide 40mg tab ORAL SCH (08:20)
[2019-04-11 08:24] LABS: ANION GAP 8 mmol/L (5-15); BLOOD UREA NITROGEN 40 mg/dL (7-18); CALCIUM 9.6 MG/DL (8.5-10.1); CARBON DIOXIDE 27 MMOL/L (21-32); CHLORIDE 99 MMOL/L (98-107); CREATININE 1.6 MG/DL (0.55-1.30); POTASSIUM 4.1 MMOL/L (3.5-5.1); SODIUM 134 MMOL/L (136-145)
[2019-04-11] MEDS: Lisinopril 10mg tab ORAL SCH (08:24)
--- NOTE | 2019-04-11 10:13 | NUR ---
NURSE NOTES: Called [facility] for medical record per Dr. Dewitt, tele :[phone], . Per cylinder machine operator pulp drier from [facility], medical record will take 15 days. Faxed authorization form.
--- NOTE | 2019-04-11 11:22 | NUR ---
RADIOLOGY DEPT., CHEST X-RAY DONE.-P.DYE
[2019-04-11 12:00] VITALS: BP 101/71
--- NOTE | 2019-04-11 12:05 | Hematology/Onc Progress Note ---
Assessment/Plan Assessment/Plan Assessment and Recs: # Leukocytosis/elevated white blood cell count, unspecified likely related to underlying stress reaction, smoking (also was given steroids) --> have reviewed peripheral smear and bandemia/neutrophilia noted --> continue antibiotics if they have been started by ID team (is on vanc/zosyn) --> wbc trend 21-->17-->21k-->20k # Hyperproteinemia with decreased albumin -- this is a dissociation that is abnormal --> spep is negative --> may be reactive, decreased prealb # Anemia of chronic disease due to underlying chronic medical issues, multifactorial --> Anemia workup has been ordered, rule out gi bleed --> No evidence of hemolysis is noted, peripheral smear has been reviewed. --> Hgb goal >7. Transfuse prn. --> Epogen or iron at this time is not particularly indicated --> Medications have been reviewed --> low threshold for gi evaluation in case has occult + # Atrial fibrillation (acute coronary syndrome), asa was given --> troponins negative, BNP greater than 2000 --> EKG - NSR, no acute ischemic changes interpreted by me --> per cards anticoagulation --> also review records regarding tumor cardiac removal? # CHF (congestive heart failure) --> Chest x-ray- CHF, ICD in place --> cards recs The timing of this note does not necessarily reflect the time of the patient was seen. GREATLY APPRECIATE CONSULTATION. Subjective Constitutional: Denies: no symptoms, chills, fever, malaise, weakness, other HEENT: Denies: no symptoms, eye pain, blurred vision, tearing, double vision, ear pain, ear discharge, nose pain, nose congestion, throat pain, throat swelling, mouth pain, mouth swelling, other Respiratory: Denies: no symptoms, cough, shortness of breath, SOB with excertion, SOB at rest, sputum, wheezing, other Gastrointestinal/Abdominal: Denies: no symptoms, abdomen distended, abdominal pain, black stools, tarry stools, blood in stool, constipated, diarrhea, difficulty swallowing, nausea, poor appetite, poor fluid intake, rectal bleeding , vomiting, other Genitourinary: Denies: no symptoms, burning, discharge, frequency, flank pain, hematuria, incontinence, pain, urgency, other Endocrine: Denies: no symptoms, excessive sweating, flushing, intolerance to cold, intolerance to heat, increased hunger, increased thirst, increased urine, unexplained weight gain, unexplained weight loss, other Hematologic/Lymphatic: Denies: no symptoms, anemia, easy bleeding, easy bruising, adenopathy, other Allergies: Coded Allergies: SIMVASTATIN (Verified Adverse Reaction, Intermediate, NAUSEA AND VOMITTING , 03/20/19) Subjective 04/08: no fevers or chills or night sweats, seen by cards, potential for nuclear stress test, on abx 04/10: remains on abx, 500cc was given ns given low bp, wbc higher 04/11: no events, remains on 2l nc, no f/c, no night sweats Objective Objective Current Medications Medications (Trade) Dose Ordered Sig/Cassidy Route PRN Reason Start Time Stop Time Status Last Admin Dose Admin Acetaminophen (Tylenol) 650 mg Q4H PRN ORAL FEVER 04/07/19 12:00 05/07/19 11:59 Albuterol/ Ipratropium (Albuterol/ Ipratropium) 3 ml Q4H PRN HHN Shortness of Breath 04/07/19 12:00 04/12/19 11:59 04/08/19 21:22 Albuterol/ Ipratropium (Albuterol/ Ipratropium) 3 ml Q6HRT HHN 04/07/19 07:00 04/12/19 06:59 04/11/19 07:09 Aspirin (ASA) 162 mg DAILY ORAL 04/08/19 09:00 05/08/19 08:59 04/11/19 08:10 Carvedilol (Coreg) 3.125 mg BID@0900,2100 ORAL 04/07/19 21:00 05/07/19 08:59 04/09/19 08:26 Dextrose (Dextrose 50%) 25 ml Q30M PRN IV Hypoglycemia 04/07/19 12:00 05/07/19 11:53 Dextrose (Dextrose 50%) 50 ml Q30M PRN IV hypoglycemia 04/07/19 12:00 05/07/19 11:59 Diltiazem HCl (Cardizem) 10 mg Q1H PRN IV heart rate more than 120, 04/07/19 12:00 05/07/19 11:59 Docusate Sodium (Colace) 250 mg DAILY ORAL 04/07/19 09:00 05/07/19 08:59 04/11/19 08:10 Enalaprilat (Vasotec) 2.5 mg Q6H PRN IV sbp more than 160 04/07/19 12:00 05/07/19 11:59 Enoxaparin Sodium (Lovenox) 40 mg DAILY SUBQ 04/07/19 09:00 05/07/19 08:59 04/11/19 08:11 Famotidine (Pepcid) 20 mg DAILY ORAL 04/07/19 09:00 05/07/19 08:59 04/11/19 08:11 Furosemide (Lasix) 40 mg DAILY ORAL 04/11/19 09:00 05/11/19 08:59 04/11/19 08:20 Insulin Aspart (NovoLOG) BEFORE MEALS AND HS SUBQ 04/07/19 16:30 05/07/19 16:29 04/11/19 11:28 Levothyroxine Sodium (Synthroid) 88 mcg DAILY@0630 ORAL 04/10/19 07:30 05/10/19 07:29 04/11/19 06:32 Lisinopril (Zestril) 10 mg DAILY ORAL 04/11/19 09:00 05/09/19 08:59 Lorazepam (Ativan) 0.5 mg Q4H PRN ORAL For Anxiety 04/07/19 12:00 04/14/19 11:59 Nitroglycerin (Ntg) 0.4 mg Q5M PRN SL Prn Chest Pain 04/07/19 12:00 05/07/19 11:59 Ondansetron HCl (Zofran) 4 mg Q6H PRN IVP Nausea & Vomiting 04/07/19 02:45 05/07/19 02:44 Piperacillin Sod/ Tazobactam Sod 3.375 gm/Sodium Chloride 110 ml @ 27.5 mls/hr Q8HR@0000,0800,1600 IVPB 04/09/19 16:00 04/16/19 15:59 04/11/19 08:10 Polyethylene Glycol (Miralax) 17 gm DAILYPRN PRN ORAL Constipation 04/07/19 12:00 05/07/19 11:59 Temazepam (Restoril) 15 mg HSPRN PRN ORAL Insomnia 04/07/19 12:00 04/14/19 11:59 Tramadol HCl (Ultram) 50 mg Q6H PRN ORAL Moderate Pain (Pain Scale 4-6) 04/07/19 03:45 04/14/19 03:44 04/11/19 06:33 Vancomycin HCl (Vanco rx to dose) 1 ea DAILY PRN MISC Per rx protocol 04/08/19 11:30 05/08/19 11:29 Last 24 Hour Vital Signs Date Time Temp Pulse Resp B/P (MAP) Pulse Ox O2 Delivery O2 Flow Rate FiO2 04/11/19 09:00 Nasal Cannula 2.0 Nasal Cannula 2.0 04/11/19 08:24 92/57 04/11/19 08:23 94 92/57 04/11/19 08:00 95 04/11/19 08:00 98.3 96 16 92/57 (69) 100 04/11/19 07:16 91 18 100 Nasal Cannula 2.0 04/11/19 07:05 98 Nasal Cannula 2.0 04/11/19 07:05 98 18 98 Nasal Cannula 2.0 04/11/19 04:07 90 04/11/19 04:00 97.6 86 19 94/68 (77) 100 04/11/19 01:31 85 18 99 Nasal Cannula 2.0 04/11/19 01:21 86 18 99 Nasal Cannula 2.0 04/11/19 00:01 97.7 80 18 117/70 (86) 99 04/11/19 00:00 88 04/10/19 21:00 84 99/62 04/10/19 21:00 Nasal Cannula 2.0 Nasal Cannula 2.0 04/10/19 20:00 97.5 84 18 99/62 (74) 99 04/10/19 20:00 85 04/10/19 19:59 87 20 99 Nasal Cannula 2.0 28 04/10/19 19:49 98 Nasal Cannula 2.0 28 04/10/19 19:49 85 18 98 Nasal Cannula 2.0 28 04/10/19 16:00 98.1 86 18 107/70 (82) 100 04/10/19 16:00 95 04/10/19 13:15 88 20 100 Nasal Cannula 2.0 04/10/19 13:00 74 18 96 Nasal Cannula 2.0 28 04/10/19 12:00 97.1 83 18 97/69 (78) 100 04/10/19 12:00 83 04/10/19 09:00 Nasal Cannula 2.0 Nasal Cannula 2.0 04/10/19 09:00 95/60 04/10/19 09:00 90 95/60 04/10/19 08:00 98.1 90 18 95/60 (72) 92 04/10/19 08:00 92 04/10/19 07:18 84 18 100 Nasal Cannula 2.0 28 04/10/19 07:00 98 Nasal Cannula 2.0 28 04/10/19 07:00 68 16 98 Nasal Cannula 2.0 28 04/10/19 04:00 93 04/10/19 04:00 97.5 92 18 96/61 (73) 98 04/10/19 00:34 88 18 99 Nasal Cannula 2.0 04/10/19 00:26 90 16 97 Nasal Cannula 2.0 28 04/10/19 00:00 96 04/09/19 23:33 97.7 98 18 87/53 (64) 97 04/09/19 21:00 Nasal Cannula 2.0 Nasal Cannula 2.0 04/09/19 21:00 101 80/54 04/09/19 20:00 97.4 101 18 80/54 (63) 97 04/09/19 20:00 100 04/09/19 19:12 81 18 100 Nasal Cannula 2.0 28 04/09/19 19:05 82 16 97 Nasal Cannula 2.0 28 04/09/19 19:05 97 Nasal Cannula 2.0 04/09/19 16:00 97.4 90 18 119/62 (81) 97 04/09/19 16:00 97 04/09/19 12:57 84 18 99 Nasal Cannula 2.0 28 04/09/19 12:45 74 16 96 Nasal Cannula 2.0 28 Intake and Output 04/10/19 04/11/19 18:59 06:59 Intake Total 720 ml 480 ml Output Total 400 ml 1300 ml Balance 320 ml -820 ml Intake Oral 720 ml 480 ml Output Urine Total 400 ml 1300 ml # Voids 2 Labs Test 04/09/19 06:12 04/10/19 07:11 04/10/19 14:45 04/10/19 18:15 White Blood Count 16.5 K/UL (4.8-10.8) 20.8 K/UL (4.8-10.8) Red Blood Count 3.91 M/UL (4.20-5.40) 4.20 M/UL (4.20-5.40) Hemoglobin 11.6 G/DL (12.0-16.0) 12.1 G/DL (12.0-16.0) Hematocrit 36.1 % (37.0-47.0) 38.9 % (37.0-47.0) Mean Corpuscular Volume 92 FL (80-99) 93 FL (80-99) Mean Corpuscular Hemoglobin 29.6 PG (27.0-31.0) 28.8 PG (27.0-31.0) Mean Corpuscular Hemoglobin Concent 32.0 G/DL (32.0-36.0) 31.1 G/DL (32.0-36.0) Red Cell Distribution Width 15.0 % (11.6-14.8) 15.2 % (11.6-14.8) Platelet Count 313 K/UL (150-450) 332 K/UL (150-450) Mean Platelet Volume 5.8 FL (6.5-10.1) 6.4 FL (6.5-10.1) Neutrophils (%) (Auto) 75.2 % (45.0-75.0) % (45.0-75.0) Lymphocytes (%) (Auto) 18.4 % (20.0-45.0) % (20.0-45.0) Monocytes (%) (Auto) 4.9 % (1.0-10.0) % (1.0-10.0) Eosinophils (%) (Auto) 0.8 % (0.0-3.0) % (0.0-3.0) Basophils (%) (Auto) 0.7 % (0.0-2.0) % (0.0-2.0) Sodium Level 135 MMOL/L (136-145) 133 MMOL/L (136-145) Potassium Level 3.4 MMOL/L (3.5-5.1) 4.5 MMOL/L (3.5-5.1) Chloride Level 96 MMOL/L (98-107) 96 MMOL/L (98-107) Carbon Dioxide Level 30 MMOL/L (21-32) 23 MMOL/L (21-32) Anion Gap 10 mmol/L (5-15) 14 mmol/L (5-15) Blood Urea Nitrogen 31 mg/dL (7-18) 46 mg/dL (7-18) Creatinine 1.5 MG/DL (0.55-1.30) 1.9 MG/DL (0.55-1.30) Estimat Glomerular Filtration Rate 42.3 mL/min (>60) 32.2 mL/min (>60) Glucose Level 144 MG/DL (74-106) 310 MG/DL (74-106) Calcium Level 9.8 MG/DL (8.5-10.1) 9.4 MG/DL (8.5-10.1) Random Vancomycin Level 11.1 ug/mL 13.0 ug/mL Differential Total Cells Counted 100 Neutrophils % (Manual) 94 % (45-75) Lymphocytes % (Manual) 3 % (20-45) Monocytes % (Manual) 3 % (1-10) Eosinophils % (Manual) 0 % (0-3) Basophils % (Manual) 0 % (0-2) Band Neutrophils 0 % (0-8) Platelet Estimate Adequate Platelet Morphology Normal Anisocytosis 1+ Urine Color Pale yellow Urine Appearance Clear Urine pH 6 (4.5-8.0) Urine Specific [place] 1.015 (1.005-1.035) Urine Protein 1+ (NEGATIVE) Urine Glucose (UA) Negative (NEGATIVE) Urine Ketones Negative (NEGATIVE) Urine Blood Negative (NEGATIVE) Urine Nitrite Negative (NEGATIVE) Urine Bilirubin Negative (NEGATIVE) Urine Urobilinogen Normal MG/DL (0.0-1.0) Urine Leukocyte Esterase 1+ (NEGATIVE) Urine RBC 0-2 /HPF (0 - 2) Urine WBC 5-10 /HPF (0 - 2) Urine Squamous Epithelial Cells Moderate /LPF (NONE/OCC) Urine Bacteria Few /HPF (NONE) Test 04/11/19 06:46 White Blood Count 20.3 K/UL (4.8-10.8) Red Blood Count 4.11 M/UL (4.20-5.40) Hemoglobin 12.0 G/DL (12.0-16.0) Hematocrit 38.2 % (37.0-47.0) Mean Corpuscular Volume 93 FL (80-99) Mean Corpuscular Hemoglobin 29.2 PG (27.0-31.0) Mean Corpuscular Hemoglobin Concent 31.4 G/DL (32.0-36.0) Red Cell Distribution Width 15.1 % (11.6-14.8) Platelet Count 329 K/UL (150-450) Mean Platelet Volume 6.2 FL (6.5-10.1) Neutrophils (%) (Auto) % (45.0-75.0) Lymphocytes (%) (Auto) % (20.0-45.0) Monocytes (%) (Auto) % (1.0-10.0) Eosinophils (%) (Auto) % (0.0-3.0) Basophils (%) (Auto) % (0.0-2.0) Differential Total Cells Counted 100 Neutrophils % (Manual) 81 % (45-75) Lymphocytes % (Manual) 15 % (20-45) Monocytes % (Manual) 4 % (1-10) Eosinophils % (Manual) 0 % (0-3) Basophils % (Manual) 0 % (0-2) Band Neutrophils 0 % (0-8) Platelet Estimate Adequate Platelet Morphology Normal Hypochromasia 1+ Anisocytosis 1+ Sodium Level 134 MMOL/L (136-145) Potassium Level 4.1 MMOL/L (3.5-5.1) Chloride Level 99 MMOL/L (98-107) Carbon Dioxide Level 27 MMOL/L (21-32) Anion Gap 8 mmol/L (5-15) Blood Urea Nitrogen 40 mg/dL (7-18) Creatinine 1.6 MG/DL (0.55-1.30) Estimat Glomerular Filtration Rate 39.3 mL/min (>60) Glucose Level 148 MG/DL (74-106) Calcium Level 9.6 MG/DL (8.5-10.1) Height (Feet): 5 Height (Inches): 5.00 Weight (Pounds): 300 Objective Vital Signs have been reviewed Gen: nad, alert Head: PERRL, hearing grossly normal Neck: full range of motion, supple/symm/no masses Respiratory: chest non-tender, wheezing CV: regular rate, rhythm, no edema ++ icd Gastrointestinal: normal BSs, nt, nd Lymphatic: no adenopathy Emmett Evangelista MD Apr 11, 2019 12:05
--- NOTE | 2019-04-11 12:44 | General Progress Note ---
Assessment/Plan Problem List: (1) Diabetes mellitus ICD Codes: E11.9 - Type 2 diabetes mellitus without complications SNOMED: 71358139 (2) Hypertension ICD Codes: I10 - Essential (primary) hypertension SNOMED: 27205048 (3) Acute exacerbation of chronic bronchitis ICD Codes: J42 - Acute exacerbation of chronic bronchitis SNOMED: 117824676 (4) ACS (acute coronary syndrome) ICD Codes: I24.9 - Acute ischemic heart disease, unspecified SNOMED: 264774132 Status: stable, progressing Assessment/Plan: cardio pulm f/u o2 pulm tx abx prn cbc bmp am aru eval Subjective Constitutional: Reports: weakness Allergies: Coded Allergies: SIMVASTATIN (Verified Adverse Reaction, Intermediate, NAUSEA AND VOMITTING , 03/20/19) All Systems: reviewed and negative except above Subjective eating calm Objective Last 24 Hour Vital Signs Date Time Temp Pulse Resp B/P (MAP) Pulse Ox O2 Delivery O2 Flow Rate FiO2 04/11/19 12:00 98.0 89 16 101/71 (81) 100 04/11/19 12:00 91 04/11/19 09:00 Nasal Cannula 2.0 Nasal Cannula 2.0 04/11/19 08:24 92/57 04/11/19 08:23 94 92/57 04/11/19 08:00 95 04/11/19 08:00 98.3 96 16 92/57 (69) 100 04/11/19 07:16 91 18 100 Nasal Cannula 2.0 28 04/11/19 07:05 98 Nasal Cannula 2.0 28 04/11/19 07:05 98 18 98 Nasal Cannula 2.0 28 04/11/19 04:07 90 04/11/19 04:00 97.6 86 19 94/68 (77) 100 04/11/19 01:31 85 18 99 Nasal Cannula 2.0 28 04/11/19 01:21 86 18 99 Nasal Cannula 2.0 28 04/11/19 00:01 97.7 80 18 117/70 (86) 99 04/11/19 00:00 88 04/10/19 21:00 84 99/62 04/10/19 21:00 Nasal Cannula 2.0 Nasal Cannula 2.0 04/10/19 20:00 97.5 84 18 99/62 (74) 99 04/10/19 20:00 85 04/10/19 19:59 87 20 99 Nasal Cannula 2.0 28 04/10/19 19:49 98 Nasal Cannula 2.0 28 04/10/19 19:49 85 18 98 Nasal Cannula 2.0 28 04/10/19 16:00 98.1 86 18 107/70 (82) 100 04/10/19 16:00 95 04/10/19 13:15 88 20 100 Nasal Cannula 2.0 28 04/10/19 13:00 74 18 96 Nasal Cannula 2.0 28 Intake and Output 04/10/19 04/11/19 18:59 06:59 Intake Total 720 ml 480 ml Output Total 400 ml 1300 ml Balance 320 ml -820 ml Intake Oral 720 ml 480 ml Output Urine Total 400 ml 1300 ml # Voids 2 Laboratory Tests 04/10/19 14:45: Random Vancomycin Level 13.0 04/10/19 18:15: Urine Color Pale yellow, Urine Appearance Clear, Urine pH 6, Urine Specific [place] 1.015, Urine Protein 1+H, Urine Glucose (UA) Negative, Urine Ketones Negative, Urine Blood Negative, Urine Nitrite Negative, Urine Bilirubin Negative , Urine Urobilinogen Normal, Urine Leukocyte Esterase 1+H, Urine RBC 0-2, Urine WBC 5-10H, Urine Squamous Epithelial Cells ModerateH, Urine Bacteria Few 04/11/19 06:46: White Blood Count 20.3H, Red Blood Count 4.11L, Hemoglobin 12.0, Hematocrit 38.2 , Mean Corpuscular Volume 93, Mean Corpuscular Hemoglobin 29.2, Mean Corpuscular Hemoglobin Concent 31.4L, Red Cell Distribution Width 15.1H, Platelet Count 329, Mean Platelet Volume 6.2L, Neutrophils (%) (Auto) , Lymphocytes (%) (Auto) , Monocytes (%) (Auto) , Eosinophils (%) (Auto) , Basophils (%) (Auto) , Differential Total Cells Counted 100, Neutrophils % ( Manual) 81H, Lymphocytes % (Manual) 15L, Monocytes % (Manual) 4, Eosinophils % ( Manual) 0, Basophils % (Manual) 0, Band Neutrophils 0, Platelet Estimate Adequate, Platelet Morphology Normal, Hypochromasia 1+, Anisocytosis 1+, Sodium Level 134L, Potassium Level 4.1, Chloride Level 99, Carbon Dioxide Level 27, Anion Gap 8, Blood Urea Nitrogen 40H, Creatinine 1.6H, Estimat Glomerular Filtration Rate 39.3, Glucose Level 148#H, Calcium Level 9.6 Height (Feet): 5 Height (Inches): 5.00 Weight (Pounds): 300 General Appearance: lethargic EENT: normal ENT inspection Neck: normal alignment Cardiovascular: normal peripheral pulses, normal rate, regular rhythm Respiratory/Chest: chest wall non-tender, lungs clear, normal breath sounds Abdomen: normal bowel sounds, non tender, soft Extremities: normal inspection Edema: no edema noted Arm (L), no edema noted Arm (R), no edema noted Leg (L), no edema noted Leg (R), no edema noted Pedal (L), no edema noted Pedal (R), no edema noted Generalized Neurologic: responsive, motor weakness Skin: normal pigmentation, warm/dry Chiki Pimentel DO Apr 11, 2019 12:44
--- NOTE | 2019-04-11 13:02 | Diagnostic Imaging Report ---
Indication: Dyspnea Comparison: 04/09/2019 A single view chest radiograph was obtained. Findings: Compared to the last examination there appears to be increased pulmonary vascularity. The heart is also enlarged. Left hemidiaphragm remains elevated. Left pacemaker noted once again. Sternotomy noted. IMPRESSION: Some prominence of pulmonary vascularity without overt CHF. Correlate clinically. Suggest follow-up as needed.
--- NOTE | 2019-04-11 13:29 | Cardiac Electrophysiology PN ---
Assessment/Plan Assessment/Plan 1. Chest pain, the patient with history of heart surgery but denies CABG. 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 Awaiting records from [facility]. Ruled out for myocardial infarction. Continue aspirin, Coreg and Lipitor. Nuclear stress test showed Inferoapical infarct. Doubt but cannot completely exclude a small area of ignacio-infarct ischemia at the lateral wall border of the infarct. 2. Status post [employer] defibrillator implantation. Interrogated and showed nl Fx battery 4 years No events 3. History of cardiomyopathy, high BNP,EF 15% on Coreg 3.125 mg and Lasix 40 po daily and lisinopril 4. New diagnosis of atrial fibrillation on the EKG . Currently in sinus rhythm. Hold off on anticoagulation on Coreg 5. Elevated white count, on Zosyn per ID. 6. COPD. 7. Obesity. CIRILO RN Subjective Subjective No CP. In SR with PVCs. [facility] stated it takes 2 weeks to get the op report of her hear surgery. Objective Last 24 Hour Vital Signs Date Time Temp Pulse Resp B/P (MAP) Pulse Ox O2 Delivery O2 Flow Rate FiO2 04/11/19 12:57 90 18 100 Nasal Cannula 2.0 28 04/11/19 12:47 80 18 97 Nasal Cannula 2.0 28 04/11/19 12:00 98.0 89 16 101/71 (81) 100 04/11/19 12:00 91 04/11/19 09:00 Nasal Cannula 2.0 Nasal Cannula 2.0 04/11/19 08:24 92/57 04/11/19 08:23 94 92/57 04/11/19 08:00 95 04/11/19 08:00 98.3 96 16 92/57 (69) 100 04/11/19 07:16 91 18 100 Nasal Cannula 2.0 28 04/11/19 07:05 98 Nasal Cannula 2.0 28 04/11/19 07:05 98 18 98 Nasal Cannula 2.0 04/11/19 04:07 90 04/11/19 04:00 97.6 86 19 94/68 (77) 100 04/11/19 01:31 85 18 99 Nasal Cannula 2.0 28 04/11/19 01:21 86 18 99 Nasal Cannula 2.0 28 04/11/19 00:01 97.7 80 18 117/70 (86) 99 04/11/19 00:00 88 8/4/19 21:00 84 99/62 04/10/19 21:00 Nasal Cannula 2.0 Nasal Cannula 2.0 04/10/19 20:00 97.5 84 18 99/62 (74) 99 04/10/19 20:00 85 04/10/19 19:59 87 20 99 Nasal Cannula 2.0 28 04/10/19 19:49 98 Nasal Cannula 2.0 28 04/10/19 19:49 85 18 98 Nasal Cannula 2.0 28 04/10/19 16:00 98.1 86 18 107/70 (82) 100 04/10/19 16:00 95 Intake and Output 04/10/19 04/11/19 18:59 06:59 Intake Total 720 ml 480 ml Output Total 400 ml 1300 ml Balance 320 ml -820 ml Intake Oral 720 ml 480 ml Output Urine Total 400 ml 1300 ml # Voids 2 Laboratory Tests Test 04/10/19 14:45 04/10/19 18:15 04/11/19 06:46 Random Vancomycin Level 13.0 ug/mL Urine Color Pale yellow Urine Appearance Clear Urine pH 6 (4.5-8.0) Urine Specific [place] 1.015 (1.005-1.035) Urine Protein 1+ (NEGATIVE) H Urine Glucose (UA) Negative (NEGATIVE) Urine Ketones Negative (NEGATIVE) Urine Blood Negative (NEGATIVE) Urine Nitrite Negative (NEGATIVE) Urine Bilirubin Negative (NEGATIVE) Urine Urobilinogen Normal MG/DL (0.0-1.0) Urine Leukocyte Esterase 1+ (NEGATIVE) H Urine RBC 0-2 /HPF (0 - 2) Urine WBC 5-10 /HPF (0 - 2) H Urine Squamous Epithelial Cells Moderate /LPF (NONE/OCC) H Urine Bacteria Few /HPF (NONE) White Blood Count 20.3 K/UL (4.8-10.8) H Red Blood Count 4.11 M/UL (4.20-5.40) L Hemoglobin 12.0 G/DL (12.0-16.0) Hematocrit 38.2 % (37.0-47.0) Mean Corpuscular Volume 93 FL (80-99) Mean Corpuscular Hemoglobin 29.2 PG (27.0-31.0) Mean Corpuscular Hemoglobin Concent 31.4 G/DL (32.0-36.0) L Red Cell Distribution Width 15.1 % (11.6-14.8) H Platelet Count 329 K/UL (150-450) Mean Platelet Volume 6.2 FL (6.5-10.1) L Neutrophils (%) (Auto) % (45.0-75.0) Lymphocytes (%) (Auto) % (20.0-45.0) Monocytes (%) (Auto) % (1.0-10.0) Eosinophils (%) (Auto) % (0.0-3.0) Basophils (%) (Auto) % (0.0-2.0) Differential Total Cells Counted 100 Neutrophils % (Manual) 81 % (45-75) H Lymphocytes % (Manual) 15 % (20-45) L Monocytes % (Manual) 4 % (1-10) Eosinophils % (Manual) 0 % (0-3) Basophils % (Manual) 0 % (0-2) Band Neutrophils 0 % (0-8) Platelet Estimate Adequate Platelet Morphology Normal Hypochromasia 1+ Anisocytosis 1+ Sodium Level 134 MMOL/L (136-145) L Potassium Level 4.1 MMOL/L (3.5-5.1) Chloride Level 99 MMOL/L (98-107) Carbon Dioxide Level 27 MMOL/L (21-32) Anion Gap 8 mmol/L (5-15) Blood Urea Nitrogen 40 mg/dL (7-18) H Creatinine 1.6 MG/DL (0.55-1.30) H Estimat Glomerular Filtration Rate 39.3 mL/min (>60) Glucose Level 148 MG/DL (74-106) #H Calcium Level 9.6 MG/DL (8.5-10.1) Objective HEAD AND NECK: Mild JVD. LUNGS: Clear. CARDIOVASCULAR: Regular S1 and S2 with no murmur. Sternotomy scar is intact. Defibrillator is in left subclavian. ABDOMEN: Soft. EXTREMITIES: No pitting edema. Dexter Dewitt MD Apr 11, 2019 13:29
--- NOTE | 2019-04-11 13:49 | NUR ---
*-* INSURANCE *-* ALL CLINICALS AND REVIEWS HAVE BEEN FAXED TO: [facility] REF# [id number] F:[phone] [facility] NEEDS P: [phone]
--- NOTE | 2019-04-11 13:55 | NUR ---
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
--- NOTE | 2019-04-11 14:00 | NUR ---
NURSE NOTES: Dr. Dewitt made aware was told Fax will take 15 days for medical record. Patient's family member provided tele number, fax number for [facility], tele [phone], . Called [facility] and clarify the fax number, faxed request form second time as urgent. Awaiting for fax. Will continue to monitor.
--- NOTE | 2019-04-11 14:04 | Pulmonology Progress Note ---
Assessment/Plan Problems: (1) End-stage systolic heart failure (2) Persistent leukocytosis (3) ACS (acute coronary syndrome) (4) COPD (chronic obstructive pulmonary disease) (5) Cardiomyopathy (6) Hypertension (7) Diabetes mellitus Assessment/Plan ? etiology of leukocytosis, n o fever, f/u by ID all cultures negative so far. consider comfort care Subjective ROS Limited/Unobtainable: No Constitutional: Reports: no symptoms HEENT: Repors: no symptoms Allergies: Coded Allergies: SIMVASTATIN (Verified Adverse Reaction, Intermediate, NAUSEA AND VOMITTING , 03/20/19) Objective Last 24 Hour Vital Signs Date Time Temp Pulse Resp B/P (MAP) Pulse Ox O2 Delivery O2 Flow Rate FiO2 04/11/19 12:57 90 18 100 Nasal Cannula 2.0 04/11/19 12:47 80 18 97 Nasal Cannula 2.0 28 04/11/19 12:00 98.0 89 16 101/71 (81) 100 04/11/19 12:00 91 04/11/19 09:00 Nasal Cannula 2.0 Nasal Cannula 2.0 04/11/19 08:24 92/57 04/11/19 08:23 94 92/57 04/11/19 08:00 95 04/11/19 08:00 98.3 96 16 92/57 (69) 100 04/11/19 07:16 91 18 100 Nasal Cannula 2.0 04/11/19 07:05 98 Nasal Cannula 2.0 04/11/19 07:05 98 18 98 Nasal Cannula 2.0 04/11/19 04:07 90 04/11/19 04:00 97.6 86 19 94/68 (77) 100 04/11/19 01:31 85 18 99 Nasal Cannula 2.0 04/11/19 01:21 86 18 99 Nasal Cannula 2.0 04/11/19 00:01 97.7 80 18 117/70 (86) 99 04/11/19 00:00 88 04/10/19 21:00 84 99/62 04/10/19 21:00 Nasal Cannula 2.0 Nasal Cannula 2.0 04/10/19 20:00 97.5 84 18 99/62 (74) 99 04/10/19 20:00 85 04/10/19 19:59 87 20 99 Nasal Cannula 2.0 28 04/10/19 19:49 98 Nasal Cannula 2.0 28 04/10/19 19:49 85 18 98 Nasal Cannula 2.0 28 04/10/19 16:00 98.1 86 18 107/70 (82) 100 04/10/19 16:00 95 Intake and Output 04/10/19 04/11/19 18:59 06:59 Intake Total 720 ml 480 ml Output Total 400 ml 1300 ml Balance 320 ml -820 ml Intake Oral 720 ml 480 ml Output Urine Total 400 ml 1300 ml # Voids 2 General Appearance: WD/WN HEENT: normocephalic, anicteric Respiratory/Chest: chest wall non-tender, lungs clear Abdomen: soft, non tender Extremities: no cyanosis 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 Laboratory Tests 04/10/19 14:45: Random Vancomycin Level 13.0 04/10/19 18:15: Urine Color Pale yellow, Urine Appearance Clear, Urine pH 6, Urine Specific [place] 1.015, Urine Protein 1+H, Urine Glucose (UA) Negative, Urine Ketones Negative, Urine Blood Negative, Urine Nitrite Negative, Urine Bilirubin Negative , Urine Urobilinogen Normal, Urine Leukocyte Esterase 1+H, Urine RBC 0-2, Urine WBC 5-10H, Urine Squamous Epithelial Cells ModerateH, Urine Bacteria Few 04/11/19 06:46: White Blood Count 20.3H, Red Blood Count 4.11L, Hemoglobin 12.0, Hematocrit 38.2 , Mean Corpuscular Volume 93, Mean Corpuscular Hemoglobin 29.2, Mean Corpuscular Hemoglobin Concent 31.4L, Red Cell Distribution Width 15.1H, Platelet Count 329, Mean Platelet Volume 6.2L, Neutrophils (%) (Auto) , Lymphocytes (%) (Auto) , Monocytes (%) (Auto) , Eosinophils (%) (Auto) , Basophils (%) (Auto) , Differential Total Cells Counted 100, Neutrophils % ( Manual) 81H, Lymphocytes % (Manual) 15L, Monocytes % (Manual) 4, Eosinophils % ( Manual) 0, Basophils % (Manual) 0, Band Neutrophils 0, Platelet Estimate Adequate, Platelet Morphology Normal, Hypochromasia 1+, Anisocytosis 1+, Sodium Level 134L, Potassium Level 4.1, Chloride Level 99, Carbon Dioxide Level 27, Anion Gap 8, Blood Urea Nitrogen 40H, Creatinine 1.6H, Estimat Glomerular Filtration Rate 39.3, Glucose Level 148#H, Calcium Level 9.6 Current Medications Medications (Trade) Dose Ordered Sig/Cassidy Route PRN Reason Start Time Stop Time Status Last Admin Dose Admin Acetaminophen (Tylenol) 650 mg Q4H PRN ORAL FEVER 04/07/19 12:00 05/07/19 11:59 Albuterol/ Ipratropium (Albuterol/ Ipratropium) 3 ml Q4H PRN HHN Shortness of Breath 04/07/19 12:00 04/12/19 11:59 04/08/19 21:22 Albuterol/ Ipratropium (Albuterol/ Ipratropium) 3 ml Q6HRT HHN 04/07/19 07:00 04/12/19 06:59 04/11/19 12:49 Aspirin (ASA) 162 mg DAILY ORAL 04/08/19 09:00 05/08/19 08:59 04/11/19 08:10 Carvedilol (Coreg) 3.125 mg BID@0900,2100 ORAL 04/07/19 21:00 05/07/19 08:59 04/09/19 08:26 Dextrose (Dextrose 50%) 25 ml Q30M PRN IV Hypoglycemia 04/07/19 12:00 05/07/19 11:53 Dextrose (Dextrose 50%) 50 ml Q30M PRN IV hypoglycemia 04/07/19 12:00 05/07/19 11:59 Diltiazem HCl (Cardizem) 10 mg Q1H PRN IV heart rate more than 120, 04/07/19 12:00 05/07/19 11:59 Docusate Sodium (Colace) 250 mg DAILY ORAL 04/07/19 09:00 05/07/19 08:59 04/11/19 08:10 Enalaprilat (Vasotec) 2.5 mg Q6H PRN IV sbp more than 160 04/07/19 12:00 05/07/19 11:59 Enoxaparin Sodium (Lovenox) 40 mg DAILY SUBQ 04/07/19 09:00 05/07/19 08:59 04/11/19 08:11 Famotidine (Pepcid) 20 mg DAILY ORAL 04/07/19 09:00 05/07/19 08:59 04/11/19 08:11 Furosemide (Lasix) 40 mg DAILY ORAL 04/11/19 09:00 05/11/19 08:59 04/11/19 08:20 Insulin Aspart (NovoLOG) BEFORE MEALS AND HS SUBQ 04/07/19 16:30 05/07/19 16:29 04/11/19 11:28 Levothyroxine Sodium (Synthroid) 88 mcg DAILY@0630 ORAL 04/10/19 07:30 05/10/19 07:29 04/11/19 06:32 Lisinopril (Zestril) 10 mg DAILY ORAL 04/11/19 09:00 05/09/19 08:59 Lorazepam (Ativan) 0.5 mg Q4H PRN ORAL For Anxiety 04/07/19 12:00 04/14/19 11:59 Nitroglycerin (Ntg) 0.4 mg Q5M PRN SL Prn Chest Pain 04/07/19 12:00 05/07/19 11:59 Ondansetron HCl (Zofran) 4 mg Q6H PRN IVP Nausea & Vomiting 04/07/19 02:45 05/07/19 02:44 Piperacillin Sod/ Tazobactam Sod 3.375 gm/Sodium Chloride 110 ml @ 27.5 mls/hr Q8HR@0000,0800,1600 IVPB 04/09/19 16:00 04/16/19 15:59 04/11/19 08:10 Polyethylene Glycol (Miralax) 17 gm DAILYPRN PRN ORAL Constipation 04/07/19 12:00 05/07/19 11:59 Temazepam (Restoril) 15 mg HSPRN PRN ORAL Insomnia 04/07/19 12:00 04/14/19 11:59 Tramadol HCl (Ultram) 50 mg Q6H PRN ORAL Moderate Pain (Pain Scale 4-6) 04/07/19 03:45 04/14/19 03:44 04/11/19 13:17 Vancomycin HCl (Vanco rx to dose) 1 ea DAILY PRN MISC Per rx protocol 04/08/19 11:30 05/08/19 11:29 Shadi Jo MD Apr 11, 2019 14:04
--- NOTE | 2019-04-11 15:11 | NUR ---
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 98.0 HR 80 RR 18 B/P 92/57 WBC 20.3 BUN 40 CR 1.6 NA 134 IS: ZOSYN IV PEPCID LOVENOX SUBC LASIX TELE STATUS
--- NOTE | 2019-04-11 15:50 | Infectious Diseases Prog Note ---
Assessment/Plan Assessment/Plan Assessment: Afebrile Leukocytosis; worsening (s/p high dose stseroisd)- r/o UTI (recent dysuria), r/ o bacteremia (+AICD present) -04/11 CXR: Some prominence of pulmonary vascularity without overt CHF -04/09 CXR: Reduced lung volumes. No confluent consolidation. No edema. -CXR: Doubt but cannot exclude minimal interstitial congestion. Other stable findings as described -u/a wbc 5-10, nit neg, leuk +1 -Bcx NTD -sp cx p Chest pain -2d Echo: EF 15-20%, no vegetations DM2 HTN RI/CAD s/p CABG 2018 CHF s/p AICD Asthma/COPD sacral decubitus ulcer VRE and CRE colonized Plan: -Cont empiric Zosyn #4 (abx #5) and add IV Vancomycin #4 pending u/a and Bcx -04/08 SP Ceftriaxone #2 -f/u cx -Monitor CBC/CMP, temperatures -f.u CXR -f/u Bcx x2, ucx , sp cx -Cdiff if diarrhea Thank you for this consultation. Will continue to follow along with you. Discussed with RN. Subjective Allergies: Coded Allergies: SIMVASTATIN (Verified Adverse Reaction, Intermediate, NAUSEA AND VOMITTING , 03/20/19) Subjective afebrile wbc increased to 20 s/p steroids Bcx NTD Objective Vital Signs Last 24 Hour Vital Signs Date Time Temp Pulse Resp B/P (MAP) Pulse Ox O2 Delivery O2 Flow Rate FiO2 04/11/19 12:57 90 18 100 Nasal Cannula 2.0 28 04/11/19 12:47 80 18 97 Nasal Cannula 2.0 28 04/11/19 12:00 98.0 89 16 101/71 (81) 100 04/11/19 12:00 91 04/11/19 09:00 Nasal Cannula 2.0 Nasal Cannula 2.0 04/11/19 08:24 92/57 04/11/19 08:23 94 92/57 04/11/19 08:00 95 04/11/19 08:00 98.3 96 16 92/57 (69) 100 04/11/19 07:16 91 18 100 Nasal Cannula 2.0 28 04/11/19 07:05 98 Nasal Cannula 2.0 28 04/11/19 07:05 98 18 98 Nasal Cannula 2.0 28 04/11/19 04:07 90 04/11/19 04:00 97.6 86 19 94/68 (77) 100 04/11/19 01:31 85 18 99 Nasal Cannula 2.0 28 04/11/19 01:21 86 18 99 Nasal Cannula 2.0 28 04/11/19 00:01 97.7 80 18 117/70 (86) 99 04/11/19 00:00 88 04/10/19 21:00 84 99/62 04/10/19 21:00 Nasal Cannula 2.0 Nasal Cannula 2.0 04/10/19 20:00 97.5 84 18 99/62 (74) 99 04/10/19 20:00 85 04/10/19 19:59 87 20 99 Nasal Cannula 2.0 28 04/10/19 19:49 98 Nasal Cannula 2.0 28 04/10/19 19:49 85 18 98 Nasal Cannula 2.0 28 04/10/19 16:00 98.1 86 18 107/70 (82) 100 04/10/19 16:00 95 Height (Feet): 5 Height (Inches): 5.00 Weight (Pounds): 300 Objective General Appearance: lethargic EENT: normal ENT inspection Neck: normal alignment Cardiovascular: normal peripheral pulses, normal rate, regular rhythm Respiratory/Chest: chest wall non-tender, lungs clear, no respiratory distress Abdomen: normal bowel sounds, non tender, soft Extremities: normal inspection Edema: no edema noted Arm (L), no edema noted Arm (R), no edema noted Leg (L), no edema noted Leg (R), no edema noted Pedal (L), no edema noted Pedal (R), no edema noted Generalized Neurologic: motor weakness Skin: normal pigmentation, warm/dry Microbiology Date/Time Source Procedure Growth Status 04/10/19 18:15 Sputum Expectorated Gram Stain - Final Resulted 04/10/19 18:15 Sputum Expectorated Sputum Culture Pending Resulted Laboratory Tests Test 04/10/19 18:15 04/11/19 06:46 Urine Color Pale yellow Urine Appearance Clear Urine pH 6 (4.5-8.0) Urine Specific [place] 1.015 (1.005-1.035) Urine Protein 1+ (NEGATIVE) H Urine Glucose (UA) Negative (NEGATIVE) Urine Ketones Negative (NEGATIVE) Urine Blood Negative (NEGATIVE) Urine Nitrite Negative (NEGATIVE) Urine Bilirubin Negative (NEGATIVE) Urine Urobilinogen Normal MG/DL (0.0-1.0) Urine Leukocyte Esterase 1+ (NEGATIVE) H Urine RBC 0-2 /HPF (0 - 2) Urine WBC 5-10 /HPF (0 - 2) H Urine Squamous Epithelial Cells Moderate /LPF (NONE/OCC) H Urine Bacteria Few /HPF (NONE) White Blood Count 20.3 K/UL (4.8-10.8) H Red Blood Count 4.11 M/UL (4.20-5.40) L Hemoglobin 12.0 G/DL (12.0-16.0) Hematocrit 38.2 % (37.0-47.0) Mean Corpuscular Volume 93 FL (80-99) Mean Corpuscular Hemoglobin 29.2 PG (27.0-31.0) Mean Corpuscular Hemoglobin Concent 31.4 G/DL (32.0-36.0) L Red Cell Distribution Width 15.1 % (11.6-14.8) H Platelet Count 329 K/UL (150-450) Mean Platelet Volume 6.2 FL (6.5-10.1) L Neutrophils (%) (Auto) % (45.0-75.0) Lymphocytes (%) (Auto) % (20.0-45.0) Monocytes (%) (Auto) % (1.0-10.0) Eosinophils (%) (Auto) % (0.0-3.0) Basophils (%) (Auto) % (0.0-2.0) Differential Total Cells Counted 100 Neutrophils % (Manual) 81 % (45-75) H Lymphocytes % (Manual) 15 % (20-45) L Monocytes % (Manual) 4 % (1-10) Eosinophils % (Manual) 0 % (0-3) Basophils % (Manual) 0 % (0-2) Band Neutrophils 0 % (0-8) Platelet Estimate Adequate Platelet Morphology Normal Hypochromasia 1+ Anisocytosis 1+ Sodium Level 134 MMOL/L (136-145) L Potassium Level 4.1 MMOL/L (3.5-5.1) Chloride Level 99 MMOL/L (98-107) Carbon Dioxide Level 27 MMOL/L (21-32) Anion Gap 8 mmol/L (5-15) Blood Urea Nitrogen 40 mg/dL (7-18) H Creatinine 1.6 MG/DL (0.55-1.30) H Estimat Glomerular Filtration Rate 39.3 mL/min (>60) Glucose Level 148 MG/DL (74-106) #H Calcium Level 9.6 MG/DL (8.5-10.1) Current Medications Medications (Trade) Dose Ordered Sig/Cassidy Route PRN Reason Start Time Stop Time Status Last Admin Dose Admin Acetaminophen (Tylenol) 650 mg Q4H PRN ORAL FEVER 04/07/19 12:00 05/07/19 11:59 Albuterol/ Ipratropium (Albuterol/ Ipratropium) 3 ml Q4H PRN HHN Shortness of Breath 04/07/19 12:00 04/12/19 11:59 04/08/19 21:22 Albuterol/ Ipratropium (Albuterol/ Ipratropium) 3 ml Q6HRT HHN 04/07/19 07:00 04/12/19 06:59 04/11/19 12:49 Aspirin (ASA) 162 mg DAILY ORAL 04/08/19 09:00 05/08/19 08:59 04/11/19 08:10 Carvedilol (Coreg) 3.125 mg BID@0900,2100 ORAL 04/07/19 21:00 05/07/19 08:59 04/09/19 08:26 Dextrose (Dextrose 50%) 25 ml Q30M PRN IV Hypoglycemia 04/07/19 12:00 05/07/19 11:53 Dextrose (Dextrose 50%) 50 ml Q30M PRN IV hypoglycemia 04/07/19 12:00 05/07/19 11:59 Diltiazem HCl (Cardizem) 10 mg Q1H PRN IV heart rate more than 120, 04/07/19 12:00 05/07/19 11:59 Docusate Sodium (Colace) 250 mg DAILY ORAL 04/07/19 09:00 05/07/19 08:59 04/11/19 08:10 Enalaprilat (Vasotec) 2.5 mg Q6H PRN IV sbp more than 160 04/07/19 12:00 05/07/19 11:59 Enoxaparin Sodium (Lovenox) 40 mg DAILY SUBQ 04/07/19 09:00 05/07/19 08:59 04/11/19 08:11 Famotidine (Pepcid) 20 mg DAILY ORAL 04/07/19 09:00 05/07/19 08:59 04/11/19 08:11 Furosemide (Lasix) 40 mg DAILY ORAL 04/11/19 09:00 05/11/19 08:59 04/11/19 08:20 Insulin Aspart (NovoLOG) BEFORE MEALS AND HS SUBQ 04/07/19 16:30 05/07/19 16:29 04/11/19 11:28 Levothyroxine Sodium (Synthroid) 88 mcg DAILY@0630 ORAL 04/10/19 07:30 05/10/19 07:29 04/11/19 06:32 Lisinopril (Zestril) 10 mg DAILY ORAL 04/11/19 09:00 05/09/19 08:59 Lorazepam (Ativan) 0.5 mg Q4H PRN ORAL For Anxiety 04/07/19 12:00 04/14/19 11:59 Nitroglycerin (Ntg) 0.4 mg Q5M PRN SL Prn Chest Pain 04/07/19 12:00 05/07/19 11:59 Ondansetron HCl (Zofran) 4 mg Q6H PRN IVP Nausea & Vomiting 04/07/19 02:45 05/07/19 02:44 Piperacillin Sod/ Tazobactam Sod 3.375 gm/Sodium Chloride 110 ml @ 27.5 mls/hr Q8HR@0000,0800,1600 IVPB 04/09/19 16:00 04/16/19 15:59 04/11/19 08:10 Polyethylene Glycol (Miralax) 17 gm DAILYPRN PRN ORAL Constipation 04/07/19 12:00 05/07/19 11:59 Temazepam (Restoril) 15 mg HSPRN PRN ORAL Insomnia 04/07/19 12:00 04/14/19 11:59 Tramadol HCl (Ultram) 50 mg Q6H PRN ORAL Moderate Pain (Pain Scale 4-6) 04/07/19 03:45 04/14/19 03:44 04/11/19 13:17 Vancomycin HCl (Vanco rx to dose) 1 ea DAILY PRN MISC Per rx protocol 04/08/19 11:30 05/08/19 11:29 Bijal Luque M.D. Apr 11, 2019 15:50
[2019-04-11 16:00] VITALS: BP 93/66
--- NOTE | 2019-04-11 19:50 | NUR ---
NURSE NOTES: Received pt and report from ABAD Ashraf. Observed pt resting in bed with both eyes open and receiving breathing tx with RT. secured entrance monitor is in placed, IV site intact, asymptomatic and patent. Pt has a Arias; patent and draining well. Bed is in the lowest position and locked. Call light within reach. No signs/symptoms of acute distress noted at this time. Will continue plan of care.
--- NOTE | 2019-04-11 19:59 | NUR ---
HAND-OFF: Report given to My, RN.
[2019-04-11 20:00] VITALS: BP 97/69
[2019-04-12] VITALS: BP 98/69
[2019-04-12] MEDS: Piperacillin/Tazobactam 3.375 GM in NS 110 ML IVPB SCH ×3 (00:14→16:00)
[2019-04-12] MEDS: Albuterol/Ipratropium 3ml neb HHN SCH (01:17)
[2019-04-12 04:00] VITALS: BP 99/66
[2019-04-12] MEDS: NovoLOG Insulin Flexpen SUBQ SCH ×3 (06:38→16:30)
[2019-04-12 07:05] LABS: ANION GAP 7 mmol/L (5-15); BLOOD UREA NITROGEN 35 mg/dL (7-18); CALCIUM 9.2 MG/DL (8.5-10.1); CARBON DIOXIDE 28 MMOL/L (21-32); CHLORIDE 102 MMOL/L (98-107); CREATININE 1.5 MG/DL (0.55-1.30); POTASSIUM 4.3 MMOL/L (3.5-5.1); SODIUM 137 MMOL/L (136-145)
[2019-04-12 07:06] LABS: BASOPHILS % (AUTO) 1.6 % (0.0-2.0); HEMATOCRIT 37.7 % (37.0-47.0); HEMOGLOBIN 11.9 G/DL (12.0-16.0); LYMPHOCYTES % (AUTO) 19.1 % (20.0-45.0); MEAN CORPUSCULAR VOLUME 92 FL (80-99); MONOCYTES % (AUTO) 6.5 % (1.0-10.0); NEUTROPHILS % (AUTO) 71.7 % (45.0-75.0); PLATELET COUNT 342 K/UL (150-450); RED BLOOD COUNT 4.08 M/UL (4.20-5.40); RED CELL DISTRIBUTION WIDTH 15.6 % (11.6-14.8); WHITE BLOOD COUNT 16.7 K/UL (4.8-10.8)
--- NOTE | 2019-04-12 07:54 | NUR ---
HAND-OFF: Report given to ABAD Sofia.
[2019-04-12 08:00] VITALS: BP 99/71
[2019-04-12] MEDS ORDERED: Vancomycin 1.5gm Premix IVPB ONE ×2 (08:00→13:00)
[2019-04-12] MEDS: Albuterol/Ipratropium 3ml neb HHN PRN (08:05)
--- NOTE | 2019-04-12 08:17 | NUR ---
NURSE NOTES: Report received from ABAD Hinds. Pt shows no signs of distress, A+Ox4, and denies pain/SOB. Respirations are even and unlabored on 2 L NC. IV site is patent, intact, and saline locked. Bed is at lowest position, brakes engaged, siderails x2, bed alarm on, and call light within reach. Pt is in stable condition; will continue to monitor.
[2019-04-12] MEDS: Docusate 250mg cap ORAL SCH (08:50)
[2019-04-12] MEDS: Lisinopril 10mg tab ORAL SCH (08:51)
[2019-04-12] MEDS: Furosemide 40mg tab ORAL SCH (08:51)
[2019-04-12] MEDS: Aspirin Baby 81mg ORAL SCH (08:51)
[2019-04-12] MEDS: Enoxaparin 40mg Inj SUBQ SCH (08:52)
[2019-04-12] MEDS: traMADol 50mg tab ORAL PRN ×2 (09:00→16:59)
--- NOTE | 2019-04-12 09:31 | Hematology/Onc Progress Note ---
Assessment/Plan Assessment/Plan Assessment and Recs: # Leukocytosis/elevated white blood cell count, unspecified likely related to underlying stress reaction (also was given steroids) --> have reviewed peripheral smear and bandemia/neutrophilia noted --> continue antibiotics if they have been started by ID team (is on vanc/zosyn ) per id --> wbc trend 21-->17-->21k-->20k-->16.9 # Hyperproteinemia with decreased albumin -- this is a dissociation that is abnormal --> spep is negative --> may be reactive, decreased prealb # Anemia of chronic disease due to underlying chronic medical issues, multifactorial --> Anemia workup has been ordered, rule out gi bleed --> No evidence of hemolysis is noted, peripheral smear has been reviewed. --> Hgb goal >7. Transfuse prn. --> Epogen or iron at this time is not particularly indicated --> Medications have been reviewed --> hgb trend 10-->11-->11.9 # Atrial fibrillation (acute coronary syndrome), asa was given --> troponins negative, BNP greater than 2000 --> EKG - NSR, no acute ischemic changes interpreted by me --> per cards anticoagulation --> also review records regarding tumor cardiac removal? # CHF (congestive heart failure) --> Chest x-ray- CHF, ICD in place --> cards recs The timing of this note does not necessarily reflect the time of the patient was seen. GREATLY APPRECIATE CONSULTATION. Subjective HEENT: Denies: no symptoms, eye pain, blurred vision, tearing, double vision, ear pain, ear discharge, nose pain, nose congestion, throat pain, throat swelling, mouth pain, mouth swelling, other Cardiovascular: Denies: no symptoms, chest pain, edema, irregular heart rate, lightheadedness, palpitations, syncope, other Respiratory: Denies: no symptoms, cough, shortness of breath, SOB with excertion, SOB at rest, sputum, wheezing, other Genitourinary: Denies: no symptoms, burning, discharge, frequency, flank pain, hematuria, incontinence, pain, urgency, other Neurologic/Psychiatric: Denies: no symptoms, anxiety, depressed, emotional problems, headache, numbness, paresthesia, pre-existing deficit, seizure, tingling, tremors, weakness, other Endocrine: Denies: no symptoms, excessive sweating, flushing, intolerance to cold, intolerance to heat, increased hunger, increased thirst, increased urine, unexplained weight gain, unexplained weight loss, other Allergies: Coded Allergies: SIMVASTATIN (Verified Adverse Reaction, Intermediate, NAUSEA AND VOMITTING , 03/20/19) Subjective 04/08: no fevers or chills or night sweats, seen by cards, potential for nuclear stress test, on abx 04/10: remains on abx, 500cc was given ns given low bp, wbc higher 04/11: no events, remains on 2l nc, no f/c, no night sweats 04/12: is on 2l nc, no complaints, no f/c, getting periodic breathing rx Objective Objective Current Medications Medications (Trade) Dose Ordered Sig/Cassidy Route PRN Reason Start Time Stop Time Status Last Admin Dose Admin Acetaminophen (Tylenol) 650 mg Q4H PRN ORAL FEVER 04/07/19 12:00 05/07/19 11:59 Albuterol/ Ipratropium (Albuterol/ Ipratropium) 3 ml Q4H PRN HHN Shortness of Breath 04/07/19 12:00 04/12/19 11:59 04/12/19 08:05 Albuterol/ Ipratropium (Albuterol/ Ipratropium) 3 ml Q6HRT HHN 04/12/19 13:00 04/17/19 12:59 Aspirin (ASA) 162 mg DAILY ORAL 04/08/19 09:00 05/08/19 08:59 04/12/19 08:51 Carvedilol (Coreg) 3.125 mg BID@0900,2100 ORAL 04/07/19 21:00 05/07/19 08:59 04/09/19 08:26 Dextrose (Dextrose 50%) 25 ml Q30M PRN IV Hypoglycemia 04/07/19 12:00 05/07/19 11:53 Dextrose (Dextrose 50%) 50 ml Q30M PRN IV hypoglycemia 04/07/19 12:00 05/07/19 11:59 Diltiazem HCl (Cardizem) 10 mg Q1H PRN IV heart rate more than 120, 04/07/19 12:00 05/07/19 11:59 Docusate Sodium (Colace) 250 mg DAILY ORAL 04/07/19 09:00 05/07/19 08:59 04/12/19 08:50 Enalaprilat (Vasotec) 2.5 mg Q6H PRN IV sbp more than 160 04/07/19 12:00 05/07/19 11:59 Enoxaparin Sodium (Lovenox) 40 mg DAILY SUBQ 04/07/19 09:00 05/07/19 08:59 04/12/19 08:52 Famotidine (Pepcid) 20 mg DAILY ORAL 04/07/19 09:00 05/07/19 08:59 04/12/19 08:51 Furosemide (Lasix) 40 mg DAILY ORAL 04/11/19 09:00 05/11/19 08:59 04/12/19 08:51 Insulin Aspart (NovoLOG) BEFORE MEALS AND HS SUBQ 04/07/19 16:30 05/07/19 16:29 04/12/19 06:38 Levothyroxine Sodium (Synthroid) 88 mcg DAILY@0630 ORAL 04/10/19 07:30 05/10/19 07:29 04/12/19 06:33 Lisinopril (Zestril) 10 mg DAILY ORAL 04/11/19 09:00 05/09/19 08:59 Lorazepam (Ativan) 0.5 mg Q4H PRN ORAL For Anxiety 04/07/19 12:00 04/14/19 11:59 Nitroglycerin (Ntg) 0.4 mg Q5M PRN SL Prn Chest Pain 04/07/19 12:00 05/07/19 11:59 Ondansetron HCl (Zofran) 4 mg Q6H PRN IVP Nausea & Vomiting 04/07/19 02:45 05/07/19 02:44 04/11/19 16:42 Piperacillin Sod/ Tazobactam Sod 3.375 gm/Sodium Chloride 110 ml @ 27.5 mls/hr Q8HR@0000,0800,1600 IVPB 04/09/19 16:00 04/16/19 15:59 04/12/19 08:50 Polyethylene Glycol (Miralax) 17 gm DAILYPRN PRN ORAL Constipation 04/07/19 12:00 05/07/19 11:59 04/12/19 06:39 Temazepam (Restoril) 15 mg HSPRN PRN ORAL Insomnia 04/07/19 12:00 04/14/19 11:59 Tramadol HCl (Ultram) 50 mg Q6H PRN ORAL Moderate Pain (Pain Scale 4-6) 04/07/19 03:45 04/14/19 03:44 04/12/19 09:00 Vancomycin HCl (Vanco rx to dose) 1 ea DAILY PRN MISC Per rx protocol 04/08/19 11:30 05/08/19 11:29 Vancomycin HCl/ Dextrose 275 ml @ 137.5 mls/ hr ONCE ONCE IVPB 04/12/19 13:00 04/12/19 14:59 Last 24 Hour Vital Signs Date Time Temp Pulse Resp B/P (MAP) Pulse Ox O2 Delivery O2 Flow Rate FiO2 04/12/19 08:51 99/71 04/12/19 08:51 94 99/71 04/12/19 08:03 94 20 99 Nasal Cannula 2.0 28 04/12/19 08:02 94 20 99 Nasal Cannula 2.0 28 04/12/19 08:01 99 Nasal Cannula 2.0 28 04/12/19 08:00 97.8 69 20 99/71 (80) 93 04/12/19 04:00 97.7 73 19 99/66 (77) 97 04/12/19 04:00 94 04/12/19 01:27 81 18 99 Nasal Cannula 2.0 28 04/12/19 01:17 85 18 99 Nasal Cannula 2.0 28 04/12/19 00:00 96 04/12/19 00:00 98.1 95 18 98/69 (79) 99 04/11/19 21:00 93 97/69 04/11/19 21:00 Nasal Cannula 2.0 Nasal Cannula 2.0 04/11/19 20:00 78 18 100 Nasal Cannula 2.0 28 04/11/19 20:00 97.4 94 18 97/69 (78) 100 04/11/19 20:00 93 04/11/19 19:50 100 Nasal Cannula 2.0 28 04/11/19 19:50 96 18 100 Nasal Cannula 2.0 28 04/11/19 16:00 97.2 96 20 93/66 (75) 95 04/11/19 16:00 93 04/11/19 12:57 90 18 100 Nasal Cannula 2.0 28 04/11/19 12:47 80 18 97 Nasal Cannula 2.0 28 04/11/19 12:00 98.0 89 16 101/71 (81) 100 04/11/19 12:00 91 04/11/19 09:00 Nasal Cannula 2.0 Nasal Cannula 2.0 04/11/19 08:24 92/57 04/11/19 08:23 94 92/57 04/11/19 08:00 95 04/11/19 08:00 98.3 96 16 92/57 (69) 100 04/11/19 07:16 91 18 100 Nasal Cannula 2.0 28 04/11/19 07:05 98 Nasal Cannula 2.0 28 04/11/19 07:05 98 18 98 Nasal Cannula 2.0 04/11/19 04:07 90 04/11/19 04:00 97.6 86 19 94/68 (77) 100 04/11/19 01:31 85 18 99 Nasal Cannula 2.0 04/11/19 01:21 86 18 99 Nasal Cannula 2.0 04/11/19 00:01 97.7 80 18 117/70 (86) 99 04/11/19 00:00 88 04/10/19 21:00 84 99/62 04/10/19 21:00 Nasal Cannula 2.0 Nasal Cannula 2.0 04/10/19 20:00 97.5 84 18 99/62 (74) 99 04/10/19 20:00 85 04/10/19 19:59 87 20 99 Nasal Cannula 2.0 04/10/19 19:49 98 Nasal Cannula 2.0 04/10/19 19:49 85 18 98 Nasal Cannula 2.0 04/10/19 16:00 98.1 86 18 107/70 (82) 100 04/10/19 16:00 95 04/10/19 13:15 88 20 100 Nasal Cannula 2.0 04/10/19 13:00 74 18 96 Nasal Cannula 2.0 04/10/19 12:00 97.1 83 18 97/69 (78) 100 04/10/19 12:00 83 Intake and Output 04/11/19 04/12/19 19:00 07:00 Intake Total 1000 ml 120 ml Output Total 2100 ml 1800 ml Balance -1100 ml -1680 ml Intake Oral 1000 ml 120 ml Output Urine Total 2100 ml 1800 ml Labs Test 04/10/19 07:11 04/10/19 14:45 04/10/19 18:15 04/11/19 06:46 White Blood Count 20.8 K/UL (4.8-10.8) 20.3 K/UL (4.8-10.8) Red Blood Count 4.20 M/UL (4.20-5.40) 4.11 M/UL (4.20-5.40) Hemoglobin 12.1 G/DL (12.0-16.0) 12.0 G/DL (12.0-16.0) Hematocrit 38.9 % (37.0-47.0) 38.2 % (37.0-47.0) Mean Corpuscular Volume 93 FL (80-99) 93 FL (80-99) Mean Corpuscular Hemoglobin 28.8 PG (27.0-31.0) 29.2 PG (27.0-31.0) Mean Corpuscular Hemoglobin Concent 31.1 G/DL (32.0-36.0) 31.4 G/DL (32.0-36.0) Red Cell Distribution Width 15.2 % (11.6-14.8) 15.1 % (11.6-14.8) Platelet Count 332 K/UL (150-450) 329 K/UL (150-450) Mean Platelet Volume 6.4 FL (6.5-10.1) 6.2 FL (6.5-10.1) Neutrophils (%) (Auto) % (45.0-75.0) % (45.0-75.0) Lymphocytes (%) (Auto) % (20.0-45.0) % (20.0-45.0) Monocytes (%) (Auto) % (1.0-10.0) % (1.0-10.0) Eosinophils (%) (Auto) % (0.0-3.0) % (0.0-3.0) Basophils (%) (Auto) % (0.0-2.0) % (0.0-2.0) Differential Total Cells Counted 100 100 Neutrophils % (Manual) 94 % (45-75) 81 % (45-75) Lymphocytes % (Manual) 3 % (20-45) 15 % (20-45) Monocytes % (Manual) 3 % (1-10) 4 % (1-10) Eosinophils % (Manual) 0 % (0-3) 0 % (0-3) Basophils % (Manual) 0 % (0-2) 0 % (0-2) Band Neutrophils 0 % (0-8) 0 % (0-8) Platelet Estimate Adequate Adequate Platelet Morphology Normal Normal Anisocytosis 1+ 1+ Sodium Level 133 MMOL/L (136-145) 134 MMOL/L (136-145) Potassium Level 4.5 MMOL/L (3.5-5.1) 4.1 MMOL/L (3.5-5.1) Chloride Level 96 MMOL/L (98-107) 99 MMOL/L (98-107) Carbon Dioxide Level 23 MMOL/L (21-32) 27 MMOL/L (21-32) Anion Gap 14 mmol/L (5-15) 8 mmol/L (5-15) Blood Urea Nitrogen 46 mg/dL (7-18) 40 mg/dL (7-18) Creatinine 1.9 MG/DL (0.55-1.30) 1.6 MG/DL (0.55-1.30) Estimat Glomerular Filtration Rate 32.2 mL/min (>60) 39.3 mL/min (>60) Glucose Level 310 MG/DL (74-106) 148 MG/DL (74-106) Calcium Level 9.4 MG/DL (8.5-10.1) 9.6 MG/DL (8.5-10.1) Random Vancomycin Level 13.0 ug/mL Urine Color Pale yellow Urine Appearance Clear Urine pH 6 (4.5-8.0) Urine Specific [place] 1.015 (1.005-1.035) Urine Protein 1+ (NEGATIVE) Urine Glucose (UA) Negative (NEGATIVE) Urine Ketones Negative (NEGATIVE) Urine Blood Negative (NEGATIVE) Urine Nitrite Negative (NEGATIVE) Urine Bilirubin Negative (NEGATIVE) Urine Urobilinogen Normal MG/DL (0.0-1.0) Urine Leukocyte Esterase 1+ (NEGATIVE) Urine RBC 0-2 /HPF (0 - 2) Urine WBC 5-10 /HPF (0 - 2) Urine Squamous Epithelial Cells Moderate /LPF (NONE/OCC) Urine Bacteria Few /HPF (NONE) Hypochromasia 1+ Test 04/12/19 05:40 White Blood Count 16.7 K/UL (4.8-10.8) Red Blood Count 4.08 M/UL (4.20-5.40) Hemoglobin 11.9 G/DL (12.0-16.0) Hematocrit 37.7 % (37.0-47.0) Mean Corpuscular Volume 92 FL (80-99) Mean Corpuscular Hemoglobin 29.1 PG (27.0-31.0) Mean Corpuscular Hemoglobin Concent 31.5 G/DL (32.0-36.0) Red Cell Distribution Width 15.6 % (11.6-14.8) Platelet Count 342 K/UL (150-450) Mean Platelet Volume 6.1 FL (6.5-10.1) Neutrophils (%) (Auto) 71.7 % (45.0-75.0) Lymphocytes (%) (Auto) 19.1 % (20.0-45.0) Monocytes (%) (Auto) 6.5 % (1.0-10.0) Eosinophils (%) (Auto) 1.0 % (0.0-3.0) Basophils (%) (Auto) 1.6 % (0.0-2.0) Sodium Level 137 MMOL/L (136-145) Potassium Level 4.3 MMOL/L (3.5-5.1) Chloride Level 102 MMOL/L (98-107) Carbon Dioxide Level 28 MMOL/L (21-32) Anion Gap 7 mmol/L (5-15) Blood Urea Nitrogen 35 mg/dL (7-18) Creatinine 1.5 MG/DL (0.55-1.30) Estimat Glomerular Filtration Rate 42.3 mL/min (>60) Glucose Level 185 MG/DL (74-106) Calcium Level 9.2 MG/DL (8.5-10.1) Random Vancomycin Level 10.2 ug/mL Height (Feet): 5 Height (Inches): 5.00 Weight (Pounds): 300 Objective Vital Signs have been reviewed Gen: nad, alert Head: PERRL, hearing grossly normal Neck: full range of motion, supple/symm/no masses Respiratory: chest non-tender, wheezing CV: regular rate, rhythm, no edema ++ icd Gastrointestinal: normal BSs, nt, nd Lymphatic: no adenopathy Emmett Evangelista MD Apr 12, 2019 09:30
--- NOTE | 2019-04-12 11:44 | Cardiac Electrophysiology PN ---
Assessment/Plan Assessment/Plan 1. Chest pain, the patient with history of heart surgery but denies CABG. 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 Records from [facility] takes 2 weeks per RN. Ruled out for myocardial infarction. Continue aspirin, Coreg and Lipitor. Nuclear stress test showed Inferoapical infarct. Doubt but cannot completely exclude a small area of ignacio-infarct ischemia at the lateral wall border of the infarct. 2. Status post [employer] defibrillator implantation. Interrogated and showed nl Fx battery 4 years No events 3. History of cardiomyopathy, high BNP,EF 15% on Coreg 3.125 mg and Lasix 40 po daily and lisinopril 4. New diagnosis of atrial fibrillation on the EKG . Currently in sinus rhythm. Hold off on anticoagulation on Coreg 5. Elevated white count, on Zosyn per ID. 6. COPD. 7. Obesity. DW RN OK to DC from cardiac perspective Subjective Subjective No CP. In SR with PVCs. [facility] stated it takes 2 weeks to get the op report of her hear surgery. DC planning Objective Last 24 Hour Vital Signs Date Time Temp Pulse Resp B/P (MAP) Pulse Ox O2 Delivery O2 Flow Rate FiO2 04/12/19 09:00 Nasal Cannula 2.0 Nasal Cannula 2.0 04/12/19 08:51 99/71 04/12/19 08:51 94 99/71 04/12/19 08:14 93 20 99 Nasal Cannula 2.0 28 04/12/19 08:03 94 20 99 Nasal Cannula 2.0 28 04/12/19 08:02 94 20 99 Nasal Cannula 2.0 28 04/12/19 08:01 99 Nasal Cannula 2.0 28 04/12/19 08:00 97.8 69 20 99/71 (80) 93 04/12/19 04:00 97.7 73 19 99/66 (77) 97 04/12/19 04:00 94 04/12/19 01:27 81 18 99 Nasal Cannula 2.0 28 04/12/19 01:17 85 18 99 Nasal Cannula 2.0 28 04/12/19 00:00 96 04/12/19 00:00 98.1 95 18 98/69 (79) 99 04/11/19 21:00 93 97/69 04/11/19 21:00 Nasal Cannula 2.0 Nasal Cannula 2.0 04/11/19 20:00 78 18 100 Nasal Cannula 2.0 28 04/11/19 20:00 97.4 94 18 97/69 (78) 100 04/11/19 20:00 93 04/11/19 19:50 100 Nasal Cannula 2.0 28 04/11/19 19:50 96 18 100 Nasal Cannula 2.0 28 04/11/19 16:00 97.2 96 20 93/66 (75) 95 04/11/19 16:00 93 04/11/19 12:57 90 18 100 Nasal Cannula 2.0 28 04/11/19 12:47 80 18 97 Nasal Cannula 2.0 28 04/11/19 12:00 98.0 89 16 101/71 (81) 100 04/11/19 12:00 91 Intake and Output 04/11/19 04/12/19 18:59 06:59 Intake Total 1000 ml Output Total 2100 ml 1800 ml Balance -1100 ml -1800 ml Intake Oral 1000 ml Output Urine Total 2100 ml 1800 ml Laboratory Tests Test 04/12/19 05:40 White Blood Count 16.7 K/UL (4.8-10.8) H Red Blood Count 4.08 M/UL (4.20-5.40) L Hemoglobin 11.9 G/DL (12.0-16.0) L Hematocrit 37.7 % (37.0-47.0) Mean Corpuscular Volume 92 FL (80-99) Mean Corpuscular Hemoglobin 29.1 PG (27.0-31.0) Mean Corpuscular Hemoglobin Concent 31.5 G/DL (32.0-36.0) L Red Cell Distribution Width 15.6 % (11.6-14.8) H Platelet Count 342 K/UL (150-450) Mean Platelet Volume 6.1 FL (6.5-10.1) L Neutrophils (%) (Auto) 71.7 % (45.0-75.0) Lymphocytes (%) (Auto) 19.1 % (20.0-45.0) L Monocytes (%) (Auto) 6.5 % (1.0-10.0) Eosinophils (%) (Auto) 1.0 % (0.0-3.0) Basophils (%) (Auto) 1.6 % (0.0-2.0) Sodium Level 137 MMOL/L (136-145) Potassium Level 4.3 MMOL/L (3.5-5.1) Chloride Level 102 MMOL/L (98-107) Carbon Dioxide Level 28 MMOL/L (21-32) Anion Gap 7 mmol/L (5-15) Blood Urea Nitrogen 35 mg/dL (7-18) H Creatinine 1.5 MG/DL (0.55-1.30) H Estimat Glomerular Filtration Rate 42.3 mL/min (>60) Glucose Level 185 MG/DL (74-106) H Calcium Level 9.2 MG/DL (8.5-10.1) Random Vancomycin Level 10.2 ug/mL Microbiology Date/Time Source Procedure Growth Status 04/10/19 18:15 Sputum Expectorated Gram Stain - Final Resulted 04/10/19 18:15 Sputum Culture - Preliminary Gram Negative Gualberto Usual Upper Respiratory Karin Resulted Objective HEAD AND NECK: Mild JVD. LUNGS: Clear. CARDIOVASCULAR: Regular S1 and S2 with no murmur. Sternotomy scar is intact. Defibrillator is in left subclavian. ABDOMEN: Soft. EXTREMITIES: No pitting edema. Dexter Dewitt MD Apr 12, 2019 11:44
[2019-04-12 12:00] VITALS: BP 102/65
--- NOTE | 2019-04-12 12:40 | NUR ---
*-* INSURANCE *-* ALL CLINICALS AND REVIEWS HAVE BEEN FAXED TO: [facility] REF# [id number] F:[phone] [facility] NEEDS P: [phone]
[2019-04-12] MEDS ORDERED: Albuterol/Ipratropium 3ml neb HHN SCH (13:00)
--- NOTE | 2019-04-12 13:00 | General Progress Note ---
Assessment/Plan Problem List: (1) Diabetes mellitus ICD Codes: E11.9 - Type 2 diabetes mellitus without complications SNOMED: 93565750 (2) Hypertension ICD Codes: I10 - Essential (primary) hypertension SNOMED: 95296855 (3) Acute exacerbation of chronic bronchitis ICD Codes: J42 - Acute exacerbation of chronic bronchitis SNOMED: 624319768 (4) ACS (acute coronary syndrome) ICD Codes: I24.9 - Acute ischemic heart disease, unspecified SNOMED: 665498299 Status: stable, progressing Assessment/Plan: cardio pulm f/u o2 pulm tx abx prn cbc bmp am aru eval Subjective Constitutional: Reports: weakness Allergies: Coded Allergies: SIMVASTATIN (Verified Adverse Reaction, Intermediate, NAUSEA AND VOMITTING , 03/20/19) All Systems: reviewed and negative except above Subjective o2nc w sl cough Objective Last 24 Hour Vital Signs Date Time Temp Pulse Resp B/P (MAP) Pulse Ox O2 Delivery O2 Flow Rate FiO2 04/12/19 12:00 98.6 82 20 102/65 (77) 98 04/12/19 12:00 96 04/12/19 09:00 Nasal Cannula 2.0 Nasal Cannula 2.0 04/12/19 08:51 99/71 04/12/19 08:51 94 99/71 04/12/19 08:14 93 20 99 Nasal Cannula 2.0 28 04/12/19 08:03 94 20 99 Nasal Cannula 2.0 28 04/12/19 08:02 94 20 99 Nasal Cannula 2.0 28 04/12/19 08:01 99 Nasal Cannula 2.0 28 04/12/19 08:00 97 04/12/19 08:00 97.8 69 20 99/71 (80) 93 04/12/19 04:00 97.7 73 19 99/66 (77) 97 04/12/19 04:00 94 04/12/19 01:27 81 18 99 Nasal Cannula 2.0 28 04/12/19 01:17 85 18 99 Nasal Cannula 2.0 28 04/12/19 00:00 96 04/12/19 00:00 98.1 95 18 98/69 (79) 99 04/11/19 21:00 93 97/69 04/11/19 21:00 Nasal Cannula 2.0 Nasal Cannula 2.0 04/11/19 20:00 78 18 100 Nasal Cannula 2.0 28 04/11/19 20:00 97.4 94 18 97/69 (78) 100 04/11/19 20:00 93 04/11/19 19:50 100 Nasal Cannula 2.0 28 04/11/19 19:50 96 18 100 Nasal Cannula 2.0 28 04/11/19 16:00 97.2 96 20 93/66 (75) 95 04/11/19 16:00 93 Intake and Output 04/11/19 04/12/19 18:59 06:59 Intake Total 1000 ml Output Total 2100 ml 1800 ml Balance -1100 ml -1800 ml Intake Oral 1000 ml Output Urine Total 2100 ml 1800 ml Laboratory Tests 04/12/19 05:40: White Blood Count 16.7H, Red Blood Count 4.08L, Hemoglobin 11.9L, Hematocrit 37.7, Mean Corpuscular Volume 92, Mean Corpuscular Hemoglobin 29.1, Mean Corpuscular Hemoglobin Concent 31.5L, Red Cell Distribution Width 15.6H, Platelet Count 342, Mean Platelet Volume 6.1L, Neutrophils (%) (Auto) 71.7, Lymphocytes (%) (Auto) 19.1L, Monocytes (%) (Auto) 6.5, Eosinophils (%) (Auto) 1.0, Basophils (%) (Auto) 1.6, Sodium Level 137, Potassium Level 4.3, Chloride Level 102, Carbon Dioxide Level 28, Anion Gap 7, Blood Urea Nitrogen 35H, Creatinine 1.5H, Estimat Glomerular Filtration Rate 42.3, Glucose Level 185H, Calcium Level 9.2, Random Vancomycin Level 10.2 Height (Feet): 5 Height (Inches): 5.00 Weight (Pounds): 300 General Appearance: lethargic EENT: normal ENT inspection Neck: normal alignment Cardiovascular: normal peripheral pulses, normal rate, regular rhythm Respiratory/Chest: chest wall non-tender, lungs clear, normal breath sounds Abdomen: normal bowel sounds, non tender, soft Extremities: normal inspection Edema: no edema noted Arm (L), no edema noted Arm (R), no edema noted Leg (L), no edema noted Leg (R), no edema noted Pedal (L), no edema noted Pedal (R), no edema noted Generalized Neurologic: responsive, motor weakness Skin: normal pigmentation, warm/dry [place] Apr 12, 2019 13:00
--- NOTE | 2019-04-12 13:36 | Pulmonology Progress Note ---
Assessment/Plan Problems: (1) End-stage systolic heart failure (2) Persistent leukocytosis (3) ACS (acute coronary syndrome) (4) COPD (chronic obstructive pulmonary disease) (5) Cardiomyopathy (6) Hypertension (7) Diabetes mellitus Assessment/Plan ? etiology of leukocytosis, n o fever, f/u by ID all cultures negative so far. consider comfort care Subjective ROS Limited/Unobtainable: No Constitutional: Reports: no symptoms HEENT: Repors: no symptoms Allergies: Coded Allergies: SIMVASTATIN (Verified Adverse Reaction, Intermediate, NAUSEA AND VOMITTING , 03/20/19) Objective Last 24 Hour Vital Signs Date Time Temp Pulse Resp B/P (MAP) Pulse Ox O2 Delivery O2 Flow Rate FiO2 04/12/19 12:00 98.6 82 20 102/65 (77) 98 04/12/19 12:00 96 04/12/19 09:00 Nasal Cannula 2.0 Nasal Cannula 2.0 04/12/19 08:51 99/71 04/12/19 08:51 94 99/71 04/12/19 08:14 93 20 99 Nasal Cannula 2.0 28 04/12/19 08:03 94 20 99 Nasal Cannula 2.0 28 04/12/19 08:02 94 20 99 Nasal Cannula 2.0 28 04/12/19 08:01 99 Nasal Cannula 2.0 28 04/12/19 08:00 97 04/12/19 08:00 97.8 69 20 99/71 (80) 93 04/12/19 04:00 97.7 73 19 99/66 (77) 97 04/12/19 04:00 94 04/12/19 01:27 81 18 99 Nasal Cannula 2.0 28 04/12/19 01:17 85 18 99 Nasal Cannula 2.0 28 04/12/19 00:00 96 04/12/19 00:00 98.1 95 18 98/69 (79) 99 04/11/19 21:00 93 97/69 04/11/19 21:00 Nasal Cannula 2.0 Nasal Cannula 2.0 04/11/19 20:00 78 18 100 Nasal Cannula 2.0 28 04/11/19 20:00 97.4 94 18 97/69 (78) 100 04/11/19 20:00 93 04/11/19 19:50 100 Nasal Cannula 2.0 28 04/11/19 19:50 96 18 100 Nasal Cannula 2.0 28 04/11/19 16:00 97.2 96 20 93/66 (75) 95 04/11/19 16:00 93 Intake and Output 04/11/19 04/12/19 18:59 06:59 Intake Total 1000 ml Output Total 2100 ml 1800 ml Balance -1100 ml -1800 ml Intake Oral 1000 ml Output Urine Total 2100 ml 1800 ml General Appearance: WD/WN HEENT: normocephalic, atraumatic Respiratory/Chest: lungs clear, normal breath sounds Cardiovascular: normal peripheral pulses, regular rhythm Abdomen: soft, non tender, non distended Extremities: no cyanosis Skin: no ulcers Neurologic/Psychiatric: abnormal gait Musculoskeletal: normal muscle bulk Microbiology Date/Time Source Procedure Growth Status 04/10/19 18:15 Sputum Expectorated Gram Stain - Final Resulted 04/10/19 18:15 Sputum Culture - Preliminary Gram Negative Gualberto Usual Upper Respiratory Karin Resulted Laboratory Tests 04/12/19 05:40: White Blood Count 16.7H, Red Blood Count 4.08L, Hemoglobin 11.9L, Hematocrit 37.7, Mean Corpuscular Volume 92, Mean Corpuscular Hemoglobin 29.1, Mean Corpuscular Hemoglobin Concent 31.5L, Red Cell Distribution Width 15.6H, Platelet Count 342, Mean Platelet Volume 6.1L, Neutrophils (%) (Auto) 71.7, Lymphocytes (%) (Auto) 19.1L, Monocytes (%) (Auto) 6.5, Eosinophils (%) (Auto) 1.0, Basophils (%) (Auto) 1.6, Sodium Level 137, Potassium Level 4.3, Chloride Level 102, Carbon Dioxide Level 28, Anion Gap 7, Blood Urea Nitrogen 35H, Creatinine 1.5H, Estimat Glomerular Filtration Rate 42.3, Glucose Level 185H, Calcium Level 9.2, Random Vancomycin Level 10.2 Current Medications Medications (Trade) Dose Ordered Sig/Cassidy Route PRN Reason Start Time Stop Time Status Last Admin Dose Admin Acetaminophen (Tylenol) 650 mg Q4H PRN ORAL FEVER 04/07/19 12:00 05/07/19 11:59 Albuterol/ Ipratropium (Albuterol/ Ipratropium) 3 ml Q6HRT HHN 04/12/19 13:00 04/17/19 12:59 Aspirin (ASA) 162 mg DAILY ORAL 04/08/19 09:00 05/08/19 08:59 04/12/19 08:51 Carvedilol (Coreg) 3.125 mg BID@0900,2100 ORAL 04/07/19 21:00 05/07/19 08:59 04/09/19 08:26 Dextrose (Dextrose 50%) 25 ml Q30M PRN IV Hypoglycemia 04/07/19 12:00 05/07/19 11:53 Dextrose (Dextrose 50%) 50 ml Q30M PRN IV hypoglycemia 04/07/19 12:00 05/07/19 11:59 Diltiazem HCl (Cardizem) 10 mg Q1H PRN IV heart rate more than 120, 04/07/19 12:00 05/07/19 11:59 Docusate Sodium (Colace) 250 mg DAILY ORAL 04/07/19 09:00 05/07/19 08:59 04/12/19 08:50 Enalaprilat (Vasotec) 2.5 mg Q6H PRN IV sbp more than 160 04/07/19 12:00 05/07/19 11:59 Enoxaparin Sodium (Lovenox) 40 mg DAILY SUBQ 04/07/19 09:00 05/07/19 08:59 04/12/19 08:52 Famotidine (Pepcid) 20 mg DAILY ORAL 04/07/19 09:00 05/07/19 08:59 04/12/19 08:51 Furosemide (Lasix) 40 mg DAILY ORAL 04/11/19 09:00 05/11/19 08:59 04/12/19 08:51 Insulin Aspart (NovoLOG) BEFORE MEALS AND HS SUBQ 04/07/19 16:30 05/07/19 16:29 04/12/19 11:28 Levothyroxine Sodium (Synthroid) 88 mcg DAILY@0630 ORAL 04/10/19 07:30 05/10/19 07:29 04/12/19 06:33 Lisinopril (Zestril) 10 mg DAILY ORAL 04/11/19 09:00 05/09/19 08:59 Lorazepam (Ativan) 0.5 mg Q4H PRN ORAL For Anxiety 04/07/19 12:00 04/14/19 11:59 Nitroglycerin (Ntg) 0.4 mg Q5M PRN SL Prn Chest Pain 04/07/19 12:00 05/07/19 11:59 Ondansetron HCl (Zofran) 4 mg Q6H PRN IVP Nausea & Vomiting 04/07/19 02:45 05/07/19 02:44 04/11/19 16:42 Piperacillin Sod/ Tazobactam Sod 3.375 gm/Sodium Chloride 110 ml @ 27.5 mls/hr Q8HR@0000,0800,1600 IVPB 04/09/19 16:00 04/16/19 15:59 04/12/19 08:50 Polyethylene Glycol (Miralax) 17 gm DAILYPRN PRN ORAL Constipation 04/07/19 12:00 05/07/19 11:59 04/12/19 06:39 Temazepam (Restoril) 15 mg HSPRN PRN ORAL Insomnia 04/07/19 12:00 04/14/19 11:59 Tramadol HCl (Ultram) 50 mg Q6H PRN ORAL Moderate Pain (Pain Scale 4-6) 04/07/19 03:45 04/14/19 03:44 04/12/19 09:00 Vancomycin HCl (Vanco rx to dose) 1 ea DAILY PRN MISC Per rx protocol 04/08/19 11:30 05/08/19 11:29 Vancomycin HCl/ Dextrose 275 ml @ 137.5 mls/ hr ONCE ONCE IVPB 04/12/19 13:00 04/12/19 14:59 Shadi Jo MD Apr 12, 2019 13:36
--- NOTE | 2019-04-12 14:28 | Infectious Diseases Prog Note ---
Assessment/Plan Assessment/Plan Assessment: Afebrile Leukocytosis; worsening (s/p high dose stseroisd)- r/o UTI (recent dysuria), r/ o bacteremia (+AICD present) -04/11 CXR: Some prominence of pulmonary vascularity without overt CHF -04/09 CXR: Reduced lung volumes. No confluent consolidation. No edema. -CXR: Doubt but cannot exclude minimal interstitial congestion. Other stable findings as described -u/a wbc 5-10, nit neg, leuk +1 -Bcx NTD -sp cx GNR Chest pain -2d Echo: EF 15-20%, no vegetations DM2 HTN KS/CAD s/p CABG 2018 CHF s/p AICD Asthma/COPD sacral decubitus ulcer VRE and CRE colonized Plan: -Cont empiric Zosyn #5 (abx #6/7) -D/c empiric IV Vancomycin #5 -04/08 SP Ceftriaxone #2 -f/u cx -Monitor CBC/CMP, temperatures -f.u CXR -f/u Bcx x2, ucx , sp cx -Cdiff if diarrhea Thank you for this consultation. Will continue to follow along with you. Discussed with RN. Subjective Allergies: Coded Allergies: SIMVASTATIN (Verified Adverse Reaction, Intermediate, NAUSEA AND VOMITTING , 03/20/19) Subjective afebrile wbc improved s/p steroids Bcx NTD Objective Vital Signs Last 24 Hour Vital Signs Date Time Temp Pulse Resp B/P (MAP) Pulse Ox O2 Delivery O2 Flow Rate FiO2 04/12/19 13:50 77 20 100 Nasal Cannula 2.0 28 04/12/19 13:34 76 20 98 Nasal Cannula 2.0 28 04/12/19 12:00 98.6 82 20 102/65 (77) 98 04/12/19 12:00 96 04/12/19 09:00 Nasal Cannula 2.0 Nasal Cannula 2.0 04/12/19 08:51 99/71 04/12/19 08:51 94 99/71 04/12/19 08:14 93 20 99 Nasal Cannula 2.0 28 04/12/19 08:03 94 20 99 Nasal Cannula 2.0 28 04/12/19 08:02 94 20 99 Nasal Cannula 2.0 28 04/12/19 08:01 99 Nasal Cannula 2.0 28 04/12/19 08:00 97 04/12/19 08:00 97.8 69 20 99/71 (80) 93 04/12/19 04:00 97.7 73 19 99/66 (77) 97 04/12/19 04:00 94 04/12/19 01:27 81 18 99 Nasal Cannula 2.0 28 04/12/19 01:17 85 18 99 Nasal Cannula 2.0 28 04/12/19 00:00 96 04/12/19 00:00 98.1 95 18 98/69 (79) 99 04/11/19 21:00 93 97/69 04/11/19 21:00 Nasal Cannula 2.0 Nasal Cannula 2.0 04/11/19 20:00 78 18 100 Nasal Cannula 2.0 28 04/11/19 20:00 97.4 94 18 97/69 (78) 100 04/11/19 20:00 93 04/11/19 19:50 100 Nasal Cannula 2.0 28 04/11/19 19:50 96 18 100 Nasal Cannula 2.0 28 04/11/19 16:00 97.2 96 20 93/66 (75) 95 04/11/19 16:00 93 Height (Feet): 5 Height (Inches): 5.00 Weight (Pounds): 300 Objective General Appearance: lethargic EENT: normal ENT inspection Neck: normal alignment Cardiovascular: normal peripheral pulses, normal rate, regular rhythm Respiratory/Chest: chest wall non-tender, lungs clear, no respiratory distress Abdomen: normal bowel sounds, non tender, soft Extremities: normal inspection Edema: no edema noted Arm (L), no edema noted Arm (R), no edema noted Leg (L), no edema noted Leg (R), no edema noted Pedal (L), no edema noted Pedal (R), no edema noted Generalized Neurologic: motor weakness Skin: normal pigmentation, warm/dry Microbiology Date/Time Source Procedure Growth Status 04/10/19 18:15 Sputum Expectorated Gram Stain - Final Resulted 04/10/19 18:15 Sputum Culture - Preliminary Gram Negative Gualberto Usual Upper Respiratory Karin Resulted Laboratory Tests Test 04/12/19 05:40 White Blood Count 16.7 K/UL (4.8-10.8) H Red Blood Count 4.08 M/UL (4.20-5.40) L Hemoglobin 11.9 G/DL (12.0-16.0) L Hematocrit 37.7 % (37.0-47.0) Mean Corpuscular Volume 92 FL (80-99) Mean Corpuscular Hemoglobin 29.1 PG (27.0-31.0) Mean Corpuscular Hemoglobin Concent 31.5 G/DL (32.0-36.0) L Red Cell Distribution Width 15.6 % (11.6-14.8) H Platelet Count 342 K/UL (150-450) Mean Platelet Volume 6.1 FL (6.5-10.1) L Neutrophils (%) (Auto) 71.7 % (45.0-75.0) Lymphocytes (%) (Auto) 19.1 % (20.0-45.0) L Monocytes (%) (Auto) 6.5 % (1.0-10.0) Eosinophils (%) (Auto) 1.0 % (0.0-3.0) Basophils (%) (Auto) 1.6 % (0.0-2.0) Sodium Level 137 MMOL/L (136-145) Potassium Level 4.3 MMOL/L (3.5-5.1) Chloride Level 102 MMOL/L (98-107) Carbon Dioxide Level 28 MMOL/L (21-32) Anion Gap 7 mmol/L (5-15) Blood Urea Nitrogen 35 mg/dL (7-18) H Creatinine 1.5 MG/DL (0.55-1.30) H Estimat Glomerular Filtration Rate 42.3 mL/min (>60) Glucose Level 185 MG/DL (74-106) H Calcium Level 9.2 MG/DL (8.5-10.1) Random Vancomycin Level 10.2 ug/mL Current Medications Medications (Trade) Dose Ordered Sig/Cassidy Route PRN Reason Start Time Stop Time Status Last Admin Dose Admin Acetaminophen (Tylenol) 650 mg Q4H PRN ORAL FEVER 04/07/19 12:00 05/07/19 11:59 Albuterol/ Ipratropium (Albuterol/ Ipratropium) 3 ml Q6HRT HHN 04/12/19 13:00 04/17/19 12:59 04/12/19 13:37 Aspirin (ASA) 162 mg DAILY ORAL 04/08/19 09:00 05/08/19 08:59 04/12/19 08:51 Carvedilol (Coreg) 3.125 mg BID@0900,2100 ORAL 04/07/19 21:00 05/07/19 08:59 04/09/19 08:26 Dextrose (Dextrose 50%) 25 ml Q30M PRN IV Hypoglycemia 04/07/19 12:00 05/07/19 11:53 Dextrose (Dextrose 50%) 50 ml Q30M PRN IV hypoglycemia 04/07/19 12:00 05/07/19 11:59 Diltiazem HCl (Cardizem) 10 mg Q1H PRN IV heart rate more than 120, 04/07/19 12:00 05/07/19 11:59 Docusate Sodium (Colace) 250 mg DAILY ORAL 04/07/19 09:00 05/07/19 08:59 04/12/19 08:50 Enalaprilat (Vasotec) 2.5 mg Q6H PRN IV sbp more than 160 04/07/19 12:00 05/07/19 11:59 Enoxaparin Sodium (Lovenox) 40 mg DAILY SUBQ 04/07/19 09:00 05/07/19 08:59 04/12/19 08:52 Famotidine (Pepcid) 20 mg DAILY ORAL 04/07/19 09:00 05/07/19 08:59 04/12/19 08:51 Furosemide (Lasix) 40 mg DAILY ORAL 04/11/19 09:00 05/11/19 08:59 04/12/19 08:51 Insulin Aspart (NovoLOG) BEFORE MEALS AND HS SUBQ 04/07/19 16:30 05/07/19 16:29 04/12/19 11:28 Levothyroxine Sodium (Synthroid) 88 mcg DAILY@0630 ORAL 04/10/19 07:30 05/10/19 07:29 04/12/19 06:33 Lisinopril (Zestril) 10 mg DAILY ORAL 04/11/19 09:00 05/09/19 08:59 Lorazepam (Ativan) 0.5 mg Q4H PRN ORAL For Anxiety 04/07/19 12:00 04/14/19 11:59 Nitroglycerin (Ntg) 0.4 mg Q5M PRN SL Prn Chest Pain 04/07/19 12:00 05/07/19 11:59 Ondansetron HCl (Zofran) 4 mg Q6H PRN IVP Nausea & Vomiting 04/07/19 02:45 05/07/19 02:44 04/11/19 16:42 Piperacillin Sod/ Tazobactam Sod 3.375 gm/Sodium Chloride 110 ml @ 27.5 mls/hr Q8HR@0000,0800,1600 IVPB 04/09/19 16:00 04/16/19 15:59 04/12/19 08:50 Polyethylene Glycol (Miralax) 17 gm DAILYPRN PRN ORAL Constipation 04/07/19 12:00 05/07/19 11:59 04/12/19 06:39 Temazepam (Restoril) 15 mg HSPRN PRN ORAL Insomnia 04/07/19 12:00 04/14/19 11:59 Tramadol HCl (Ultram) 50 mg Q6H PRN ORAL Moderate Pain (Pain Scale 4-6) 04/07/19 03:45 04/14/19 03:44 04/12/19 09:00 Vancomycin HCl (Vanco rx to dose) 1 ea DAILY PRN MISC Per rx protocol 04/08/19 11:30 05/08/19 11:29 Vancomycin HCl/ Dextrose 275 ml @ 137.5 mls/ hr ONCE ONCE IVPB 04/12/19 13:00 04/12/19 14:59 04/12/19 13:42 Bijal Luque M.D. Apr 12, 2019 14:28
--- NOTE | 2019-04-12 15:00 | NUR ---
NURSE NOTES: Hugo d/garrett
--- NOTE | 2019-04-12 15:22 | NUR ---
NURSE NOTES: Per dr. Jo, discharge patient to wherever she would like. Spoke with patient about nursing homes and home health. Pt wants to go home and states she already has a home health agency that comes to her house. She said she is waiting for her daughter's call to see if someone can pick her up for discharge.
[2019-04-12 16:00] VITALS: BP 104/76
--- NOTE | 2019-04-12 16:13 | NUR ---
NURSE NOTES: [facility] called and they will be here @ 0675
--- NOTE | 2019-04-12 16:14 | NUR ---
NURSE NOTES: Pt voided 150 ml post d/c of [facility].
--- NOTE | 2019-04-12 16:16 | NUR ---
NURSE NOTES: Spoke with patient's daughter, Vesta and made her aware patient will be discharged tonight.
--- NOTE | 2019-04-12 16:49 | NUR ---
NURSE NOTES: Spoke with Dr. Luque who wants to send the patient home with some antibiotics upon discharge. She said she left the hospital already, so she will call the patient's pharmacy. Asked the patient and she said she uses [facility] on [address]. Gave the phone number to Dr. Luque so she can call the pharmacy with the prescription.
--- NOTE | 2019-04-12 17:18 | NUR ---
NURSE NOTES: Printed patient's discharge packet and instructions. Explained the instructions to the patient and answered all questions. lab clerk, IV, and wristband removed. Report given to [facility]. Pt is in stable condition and being discharged to home.
--- NOTE | 2019-04-12 17:35 | NUR ---
NURSE NOTES: Patient discharged safely from floor via gurney with ambulance personnel.
--- NOTE | 2019-04-13 09:15 | Discharge Summary ---
Discharge Summary Discharge Summary _ DATE OF ADMISSION: 04/07/2019 DATE OF DISCHARGE: 04/12/2019 DISCHARGED BY: Dr Pimentel REASON FOR ADMISSION: 63 years old female with past medical history of diabetes mellitus, hypertension , coronary artery disease, myocardial infarction, defibrillator , congestive heart failure, COPD, asthma, presented to emergency department complaining of chest pain. Patient reported episode of chest pain for one day, intermittent , sharp , nonradiating , 7 out of 10 on a scale 1-10. Patient also reported shortness of breath. Patient reported history of Upon evaluation vital signs were stable. Laboratory work-up revealed leukocytosis WBC 15.7, hemoglobin 12.1, hematocrit 37.5. BUN 24 creatinine 1.3 , stable electrolytes. Glucose 164. Troponin 0.011. Pro BNP 2435. Albumin 3.6. EKG revealed sinus rhythm, no acute ischemic changes. Chest x-ray revealed evidence of cardiomegaly and interstitial congestion as well as AICD. In emergency department patient received aspirin and admitted to telemetry floor for further management. CONSULTANTS: customer relations representative Dr. Christensen pulmonary Dr. Jo ID specialist Dr. Luque manager global/oncologist Dr. Evangelista [facility] COURSE: Patient admitted to telemetry floor. Lens Marker and fishing boat captain closely followed. Serial troponin were negative. EKG revealed no acute ischemic changes. Patient was ruled out for acute myocardial infarction. Echocardiogram revealed reduced ejection fraction 15 to 20% with no evidence of left ventricular hypertrophy and global left ventricular hypokinesis. Right ventricular systolic pressure of 24. Moderately elevated left atrial pressure grade 2. Patient reported heart surgery , but denied CABG. According to patient , she had a tumor versus clot removed. Attempted to obtain records from [facility] , but it takes about 2 weeks. Antiplatelet therapy with aspirin continued. Statin continued. Lipid panel was stable. Guideline directed medical therapy for congestive heart failure continued with beta-hiro , PHILIPPE inhibitor and diuretic. Volumes and cardiorenal parameters were closely monitored. Nuclear stress test showed inferior apical infarct. Doubt but could not completely exclude a small area of ignacio-infarct ischemia at the lateral wall border of the infarct. Chest pain was addressed as needed. Chest pain resolved. Telemetry showed atrial fibrillation , but patient spontaneously converted to sinus treatment. Lens Marker recommended to hold off on anticoagulation at this time. Continue beta-hiro. Blood pressure was managed with beta-hiro , PHILIPPE inhibitor and Lasix. AICD was interrogated and showed normal functioning battery for 4 years. No events noted. Supplemental oxygen titrated to keep pulse oximetry above 92%. Handheld nebulizing therapy with bronchodilator provided [id number] and as needed. Patient received 2 days of the IV steroids due to bronchospasm/ wheezing / bronchitis. Wheezing and cough decreased. Repeated chest x-ray demonstrated no overt congestive heart failure. DVT prophylaxis provided. Patient was on empiric antibiotics. Sputum culture revealed gram-negative rods and few gram-positive cocci. Blood cultures were negative. Urinalysis was not suggestive of UTI. Echocardiogram revealed no evidence of vegetation. Patient completed antibiotic at the hospital. Leukocytosis trending down. Crown Buffer followed for persistent leukocytosis. Per manager global leukocytosis was unspecified, likely related to underlying stress reaction. In addition, patient was given steroids for 2 days. Leukocytosis was trending down. No fevers. Blood sugar was managed with sliding scale of insulin. GI prophylaxis provided. TSH was elevated. Levothyroxine dose was increased. Recommended to repeat TSH in 1 month. Renal parameters and electrolytes were closely monitored, electrolytes corrected as needed. Hemoglobin and hematocrit were closely monitored with goal to keep hemoglobin above 7. Hemoglobin and hematocrit remained at the baseline. Prior to discharge hemoglobin 11.9, hematocrit 37.7. Lens Marker cleared patient for discharge. Patient was stable for discharge home. Outpatient follow-up with primary care provider in 1 week. FINAL DIAGNOSES: Chest pain in patient with history of heart surgery Possible acute coronary syndrome CHF with systolic dysfunction Cardiomyopathy with EF 15 to 20% AICD Paroxysmal atrial fibrillation Persistent leukocytosis Possible pneumonia COPD/asthma Hypertension Coronary artery disease with history of [place] Diabetes mellitus Obesity Hypothyroidism with elevated TSH Anemia of chronic disease DISCHARGE MEDICATIONS: See Medication Reconciliation list. DISCHARGE INSTRUCTIONS: Patient was discharged home. Follow up with primary care provider in one week. Katelyn Alfaro NP Apr 13, 2019 09:15
--- NOTE | 2019-04-17 14:50 | Cardiology Report ---
APPROVED REPORT EKG Measurement Heart [id number] NV 98P [id number] Sinus rhythm with short NV with occasional premature ventricular complexes Minimal voltage criteria for LVH, may be normal variant Nonspecific T wave abnormality Abnormal ECG
--- NOTE | 2019-04-19 10:21 | Cardiology Report ---
APPROVED REPORT EXAM: Two-dimensional and M-mode echocardiogram with Doppler and color Doppler. INDICATION Chest Pain M-Mode DIMENSIONS IVSd1.0 (0.7-1.1cm)Left Atrium (MM)2.4 (1.6-4.0cm) LVDd5.3 (3.5-5.6cm)Aortic Root3.4 (2.0-3.7cm) PWd0.9 (0.7-1.1cm)Aortic Cusp Exc.1.6 (1.5-2.0cm) IVSs1.3 cm LVDs4.6 (2.5-4.0cm) PWs1.1 cm Other Information Quality : Poor Technically difficult study due to poor acoustical windows. Study quality precludes accurate assessment of regional wall motion. Global left ventriuclar hypokinesis . Mild left ventricular enlargement . Left ventricular ejection fraction estimated to be 30%. No evidence of left ventricular hypertrophy . Possible small posterior pericardial effusion. All other cardiac chamber sizes are within normal limits. Aortic valve calcification with normal cusp excursion . Mildly thickened mitral valve leaflets with normal excursion. Mild mitral annulus and aortic root calcification. Pulmonic valve not well visualized. IVC at normal size with physiologic collapse. Pacemaker wire present in the right side chambers. A color flow and spectral Doppler study was performed and revealed: No aortic insufficiency . Mitral inflow velocities indicates possible pseudo normalization pattern implying moderately elevated left atrial pressure (Grade II ) Trace mitral regurgitation. Trace tricuspid regurgitation. Tricuspid systolic velocities suggests peak right ventricular systolic pressure of 24mmHg.
--- NOTE | 2019-04-20 16:51 | CDS Physician Query ---
Clarification is required for compliance, coding accuracy, and to reflect severity of illness for this patient Dear ___Esdras Date: 04/07/19 CDS Name: Elsi "Heart Failure / CHF" documented in consult note and ED CXR: Impression: Doubt but cannot exclude minimal interstitial congestion This agrees with the preliminary interpretation provided by the emergency room physician Echo: 15-20% BNP: 2435 Rx: IV Lasix 40 mg Please Clarify: Acuity [] Acute [] Chronic [] Acute on Chronic Type [] Systolic [] Diastolic [] Systolic & Diastolic (Combined) [] Other: Present on Admission: [] Yes [] No [] Clinically Undetermined toluie___ Physician signature Date Please also document in your Progress Notes and/or Discharge Summary and indicate if the condition was present on admission. LAURA
--- NOTE | 2019-05-03 19:04 | CDS Physician Query ---
Clarification is required for compliance, coding accuracy, and to reflect severity of illness for this patient Deanaa Rubio Date: 05/03/19 CDS Name: Elis "Heart Failure / CHF" documented in consult note and ED CXR: Impression: Doubt but cannot exclude minimal interstitial congestion This agrees with the preliminary interpretation provided by the emergency room physician Echo: 15-20% BNP: 2435 Rx: IV Lasix 40 mg Please Clarify: Acuity [] Acute [] Chronic [] Acute on Chronic Type [] Systolic [] Diastolic [] Systolic & Diastolic (Combined) [] Other: Present on Admission: [] Yes [] No [] Clinically Undetermined Physician signature Date Please also document in your Progress Notes and/or Discharge Summary and indicate if the condition was present on admission. LAURA
== END 2019-04-12 17:30 | disposition home health service (06) | DRG 194 ==
LOC: EDBD 20:43 → EDUNIT# 20:43 → EMR 21:10 → 2E 04-07 00:20 → EDBEDREQ 04-07 01:05 → OBSVTOIN 04-07 09:16
DX: I11.0 Hypertensive heart disease with heart failure (principal); I50.23 Acute on chronic systolic (congestive) heart failure; I24.9 Acute ischemic heart disease, unspecified; I42.9 Cardiomyopathy, unspecified; L89.159 Pressure ulcer of sacral region, unspecified stage; Z95.810 Presence of automatic (implantable) cardiac defibrillator; D64.9 Anemia, unspecified; D72.829 Elevated white blood cell count, unspecified; I25.10 Atherosclerotic heart disease of native coronary artery without angina pectoris; Z95.1 Presence of aortocoronary bypass graft; I48.0 Paroxysmal atrial fibrillation; J44.0 Chronic obstructive pulmonary disease with (acute) lower respiratory infection; J18.9 Pneumonia, unspecified organism; E03.9 Hypothyroidism, unspecified; I25.2 Old myocardial infarction; E88.09 Other disorders of plasma-protein metabolism, not elsewhere classified; J20.9 Acute bronchitis, unspecified
CPT/HCPCS: 36415; 71045; 78452; 80048; 80053; 80061; 80162; 80202; 81003; 82550; 82553; 82728; 82746; 82962; 83090; 83540; 83550; 83880; 84165; 84443; 84484; 85007; 85025; 85044; 85060; 85610; 85730; 86140; 87040; 87070; 87081; 87086; 87181; 87205; 93005; 93017; 93306; 94640; 94664; 96374; 96375; 96376; 99285; J1815; J2405; J7620; J8499

== ENCOUNTER 2019-05-08 14:45 | Inpatient (IN) | payer MEDICARE, MEDICAID ==
[~2019-05-08] VITALS: Ht 170.2 cm; Wt 100.3 kg
[~2019-05-08 14:45] MED LIST changes: +ELIQUIS2.5 MG PO
[2019-05-08] MEDS ORDERED: Ipratropium 0.02% Inh Soln 2.5ml UD HHN ONE (15:00)
[2019-05-08] MEDS ORDERED: Albuterol ud Inhalation HHN ONE (15:00)
--- NOTE | 2019-05-08 15:21 | Emergency Room Report ---
History of Present Illness General Chief Complaint: General Complaint Source: Patient, Medical Record Present Illness HPI 63-year-old female history of CHF, COPD presents with chest tightness x3 days no aggravating or relieving factors, she does endorse a cough, shortness of breath, severity is moderate and constant, patient does endorse some sputum production no fever no chills, no abdominal pain patient presents for evaluation via EMS for acute shortness of breath. Allergies: Coded Allergies: SIMVASTATIN (Verified Adverse Reaction, Intermediate, NAUSEA AND VOMITTING , 03/20/19) Patient History Past Medical History: see triage record Now: No Reviewed Nursing Documentation: PMH: Agreed; PSxH: Agreed Nursing Documentation-PMH Past Medical History: No History, Except For Hx Cardiac Problems: Yes - Hyperlipidemia, CHF, AICD Hx Hypertension: Yes - MRSA POSITIVE Hx Asthma: Yes Hx COPD: Yes Hx Diabetes: Yes - DKA Hx Cancer: No Hx Neurological Problems: No Hx Cerebrovascular Accident: No Hx Transient Ischemic Attacks: No Hx Dementia: No Hx Alzheimer's Disease: No Hx Parkinson's Disease: No Hx Meningitis: No Hx Encephalitis: No Hx Seizures: No Hx Epilepsy: No Hx Multiple Sclerosis: No Hx Cerebral Palsy: No Hx Amyotrophic Lat Sclerosis: No Hx Guillian-[place] Syndrome: No Hx Paralysis: No Hx Peripheral Neuropathy: No Hx Spinal Cord Injury: No Hx Head Trauma: No Hx Traumatic Brain Injury: No Hx Memory Loss: No Hx Concentration Difficulty: No Hx Speech Problem: No Hx Tremors: No Hx Vertigo: No Hx Dizziness: Yes Hx Syncope: No Hx Headaches: Yes Hx Aphasia: No Hx Dysphasia: No Hx Numbness: Yes - Bilateral feet Hx Weakness: Yes - General weakness Hx Fatigue: Yes Hx Neurologic Surgery: No Hx Brain Shunt: No Review of Systems All Other Systems: negative except mentioned in HPI Physical Exam Vital Signs Date Time Temp Pulse Resp B/P (MAP) Pulse Ox O2 Delivery O2 Flow Rate FiO2 05/08/19 14:38 97.7 54 19 122/83 (96) 98 Room Air 05/08/19 14:55 21 Sp02 EP Interpretation: reviewed, normal General Appearance: well appearing, no apparent distress, alert Head: normocephalic, atraumatic Eyes: bilateral eye PERRL, bilateral eye EOMI ENT: uvula midline, moist mucus membranes Neck: supple, thyroid normal, supple/symm/no masses Respiratory: no respiratory distress, no retraction, no accessory muscle use, wheezing - Moderate wheezing bilaterally Cardiovascular #1: normal peripheral pulses, regular rate, rhythm, no gallop, no murmur, edema - 1+ pedal edema Gastrointestinal: non tender, soft, no guarding, no rebound Musculoskeletal: normal inspection Neurologic: alert, oriented x3 Psychiatric: mood/affect normal Skin: no rash, warm/dry Medical Decision Making Diagnostic Impression: Primary Impression: COPD (chronic obstructive pulmonary disease) Qualified Codes: J44.1 - Chronic obstructive pulmonary disease with (acute) exacerbation Additional Impressions: Chest pain Qualified Codes: R07.9 - Chest pain, unspecified Dyspnea Qualified Codes: R06.00 - Dyspnea, unspecified ER Course 63-year-old female history of CHF, hypertension, COPD breathing treatments were given, aspirin was given, patient presenting with chest pain and shortness of breath, most likely COPD exacerbation with a combination of demand from the heart, EKG negative, troponin negative, however patient had wheezing on exam that improved with albuterol Chest x-ray negative Patient admitted to Dr. Pimentel Laboratory Tests Test 05/08/19 15:20 White Blood Count 15.2 K/UL (4.8-10.8) H Red Blood Count 4.24 M/UL (4.20-5.40) Hemoglobin 12.3 G/DL (12.0-16.0) Hematocrit 39.0 % (37.0-47.0) Mean Corpuscular Volume 92 FL (80-99) Mean Corpuscular Hemoglobin 29.0 PG (27.0-31.0) Mean Corpuscular Hemoglobin Concent 31.6 G/DL (32.0-36.0) L Red Cell Distribution Width 15.0 % (11.6-14.8) H Platelet Count 442 K/UL (150-450) Mean Platelet Volume 6.8 FL (6.5-10.1) Neutrophils (%) (Auto) 74.6 % (45.0-75.0) Lymphocytes (%) (Auto) 19.4 % (20.0-45.0) L Monocytes (%) (Auto) 4.8 % (1.0-10.0) Eosinophils (%) (Auto) 0.4 % (0.0-3.0) Basophils (%) (Auto) 0.7 % (0.0-2.0) Prothrombin Time 11.0 SEC (9.30-11.50) Prothrombin Time INR 1.0 (0.9-1.1) PTT 28 SEC (23-33) Sodium Level 137 MMOL/L (136-145) Potassium Level 4.4 MMOL/L (3.5-5.1) Chloride Level 101 MMOL/L (98-107) Carbon Dioxide Level 21 MMOL/L (21-32) Anion Gap 15 mmol/L (5-15) Blood Urea Nitrogen 24 mg/dL (7-18) H Creatinine 1.6 MG/DL (0.55-1.30) H Estimate Glomerular Filtration Rate 39.3 mL/min (>60) Glucose Level 146 MG/DL (74-106) H Calcium Level 9.7 MG/DL (8.5-10.1) Magnesium Level 1.6 MG/DL (1.8-2.4) L Total Bilirubin 0.7 MG/DL (0.2-1.0) Aspartate Amino Transferase (AST) 28 U/L (15-37) Alanine Aminotransferase (ALT) 26 U/L (12-78) Alkaline Phosphatase 146 U/L (46-116) H Total Creatine Kinase 130 U/L (26-308) Creatine Kinase MB 2.7 NG/ML (0.0-3.6) Creatine Kinase MB Relative Index 2.0 Troponin I 0.004 ng/mL (0.000-0.056) Pro-B-Type Natriuretic Peptide 7745 pg/mL (0-125) H Total Protein 8.1 G/DL (6.4-8.2) Albumin 3.6 G/DL (3.4-5.0) Globulin 4.5 g/dL Albumin/Globulin Ratio 0.8 (1.0-2.7) L Lipase 53 U/L (73-393) L EKG Diagnostic Results EKG Time: 14:57 EP Interpretation: Sinus tachycardia, rate 125, QTc 519, no acute ST elevations , left axis dev Rate: tachycardiac Rhythm: other - sinus tachycardia ST Segments: no acute changes Rhythm Strip Diag. Results Rhythm Strip Time: 18:21 EP Interpretation: yes Rate: 127 Rhythm: other - sinus tachycardia Chest X-Ray Diagnostic Results Chest X-Ray Diagnostic Results : Chest X-Ray Ordered: Yes # of Views/Limited/Complete: 1 View Indication: Shortness of Breath EP Interpretation: Yes Interpretation: no consolidation, no effusion, no pneumothorax, no acute cardiopulmonary disease Impression: No acute disease Electronically Signed by: Alfie Barreto MD Last Vital Signs Date Time Temp Pulse Resp B/P (MAP) Pulse Ox O2 Delivery O2 Flow Rate FiO2 05/08/19 15:15 121 26 100 Room Air 21 120 22 100 05/08/19 14:38 97.7 122/83 (96) Disposition: ADMITTED INPATIENT Condition: Stable Alfie Barreto MD May 08, 2019 15:21
--- NOTE | 2019-05-08 15:24 | NUR ---
ED Nurse Note: gustavo pugh done blood sent
[2019-05-08 15:34] LABS: BASOPHILS % (AUTO) 0.7 % (0.0-2.0); EOSINOPHILS % (AUTO) 0.4 % (0.0-3.0); HEMOGLOBIN 12.3 G/DL (12.0-16.0); LYMPHOCYTES % (AUTO) 19.4 % (20.0-45.0); MEAN CORPUSCULAR VOLUME 92 FL (80-99); MONOCYTES % (AUTO) 4.8 % (1.0-10.0); NEUTROPHILS % (AUTO) 74.6 % (45.0-75.0); PLATELET COUNT 442 K/UL (150-450); RED BLOOD COUNT 4.24 M/UL (4.20-5.40); WHITE BLOOD COUNT 15.2 K/UL (4.8-10.8)
[2019-05-08] MEDS ORDERED: LORazepam Inj 2mg/ml 1ml IV ONE (16:00)
[2019-05-08 16:11] LABS: ANION GAP 15 mmol/L (5-15); BLOOD UREA NITROGEN 24 mg/dL (7-18); CALCIUM 9.7 MG/DL (8.5-10.1); CARBON DIOXIDE 21 MMOL/L (21-32); CHLORIDE 101 MMOL/L (98-107); CREATININE 1.6 MG/DL (0.55-1.30); POTASSIUM 4.4 MMOL/L (3.5-5.1); SODIUM 137 MMOL/L (136-145)
[2019-05-08 16:25] LABS: ALANINE AMINOTRANSFERASE 26 U/L (12-78); ALBUMIN 3.6 G/DL (3.4-5.0); ALBUMIN/GLOBULIN RATIO 0.8 (1.0-2.7); ALKALINE PHOSPHATASE 146 U/L (46-116); ASPARTATE AMINO TRANSFERASE 28 U/L (15-37); BILIRUBIN,TOTAL 0.7 MG/DL (0.2-1.0); CKMB 2.7 NG/ML (0.0-3.6); CREATINE KINASE 130 U/L (26-308)
--- NOTE | 2019-05-08 16:41 | Diagnostic Imaging Report ---
EXAM: XR Chest, 1 View CLINICAL HISTORY: CP TECHNIQUE: Frontal view of the chest. COMPARISON: Chest radiograph on 04/11/2019 FINDINGS: Hardware: None. Lungs/pleura: Bibasilar atelectasis. No focal consolidation. No pleural effusion or pneumothorax. Heart/mediastinum: Stable mild enlargement of the cardiomediastinal silhouette. Left-sided pacemaker/AICD. Median sternotomy changes. Soft tissues: Unremarkable. Bones: No acute fracture. Degenerative changes of the acromioclavicular joints. Upper abdomen: Normal. IMPRESSION: No focal consolidation.
[2019-05-08] MEDS ORDERED: SPIRONOLACTONE25 MG ORAL (17:32)
[2019-05-08] MEDS ORDERED: ATORVASTATIN CA20 MG ORAL (17:32)
[2019-05-08] MEDS ORDERED: LANTUS SOL100 UNIT/1 SUBQ (17:32)
[2019-05-08] MEDS ORDERED: METFORMIN HCL1000 M1 ORAL (17:32)
[2019-05-08] MEDS ORDERED: Morphine Sulfate 4mg/ml Inj (IV USE ONLY) IVP ONE (18:00)
[2019-05-08 18:12] VITALS: BP 108/82
--- NOTE | 2019-05-08 18:20 | NUR ---
ED Nurse Note: biba via ra68 from home for anxiety and all over bod pain and headache pt medicated meds well tolerated NAD bedside camode at bedside pt juan luis to get on camode by self . pt awaiting floor bed. belongings list done .
--- NOTE | 2019-05-08 19:13 | NUR ---
HAND-OFF: Report given to Todd MELGOZA.
[2019-05-08] MEDS ORDERED: Miralax 17gm pkt ORAL PRN (19:45)
[2019-05-08] MEDS ORDERED: Albuterol/Ipratropium 3ml neb HHN PRN (19:45)
[2019-05-08] MEDS ORDERED: Dextrose 50% 25ml Syringe IV PRN (19:45)
--- NOTE | 2019-05-08 20:43 | NUR ---
ED Nurse Note: US at bedside.
[2019-05-08 22:00] VITALS: BP 111/77
--- NOTE | 2019-05-08 22:35 | NUR ---
ED Nurse Note: Report given to NATALIE Borrego. Pt will admit to room 217-2. Belongings and skin condition report to floor RN.
[2019-05-08 22:45] VITALS: BP 122/66
--- NOTE | 2019-05-08 22:45 | NUR ---
NURSE NOTES: Received report from ABAD Brooks, patient brought from ER via gurney, AOx4, denies pain, VS: BP 122/66,RR 19, HR 125, O2sat 96, on O2L n/c, old healed scar on scrum, IV site on R wrist G20,asymptomatic, intact, patent. Belonging list checked and signed Dr. Jo aware of elevated HR, orders noted and carried out.Bed low&locked, side rails up X3, call light within reach. Will continue to monitor and reassess the patient throughout the shift
--- NOTE | 2019-05-08 23:24 | Consultation ---
History of Present Illness General Date patient seen: May 08, 2019 Chief Complaint: General Complaint Present Illness HPI 63-year-old female with hx of DM, HTN, PR, CAD, CHF, ICD, asthma, COPD presented to ED complaining of episodic chest pain x1 day. . Also feels short of breath. . No other aggravating relieving factors. she is admitted to telemetry for further evaluation. She had rapid afib and admitted to Telemetry for further management. Allergies: Coded Allergies: SIMVASTATIN (Verified Adverse Reaction, Intermediate, NAUSEA AND VOMITTING , 03/20/19) Medication History Scheduled Apixaban (Eliquis), 2.5 MG PO BID, (Reported) Aspirin* (Aspirin*), 81 MG ORAL DAILY, (Reported) Atorvastatin Calcium* (Atorvastatin Calcium*), 20 MG ORAL BEDTIME, (Reported) Carvedilol* (Carvedilol*), 1 TAB ORAL BID, (Reported) Docusate Sodium* (Docusate Sodium*), 250 MG ORAL DAILY, (Reported) Famotidine (Famotidine), 20 MG ORAL DAILY, (Reported) Furosemide* (Lasix*), 20 MG PO TID, (Reported) Insulin Aspart (Novolog), SQ AC+HS, (Reported) Insulin Glargine (Lantus), 0 SUBQ BEDTIME, (Reported) Levothyroxine Sodium* (Levothyroxine Sodium*), 75 MCG ORAL DAILY, (Reported) Metformin Hcl* (Metformin Hcl*), 1,000 MG ORAL TWICE A DAY, (Reported) Psyllium Husk (Metamucil), 0.52 GM PO DAILY Spironolactone* (Aldactone*), 12.5 MG ORAL DAILY, (Reported) Scheduled PRN Acetaminophen* (Acetaminophen 325MG Tablet*), 650 MG ORAL Q4H PRN for For Pain, (Reported) Nitroglycerin (Nitrostat), 0.4 MG SL Q5M X3 DOSES PRN for CHEST PAIN, (Reported) Ondansetron* (Zofran*), 4 MG PO Q6H PRN for Nausea & Vomiting, (Reported) Tramadol Hcl* (Ultram*), 50 MG ORAL Q6H PRN for For Pain, (Reported) Patient History Healthcare decision maker Resuscitation status Advanced Directive on File Past Medical/Surgical History Past Medical/Surgical History: (1) Diabetes mellitus (2) Hypertension (3) End-stage systolic heart failure (4) COPD (chronic obstructive pulmonary disease) (5) Cardiomyopathy Review of Systems All Other Systems: negative except mentioned in HPI Physical Exam General Appearance: WD/WN, no apparent distress Lines, tubes and drains: peripheral HEENT: normocephalic, atraumatic Neck: non-tender, normal alignment, supple Respiratory/Chest: chest wall non-tender, lungs clear, normal breath sounds Breasts: no masses Cardiovascular/Chest: normal peripheral pulses, normal rate Abdomen: normal bowel sounds, non tender Genitourinary/Rectal: normal genital exam Extremities: normal range of motion Skin Exam: normal pigmentation Neurologic: continuous improvement black belt II-XII grossly normal Last 24 Hour Vital Signs Date Time Temp Pulse Resp B/P (MAP) Pulse Ox O2 Delivery O2 Flow Rate FiO2 05/08/19 22:52 97.5 112 19 111/77 100 Room Air 21 05/08/19 22:00 97.5 112 19 111/77 100 Room Air 05/08/19 18:12 97.7 122 24 108/82 100 Room Air 05/08/19 18:03 121 26 Room Air 21 05/08/19 15:15 121 26 100 Room Air 21 120 22 100 05/08/19 14:55 120 16 100 Room Air 21 05/08/19 14:38 97.7 54 19 122/83 (96) 98 Room Air Laboratory Tests Test 05/08/19 15:20 White Blood Count 15.2 K/UL (4.8-10.8) H Red Blood Count 4.24 M/UL (4.20-5.40) Hemoglobin 12.3 G/DL (12.0-16.0) Hematocrit 39.0 % (37.0-47.0) Mean Corpuscular Volume 92 FL (80-99) Mean Corpuscular Hemoglobin 29.0 PG (27.0-31.0) Mean Corpuscular Hemoglobin Concent 31.6 G/DL (32.0-36.0) L Red Cell Distribution Width 15.0 % (11.6-14.8) H Platelet Count 442 K/UL (150-450) Mean Platelet Volume 6.8 FL (6.5-10.1) Neutrophils (%) (Auto) 74.6 % (45.0-75.0) Lymphocytes (%) (Auto) 19.4 % (20.0-45.0) L Monocytes (%) (Auto) 4.8 % (1.0-10.0) Eosinophils (%) (Auto) 0.4 % (0.0-3.0) Basophils (%) (Auto) 0.7 % (0.0-2.0) Prothrombin Time 11.0 SEC (9.30-11.50) Prothromb Time International Ratio 1.0 (0.9-1.1) Activated Partial Thromboplast Time 28 SEC (23-33) Sodium Level 137 MMOL/L (136-145) Potassium Level 4.4 MMOL/L (3.5-5.1) Chloride Level 101 MMOL/L (98-107) Carbon Dioxide Level 21 MMOL/L (21-32) Anion Gap 15 mmol/L (5-15) Blood Urea Nitrogen 24 mg/dL (7-18) H Creatinine 1.6 MG/DL (0.55-1.30) H Estimat Glomerular Filtration Rate 39.3 mL/min (>60) Glucose Level 146 MG/DL (74-106) H Calcium Level 9.7 MG/DL (8.5-10.1) Magnesium Level 1.6 MG/DL (1.8-2.4) L Total Bilirubin 0.7 MG/DL (0.2-1.0) Aspartate Amino Transf (AST/SGOT) 28 U/L (15-37) Alanine Aminotransferase (ALT/SGPT) 26 U/L (12-78) Alkaline Phosphatase 146 U/L (46-116) H Total Creatine Kinase 130 U/L (26-308) Creatine Kinase MB 2.7 NG/ML (0.0-3.6) Creatine Kinase MB Relative Index 2.0 Troponin I 0.004 ng/mL (0.000-0.056) Pro-B-Type Natriuretic Peptide 7745 pg/mL (0-125) H Total Protein 8.1 G/DL (6.4-8.2) Albumin 3.6 G/DL (3.4-5.0) Globulin 4.5 g/dL Albumin/Globulin Ratio 0.8 (1.0-2.7) L Lipase 53 U/L (73-393) L Height (Feet): 5 Height (Inches): 7.00 Weight (Pounds): 233 Medications Current Medications Medications (Trade) Dose Ordered Sig/Cassidy Route PRN Reason Start Time Stop Time Status Last Admin Dose Admin Acetaminophen (Tylenol) 650 mg Q4H PRN ORAL Fever 05/08/19 19:45 06/07/19 19:44 Albuterol/ Ipratropium (Albuterol/ Ipratropium) 3 ml Q4H PRN HHN Shortness of Breath 05/08/19 19:45 05/13/19 19:44 Apixaban (Eliquis) 2.5 mg BID ORAL 05/09/19 09:00 06/08/19 08:59 Carvedilol (Coreg) 12.5 mg Q12HR ORAL 05/09/19 09:00 06/08/19 08:59 Dextrose (Dextrose 50%) 25 ml Q30M PRN IV Hypoglycemia 05/08/19 19:45 06/07/19 19:42 Dextrose (Dextrose 50%) 50 ml Q30M PRN IV Hypoglycemia 05/08/19 19:45 06/07/19 19:44 Furosemide (Lasix) 40 mg EVERY 8 HOURS IV 05/08/19 22:00 06/07/19 21:59 Insulin Aspart (NovoLOG) BEFORE MEALS AND HS SUBQ 05/08/19 21:00 06/07/19 20:59 Levothyroxine Sodium (Synthroid) 75 mcg ACBREAKFAST ORAL 05/09/19 06:30 06/08/19 06:29 Ondansetron HCl (Zofran) 4 mg Q6H PRN IVP Nausea & Vomiting 05/08/19 19:45 06/07/19 19:44 Polyethylene Glycol (Miralax) 17 gm DAILYPRN PRN ORAL Constipation 05/08/19 19:45 06/07/19 19:44 Spironolactone (Aldactone) 12.5 mg DAILY ORAL 05/09/19 09:00 06/08/19 08:59 Temazepam (Restoril) 15 mg HSPRN PRN ORAL Insomnia 05/08/19 19:45 05/15/19 19:44 Assessment/Plan Problem List: (1) Rapid atrial fibrillation ICD Codes: I48.91 - Unspecified atrial fibrillation SNOMED: 824992099 (2) Cardiomyopathy ICD Codes: I42.9 - Cardiomyopathy SNOMED: 47541013 (3) Hypertension ICD Codes: I10 - Essential (primary) hypertension SNOMED: 58540973 (4) Chest pain ICD Codes: R07.9 - Chest pain, unspecified SNOMED: 65681471 Qualifiers: Qualified Codes: R07.9 - Chest pain, unspecified (5) COPD (chronic obstructive pulmonary disease) ICD Codes: J44.9 - Chronic obstructive pulmonary disease, unspecified SNOMED: 70050777 Qualifiers: Qualified Codes: J44.1 - Chronic obstructive pulmonary disease with (acute) exacerbation Assessment/Plan: serial ekg, troponin echo cardio Cardizem prn symptomatic treatment. Shadi Jo MD May 08, 2019 23:24
[2019-05-09] VITALS (7 sets, daily range): BP systolic 102–125; BP diastolic 64–78
[2019-05-09] MEDS: NovoLOG Insulin Flexpen SUBQ SCH ×5 (00:09→21:28)
[2019-05-09] MEDS: dilTIAZem HCl 25mg/5ml Inj IVP PRN ×5 (01:21→11:13)
[2019-05-09 07:48] LABS: ANION GAP 13 mmol/L (5-15); BLOOD UREA NITROGEN 26 mg/dL (7-18); CALCIUM 9.6 MG/DL (8.5-10.1); CARBON DIOXIDE 25 MMOL/L (21-32); CHLORIDE 101 MMOL/L (98-107); CREATININE 1.7 MG/DL (0.55-1.30); POTASSIUM 3.6 MMOL/L (3.5-5.1); SODIUM 139 MMOL/L (136-145)
--- NOTE | 2019-05-09 08:11 | NUR ---
HAND-OFF: Report given to ABAD Collazo, patient in stable condition, plan of care endorsed.
--- NOTE | 2019-05-09 08:32 | Diagnostic Imaging Report ---
EXAM: US Duplex Bilateral Lower Extremity Veins CLINICAL HISTORY: DVT TECHNIQUE: Real-time duplex ultrasound scan of the bilateral lower extremity veins integrating B-mode two-dimensional vascular structure, Doppler spectral analysis, color flow Doppler imaging and compression. COMPARISON: No relevant prior studies available. FINDINGS: Right deep veins: Unremarkable. No DVT in the right common femoral, femoral, proximal deep femoral or popliteal veins. The veins demonstrate normal color flow, are normally compressible, with normal phasic flow and/or augmentation response. Right superficial veins: Unremarkable. No thrombus in the visualized right great saphenous vein. Left deep veins: Unremarkable. No DVT in the left common femoral, femoral, proximal deep femoral or popliteal veins. The veins demonstrate normal color flow, are normally compressible, with normal phasic flow and/or augmentation response. Left superficial veins: Unremarkable. No thrombus in the visualized left great saphenous vein. Soft tissues: No acute findings. No popliteal cyst. IMPRESSION: Normal bilateral lower extremity duplex venous ultrasound.
[2019-05-09] MEDS: LORazepam Inj 2mg/ml 1ml IV PRN ×3 (08:59→21:17)
[2019-05-09] MEDS ORDERED: Carvedilol 12.5mg tab ORAL SCH (09:00)
[2019-05-09] MEDS ORDERED: Spironolactone 25mg tab ORAL SCH (09:00)
[2019-05-09] MEDS ORDERED: Eliquis 2.5mg tablet ORAL SCH (09:00)
--- NOTE | 2019-05-09 10:00 | Diagnostic Imaging Report ---
EXAM: XR Chest, 1 View CLINICAL HISTORY: DYSPNEA TECHNIQUE: Frontal view of the chest. COMPARISON: Chest x-ray, 05/08/19 1506 FINDINGS: Lungs: Mild central vascular congestion. No consolidation. Pleural space: Unremarkable. No pneumothorax. Heart: Unremarkable. No cardiomegaly. Mediastinum: Unremarkable. Bones/joints: Median sternotomy. Tubes, lines and devices: Cardiac pacemaker. IMPRESSION: Mild central vascular congestion.
--- NOTE | 2019-05-09 10:30 | NUR ---
NURSE NOTES: Report from ABAD Borrego and visited patient at bedside--patient stated anxiety was 10/10 and requested breathing tx. RT contacted adn went to bedside. Ativan given with good effect. Cardizem given per NOV when HR noted above 100. Call junior in reach and bed alarm on. Patient verbalizd she will call to get oob. Currently, patient calm, cooperative and aox4. Cont'd with plan of care. Addendum: 05/09/19 at 1237 by Avtar Varela RN Dr Jo at bedside with this RN when patient noted to be in Afib on tele with HR of 120. Cardizem given with good effect, and transfer order for patient to [facility]. Awating callback from receiving RN on [facility] for report. Patient chief co pain is oral "I have a canker sore, so I stopped eating for a while. Is there anything the can give me for the pain--it is so bad!" Esau not in stock until tomorrow per pharmacist. instead, today Dr Honeycutt ordering oral viscous lidocaine--per pharm ok to give after eating to avoid any swallowing difficulties. Addendum: 05/09/19 at 1409 by Avtar Varela RN Report given to Negrita. SCDs applied to patient in [facility] with Negrita. VSS, patient aox4 with calm, cooperative affect. Patient voided prior to transfer and ate lunch.
[2019-05-09] MEDS ORDERED: Lidocaine 2% Visc 15ml soln ORAL PRN ×3 (12:00→16:00)
--- NOTE | 2019-05-09 12:17 | Pulmonology Progress Note ---
Assessment/Plan Problems: (1) Rapid atrial fibrillation (2) Cardiomyopathy (3) Hypertension (4) Chest pain (5) COPD (chronic obstructive pulmonary disease) Assessment/Plan still heart rate is fast, responds to Cardizem IV around one -two hours transfer to [facility] awaiting cardiology consult. respiratory treatment Subjective ROS Limited/Unobtainable: No Constitutional: Reports: no symptoms HEENT: Repors: no symptoms Respiratory: Reports: no symptoms Allergies: Coded Allergies: SIMVASTATIN (Verified Adverse Reaction, Intermediate, NAUSEA AND VOMITTING , 03/20/19) Objective Last 24 Hour Vital Signs Date Time Temp Pulse Resp B/P (MAP) Pulse Ox O2 Delivery O2 Flow Rate FiO2 05/09/19 11:13 120 105/73 05/09/19 11:00 120 105/73 (84) 05/09/19 09:00 Nasal Cannula 1.0 05/09/19 08:48 108 114/74 05/09/19 08:40 108 114/74 05/09/19 08:25 96.6 108 114/74 (87) 05/09/19 08:00 104 05/09/19 07:43 100 22 99 Nasal Cannula 2.0 28 98 24 97 05/09/19 06:58 124 120/87 05/09/19 04:21 85 05/09/19 04:02 76 05/09/19 04:00 97.8 121 18 108/78 (88) 99 05/09/19 04:00 121 05/09/19 03:55 122 108/78 05/09/19 03:53 121 05/09/19 03:21 122 05/09/19 02:21 96 05/09/19 01:28 85 05/09/19 01:21 127 121/71 (88) 127 05/09/19 01:21 127 121/71 05/09/19 01:09 139 05/09/19 00:40 Nasal Cannula 2.0 05/09/19 00:00 97.8 127 18 125/64 (84) 96 05/09/19 00:00 125 05/08/19 22:52 97.5 112 19 111/77 100 Room Air 21 05/08/19 22:45 97.7 125 19 122/66 (84) 96 05/08/19 22:00 97.5 112 19 111/77 100 Room Air 05/08/19 18:12 97.7 122 24 108/82 100 Room Air 05/08/19 18:03 121 26 Room Air 21 05/08/19 15:15 121 26 100 Room Air 21 120 22 100 05/08/19 14:55 120 16 100 Room Air 21 05/08/19 14:38 97.7 54 19 122/83 (96) 98 Room Air Intake and Output 05/08/19 05/09/19 19:00 07:00 Intake Total 370 ml Balance 370 ml Intake Oral 370 ml # Voids 2 7 # Bowel Movements 1 General Appearance: WD/WN HEENT: normocephalic, atraumatic Respiratory/Chest: chest wall non-tender, lungs clear Breasts: no masses Cardiovascular: normal peripheral pulses, normal rate, regular rhythm Abdomen: normal bowel sounds, soft, non tender Genitourinary: normal external genitalia Neurologic/Psychiatric: press assistant II-XII grossly normal Laboratory Tests 05/08/19 15:20: White Blood Count 15.2H, Red Blood Count 4.24, Hemoglobin 12.3, Hematocrit 39.0 , Mean Corpuscular Volume 92, Mean Corpuscular Hemoglobin 29.0, Mean Corpuscular Hemoglobin Concent 31.6L, Red Cell Distribution Width 15.0H, Platelet Count 442, Mean Platelet Volume 6.8, Neutrophils (%) (Auto) 74.6, Lymphocytes (%) (Auto) 19.4L, Monocytes (%) (Auto) 4.8, Eosinophils (%) (Auto) 0.4, Basophils (%) (Auto) 0.7, Prothrombin Time 11.0, Prothromb Time International Ratio 1.0, Activated Partial Thromboplast Time 28, Sodium Level 137, Potassium Level 4.4, Chloride Level 101, Carbon Dioxide Level 21, Anion Gap 15, Blood Urea Nitrogen 24H, Creatinine 1.6H, Estimat Glomerular Filtration Rate 39.3, Glucose Level 146H, Calcium Level 9.7, Magnesium Level 1.6L, Total Bilirubin 0.7, Aspartate Amino Transf (AST/SGOT) 28, Alanine Aminotransferase ( ALT/SGPT) 26, Alkaline Phosphatase 146H, Total Creatine Kinase 130, Creatine Kinase MB 2.7, Creatine Kinase MB Relative Index 2.0, Troponin I 0.004, Pro-B- Type Natriuretic Peptide 7745H, Total Protein 8.1, Albumin 3.6, Globulin 4.5, Albumin/Globulin Ratio 0.8L, Lipase 53L 05/09/19 05:40: Sodium Level 139, Potassium Level 3.6, Chloride Level 101, Carbon Dioxide Level 25, Anion Gap 13, Blood Urea Nitrogen 26H, Creatinine 1.7H, Estimat Glomerular Filtration Rate 36.6, Glucose Level 108H, Calcium Level 9.6, Troponin I 0.017 Current Medications Medications (Trade) Dose Ordered Sig/Cassidy Route PRN Reason Start Time Stop Time Status Last Admin Dose Admin Acetaminophen (Tylenol) 650 mg Q4H PRN ORAL Fever 05/08/19 19:45 06/07/19 19:44 Albuterol/ Ipratropium (Albuterol/ Ipratropium) 3 ml Q4H PRN HHN Shortness of Breath 05/08/19 19:45 05/13/19 19:44 05/09/19 07:43 Apixaban (Eliquis) 2.5 mg BID ORAL 05/09/19 09:00 06/08/19 08:59 05/09/19 08:48 Benzocaine (Orajel) 1 applic Q6H PRN MOIRA CANKER SORE PAIN 05/10/19 12:00 06/09/19 11:59 Carvedilol (Coreg) 12.5 mg Q12HR ORAL 05/09/19 09:00 06/08/19 08:59 05/09/19 08:48 Dextrose (Dextrose 50%) 25 ml Q30M PRN IV Hypoglycemia 05/08/19 19:45 06/07/19 19:42 Dextrose (Dextrose 50%) 50 ml Q30M PRN IV Hypoglycemia 05/08/19 19:45 06/07/19 19:44 Diltiazem HCl (Cardizem) 10 mg Q1H PRN IVP Tachycardia 05/08/19 23:45 06/07/19 23:44 05/09/19 11:13 Furosemide (Lasix) 40 mg EVERY 8 HOURS IV 05/08/19 22:00 06/07/19 21:59 05/09/19 06:46 Insulin Aspart (NovoLOG) BEFORE MEALS AND HS SUBQ 05/08/19 21:00 06/07/19 20:59 05/09/19 07:07 Levothyroxine Sodium (Synthroid) 75 mcg ACBREAKFAST ORAL 05/09/19 06:30 06/08/19 06:29 05/09/19 06:46 Lidocaine HCl (Xylocaine Viscous) 15 ml Q4H PRN ORAL cankersore pain 05/09/19 12:00 05/10/19 12:00 Lorazepam (Ativan 2mg/ml 1ml) 1 mg Q6H PRN IV For Anxiety 05/08/19 23:45 05/15/19 23:44 05/09/19 08:59 Ondansetron HCl (Zofran) 4 mg Q6H PRN IVP Nausea & Vomiting 05/08/19 19:45 06/07/19 19:44 Polyethylene Glycol (Miralax) 17 gm DAILYPRN PRN ORAL Constipation 05/08/19 19:45 06/07/19 19:44 Spironolactone (Aldactone) 12.5 mg DAILY ORAL 05/09/19 09:00 06/08/19 08:59 05/09/19 08:48 Temazepam (Restoril) 15 mg HSPRN PRN ORAL Insomnia 05/08/19 19:45 05/15/19 19:44 Shadi Jo MD May 09, 2019 12:17
--- NOTE | 2019-05-09 12:24 | Consultation ---
Consult Note Consult Note I was consulted by Dr Pimentel for elevated Cr patient seen in [facility] and admitted with Exacerbation of COPD Has abnormal high Cr 63-year-old female history of CHF, COPD presents with chest tightness x3 days no aggravating or relieving factors, she does endorse a cough, shortness of breath, severity is moderate and constant, patient does endorse some sputum production no fever no chills, no abdominal pain patient presents for evaluation via EMS for acute shortness of breath. Allergy: SIMVASTATIN (Verified Adverse Reaction, Intermediate, NAUSEA AND VOMITTING, 03/20/19) Past Medical History: No History, Except For Hx Cardiac Problems: Yes - Hyperlipidemia, CHF, AICD Hx Hypertension: Yes - MRSA POSITIVE Hx Asthma: Yes Hx COPD: Yes Hx Diabetes: Yes - DKA Hx Dizziness: Yes Hx Headaches: Yes Hx Numbness: Yes - Bilateral feet Hx Weakness: Yes - General weakness Hx Fatigue: Yes patient interviewed examined data reviewed . Assessment/Plan Renal failure- No ua available atrial fib with FVR at the moment history of heart surgery h/o CHF with systolic dysfunction Cardiomyopathy with EF 15 to 20% AICD h/o Paroxysmal atrial fibrillation leukocytosis Possible pneumonia COPD/asthma Hypertension Coronary artery disease with history of [place] Diabetes mellitus Obesity Hypothyroidism with elevated TSH Anemia of chronic disease optimize cardiac / pulm status goodman urine studies per consultants Per orders Lee Kuhn MD May 09, 2019 12:24
--- NOTE | 2019-05-09 12:50 | Cardiology Progress Note ---
Assessment/Plan Assessment/Plan The patient is seen and examined, full cardiac consult note will be dictated soon. Objective Last 24 Hour Vital Signs Date Time Temp Pulse Resp B/P (MAP) Pulse Ox O2 Delivery O2 Flow Rate FiO2 05/09/19 12:38 87 05/09/19 12:20 98.8 80 20 102/76 (85) 91 05/09/19 12:17 87 05/09/19 11:13 120 105/73 05/09/19 11:00 120 105/73 (84) 05/09/19 09:00 Nasal Cannula 1.0 05/09/19 08:48 108 114/74 05/09/19 08:40 108 114/74 05/09/19 08:25 96.6 108 114/74 (87) 05/09/19 08:00 104 05/09/19 07:43 100 22 99 Nasal Cannula 2.0 28 98 24 97 05/09/19 06:58 124 120/87 05/09/19 04:21 85 05/09/19 04:02 76 05/09/19 04:00 97.8 121 18 108/78 (88) 99 05/09/19 04:00 121 05/09/19 03:55 122 108/78 05/09/19 03:53 121 05/09/19 03:21 122 05/09/19 02:21 96 05/09/19 01:28 85 05/09/19 01:21 127 121/71 (88) 127 05/09/19 01:21 127 121/71 05/09/19 01:09 139 05/09/19 00:40 Nasal Cannula 2.0 05/09/19 00:00 97.8 127 18 125/64 (84) 96 05/09/19 00:00 125 05/08/19 22:52 97.5 112 19 111/77 100 Room Air 21 05/08/19 22:45 97.7 125 19 122/66 (84) 96 05/08/19 22:00 97.5 112 19 111/77 100 Room Air 05/08/19 18:12 97.7 122 24 108/82 100 Room Air 05/08/19 18:03 121 26 Room Air 21 05/08/19 15:15 121 26 100 Room Air 21 120 22 100 05/08/19 14:55 120 16 100 Room Air 21 05/08/19 14:38 97.7 54 19 122/83 (96) 98 Room Air Intake and Output 05/08/19 05/09/19 19:00 07:00 Intake Total 370 ml Balance 370 ml Intake Oral 370 ml # Voids 2 7 # Bowel Movements 1 Laboratory Tests Test 05/08/19 15:20 05/09/19 05:40 White Blood Count 15.2 K/UL (4.8-10.8) H Red Blood Count 4.24 M/UL (4.20-5.40) Hemoglobin 12.3 G/DL (12.0-16.0) Hematocrit 39.0 % (37.0-47.0) Mean Corpuscular Volume 92 FL (80-99) Mean Corpuscular Hemoglobin 29.0 PG (27.0-31.0) Mean Corpuscular Hemoglobin Concent 31.6 G/DL (32.0-36.0) L Red Cell Distribution Width 15.0 % (11.6-14.8) H Platelet Count 442 K/UL (150-450) Mean Platelet Volume 6.8 FL (6.5-10.1) Neutrophils (%) (Auto) 74.6 % (45.0-75.0) Lymphocytes (%) (Auto) 19.4 % (20.0-45.0) L Monocytes (%) (Auto) 4.8 % (1.0-10.0) Eosinophils (%) (Auto) 0.4 % (0.0-3.0) Basophils (%) (Auto) 0.7 % (0.0-2.0) Prothrombin Time 11.0 SEC (9.30-11.50) Prothromb Time International Ratio 1.0 (0.9-1.1) Activated Partial Thromboplast Time 28 SEC (23-33) Sodium Level 137 MMOL/L (136-145) 139 MMOL/L (136-145) Potassium Level 4.4 MMOL/L (3.5-5.1) 3.6 MMOL/L (3.5-5.1) Chloride Level 101 MMOL/L (98-107) 101 MMOL/L (98-107) Carbon Dioxide Level 21 MMOL/L (21-32) 25 MMOL/L (21-32) Anion Gap 15 mmol/L (5-15) 13 mmol/L (5-15) Blood Urea Nitrogen 24 mg/dL (7-18) H 26 mg/dL (7-18) H Creatinine 1.6 MG/DL (0.55-1.30) H 1.7 MG/DL (0.55-1.30) H Estimat Glomerular Filtration Rate 39.3 mL/min (>60) 36.6 mL/min (>60) Glucose Level 146 MG/DL (74-106) H 108 MG/DL (74-106) H Calcium Level 9.7 MG/DL (8.5-10.1) 9.6 MG/DL (8.5-10.1) Magnesium Level 1.6 MG/DL (1.8-2.4) L Total Bilirubin 0.7 MG/DL (0.2-1.0) Aspartate Amino Transf (AST/SGOT) 28 U/L (15-37) Alanine Aminotransferase (ALT/SGPT) 26 U/L (12-78) Alkaline Phosphatase 146 U/L (46-116) H Total Creatine Kinase 130 U/L (26-308) Creatine Kinase MB 2.7 NG/ML (0.0-3.6) Creatine Kinase MB Relative Index 2.0 Troponin I 0.004 ng/mL (0.000-0.056) 0.017 ng/mL (0.000-0.056) Pro-B-Type Natriuretic Peptide 7745 pg/mL (0-125) H Total Protein 8.1 G/DL (6.4-8.2) Albumin 3.6 G/DL (3.4-5.0) Globulin 4.5 g/dL Albumin/Globulin Ratio 0.8 (1.0-2.7) L Lipase 53 U/L (73-393) L Dexter Zelaya MD May 09, 2019 12:50
--- NOTE | 2019-05-09 14:30 | NUR ---
NURSE NOTES: Pt received is a transfer from [facility], for close monitoring due to episode of tachycardia. HR 95 at this time. Pt anxious and Ativan given, offered tylenol but refused. Also refused SCD, teaching provided but pt stated is not comfortable.Report received from ABAD Nova.Pt removed IV and new IV 20G R forearm placed. Arias catheter also placed and tolerated well.Magnesium started.Will continue to monitor
[2019-05-09] MEDS ORDERED: dilTIAZem HCl 25mg/5ml Inj IVP PRN (14:45)
--- NOTE | 2019-05-09 16:12 | NUR ---
NURSE NOTES: Pt asleep, no apparent s/s acute distress. All magnesium given ,F/C patent and running well yellowish urine with no apparent sediments.Specimen send to labs.Will continue to monitor.
--- NOTE | 2019-05-09 17:30 | History and Physical Report ---
DATE OF ADMISSION: 05/08/2019 DATE AND TIME SEEN: at 9 a.m. CONSULTANTS: 1. Shadi Jo M.D. 2. Dexter Zelaya M.D. CHIEF COMPLAINT: Chest pain, short of breath. BRIEF HISTORY: This is a 63-year-old female, who lives at home, presents with chest pain, pressure like for 3 days intermittently. She became very short of breath as well with slight dizzy, slight nausea, vomiting, and diarrhea. No loss of consciousness. The patient came to [place], diagnosed as above, admitted to telemetry for further care. Currently, calm, O2 NC, slight short of breath, actually slightly anxious. PAST MEDICAL HISTORY: Includes CHF, hypertension, diabetes. PAST SURGICAL HISTORY: Heart surgery. ALLERGIES: Simvastatin. SOCIAL HISTORY: No smoke. No alcohol. No intravenous drug abuse. FAMILY HISTORY: Noncontributory. PHYSICAL EXAMINATION: GENERAL: Slightly anxious in bed, oriented x3, in slight distress. VITAL SIGNS: Temperature is 97, pulse 108, respirations 24, blood pressure 114/74. CARDIOVASCULAR: No murmurs. LUNGS: Distant and clear. ABDOMEN: Bowel sounds positive. Nontender. Nondistended. EXTREMITIES: No cyanosis, clubbing, edema. NEUROLOGIC: The patient moves all extremities, slightly weak. LABORATORY AND DIAGNOSTIC DATA: Labs at this time show white count 15.2. BMP showed BUN and creatinine 26 and 1.7, glucose 108. Troponin 0.017. BNP 7745. INR is 1.0, PTT 28. MEDICATIONS: Include Eliquis, Coreg, Aldactone, , Cardizem, Lasix, NovoLog, Zofran, Tylenol, albuterol, morphine. ASSESSMENT: 1. Chest pain. 2. Shortness of breath. 3. Tachycardia. 4. CHF. 5. Hypertension. 6. Diabetes. 7. COPD. 8. Renal insufficiency. 9. Leukocytosis. PLAN: 1. O2, pulmonary treatment. 2. Blood pressure, blood sugar control. 3. Pain control. 4. Dietary followup. 5. PT/dietary eval. 6. CBC, BMP in the morning. 7. We will add Nephrology eval. 8. We will continue to follow this patient. Chiki Pimentel D.O. DR: HERMILO JOB#: [id number] CC:
[2019-05-09] MEDS ORDERED: Eliquis 5mg tablet ORAL SCH (18:00)
--- NOTE | 2019-05-09 18:00 | Consultation ---
DATE OF CONSULTATION: 05/09/2019 CARDIOLOGY CONSULTATION CONSULTING PHYSICIAN: Dexter Zelaya M.D. REFERRING PHYSICIAN: Chiki Pimentel D.O. REASON FOR CONSULTATION: Management of acute heart failure. HISTORY OF PRESENT ILLNESS: The patient is a very unfortunate 63-year-old female who presents to the hospital with complaints of chest tightness for three days with progressive worsening shortness of breath, cough with phlegm production. The patient's history is significant for history of left ventricular mass status post thoracotomy and removal of the mass. It is not clear whether this was a cardiac tumor versus and left ventricular thrombus. She also states that she has history of CVA. It is not clear whether the patient underwent coronary artery bypass graft surgery. At the time of arrival to the hospital, the patient's blood pressure was 122/83 and heart rate was 54. Paramedics 12-lead electrocardiogram was somewhat different and revealed atrial fibrillation with rapid ventricular response. It seems that the patient is in and out of sinus rhythm. The patient's initial laboratory finding was significant for severely elevated pro beta natriuretic peptide at . Troponin I x2 were negative. The patient also had BUN and creatinine of 24 and 1.6 respectively. Due to underlying cardiac arrhythmia and symptoms of congestive heart failure, the patient is in process of being transferred to [facility]. PAST MEDICAL HISTORY: 1. As mentioned above includes status post cardiac surgery for removal of the mass, not clear whether a cardiac mass versus LV thrombus. 2. History of CVA according to the patient. 3. History of congestive heart failure. 4. History of hyperlipidemia 5. History of single-chamber AICD implantation. 6. History of hypertension. 7. History of asthma/COPD. 8. History of diabetes mellitus/DKA. 9. History of MRSA positive. PAST SURGICAL HISTORY: Thoracotomy and history of tracheostomy tube implantation, history of cardiac mass removal at [facility]. REVIEW OF SYSTEMS: HEENT: Denies any headache, diplopia, or blurred vision. CONSTITUTIONAL: Denies any fever, chills, night sweats, or weight loss. She has generalized weakness, malaise and fatigue. CARDIOVASCULAR: Complaining of chest pain and shortness of breath with less than ordinary activities, NYHA class 3. A + 3 pillow orthopnea and PND, and bilateral lower extremity edema. PULMONARY: Complains of cough and shortness of breath, but no hemoptysis. GASTROINTESTINAL: Denies any nausea, vomiting, diarrhea, constipation, abdominal pain, or GI bleed. GENITOURINARY: Denies any hematuria, dysuria, incontinence. NEUROLOGY: Denies any motor dysfunction, sensory deficit, or altered speech. ALLERGIES: To simvastatin. FAMILY HISTORY: No premature coronary artery disease in first-degree relatives. MEDICATIONS: List of medication includes acetaminophen 650 q.4 h. p.r.n. pain, Eliquis 2.5 mg twice daily, aspirin 81 mg daily, atorvastatin 10 mg p.o. at bedtime, carvedilol one tablet twice daily, furosemide 20 mg three times a day, metformin 1000 mg twice daily, levothyroxine 75 mcg p.o. daily, Lantus insulin and NovoLog insulin. Nitroglycerin 0.4 mg sublingual every 5 minute x3 dose p.r.n. chest pain, Zofran 4 mg q.6 hours p.r.n. nausea and vomiting, Metamucil 0.52 gram p.o. daily, Aldactone 12.5 mg p.o. daily, and tramadol 50 mg q.6 hours p.r.n. pain PHYSICAL EXAMINATION: VITAL SIGNS: Blood pressure was 120/83, respiration 19, pulse of 54, temperature 97.7 degrees Fahrenheit, O2 saturation 98% on room air. GENERAL: A very unfortunate 63-year-old female, in mild respiratory distress. Awake and alert x4. HEENT: Atraumatic and normocephalic. Anicteric. Pupils are equal, round, and reactive to light and accommodation. Extraocular muscles intact. NECK: JVP is elevated about 10 to 12 cm. No carotid bruits. Carotid upstrokes 2+ bilaterally. CVS: Normal S1, S2. Positive S3. A 2/6 mid systolic murmur at left sternal border. Single AICD generator in the left pectoral area. LUNGS: Diminished breath sounds. CHEST: Mid sternotomy plus scar of prior tracheostomy tube placement. ABDOMEN: Soft, nontender, and nondistended. No hepatosplenomegaly. Positive bowel sounds. EXTREMITIES: A 1+ bilateral lower extremity edema. LABORATORY FINDINGS: WBC is 15.2, hemoglobin of 12.3, hematocrit of 39.0, platelet count 442. Sodium 137, potassium is 4.4, chloride 101, bicarbonate 21, BUN of 24, creatinine 1.6, glucose 146, calcium is 9.7. Magnesium is 1.6. Troponin I x2 negative. ProBNP was . INR is 1.0. Chest x-ray shows cardiomegaly with mild pulmonary edema. Single lead AICD within the right RV apex, do not see any graph marker or any bioprosthetic or metallic valve, although the quality of the chest x-ray is not adequate to rule out above. A 2D echocardiography from April 07 shows presence of LV systolic dysfunction with LVEF of approximately 25% to 30%, pleural effusion in the left side. No evidence of pericardial effusion. This is a normal LV physiology, significant for moderately elevated left atrial pressure. ASSESSMENT AND PLAN: The patient is very unfortunate 63-year-old female, seen in Cardiology consultation. 1. Dilated cardiomyopathy. Most likely, nonischemic although there is no documentation what cardiac surgery she had at [facility]. The patient requires to be on guideline directed medical therapy including spironolactone, beta-blockers, as well as ARBs if tolerated and not contraindicated. 2. Status post [employer] AICD implantation with recent interrogation in this facility. 3. Paroxysmal atrial fibrillation, on Eliquis. The dosage of Eliquis requires to be above 5 mg twice daily given the patient's weight above 60 kilos and her age being less than 78. Currently the patient is in sinus tachycardia. We will optimize carvedilol to 25 mg twice daily. 4. History of cardiac surgery status post removal of LV thrombus versus cardiac mass. The procedure was done in February 2018 at [facility]. We are trying to obtain the records from that facility. 5. History of diabetes mellitus. 6. History of hyperlipidemia. 7. History of COPD. 8. History of CVA. I would like to thank, Dr. Pimentel, for the courtesy of this consultation. Dexter Zelaya M.D. DR: Arline JOB#: [id number] CC:
--- NOTE | 2019-05-09 18:00 | NUR ---
NURSE NOTES: Pt ate 50% at diner,comfortable at this time, no episode of tachycardia. Call light within easy reach
[2019-05-09] MEDS: Eliquis 5mg tablet ORAL SCH (18:12)
[2019-05-09 18:36] LABS: APPEARANCE,URINE CLEAR; BILIRUBIN, URINE NEGATIVE (NEGATIVE); COLOR,URINE PALE YELLOW; GLUCOSE, URINE (UA) NEGATIVE (NEGATIVE); KETONES,URINE NEGATIVE (NEGATIVE); LEUKOCYTE ESTERASE ,URINE 1+ (NEGATIVE); NITRITE,URINE NEGATIVE (NEGATIVE); PH,URINE 5 (4.5-8.0); PROTEIN,URINE NEGATIVE (NEGATIVE); UROBILINOGEN,URINE NORMAL MG/DL (0.0-1.0)
--- NOTE | 2019-05-09 19:54 | NUR ---
HAND-OFF: Report given to ABAD STERLING.
[2019-05-09] MEDS ORDERED: Carvedilol 25mg Tab ORAL SCH (21:00)
[2019-05-09] MEDS: Carvedilol 25mg Tab ORAL SCH (21:19)
[2019-05-09] MEDS: Albuterol/Ipratropium 3ml neb HHN PRN (22:40)
[2019-05-10] VITALS: BP 97/63
--- NOTE | 2019-05-10 00:47 | NUR ---
NURSE NOTES: Patient complains of insomnia. Restoril is given as ordered.
--- NOTE | 2019-05-10 02:02 | NUR ---
NURSE NOTES: Patient asleep. No acute distress/SOB noted. Will continue to plan of care.
[2019-05-10 04:00] VITALS: BP 95/57
[2019-05-10 05:04] LABS: BASOPHILS % (AUTO) 0.9 % (0.0-2.0); HEMATOCRIT 37.5 % (37.0-47.0); MEAN CORPUSCULAR VOLUME 92 FL (80-99); MONOCYTES % (AUTO) 5.3 % (1.0-10.0); NEUTROPHILS % (AUTO) 72.9 % (45.0-75.0); PLATELET COUNT 383 K/UL (150-450); RED BLOOD COUNT 4.09 M/UL (4.20-5.40); RED CELL DISTRIBUTION WIDTH 14.8 % (11.6-14.8)
[2019-05-10 05:54] LABS: ALANINE AMINOTRANSFERASE 19 U/L (12-78); ALBUMIN 3.4 G/DL (3.4-5.0); ALBUMIN/GLOBULIN RATIO 0.8 (1.0-2.7); ALKALINE PHOSPHATASE 127 U/L (46-116); ANION GAP 15 mmol/L (5-15); ASPARTATE AMINO TRANSFERASE 13 U/L (15-37); BILIRUBIN,TOTAL 0.8 MG/DL (0.2-1.0); BLOOD UREA NITROGEN 29 mg/dL (7-18); CALCIUM 9.5 MG/DL (8.5-10.1); CARBON DIOXIDE 24 MMOL/L (21-32); CHLORIDE 101 MMOL/L (98-107); CREATININE 1.7 MG/DL (0.55-1.30); POTASSIUM 3.8 MMOL/L (3.5-5.1); SODIUM 140 MMOL/L (136-145)
[2019-05-10] MEDS: NovoLOG Insulin Flexpen SUBQ SCH ×4 (06:17→20:16)
--- NOTE | 2019-05-10 07:40 | NUR ---
HAND-OFF: Report given to ABAD Coto. Endorsed plan of care.
--- NOTE | 2019-05-10 07:41 | NUR ---
NURSE NOTES: Report received from Deny Cota RN. Pt is awake and alert, oriented x4. Talkative. SOB on exertion noted. O2 sat 100% on 2L N/C. Deep breathing and focus on breathing recommended. Resting in bed. Sinus rhythm with PVCs on trimmer press clippings. On N/C 2L. IV to left FA G20 patent and asymptomatic. Bed in lowest position. Side rails up x4. Will resume plan of care.
[2019-05-10 08:00] VITALS: BP 102/55
[2019-05-10] MEDS: LORazepam Inj 2mg/ml 1ml IV PRN ×3 (09:15→23:29)
--- NOTE | 2019-05-10 09:15 | NUR ---
NURSE NOTES: PRN Ativan 1mg IV given for anxiety. Will continue to monitor.
[2019-05-10] MEDS: Eliquis 5mg tablet ORAL SCH ×2 (09:16→17:20)
--- NOTE | 2019-05-10 09:33 | NUR ---
NURSE NOTES: Lidocaine 2% visc solution for Canker pain.
[2019-05-10] MEDS: Carvedilol 25mg Tab ORAL SCH ×2 (10:00→20:14)
[2019-05-10] MEDS: Spironolactone 25mg tab ORAL SCH (10:00)
--- NOTE | 2019-05-10 10:43 | Pulmonology Progress Note ---
Assessment/Plan Problems: (1) Rapid atrial fibrillation (2) Cardiomyopathy (3) Hypertension (4) Chest pain (5) COPD (chronic obstructive pulmonary disease) Assessment/Plan converted to sinus now chest epigastric pain cardiology consult appreciated respiratory treatment Subjective ROS Limited/Unobtainable: No Constitutional: Reports: no symptoms HEENT: Repors: no symptoms Respiratory: Reports: no symptoms Allergies: Coded Allergies: SIMVASTATIN (Verified Adverse Reaction, Intermediate, NAUSEA AND VOMITTING , 03/20/19) Objective Last 24 Hour Vital Signs Date Time Temp Pulse Resp B/P (MAP) Pulse Ox O2 Delivery O2 Flow Rate FiO2 05/10/19 10:00 93 90/69 05/10/19 08:00 98.6 63 20 102/55 (71) 100 05/10/19 08:00 Room Air 05/10/19 07:40 85 05/10/19 04:00 97.6 81 20 95/57 (70) 96 05/10/19 04:00 83 05/10/19 00:00 88 20 97/63 (74) 96 05/10/19 00:00 78 05/09/19 22:40 97 20 100 Nasal Cannula 2.0 28 96 22 99 05/09/19 21:19 100 105/81 05/09/19 21:00 Room Air 05/09/19 20:00 98.0 90 18 122/64 (83) 95 05/09/19 20:00 88 05/09/19 16:00 82 05/09/19 12:38 87 05/09/19 12:20 98.8 80 20 102/76 (85) 91 05/09/19 12:17 87 05/09/19 11:13 120 105/73 05/09/19 11:00 120 105/73 (84) Intake and Output 05/09/19 05/10/19 19:00 07:00 Intake Total 320 ml 360 ml Output Total 500 ml 1600 ml Balance -180 ml -1240 ml Intake Oral 120 ml 360 ml IV Total 200 ml Output Urine Total 500 ml 1600 ml # Voids 3 General Appearance: WD/WN HEENT: normocephalic, atraumatic Respiratory/Chest: chest wall non-tender, lungs clear, normal breath sounds Breasts: no masses Cardiovascular: normal peripheral pulses, normal rate Abdomen: normal bowel sounds, soft, non tender Genitourinary: normal external genitalia Extremities: no cyanosis Skin: no rash 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 Lymphatic: no neck adenopathy Musculoskeletal: normal muscle bulk Laboratory Tests 05/09/19 15:00: Urine Color Pale yellow, Urine Appearance Clear, Urine pH 5, Urine Specific Gilman 1.010, Urine Protein Negative, Urine Glucose (UA) Negative, Urine Ketones Negative, Urine Blood Negative, Urine Nitrite Negative, Urine Bilirubin Negative, Urine Urobilinogen Normal, Urine Leukocyte Esterase 1+H, Urine RBC 0-2 , Urine WBC 2-4, Urine Squamous Epithelial Cells Few, Urine Amorphous Sediment FewH, Urine Bacteria Few 05/10/19 03:00: White Blood Count 17.0H, Red Blood Count 4.09L, Hemoglobin 12.0, Hematocrit 37.5 , Mean Corpuscular Volume 92, Mean Corpuscular Hemoglobin 29.4, Mean Corpuscular Hemoglobin Concent 32.0, Red Cell Distribution Width 14.8, Platelet Count 383, Mean Platelet Volume 6.4L, Neutrophils (%) (Auto) 72.9, Lymphocytes ( %) (Auto) 20.0, Monocytes (%) (Auto) 5.3, Eosinophils (%) (Auto) 1.0, Basophils (%) (Auto) 0.9, Sodium Level 140, Potassium Level 3.8, Chloride Level 101, Carbon Dioxide Level 24, Anion Gap 15, Blood Urea Nitrogen 29H, Creatinine 1.7H , Estimat Glomerular Filtration Rate 36.6, Glucose Level 100, Hemoglobin A1c 9.6H, Uric Acid 12.6H, Calcium Level 9.5, Phosphorus Level 5.0H, Magnesium Level 2.0, Total Bilirubin 0.8, Gamma Glutamyl Transpeptidase 77, Aspartate Amino Transf (AST/SGOT) 13L, Alanine Aminotransferase (ALT/SGPT) 19, Alkaline Phosphatase 127H, Troponin I 0.017, C-Reactive Protein, Quantitative 2.2H, Pro-B -Type Natriuretic Peptide 5518H, Total Protein 7.7, Albumin 3.4, Globulin 4.3, Albumin/Globulin Ratio 0.8L, Thyroid Stimulating Hormone (TSH) 13.215H, Free Thyroxine 1.02, Free Triiodothyronine 1.7L, Cortisol AM Sample [Pending] Current Medications Medications (Trade) Dose Ordered Sig/Cassidy Route PRN Reason Start Time Stop Time Status Last Admin Dose Admin Acetaminophen (Tylenol) 650 mg Q4H PRN ORAL T>100.5 05/09/19 15:00 06/07/19 14:59 Albuterol/ Ipratropium (Albuterol/ Ipratropium) 3 ml Q4H PRN HHN Shortness of Breath 05/09/19 15:00 05/13/19 14:59 05/09/19 22:40 Apixaban (Eliquis) 5 mg BID ORAL 05/09/19 18:00 06/08/19 17:59 05/10/19 09:16 Benzocaine (Orajel) 1 applic Q6H PRN MOIRA CANKER SORE PAIN 05/10/19 12:00 06/09/19 11:59 Carvedilol (Coreg) 25 mg Q12HR ORAL 05/09/19 21:00 06/08/19 20:59 05/09/19 21:19 Dextrose (Dextrose 50%) 25 ml Q30M PRN IV Hypoglycemia 05/09/19 15:00 06/07/19 14:59 Dextrose (Dextrose 50%) 50 ml Q30M PRN IV Hypoglycemia 05/09/19 15:00 06/07/19 14:59 Diltiazem HCl (Cardizem) 10 mg Q1H PRN IVP HR>100bpm 05/09/19 14:45 06/07/19 23:44 Furosemide (Lasix) 40 mg EVERY 8 HOURS IV 05/09/19 14:30 06/07/19 14:29 05/09/19 21:16 Insulin Aspart (NovoLOG) BEFORE MEALS AND HS SUBQ 05/09/19 16:30 06/07/19 20:59 05/10/19 06:17 Levothyroxine Sodium (Synthroid) 75 mcg ACBREAKFAST ORAL 05/10/19 06:30 06/08/19 06:29 05/10/19 06:14 Lidocaine HCl (Xylocaine Viscous) 15 ml Q4H PRN ORAL cankersore pain 05/09/19 16:00 05/10/19 12:00 05/10/19 09:33 Lorazepam (Ativan 2mg/ml 1ml) 1 mg Q6H PRN IV For Anxiety 05/09/19 15:00 05/15/19 14:59 05/10/19 09:15 Ondansetron HCl (Zofran) 4 mg Q6H PRN IVP Nausea & Vomiting 05/09/19 15:00 06/07/19 14:59 Polyethylene Glycol (Miralax) 17 gm DAILYPRN PRN ORAL Constipation 05/09/19 15:00 06/07/19 14:59 Spironolactone (Aldactone) 12.5 mg DAILY ORAL 05/10/19 09:00 06/08/19 08:59 Temazepam (Restoril) 15 mg HSPRN PRN ORAL Insomnia 05/09/19 21:00 05/15/19 20:59 05/10/19 00:47 Shadi Jo MD May 10, 2019 10:43
--- NOTE | 2019-05-10 11:15 | NUR ---
PT NOTE Received MD order for PT evaluation, medical record reviewed. Attempted to see patient, patient declining to participate with PT evaluation at this time due to c/o fatigue. Desi russell RN notified, will follow and re-attempt later as schedule permits.
--- NOTE | 2019-05-10 11:51 | NUR ---
*-* NO INSURANCE INFORMATION IN THE BAR UNABLE TO SEND CLINICALS OR REVIEWS *-*
[2019-05-10 12:00] VITALS: BP 109/55
[2019-05-10] MEDS ORDERED: ORAJEL 20% ORO PRN ×2 (12:00)
[2019-05-10] MEDS: Sucralfate 1gm tab ORAL SCH ×3 (12:06→20:13)
--- NOTE | 2019-05-10 13:00 | Nephrology Progress Note ---
Assessment/Plan Problem List: (1) Rapid atrial fibrillation (2) Renal failure (ARF), acute on chronic (3) Cardiomyopathy Assessment: low Ej Fx (4) Hypothyroidism (5) Diabetes mellitus out of control Assessment: High A1c Assessment Renal failure- No ua available atrial fib with FVR at the moment history of heart surgery h/o CHF with systolic dysfunction Cardiomyopathy with EF 15 to 20% AICD h/o Paroxysmal atrial fibrillation leukocytosis Possible pneumonia COPD/asthma Hypertension Coronary artery disease with history of OH Diabetes mellitus Obesity Hypothyroidism with elevated TSH Anemia of chronic disease Plan optimize cardiac / pulm status add allopurinoal goodman urine studies per consultants Per orders Subjective ROS Limited/Unobtainable: No Constitutional: Reports: malaise Objective Objective Last 24 Hour Vital Signs Date Time Temp Pulse Resp B/P (MAP) Pulse Ox O2 Delivery O2 Flow Rate FiO2 05/10/19 11:07 94 20 98 Nasal Cannula 2.0 28 05/10/19 10:00 93 90/69 05/10/19 08:00 98.6 63 20 102/55 (71) 100 05/10/19 08:00 Room Air 05/10/19 07:40 85 05/10/19 04:00 97.6 81 20 95/57 (70) 96 05/10/19 04:00 83 05/10/19 00:00 88 20 97/63 (74) 96 05/10/19 00:00 78 05/09/19 22:40 97 20 100 Nasal Cannula 2.0 28 96 22 99 05/09/19 21:19 100 105/81 05/09/19 21:00 Room Air 05/09/19 20:00 98.0 90 18 122/64 (83) 95 05/09/19 20:00 88 05/09/19 16:00 82 Intake and Output 05/09/19 05/10/19 19:00 07:00 Intake Total 320 ml 360 ml Output Total 500 ml 1600 ml Balance -180 ml -1240 ml Intake Oral 120 ml 360 ml IV Total 200 ml Output Urine Total 500 ml 1600 ml # Voids 3 Laboratory Tests 05/09/19 15:00: Urine Color Pale yellow, Urine Appearance Clear, Urine pH 5, Urine Specific Burnett 1.010, Urine Protein Negative, Urine Glucose (UA) Negative, Urine Ketones Negative, Urine Blood Negative, Urine Nitrite Negative, Urine Bilirubin Negative, Urine Urobilinogen Normal, Urine Leukocyte Esterase 1+H, Urine RBC 0-2 , Urine WBC 2-4, Urine Squamous Epithelial Cells Few, Urine Amorphous Sediment FewH, Urine Bacteria Few 05/10/19 03:00: White Blood Count 17.0H, Red Blood Count 4.09L, Hemoglobin 12.0, Hematocrit 37.5 , Mean Corpuscular Volume 92, Mean Corpuscular Hemoglobin 29.4, Mean Corpuscular Hemoglobin Concent 32.0, Red Cell Distribution Width 14.8, Platelet Count 383, Mean Platelet Volume 6.4L, Neutrophils (%) (Auto) 72.9, Lymphocytes ( %) (Auto) 20.0, Monocytes (%) (Auto) 5.3, Eosinophils (%) (Auto) 1.0, Basophils (%) (Auto) 0.9, Sodium Level 140, Potassium Level 3.8, Chloride Level 101, Carbon Dioxide Level 24, Anion Gap 15, Blood Urea Nitrogen 29H, Creatinine 1.7H , Estimat Glomerular Filtration Rate 36.6, Glucose Level 100, Hemoglobin A1c 9.6H, Uric Acid 12.6H, Calcium Level 9.5, Phosphorus Level 5.0H, Magnesium Level 2.0, Total Bilirubin 0.8, Gamma Glutamyl Transpeptidase 77, Aspartate Amino Transf (AST/SGOT) 13L, Alanine Aminotransferase (ALT/SGPT) 19, Alkaline Phosphatase 127H, Troponin I 0.017, C-Reactive Protein, Quantitative 2.2H, Pro-B -Type Natriuretic Peptide 5518H, Total Protein 7.7, Albumin 3.4, Globulin 4.3, Albumin/Globulin Ratio 0.8L, Thyroid Stimulating Hormone (TSH) 13.215H, Free Thyroxine 1.02, Free Triiodothyronine 1.7L, Cortisol AM Sample [Pending] 05/10/19 11:10: Erythrocyte Sedimentation Rate 60H, Carcinoembryonic Antigen [Pending] Height (Feet): 5 Height (Inches): 7.00 Weight (Pounds): 233 General Appearance: lethargic Cardiovascular: tachycardia, arrhythmia Respiratory/Chest: decreased breath sounds Abdomen: distended Lee Kuhn MD May 10, 2019 13:00
--- NOTE | 2019-05-10 13:23 | General Progress Note ---
Assessment/Plan Problem List: (1) Dyspnea ICD Codes: R06.00 - Dyspnea, unspecified SNOMED: 097902656 Qualifiers: Qualified Codes: R06.00 - Dyspnea, unspecified (2) COPD (chronic obstructive pulmonary disease) ICD Codes: J44.9 - Chronic obstructive pulmonary disease, unspecified SNOMED: 58697524 Qualifiers: Qualified Codes: J44.1 - Chronic obstructive pulmonary disease with (acute) exacerbation (3) Diabetes mellitus ICD Codes: E11.9 - Type 2 diabetes mellitus without complications SNOMED: 10261274 (4) Hypertension ICD Codes: I10 - Essential (primary) hypertension SNOMED: 41301688 (5) Renal failure (ARF), acute on chronic ICD Codes: N17.9 - Acute kidney failure, unspecified; N18.9 - Chronic kidney disease, unspecified SNOMED: 131299468 (6) Persistent leukocytosis Status: stable, progressing Status Narrative pt diet o2 pulm tx abx bp bs pain control cbc bp am Subjective Constitutional: Reports: weakness Allergies: Coded Allergies: SIMVASTATIN (Verified Adverse Reaction, Intermediate, NAUSEA AND VOMITTING , 03/20/19) All Systems: reviewed and negative except above Subjective o2nc eating Objective Last 24 Hour Vital Signs Date Time Temp Pulse Resp B/P (MAP) Pulse Ox O2 Delivery O2 Flow Rate FiO2 05/10/19 11:07 94 20 98 Nasal Cannula 2.0 28 05/10/19 10:00 93 90/69 05/10/19 08:00 98.6 63 20 102/55 (71) 100 05/10/19 08:00 Room Air 05/10/19 07:40 85 05/10/19 04:00 97.6 81 20 95/57 (70) 96 05/10/19 04:00 83 05/10/19 00:00 88 20 97/63 (74) 96 05/10/19 00:00 78 05/09/19 22:40 97 20 100 Nasal Cannula 2.0 28 96 22 99 05/09/19 21:19 100 105/81 05/09/19 21:00 Room Air 05/09/19 20:00 98.0 90 18 122/64 (83) 95 05/09/19 20:00 88 05/09/19 16:00 82 Intake and Output 05/09/19 05/10/19 19:00 07:00 Intake Total 320 ml 360 ml Output Total 500 ml 1600 ml Balance -180 ml -1240 ml Intake Oral 120 ml 360 ml IV Total 200 ml Output Urine Total 500 ml 1600 ml # Voids 3 Laboratory Tests 05/09/19 15:00: Urine Color Pale yellow, Urine Appearance Clear, Urine pH 5, Urine Specific Ehrhardt 1.010, Urine Protein Negative, Urine Glucose (UA) Negative, Urine Ketones Negative, Urine Blood Negative, Urine Nitrite Negative, Urine Bilirubin Negative, Urine Urobilinogen Normal, Urine Leukocyte Esterase 1+H, Urine RBC 0-2 , Urine WBC 2-4, Urine Squamous Epithelial Cells Few, Urine Amorphous Sediment FewH, Urine Bacteria Few 05/10/19 03:00: White Blood Count 17.0H, Red Blood Count 4.09L, Hemoglobin 12.0, Hematocrit 37.5 , Mean Corpuscular Volume 92, Mean Corpuscular Hemoglobin 29.4, Mean Corpuscular Hemoglobin Concent 32.0, Red Cell Distribution Width 14.8, Platelet Count 383, Mean Platelet Volume 6.4L, Neutrophils (%) (Auto) 72.9, Lymphocytes ( %) (Auto) 20.0, Monocytes (%) (Auto) 5.3, Eosinophils (%) (Auto) 1.0, Basophils (%) (Auto) 0.9, Differential Total Cells Counted 100, Neutrophils % (Manual) 75 , Lymphocytes % (Manual) 19L, Monocytes % (Manual) 4, Eosinophils % (Manual) 1, Basophils % (Manual) 1, Band Neutrophils 0, Platelet Estimate Adequate, Platelet Morphology Normal, Red Blood Cell Morphology Normal, Sodium Level 140, Potassium Level 3.8, Chloride Level 101, Carbon Dioxide Level 24, Anion Gap 15, Blood Urea Nitrogen 29H, Creatinine 1.7H, Estimat Glomerular Filtration Rate 36.6, Glucose Level 100, Hemoglobin A1c 9.6H, Uric Acid 12.6H, Calcium Level 9.5 , Phosphorus Level 5.0H, Magnesium Level 2.0, Total Bilirubin 0.8, Gamma Glutamyl Transpeptidase 77, Aspartate Amino Transf (AST/SGOT) 13L, Alanine Aminotransferase (ALT/SGPT) 19, Alkaline Phosphatase 127H, Troponin I 0.017, C- Reactive Protein, Quantitative 2.2H, Pro-B-Type Natriuretic Peptide 5518H, Total Protein 7.7, Albumin 3.4, Globulin 4.3, Albumin/Globulin Ratio 0.8L, Thyroid Stimulating Hormone (TSH) 13.215H, Free Thyroxine 1.02, Free Triiodothyronine 1.7L, Cortisol AM Sample [Pending] 05/10/19 11:10: Erythrocyte Sedimentation Rate 60H, Carcinoembryonic Antigen [Pending] Height (Feet): 5 Height (Inches): 7.00 Weight (Pounds): 233 General Appearance: lethargic EENT: normal ENT inspection Neck: normal alignment Cardiovascular: normal peripheral pulses, normal rate, regular rhythm Respiratory/Chest: chest wall non-tender, lungs clear, normal breath sounds Abdomen: normal bowel sounds, non tender, soft Extremities: normal inspection Edema: no edema noted Arm (L), no edema noted Arm (R), no edema noted Leg (L), no edema noted Leg (R), no edema noted Pedal (L), no edema noted Pedal (R), no edema noted Generalized Neurologic: responsive, motor weakness Skin: normal pigmentation, warm/dry Chiki Pimentel DO May 10, 2019 13:23
--- NOTE | 2019-05-10 16:04 | NUR ---
NURSE NOTES: Ativan 1mg given for anxiety. Will continue to monitor.
--- NOTE | 2019-05-10 16:18 | NUR ---
CASE MANAGEMENT: INITIAL REVIEW 63 YO F LUCERO FROM HOME CC: ANXIETY PMHx: CHF. COPD. AICD SI:CP T 97.7 HR 54 RR 19 B/P 122/83 SATS 98% ON RA WBC 15.2 BUN 29 CR 1.7 PHOS 5 AST 13 ALP 127 BNP 5518 TSH 13.215 IS: DIMAS NEB HHN X1 LASIX IV X1 ATIVAN IV X1 PATIENT ADMITTED TO SDU 05/08/2019 @ 1930 DCP: PATIENT TO BE DISCHARGED TO HOME ONCE MEDICALLY CLEARED. PLAN OF CARE: CARDIO EVAL Addendum: 05/11/19 at 0632 by Lillian Chávez CM INTERQUAL MET
--- NOTE | 2019-05-10 19:20 | NUR ---
HAND-OFF: Report given to ABAD Fink.
--- NOTE | 2019-05-10 19:20 | NUR ---
NURSE NOTES: Pt report received from DARBY Miles ICU SDU RN. pt remains stable. pt is alert and oriented times 3 and is able to respond to commands. pt has a monitor technician attached showing ST with no other abnormalities noted. pt is on 2L NC and is satting at 98 % with no noted distress. pt bed is low, locked, armed, call light within reach, bed rails up times 3. will continue plan of care.
--- NOTE | 2019-05-10 19:29 | Cardiology Progress Note ---
Assessment/Plan Assessment/Plan 1. Dilated cardiomyopathy, most likely nonischemic, . Continue spironolactone, beta-blockers, start low dose losartan as creatinine is stable. 2. Status post [employer] AICD implantation with recent interrogation in this facility. 3. Paroxysmal atrial fibrillation, continue Eliquis. 4. History of cardiac surgery status post removal of LV thrombus versus cardiac mass, no documentation about the nature of cardiac surgery at [facility], will make an attempt to obtain records. 5. History of diabetes mellitus. 6. History of hyperlipidemia. 7. History of COPD. 8. History of CVA. Subjective Subjective Sinus rhythm at rate of 95. Objective Last 24 Hour Vital Signs Date Time Temp Pulse Resp B/P (MAP) Pulse Ox O2 Delivery O2 Flow Rate FiO2 05/10/19 16:00 Nasal Cannula 2.0 05/10/19 15:29 102 05/10/19 14:04 95 05/10/19 12:00 97.7 90 21 109/55 (73) 99 05/10/19 12:00 Nasal Cannula 2.0 05/10/19 11:07 94 20 98 Nasal Cannula 2.0 28 05/10/19 10:00 93 90/69 05/10/19 08:00 98.6 63 20 102/55 (71) 100 05/10/19 08:00 Room Air 05/10/19 07:40 85 05/10/19 04:00 97.6 81 20 95/57 (70) 96 05/10/19 04:00 83 05/10/19 00:00 88 20 97/63 (74) 96 05/10/19 00:00 78 05/09/19 22:40 97 20 100 Nasal Cannula 2.0 28 96 22 99 05/09/19 21:19 100 105/81 05/09/19 21:00 Room Air 05/09/19 20:00 98.0 90 18 122/64 (83) 95 05/09/19 20:00 88 Intake and Output 05/09/19 05/10/19 19:00 07:00 Intake Total 320 ml 360 ml Output Total 500 ml 1600 ml Balance -180 ml -1240 ml Intake Oral 120 ml 360 ml IV Total 200 ml Output Urine Total 500 ml 1600 ml # Voids 3 2D Echo: LVEF 25%,Global LVHK, RVSP 37, Grade II LVDD (pseudo-normal), Mild MR Laboratory Tests Test 05/10/19 03:00 05/10/19 11:10 White Blood Count 17.0 K/UL (4.8-10.8) H Red Blood Count 4.09 M/UL (4.20-5.40) L Hemoglobin 12.0 G/DL (12.0-16.0) Hematocrit 37.5 % (37.0-47.0) Mean Corpuscular Volume 92 FL (80-99) Mean Corpuscular Hemoglobin 29.4 PG (27.0-31.0) Mean Corpuscular Hemoglobin Concent 32.0 G/DL (32.0-36.0) Red Cell Distribution Width 14.8 % (11.6-14.8) Platelet Count 383 K/UL (150-450) Mean Platelet Volume 6.4 FL (6.5-10.1) L Neutrophils (%) (Auto) 72.9 % (45.0-75.0) Lymphocytes (%) (Auto) 20.0 % (20.0-45.0) Monocytes (%) (Auto) 5.3 % (1.0-10.0) Eosinophils (%) (Auto) 1.0 % (0.0-3.0) Basophils (%) (Auto) 0.9 % (0.0-2.0) Differential Total Cells Counted 100 Neutrophils % (Manual) 75 % (45-75) Lymphocytes % (Manual) 19 % (20-45) L Monocytes % (Manual) 4 % (1-10) Eosinophils % (Manual) 1 % (0-3) Basophils % (Manual) 1 % (0-2) Band Neutrophils 0 % (0-8) Platelet Estimate Adequate Platelet Morphology Normal Red Blood Cell Morphology Normal Sodium Level 140 MMOL/L (136-145) Potassium Level 3.8 MMOL/L (3.5-5.1) Chloride Level 101 MMOL/L (98-107) Carbon Dioxide Level 24 MMOL/L (21-32) Anion Gap 15 mmol/L (5-15) Blood Urea Nitrogen 29 mg/dL (7-18) H Creatinine 1.7 MG/DL (0.55-1.30) H Estimat Glomerular Filtration Rate 36.6 mL/min (>60) Glucose Level 100 MG/DL (74-106) Hemoglobin A1c 9.6 % (4.3-6.0) H Uric Acid 12.6 MG/DL (2.6-7.2) H Calcium Level 9.5 MG/DL (8.5-10.1) Phosphorus Level 5.0 MG/DL (2.5-4.9) H Magnesium Level 2.0 MG/DL (1.8-2.4) Total Bilirubin 0.8 MG/DL (0.2-1.0) Gamma Glutamyl Transpeptidase 77 U/L (5-85) Aspartate Amino Transf (AST/SGOT) 13 U/L (15-37) L Alanine Aminotransferase (ALT/SGPT) 19 U/L (12-78) Alkaline Phosphatase 127 U/L (46-116) H Troponin I 0.017 ng/mL (0.000-0.056) C-Reactive Protein, Quantitative 2.2 mg/dL (0.00-0.90) H Pro-B-Type Natriuretic Peptide 5518 pg/mL (0-125) H Total Protein 7.7 G/DL (6.4-8.2) Albumin 3.4 G/DL (3.4-5.0) Globulin 4.3 g/dL Albumin/Globulin Ratio 0.8 (1.0-2.7) L Thyroid Stimulating Hormone (TSH) 13.215 uiU/mL (0.358-3.740) Free Thyroxine 1.02 NG/DL (0.76-1.46) Free Triiodothyronine 1.7 pg/mL (2.3-4.2) L Cortisol AM Sample Pending Erythrocyte Sedimentation Rate 60 MM/HR (0-30) H Carcinoembryonic Antigen Pending Objective HEENT: Atraumatic and normocephalic. Anicteric. Pupils are equal, round, and reactive to light and accommodation. Extraocular muscles intact. NECK: JVP is elevated about 10 to 12 cm. No carotid bruits. Carotid upstrokes 2+ bilaterally. CVS: Normal S1, S2. Positive S3. A 2/6 mid systolic murmur at left sternal border. Single AICD generator in the left pectoral area. LUNGS: Diminished breath sounds. CHEST: Mid sternotomy plus scar of prior tracheostomy tube placement. ABDOMEN: Soft, nontender, and nondistended. No hepatosplenomegaly. Positive bowel sounds. EXTREMITIES: A 1+ bilateral lower extremity edema. Dexter Zelaya MD May 10, 2019 19:29
[2019-05-10 20:00] VITALS: BP 90/44
--- NOTE | 2019-05-10 21:27 | NUR ---
NURSE NOTES: contacted Chiki Morillo MD and informed him pt 1999 blood pressure is 90/44 and pt blood sugar is 183. pt appears asymptomatic at this moment. contacted back and is aware. is informed to call back [facility] for new orders. No new orders at this moment. will continue to monitor.
--- NOTE | 2019-05-10 21:50 | NUR ---
HAND-OFF: Report given to Lee MELGOZA ICU SDU. pt remains stable.
[2019-05-10] MEDS: Albuterol/Ipratropium 3ml neb HHN PRN (21:55)
--- NOTE | 2019-05-10 22:00 | NUR ---
NURSE NOTES: Report received from Aleks MELGOZA. pt remains stable. pt is alert and oriented times 3 and is able to respond to commands. pt has a youth nutritional monitor attached showing ST with no other abnormalities noted. pt is on 2L NC and is saturating at 98 % with no noted distress. pt bed is low, locked, armed, call light within reach, bed rails up times 3. Patient able to reposition, will continue plan of care. Addendum: 05/10/19 at 2339 by JULEE OWEN RN NURSE NOTES: Left chest AICD noted.
--- NOTE | 2019-05-10 22:15 | NUR ---
NURSE NOTES: Lasix 40mg IVP given. BP was 112/85, HR is [address] ST[address]
[2019-05-11] VITALS (7 sets, daily range): BP systolic 84–117; BP diastolic 51–73
--- NOTE | 2019-05-11 | NUR ---
NURSE NOTES: Patient is sleeping at this time. No sign of of respiratory distress or SOB at this time. Patient is high fowlers for optimal breathing. BP is 94/69, RR 24, SpO2 100%, HR is 81 NSR w/ occasional PVC's
--- NOTE | 2019-05-11 02:00 | NUR ---
NURSE NOTES: Patient still sleeping but easily arousable. No distress at this time.
--- NOTE | 2019-05-11 04:16 | NUR ---
NURSE NOTES: morning blood drawn and sent to lab. Patient cleaned and repositioned. HR is 86 NSR with PVC, 117/65, RR 20, 98% SpO2, Afebrile. Patient remains awake and oriented. No acute distress or SOB at this time. So far patient has put out 1600ml of clear yellow urine.
[2019-05-11 04:45] LABS: BASOPHILS % (AUTO) 0.7 % (0.0-2.0); EOSINOPHILS % (AUTO) 0.8 % (0.0-3.0); HEMATOCRIT 39.6 % (37.0-47.0); HEMOGLOBIN 12.5 G/DL (12.0-16.0); LYMPHOCYTES % (AUTO) 23.7 % (20.0-45.0); MEAN CORPUSCULAR VOLUME 91 FL (80-99); MONOCYTES % (AUTO) 4.8 % (1.0-10.0); NEUTROPHILS % (AUTO) 70.1 % (45.0-75.0); PLATELET COUNT 393 K/UL (150-450); RED BLOOD COUNT 4.33 M/UL (4.20-5.40); RED CELL DISTRIBUTION WIDTH 14.8 % (11.6-14.8); WHITE BLOOD COUNT 14.5 K/UL (4.8-10.8)
[2019-05-11 05:08] LABS: ALANINE AMINOTRANSFERASE 15 U/L (12-78); ALBUMIN 3.3 G/DL (3.4-5.0); ALBUMIN/GLOBULIN RATIO 0.7 (1.0-2.7); ALKALINE PHOSPHATASE 123 U/L (46-116); ANION GAP 12 mmol/L (5-15); ASPARTATE AMINO TRANSFERASE 10 U/L (15-37); BILIRUBIN,TOTAL 0.7 MG/DL (0.2-1.0); BLOOD UREA NITROGEN 35 mg/dL (7-18); CALCIUM 9.1 MG/DL (8.5-10.1); CARBON DIOXIDE 26 MMOL/L (21-32); CHLORIDE 101 MMOL/L (98-107); CREATININE 1.7 MG/DL (0.55-1.30); PHOSPHORUS 3.9 MG/DL (2.5-4.9); POTASSIUM 3.4 MMOL/L (3.5-5.1); SODIUM 139 MMOL/L (136-145)
[2019-05-11] MEDS: LORazepam Inj 2mg/ml 1ml IV PRN ×3 (05:42→18:56)
[2019-05-11] MEDS: Levothyroxine 125mcg tab ORAL SCH (05:43)
[2019-05-11] MEDS: NovoLOG Insulin Flexpen SUBQ SCH ×4 (05:49→21:26)
--- NOTE | 2019-05-11 06:31 | NUR ---
NURSE NOTES: Glucoses is 187, patients BP was 121/70, HR was 86 NSR w/PVC. Ativan 1 mg given IVP
--- NOTE | 2019-05-11 07:19 | NUR ---
HAND-OFF: Report given to Alfred MELGOZA.
--- NOTE | 2019-05-11 07:20 | NUR ---
NURSE NOTES: Received patient in bed. Awake, alert,on nasal cannula at 2PM. Call light within reach. Contact isolation observed. Will continue plan of care.
--- NOTE | 2019-05-11 09:17 | NUR ---
INSURANCE CLINICALS AND REVIEWS FAXED TO IPA: [facility] P: [phone] F: [phone] (FAX CLINICALS)
[2019-05-11] MEDS: Sucralfate 1gm tab ORAL SCH ×4 (09:56→21:23)
[2019-05-11] MEDS: Eliquis 5mg tablet ORAL SCH ×2 (09:57→17:12)
[2019-05-11] MEDS: Carvedilol 25mg Tab ORAL SCH ×2 (09:57→21:23)
[2019-05-11] MEDS: Spironolactone 25mg tab ORAL SCH (09:58)
--- NOTE | 2019-05-11 10:25 | General Progress Note ---
Assessment/Plan Problem List: (1) Dyspnea ICD Codes: R06.00 - Dyspnea, unspecified SNOMED: 059940909 Qualifiers: Qualified Codes: R06.00 - Dyspnea, unspecified (2) COPD (chronic obstructive pulmonary disease) ICD Codes: J44.9 - Chronic obstructive pulmonary disease, unspecified SNOMED: 10857305 Qualifiers: Qualified Codes: J44.1 - Chronic obstructive pulmonary disease with (acute) exacerbation (3) Diabetes mellitus ICD Codes: E11.9 - Type 2 diabetes mellitus without complications SNOMED: 57620354 (4) Hypertension ICD Codes: I10 - Essential (primary) hypertension SNOMED: 82350841 (5) Renal failure (ARF), acute on chronic ICD Codes: N17.9 - Acute kidney failure, unspecified; N18.9 - Chronic kidney disease, unspecified SNOMED: 463623384 (6) Persistent leukocytosis Status: stable, progressing Assessment/Plan: o2 pulm tx abx cbc bmp am aru eval Subjective Constitutional: Reports: weakness Respiratory: Reports: shortness of breath Allergies: Coded Allergies: SIMVASTATIN (Verified Adverse Reaction, Intermediate, NAUSEA AND VOMITTING , 03/20/19) All Systems: reviewed and negative except above Subjective o2nc eating Objective Last 24 Hour Vital Signs Date Time Temp Pulse Resp B/P (MAP) Pulse Ox O2 Delivery O2 Flow Rate FiO2 05/11/19 09:57 93 92/66 05/11/19 08:00 98.1 93 20 92/66 (75) 98 05/11/19 04:00 97.7 94 20 117/65 (82) 99 05/11/19 04:00 84 05/11/19 04:00 Nasal Cannula 2.0 05/11/19 00:00 97.7 81 28 94/69 (77) 96 05/11/19 00:00 104 05/11/19 00:00 Nasal Cannula 2.0 05/10/19 21:55 99 20 99 Nasal Cannula 2.0 28 105 22 95 05/10/19 20:14 64 90/44 05/10/19 20:00 101 05/10/19 20:00 98.5 62 20 90/44 (59) 99 05/10/19 20:00 Nasal Cannula 2.0 05/10/19 16:00 Nasal Cannula 2.0 05/10/19 15:29 102 05/10/19 14:04 95 05/10/19 12:00 97.7 90 21 109/55 (73) 99 05/10/19 12:00 Nasal Cannula 2.0 05/10/19 11:07 94 20 98 Nasal Cannula 2.0 28 Intake and Output 05/10/19 05/11/19 19:00 07:00 Intake Total 580 ml 200 ml Output Total 1400 ml 2100 ml Balance -820 ml -1900 ml Intake Oral 580 ml 200 ml Output Urine Total 1400 ml 2100 ml Laboratory Tests 05/10/19 11:10: Erythrocyte Sedimentation Rate 60H, Carcinoembryonic Antigen [Pending] 05/11/19 02:50: Erythrocyte Sedimentation Rate 82H, White Blood Count 14.5H, Red Blood Count 4.33, Hemoglobin 12.5, Hematocrit 39.6, Mean Corpuscular Volume 91, Mean Corpuscular Hemoglobin 28.8, Mean Corpuscular Hemoglobin Concent 31.5L, Red Cell Distribution Width 14.8, Platelet Count 393, Mean Platelet Volume 6.4L, Neutrophils (%) (Auto) 70.1, Lymphocytes (%) (Auto) 23.7, Monocytes (%) (Auto) 4.8, Eosinophils (%) (Auto) 0.8, Basophils (%) (Auto) 0.7, Sodium Level 139, Potassium Level 3.4L, Chloride Level 101, Carbon Dioxide Level 26, Anion Gap 12 , Blood Urea Nitrogen 35H, Creatinine 1.7H, Estimat Glomerular Filtration Rate 36.6, Glucose Level 152H, Calcium Level 9.1, Phosphorus Level 3.9, Magnesium Level 1.9, Total Bilirubin 0.7, Aspartate Amino Transf (AST/SGOT) 10L, Alanine Aminotransferase (ALT/SGPT) 15, Alkaline Phosphatase 123H, C-Reactive Protein, Quantitative 4.1H, Total Protein 7.9, Albumin 3.3L, Globulin 4.6, Albumin/ Globulin Ratio 0.7L Height (Feet): 5 Height (Inches): 7.00 Weight (Pounds): 221 General Appearance: lethargic EENT: normal ENT inspection Neck: normal alignment Cardiovascular: normal peripheral pulses, normal rate, regular rhythm Respiratory/Chest: chest wall non-tender, lungs clear, normal breath sounds Abdomen: normal bowel sounds, non tender, soft Extremities: normal inspection Edema: no edema noted Arm (L), no edema noted Arm (R), no edema noted Leg (L), no edema noted Leg (R), no edema noted Pedal (L), no edema noted Pedal (R), no edema noted Generalized Neurologic: motor weakness Skin: normal pigmentation, warm/dry Chiki Pimentel DO May 11, 2019 10:25
--- NOTE | 2019-05-11 11:16 | Pulmonology Progress Note ---
Assessment/Plan Problems: (1) Rapid atrial fibrillation (2) Cardiomyopathy (3) Hypertension (4) Chest pain (5) COPD (chronic obstructive pulmonary disease) Assessment/Plan doing better converted to sinus now chest epigastric pain cardiology consult appreciated respiratory treatment f/u cardio recommendations Subjective ROS Limited/Unobtainable: No Constitutional: Reports: no symptoms HEENT: Repors: no symptoms Respiratory: Reports: no symptoms Allergies: Coded Allergies: SIMVASTATIN (Verified Adverse Reaction, Intermediate, NAUSEA AND VOMITTING , 03/20/19) Objective Last 24 Hour Vital Signs Date Time Temp Pulse Resp B/P (MAP) Pulse Ox O2 Delivery O2 Flow Rate FiO2 05/11/19 09:57 93 92/66 05/11/19 08:00 Nasal Cannula 2.0 05/11/19 08:00 98.1 93 20 92/66 (75) 98 05/11/19 07:30 95 05/11/19 04:00 97.7 94 20 117/65 (82) 99 05/11/19 04:00 84 05/11/19 04:00 Nasal Cannula 2.0 05/11/19 00:00 97.7 81 28 94/69 (77) 96 05/11/19 00:00 104 05/11/19 00:00 Nasal Cannula 2.0 05/10/19 21:55 99 20 99 Nasal Cannula 2.0 28 105 22 95 05/10/19 20:14 64 90/44 05/10/19 20:00 101 05/10/19 20:00 98.5 62 20 90/44 (59) 99 05/10/19 20:00 Nasal Cannula 2.0 05/10/19 16:00 Nasal Cannula 2.0 05/10/19 15:29 102 05/10/19 14:04 95 05/10/19 12:00 97.7 90 21 109/55 (73) 99 05/10/19 12:00 Nasal Cannula 2.0 Intake and Output 05/10/19 05/11/19 19:00 07:00 Intake Total 580 ml 200 ml Output Total 1400 ml 2100 ml Balance -820 ml -1900 ml Intake Oral 580 ml 200 ml Output Urine Total 1400 ml 2100 ml General Appearance: WD/WN HEENT: normocephalic, atraumatic Respiratory/Chest: chest wall non-tender, lungs clear Breasts: no masses Cardiovascular: normal peripheral pulses, normal rate Abdomen: normal bowel sounds, no organomegaly Extremities: no cyanosis Skin: no rash Neurologic/Psychiatric: rn telephonic II-XII grossly normal Laboratory Tests 05/11/19 02:50: White Blood Count 14.5H, Red Blood Count 4.33, Hemoglobin 12.5, Hematocrit 39.6 , Mean Corpuscular Volume 91, Mean Corpuscular Hemoglobin 28.8, Mean Corpuscular Hemoglobin Concent 31.5L, Red Cell Distribution Width 14.8, Platelet Count 393, Mean Platelet Volume 6.4L, Neutrophils (%) (Auto) 70.1, Lymphocytes (%) (Auto) 23.7, Monocytes (%) (Auto) 4.8, Eosinophils (%) (Auto) 0.8, Basophils (%) (Auto) 0.7, Erythrocyte Sedimentation Rate 82H, Sodium Level 139, Potassium Level 3.4L, Chloride Level 101, Carbon Dioxide Level 26, Anion Gap 12, Blood Urea Nitrogen 35H, Creatinine 1.7H, Estimat Glomerular Filtration Rate 36.6, Glucose Level 152H, Calcium Level 9.1, Phosphorus Level 3.9, Magnesium Level 1.9, Total Bilirubin 0.7, Aspartate Amino Transf (AST/SGOT) 10L , Alanine Aminotransferase (ALT/SGPT) 15, Alkaline Phosphatase 123H, C-Reactive Protein, Quantitative 4.1H, Total Protein 7.9, Albumin 3.3L, Globulin 4.6, Albumin/Globulin Ratio 0.7L Current Medications Medications (Trade) Dose Ordered Sig/Cassidy Route PRN Reason Start Time Stop Time Status Last Admin Dose Admin Acetaminophen (Tylenol) 650 mg Q4H PRN ORAL T>100.5 05/09/19 15:00 06/07/19 14:59 Albuterol/ Ipratropium (Albuterol/ Ipratropium) 3 ml Q4H PRN HHN Shortness of Breath 05/09/19 15:00 05/13/19 14:59 05/10/19 21:55 Allopurinol (Allopurinol) 300 mg DAILY ORAL 05/10/19 13:30 06/09/19 13:29 05/11/19 09:58 Apixaban (Eliquis) 5 mg BID ORAL 05/09/19 18:00 06/08/19 17:59 05/11/19 09:57 Benzocaine (Orajel) 1 applic Q6H PRN MOIRA CANKER SORE PAIN 05/10/19 12:00 06/09/19 11:59 Carvedilol (Coreg) 25 mg Q12HR ORAL 05/09/19 21:00 06/08/19 20:59 05/11/19 09:57 Dextrose (Dextrose 50%) 25 ml Q30M PRN IV Hypoglycemia 05/09/19 15:00 06/07/19 14:59 Dextrose (Dextrose 50%) 50 ml Q30M PRN IV Hypoglycemia 05/09/19 15:00 06/07/19 14:59 Diltiazem HCl (Cardizem) 10 mg Q1H PRN IVP HR>100bpm 05/09/19 14:45 06/07/19 23:44 Furosemide (Lasix) 40 mg EVERY 8 HOURS IV 05/09/19 14:30 06/07/19 14:29 05/11/19 05:42 Insulin Aspart (NovoLOG) BEFORE MEALS AND HS SUBQ 05/09/19 16:30 06/07/19 20:59 05/11/19 05:49 Levothyroxine Sodium (Synthroid) 125 mcg ACBREAKFAST ORAL 05/11/19 06:30 06/08/19 06:29 05/11/19 05:43 Lorazepam (Ativan 2mg/ml 1ml) 1 mg Q6H PRN IV For Anxiety 05/09/19 15:00 05/15/19 14:59 05/11/19 05:42 Ondansetron HCl (Zofran) 4 mg Q6H PRN IVP Nausea & Vomiting 05/09/19 15:00 06/07/19 14:59 Pantoprazole (Protonix) 40 mg EVERY 12 HOURS ORAL 05/10/19 11:00 06/09/19 10:59 05/11/19 09:57 Polyethylene Glycol (Miralax) 17 gm DAILYPRN PRN ORAL Constipation 05/09/19 15:00 06/07/19 14:59 Spironolactone (Aldactone) 12.5 mg DAILY ORAL 05/10/19 09:00 06/08/19 08:59 05/11/19 09:58 Sucralfate (Carafate) 1 gm FOUR TIMES A DAY ORAL 05/10/19 13:00 06/09/19 12:59 05/11/19 09:56 Temazepam (Restoril) 15 mg HSPRN PRN ORAL Insomnia 05/09/19 21:00 05/15/19 20:59 05/10/19 00:47 Shadi Jo MD May 11, 2019 11:16
[2019-05-11] MEDS: Albuterol/Ipratropium 3ml neb HHN PRN (13:42)
--- NOTE | 2019-05-11 13:56 | Consultation ---
History of Present Illness General Date patient seen: May 11, 2019 Chief Complaint: General Complaint Present Illness HPI 63 y/o F with hx of LV mass s/p thoracotomy, hypothyroidism, AOCD, CAD, CVA, Obesity, pAfib, CHF, HLD, HTN, dilated cardiomyopathy EF 15-20% s/p AICD, asthma /COPD, DM2 c/w DKA and neuropathy presented to ED on 05/08 with 3 days of chest tightness and progressive worsening SOB, productive cough. Upon admission was noted to have elevated Cr Denied VELIZ, f/c, wt loss, abd pain. Allergies: Coded Allergies: SIMVASTATIN (Verified Adverse Reaction, Intermediate, NAUSEA AND VOMITTING , 03/20/19) Medication History Scheduled Albuterol Sulfate* (Albuterol Sulfate Hhn*), 3 ML INH Q4H, (Reported) Aspirin* (Aspir 81*), 81 MG ORAL DAILY, (Reported) Atorvastatin Calcium* (Lipitor*), 40 MG ORAL BEDTIME, (Reported) Citalopram Hydrobromide* (Citalopram Hbr*), 20 MG ORAL DAILY, (Reported) Famotidine (Famotidine), 20 MG ORAL DAILY, (Reported) Fluticasone Propionate (Flovent Hfa), 1 PUFFS INH BID, (Reported) Furosemide* (Lasix*), 40 MG ORAL TWICE A DAY, (Reported) Insulin Aspart (Novolog), 2-3 UNITS SQ AC, (Reported) Insulin Glargine (Lantus), 0.24 ML SUBQ DAILY, (Reported) Ipratropium [place] (Atrovent Hfa), 2.5 ML IH QID, (Reported) Ivabradine HCl (Corlanor), 5 MG PO BID, (Reported) Levothyroxine Sodium* (Levoxyl*), 100 MCG ORAL DAILY, (Reported) Metformin Hcl* (Metformin Hcl*), 500 MG ORAL TWICE A DAY, (Reported) [place]-3 Fatty Acids/Fish Oil* (Fish Oil 1,000 Mg Softgel*), 1 CAP ORAL DAILY, ( Reported) Spironolactone* (Aldactone*), 25 MG ORAL DAILY, (Reported) Scheduled PRN Albuterol Sulfate (Ventolin Hfa), 2 PUFFS INH EVERY 4 HOURS PRN for Shortness of Breath, (Reported) Lorazepam* (Lorazepam*), 0.5-1 MG ORAL BID PRN for For Anxiety, (Reported) Tramadol Hcl* (Ultram*), 50 MG ORAL Q6H PRN for For Pain, (Reported) Discontinued Medications Acetaminophen* (Acetaminophen 325MG Tablet*), 650 MG ORAL Q4H PRN for For Pain, (Reported) Discontinued Reason: Therapy completed Apixaban (Eliquis), 2.5 MG PO BID, (Reported) Discontinued Reason: Therapy completed Atorvastatin Calcium* (Atorvastatin Calcium*), 20 MG ORAL BEDTIME, (Reported) Discontinued Reason: Prescription changed Carvedilol* (Carvedilol*), 1 TAB ORAL BID, (Reported) Discontinued Reason: Therapy completed Docusate Sodium* (Docusate Sodium*), 250 MG ORAL DAILY, (Reported) Discontinued Reason: Therapy completed Furosemide* (Lasix*), 20 MG PO TID, (Reported) Discontinued Reason: Prescription changed Levothyroxine Sodium* (Levothyroxine Sodium*), 75 MCG ORAL DAILY, (Reported) Discontinued Reason: Prescription changed Nitroglycerin (Nitrostat), 0.4 MG SL Q5M X3 DOSES PRN for CHEST PAIN, (Reported) Discontinued Reason: Therapy completed Ondansetron* (Zofran*), 4 MG PO Q6H PRN for Nausea & Vomiting, (Reported) Discontinued Reason: Therapy completed Psyllium Husk (Metamucil), 0.52 GM PO DAILY Discontinued Reason: Therapy completed Spironolactone* (Aldactone*), 12.5 MG ORAL DAILY, (Reported) Discontinued Reason: Therapy completed Patient History Healthcare decision maker Resuscitation status Full Code Advanced Directive on File Patient History Narrative Pmhx: as above Shx: No smoke. No alcohol. No intravenous drug abuse. lives at home Fhx: non contributory Review of Systems All Other Systems: negative except mentioned in HPI Physical Exam Physical Exam Narrative GENERAL: Slightly anxious in bed, oriented x3, in slight distress. CARDIOVASCULAR: No murmurs. LUNGS: Distant and clear. ABDOMEN: Bowel sounds positive. Nontender. Nondistended. EXTREMITIES: No cyanosis, clubbing, edema. NEUROLOGIC: The patient moves all extremities, slightly weak. Last 24 Hour Vital Signs Date Time Temp Pulse Resp B/P (MAP) Pulse Ox O2 Delivery O2 Flow Rate FiO2 05/11/19 12:00 97.3 100 20 101/66 (78) 98 05/11/19 12:00 Nasal Cannula 2.0 05/11/19 11:44 98 05/11/19 09:57 93 92/66 05/11/19 08:00 Nasal Cannula 2.0 05/11/19 08:00 98.1 93 20 92/66 (75) 98 05/11/19 07:30 95 05/11/19 04:00 97.7 94 20 117/65 (82) 99 05/11/19 04:00 84 05/11/19 04:00 Nasal Cannula 2.0 05/11/19 00:00 97.7 81 28 94/69 (77) 96 05/11/19 00:00 104 05/11/19 00:00 Nasal Cannula 2.0 05/10/19 21:55 99 20 99 Nasal Cannula 2.0 28 105 22 95 05/10/19 20:14 64 90/44 05/10/19 20:00 101 05/10/19 20:00 98.5 62 20 90/44 (59) 99 05/10/19 20:00 Nasal Cannula 2.0 05/10/19 16:00 Nasal Cannula 2.0 05/10/19 15:29 102 05/10/19 14:04 95 Intake and Output 05/10/19 05/11/19 19:00 07:00 Intake Total 580 ml 200 ml Output Total 1400 ml 2100 ml Balance -820 ml -1900 ml Intake Oral 580 ml 200 ml Output Urine Total 1400 ml 2100 ml Laboratory Tests Test 05/11/19 02:50 White Blood Count 14.5 K/UL (4.8-10.8) H Red Blood Count 4.33 M/UL (4.20-5.40) Hemoglobin 12.5 G/DL (12.0-16.0) Hematocrit 39.6 % (37.0-47.0) Mean Corpuscular Volume 91 FL (80-99) Mean Corpuscular Hemoglobin 28.8 PG (27.0-31.0) Mean Corpuscular Hemoglobin Concent 31.5 G/DL (32.0-36.0) L Red Cell Distribution Width 14.8 % (11.6-14.8) Platelet Count 393 K/UL (150-450) Mean Platelet Volume 6.4 FL (6.5-10.1) L Neutrophils (%) (Auto) 70.1 % (45.0-75.0) Lymphocytes (%) (Auto) 23.7 % (20.0-45.0) Monocytes (%) (Auto) 4.8 % (1.0-10.0) Eosinophils (%) (Auto) 0.8 % (0.0-3.0) Basophils (%) (Auto) 0.7 % (0.0-2.0) Erythrocyte Sedimentation Rate 82 MM/HR (0-30) H Sodium Level 139 MMOL/L (136-145) Potassium Level 3.4 MMOL/L (3.5-5.1) L Chloride Level 101 MMOL/L (98-107) Carbon Dioxide Level 26 MMOL/L (21-32) Anion Gap 12 mmol/L (5-15) Blood Urea Nitrogen 35 mg/dL (7-18) H Creatinine 1.7 MG/DL (0.55-1.30) H Estimat Glomerular Filtration Rate 36.6 mL/min (>60) Glucose Level 152 MG/DL (74-106) H Calcium Level 9.1 MG/DL (8.5-10.1) Phosphorus Level 3.9 MG/DL (2.5-4.9) Magnesium Level 1.9 MG/DL (1.8-2.4) Total Bilirubin 0.7 MG/DL (0.2-1.0) Aspartate Amino Transf (AST/SGOT) 10 U/L (15-37) L Alanine Aminotransferase (ALT/SGPT) 15 U/L (12-78) Alkaline Phosphatase 123 U/L (46-116) H C-Reactive Protein, Quantitative 4.1 mg/dL (0.00-0.90) H Total Protein 7.9 G/DL (6.4-8.2) Albumin 3.3 G/DL (3.4-5.0) L Globulin 4.6 g/dL Albumin/Globulin Ratio 0.7 (1.0-2.7) L Height (Feet): 5 Height (Inches): 7.00 Weight (Pounds): 221 Medications Current Medications Medications (Trade) Dose Ordered Sig/Cassidy Route PRN Reason Start Time Stop Time Status Last Admin Dose Admin Acetaminophen (Tylenol) 650 mg Q4H PRN ORAL T>100.5 9/2/19 15:00 06/07/19 14:59 Albuterol/ Ipratropium (Albuterol/ Ipratropium) 3 ml Q4H PRN HHN Shortness of Breath 05/09/19 15:00 05/13/19 14:59 05/10/19 21:55 Allopurinol (Allopurinol) 300 mg DAILY ORAL 05/10/19 13:30 06/09/19 13:29 05/11/19 09:58 Apixaban (Eliquis) 5 mg BID ORAL 05/09/19 18:00 06/08/19 17:59 05/11/19 09:57 Benzocaine (Orajel) 1 applic Q6H PRN MOIRA CANKER SORE PAIN 05/10/19 12:00 06/09/19 11:59 Carvedilol (Coreg) 25 mg Q12HR ORAL 05/09/19 21:00 06/08/19 20:59 05/11/19 09:57 Dextrose (Dextrose 50%) 25 ml Q30M PRN IV Hypoglycemia 05/09/19 15:00 06/07/19 14:59 Dextrose (Dextrose 50%) 50 ml Q30M PRN IV Hypoglycemia 05/09/19 15:00 06/07/19 14:59 Diltiazem HCl (Cardizem) 10 mg Q1H PRN IVP HR>100bpm 05/09/19 14:45 06/07/19 23:44 Furosemide (Lasix) 40 mg EVERY 8 HOURS IV 05/09/19 14:30 06/07/19 14:29 05/11/19 05:42 Insulin Aspart (NovoLOG) BEFORE MEALS AND HS SUBQ 05/09/19 16:30 06/07/19 20:59 05/11/19 12:03 Levothyroxine Sodium (Synthroid) 125 mcg ACBREAKFAST ORAL 05/11/19 06:30 06/08/19 06:29 05/11/19 05:43 Lorazepam (Ativan 2mg/ml 1ml) 1 mg Q6H PRN IV For Anxiety 05/09/19 15:00 05/15/19 14:59 05/11/19 12:08 Ondansetron HCl (Zofran) 4 mg Q6H PRN IVP Nausea & Vomiting 05/09/19 15:00 06/07/19 14:59 Pantoprazole (Protonix) 40 mg EVERY 12 HOURS ORAL 05/10/19 11:00 06/09/19 10:59 05/11/19 09:57 Polyethylene Glycol (Miralax) 17 gm DAILYPRN PRN ORAL Constipation 05/09/19 15:00 06/07/19 14:59 Spironolactone (Aldactone) 12.5 mg DAILY ORAL 05/10/19 09:00 06/08/19 08:59 05/11/19 09:58 Sucralfate (Carafate) 1 gm FOUR TIMES A DAY ORAL 05/10/19 13:00 06/09/19 12:59 05/11/19 12:08 Temazepam (Restoril) 15 mg HSPRN PRN ORAL Insomnia 05/09/19 21:00 05/15/19 20:59 05/10/19 00:47 Assessment/Plan Assessment/Plan: Abx: None Assessment: Acute bronchitis -CXR: Mild central vascular congestion. Afebrile Leukocytosis KENNETH, improving LV mass s/p thoracotomy hypothyroidism AOCD CAD CVA Obesity pAfib CHF HLD HTN dilated cardiomyopathy EF 15-20% s/p AICD asthma/COPD DM2 c/w DKA and neuropathy Plan: -Start PO Levaquin -f/u cx -Monitor CBC/CMP, temperatures Thank you for this consultation. Will continue to follow along with you. Discussed with Bijal Montoya M.D. May 11, 2019 13:56
[2019-05-11] MEDS: Levofloxacin 500mg tab ORAL SCH (14:23)
--- NOTE | 2019-05-11 16:18 | NUR ---
P.T Note: P.T evaluation completed and tx initiated. Please refer to P.T evaluation for current functional status. Pt is alert, O x 4 pleasant and cooperative despite c/o generalized joint pain 5/10 and weakness. Pt currently requires SBA X 1 for bed mobilities. MIN A X 1 for transfers , was able to ambulate not more than 4 ft with FWW , MIN X 1 : distance limited by fatigue and mild SOB. BP: 130/77, HR 100, O2 sat 94-95% room air post functional activities. Skilled P.T service is warranted to increase her strength , balance and endurance to increase mobility functional mobility independence and safety. Recommend FWW and home P.T at [facility]. thank you for this referral.
[2019-05-11] MEDS ORDERED: LORAZEPAM1 MG ORAL (18:13)
[2019-05-11] MEDS ORDERED: ASPIR 8181 MG ORAL (18:13)
[2019-05-11] MEDS ORDERED: CORLANOR5 MG PO (18:13)
[2019-05-11] MEDS ORDERED: VENTOLIN HFA18 GM INH (18:13)
[2019-05-11] MEDS ORDERED: FISH OIL 1,0001 EAC1 ORAL (18:13)
[2019-05-11] MEDS ORDERED: ALBUTEROL2.5 MG/3 M INH (18:13)
[2019-05-11] MEDS ORDERED: FUROSEMIDE40 MG ORAL (18:13)
[2019-05-11] MEDS ORDERED: SPIRONOLACTONE25 MG ORAL (18:13)
[2019-05-11] MEDS ORDERED: ATROVENT HFA12.9 GM IH (18:13)
[2019-05-11] MEDS ORDERED: FLOVENT2 PUFF1 INH (18:13)
[2019-05-11] MEDS ORDERED: LEVOXYL100 MCG ORAL (18:13)
[2019-05-11] MEDS ORDERED: CITALOPRAM HBR20 M1 ORAL (18:13)
[2019-05-11] MEDS ORDERED: ATORVASTATIN CA80 MG ORAL (18:13)
[2019-05-11] MEDS: Lisinopril 2.5mg tab ORAL SCH (19:15)
--- NOTE | 2019-05-11 19:15 | NUR ---
HAND-OFF: Report given to Bernard Torres RN.
--- NOTE | 2019-05-11 19:15 | NUR ---
NURSE NOTES: Received pt from Marietta MELGOZA. Pt is AAO X4, awake and talking, VSS with nasal canula 2L in place. Pt is able to reposition herself. Sacral wound noted, IV sights patent and intact. Bed at its lowest position, x3 bed rails are up and call light in reach.
--- NOTE | 2019-05-11 19:22 | Nephrology Progress Note ---
Assessment/Plan Problem List: (1) Rapid atrial fibrillation (2) Renal failure (ARF), acute on chronic (3) Cardiomyopathy Assessment: low Ej Fx (4) Hypothyroidism (5) Diabetes mellitus out of control Assessment: High A1c Assessment Renal failure- No ua available atrial fib with FVR at the moment history of heart surgery h/o CHF with systolic dysfunction Cardiomyopathy with EF 15 to 20% AICD h/o Paroxysmal atrial fibrillation leukocytosis Possible pneumonia COPD/asthma Hypertension Coronary artery disease with history of LA Diabetes mellitus Obesity Hypothyroidism with elevated TSH Anemia of chronic disease Plan optimize cardiac / pulm status K and Mag and Phos supplement as needed add allopurinoal goodman urine studies per consultants Per orders Subjective ROS Limited/Unobtainable: No Interval Events/Complaints seen in am 05/11 - late note entery Constitutional: Reports: malaise Objective Objective Last 24 Hour Vital Signs Date Time Temp Pulse Resp B/P (MAP) Pulse Ox O2 Delivery O2 Flow Rate FiO2 05/11/19 19:11 71 18 96 Nasal Cannula 2.0 28 05/11/19 16:00 Nasal Cannula 2.0 05/11/19 16:00 96.6 92 20 112/73 (86) 98 05/11/19 15:32 88 05/11/19 13:42 85 20 100 Nasal Cannula 2.0 28 89 22 99 05/11/19 12:00 97.3 100 20 101/66 (78) 98 05/11/19 12:00 Nasal Cannula 2.0 05/11/19 11:44 98 05/11/19 09:57 93 92/66 05/11/19 08:00 Nasal Cannula 2.0 05/11/19 08:00 98.1 93 20 92/66 (75) 98 05/11/19 07:30 95 05/11/19 04:00 97.7 94 20 117/65 (82) 99 05/11/19 04:00 84 05/11/19 04:00 Nasal Cannula 2.0 05/11/19 00:00 97.7 81 28 94/69 (77) 96 05/11/19 00:00 104 05/11/19 00:00 Nasal Cannula 2.0 05/10/19 21:55 99 20 99 Nasal Cannula 2.0 28 105 22 95 05/10/19 20:14 64 90/44 05/10/19 20:00 101 05/10/19 20:00 98.5 62 20 90/44 (59) 99 05/10/19 20:00 Nasal Cannula 2.0 Intake and Output 05/10/19 05/11/19 19:00 07:00 Intake Total 580 ml 200 ml Output Total 1400 ml 2100 ml Balance -820 ml -1900 ml Intake Oral 580 ml 200 ml Output Urine Total 1400 ml 2100 ml Laboratory Tests 05/11/19 02:50: White Blood Count 14.5H, Red Blood Count 4.33, Hemoglobin 12.5, Hematocrit 39.6 , Mean Corpuscular Volume 91, Mean Corpuscular Hemoglobin 28.8, Mean Corpuscular Hemoglobin Concent 31.5L, Red Cell Distribution Width 14.8, Platelet Count 393, Mean Platelet Volume 6.4L, Neutrophils (%) (Auto) 70.1, Lymphocytes (%) (Auto) 23.7, Monocytes (%) (Auto) 4.8, Eosinophils (%) (Auto) 0.8, Basophils (%) (Auto) 0.7, Erythrocyte Sedimentation Rate 82H, Sodium Level 139, Potassium Level 3.4L, Chloride Level 101, Carbon Dioxide Level 26, Anion Gap 12, Blood Urea Nitrogen 35H, Creatinine 1.7H, Estimat Glomerular Filtration Rate 36.6, Glucose Level 152H, Calcium Level 9.1, Phosphorus Level 3.9, Magnesium Level 1.9, Total Bilirubin 0.7, Aspartate Amino Transf (AST/SGOT) 10L , Alanine Aminotransferase (ALT/SGPT) 15, Alkaline Phosphatase 123H, C-Reactive Protein, Quantitative 4.1H, Total Protein 7.9, Albumin 3.3L, Globulin 4.6, Albumin/Globulin Ratio 0.7L Height (Feet): 5 Height (Inches): 7.00 Weight (Pounds): 221 General Appearance: no apparent distress Cardiovascular: arrhythmia Respiratory/Chest: decreased breath sounds Lee Kuhn MD May 11, 2019 19:22
--- NOTE | 2019-05-11 20:00 | NUR ---
NURSE NOTES: New medication held due to low BP.
[2019-05-12 04:00] VITALS: BP 87/61
[2019-05-12 05:15] LABS: BASOPHILS % (AUTO) 0.7 % (0.0-2.0); EOSINOPHILS % (AUTO) 0.7 % (0.0-3.0); HEMATOCRIT 36.8 % (37.0-47.0); HEMOGLOBIN 11.7 G/DL (12.0-16.0); MEAN CORPUSCULAR VOLUME 93 FL (80-99); MONOCYTES % (AUTO) 6.2 % (1.0-10.0); NEUTROPHILS % (AUTO) 76.4 % (45.0-75.0); PLATELET COUNT 377 K/UL (150-450); RED BLOOD COUNT 3.98 M/UL (4.20-5.40); RED CELL DISTRIBUTION WIDTH 15.3 % (11.6-14.8); WHITE BLOOD COUNT 14.7 K/UL (4.8-10.8)
[2019-05-12 05:29] LABS: ANION GAP 12 mmol/L (5-15); BLOOD UREA NITROGEN 39 mg/dL (7-18); CALCIUM 9.1 MG/DL (8.5-10.1); CARBON DIOXIDE 26 MMOL/L (21-32); CHLORIDE 101 MMOL/L (98-107); POTASSIUM 3.5 MMOL/L (3.5-5.1); SODIUM 139 MMOL/L (136-145)
[2019-05-12] MEDS: Levothyroxine 125mcg tab ORAL SCH (06:07)
[2019-05-12] MEDS: NovoLOG Insulin Flexpen SUBQ SCH ×4 (06:10→20:10)
--- NOTE | 2019-05-12 07:15 | NUR ---
HAND-OFF: Report given to Marietta MELGOZA.
--- NOTE | 2019-05-12 07:16 | NUR ---
NURSE NOTES: Received patient in bed. Asleep but easy to arouse, verbal, able to make needs known. On nasal cannula at 2PM. Call light within reach. Contact isolation observed. Will continue plan of care. Denies pain at this time.
[2019-05-12 08:00] VITALS: BP 97/64
[2019-05-12] MEDS: Sucralfate 1gm tab ORAL SCH ×2 (08:35→17:04)
[2019-05-12] MEDS: Lisinopril 2.5mg tab ORAL SCH (08:35)
[2019-05-12] MEDS: Carvedilol 25mg Tab ORAL SCH ×2 (08:35→20:04)
[2019-05-12] MEDS: Spironolactone 25mg tab ORAL SCH (08:35)
[2019-05-12] MEDS: Eliquis 5mg tablet ORAL SCH ×2 (08:36→17:04)
--- NOTE | 2019-05-12 10:17 | Pulmonology Progress Note ---
Assessment/Plan Problems: (1) Rapid atrial fibrillation (2) Cardiomyopathy (3) Hypertension (4) Chest pain (5) COPD (chronic obstructive pulmonary disease) Assessment/Plan doing better converted to sinus for days on Eliquis cardiology consult appreciated respiratory treatment f/u cardio recommendations dc planning Subjective ROS Limited/Unobtainable: No Constitutional: Reports: no symptoms Respiratory: Reports: no symptoms Cardiovascular: Reports: no symptoms Allergies: Coded Allergies: SIMVASTATIN (Verified Adverse Reaction, Intermediate, NAUSEA AND VOMITTING , 03/20/19) Objective Last 24 Hour Vital Signs Date Time Temp Pulse Resp B/P (MAP) Pulse Ox O2 Delivery O2 Flow Rate FiO2 05/12/19 08:35 97/64 05/12/19 08:35 91 97/64 05/12/19 08:00 Nasal Cannula 2.0 05/12/19 08:00 97.9 91 18 97/64 (75) 99 05/12/19 07:28 87 18 96 Nasal Cannula 2.0 28 05/12/19 07:28 96 Nasal Cannula 28.0 28 05/12/19 04:00 Nasal Cannula 2.0 05/12/19 04:00 97.3 90 18 87/61 (70) 96 05/12/19 03:24 91 05/11/19 23:48 Nasal Cannula 2.0 05/11/19 23:47 97.3 87 16 92/63 (73) 100 05/11/19 23:30 83 05/11/19 21:23 88 123/66 05/11/19 20:00 96.8 86 18 84/51 (62) 97 05/11/19 20:00 Nasal Cannula 2.0 05/11/19 20:00 82 05/11/19 19:15 84/51 05/11/19 19:11 71 18 96 Nasal Cannula 2.0 28 05/11/19 16:00 Nasal Cannula 2.0 05/11/19 16:00 96.6 92 20 112/73 (86) 98 05/11/19 15:32 88 05/11/19 13:42 85 20 100 Nasal Cannula 2.0 28 89 22 99 05/11/19 12:00 97.3 100 20 101/66 (78) 98 05/11/19 12:00 Nasal Cannula 2.0 05/11/19 11:44 98 Intake and Output 05/11/19 05/12/19 18:59 06:59 Intake Total 900 ml 200 ml Output Total 2400 ml 1800 ml Balance -1500 ml -1600 ml Intake Oral 900 ml 200 ml Output Urine Total 2400 ml 1800 ml General Appearance: WD/WN HEENT: normocephalic, atraumatic Respiratory/Chest: chest wall non-tender, normal breath sounds Breasts: no masses Cardiovascular: normal rate Abdomen: soft, non tender, non distended Genitourinary: normal external genitalia Extremities: no clubbing Skin: no lesions Laboratory Tests 05/12/19 03:45: White Blood Count 14.7H, Red Blood Count 3.98L, Hemoglobin 11.7L, Hematocrit 36.8L, Mean Corpuscular Volume 93, Mean Corpuscular Hemoglobin 29.3, Mean Corpuscular Hemoglobin Concent 31.7L, Red Cell Distribution Width 15.3H, Platelet Count 377, Mean Platelet Volume 6.3L, Neutrophils (%) (Auto) 76.4H, Lymphocytes (%) (Auto) 16.0L, Monocytes (%) (Auto) 6.2, Eosinophils (%) (Auto) 0.7, Basophils (%) (Auto) 0.7, Sodium Level 139, Potassium Level 3.5, Chloride Level 101, Carbon Dioxide Level 26, Anion Gap 12, Blood Urea Nitrogen 39H, Creatinine 2.0H, Estimat Glomerular Filtration Rate 30.3, Glucose Level 191H, Calcium Level 9.1 05/12/19 04:00: Urine Eosinophils None seen Current Medications Medications (Trade) Dose Ordered Sig/Cassidy Route PRN Reason Start Time Stop Time Status Last Admin Dose Admin Acetaminophen (Tylenol) 650 mg Q4H PRN ORAL T>100.5 05/09/19 15:00 06/07/19 14:59 Albuterol/ Ipratropium (Albuterol/ Ipratropium) 3 ml Q4H PRN HHN Shortness of Breath 05/09/19 15:00 05/13/19 14:59 05/11/19 13:42 Allopurinol (Allopurinol) 300 mg DAILY ORAL 05/10/19 13:30 06/09/19 13:29 05/12/19 08:36 Apixaban (Eliquis) 5 mg BID ORAL 05/09/19 18:00 06/08/19 17:59 05/12/19 08:36 Benzocaine (Orajel) 1 applic Q6H PRN MOIRA CANKER SORE PAIN 05/10/19 12:00 06/09/19 11:59 05/11/19 18:56 Carvedilol (Coreg) 25 mg Q12HR ORAL 05/09/19 21:00 06/08/19 20:59 05/12/19 08:35 Dextrose (Dextrose 50%) 25 ml Q30M PRN IV Hypoglycemia 05/09/19 15:00 06/07/19 14:59 Dextrose (Dextrose 50%) 50 ml Q30M PRN IV Hypoglycemia 05/09/19 15:00 06/07/19 14:59 Diltiazem HCl (Cardizem) 10 mg Q1H PRN IVP HR>100bpm 05/09/19 14:45 06/07/19 23:44 Furosemide (Lasix) 40 mg EVERY 8 HOURS IV 05/09/19 14:30 06/07/19 14:29 05/12/19 06:07 Insulin Aspart (NovoLOG) BEFORE MEALS AND HS SUBQ 05/09/19 16:30 06/07/19 20:59 05/12/19 06:10 Levofloxacin (Levaquin) 500 mg Q48H ORAL 05/11/19 14:00 05/18/19 13:59 05/11/19 14:23 Levothyroxine Sodium (Synthroid) 125 mcg ACBREAKFAST ORAL 05/11/19 06:30 06/08/19 06:29 05/12/19 06:07 Lisinopril (Zestril) 2.5 mg DAILY ORAL 05/11/19 19:15 06/10/19 19:14 05/12/19 08:35 Lorazepam (Ativan 2mg/ml 1ml) 1 mg Q6H PRN IV For Anxiety 05/09/19 15:00 05/15/19 14:59 05/11/19 18:56 Ondansetron HCl (Zofran) 4 mg Q6H PRN IVP Nausea & Vomiting 05/09/19 15:00 06/07/19 14:59 Pantoprazole (Protonix) 40 mg EVERY 12 HOURS ORAL 05/10/19 11:00 06/09/19 10:59 05/12/19 08:36 Polyethylene Glycol (Miralax) 17 gm DAILYPRN PRN ORAL Constipation 05/09/19 15:00 06/07/19 14:59 Spironolactone (Aldactone) 12.5 mg DAILY ORAL 05/10/19 09:00 06/08/19 08:59 05/12/19 08:35 Sucralfate (Carafate) 1 gm FOUR TIMES A DAY ORAL 05/10/19 13:00 06/09/19 12:59 05/12/19 08:35 Temazepam (Restoril) 15 mg HSPRN PRN ORAL Insomnia 05/09/19 21:00 05/15/19 20:59 05/10/19 00:47 Shadi Jo MD May 12, 2019 10:17
[2019-05-12] MEDS: LORazepam Inj 2mg/ml 1ml IV PRN ×2 (10:30→18:34)
--- NOTE | 2019-05-12 10:35 | NUR ---
*-* INSURANCE /*-* ALL CLINICALS AND REVIEWS HAVE BEEN FAXED TO: [facility]: [place] F: [phone]
--- NOTE | 2019-05-12 10:47 | Nephrology Progress Note ---
Assessment/Plan Problem List: (1) Rapid atrial fibrillation (2) Renal failure (ARF), acute on chronic (3) Cardiomyopathy Assessment: low Ej Fx (4) Hypothyroidism (5) Diabetes mellitus out of control Assessment: High A1c Assessment Renal failure- atrial fib with FVR at the moment history of heart surgery h/o CHF with systolic dysfunction Cardiomyopathy with EF 15 to 20% AICD h/o Paroxysmal atrial fibrillation leukocytosis Possible pneumonia COPD/asthma Hypertension Coronary artery disease with history of [place] Diabetes mellitus Obesity Hypothyroidism with elevated TSH Anemia of chronic disease Plan down on Lasix dose optimize cardiac / pulm status K and Mag and Phos supplement as needed add allopurinoal goodman urine studies per consultants Per orders consider PO Digoxin? Subjective ROS Limited/Unobtainable: No Constitutional: Reports: malaise Objective Objective Last 24 Hour Vital Signs Date Time Temp Pulse Resp B/P (MAP) Pulse Ox O2 Delivery O2 Flow Rate FiO2 05/12/19 08:35 97/64 05/12/19 08:35 91 97/64 05/12/19 08:00 87 05/12/19 08:00 Nasal Cannula 2.0 05/12/19 08:00 97.9 91 18 97/64 (75) 99 05/12/19 07:28 87 18 96 Nasal Cannula 2.0 28 05/12/19 07:28 96 Nasal Cannula 28.0 28 05/12/19 04:00 Nasal Cannula 2.0 05/12/19 04:00 97.3 90 18 87/61 (70) 96 05/12/19 03:24 91 05/11/19 23:48 Nasal Cannula 2.0 05/11/19 23:47 97.3 87 16 92/63 (73) 100 05/11/19 23:30 83 05/11/19 21:23 88 123/66 05/11/19 20:00 96.8 86 18 84/51 (62) 97 05/11/19 20:00 Nasal Cannula 2.0 05/11/19 20:00 82 05/11/19 19:15 84/51 05/11/19 19:11 71 18 96 Nasal Cannula 2.0 28 05/11/19 16:00 Nasal Cannula 2.0 05/11/19 16:00 96.6 92 20 112/73 (86) 98 05/11/19 15:32 88 05/11/19 13:42 85 20 100 Nasal Cannula 2.0 28 89 22 99 05/11/19 12:00 97.3 100 20 101/66 (78) 98 05/11/19 12:00 Nasal Cannula 2.0 05/11/19 11:44 98 Intake and Output 05/11/19 05/12/19 18:59 06:59 Intake Total 900 ml 200 ml Output Total 2400 ml 1800 ml Balance -1500 ml -1600 ml Intake Oral 900 ml 200 ml Output Urine Total 2400 ml 1800 ml Laboratory Tests 05/12/19 03:45: White Blood Count 14.7H, Red Blood Count 3.98L, Hemoglobin 11.7L, Hematocrit 36.8L, Mean Corpuscular Volume 93, Mean Corpuscular Hemoglobin 29.3, Mean Corpuscular Hemoglobin Concent 31.7L, Red Cell Distribution Width 15.3H, Platelet Count 377, Mean Platelet Volume 6.3L, Neutrophils (%) (Auto) 76.4H, Lymphocytes (%) (Auto) 16.0L, Monocytes (%) (Auto) 6.2, Eosinophils (%) (Auto) 0.7, Basophils (%) (Auto) 0.7, Sodium Level 139, Potassium Level 3.5, Chloride Level 101, Carbon Dioxide Level 26, Anion Gap 12, Blood Urea Nitrogen 39H, Creatinine 2.0H, Estimat Glomerular Filtration Rate 30.3, Glucose Level 191H, Calcium Level 9.1 05/12/19 04:00: Urine Eosinophils None seen Height (Feet): 5 Height (Inches): 7.00 Weight (Pounds): 221 General Appearance: no apparent distress Cardiovascular: tachycardia Respiratory/Chest: decreased breath sounds Abdomen: soft Objective no change Lee Kuhn MD May 12, 2019 10:47
[2019-05-12 11:47] VITALS: BP 103/64
--- NOTE | 2019-05-12 12:12 | NUR ---
DISCHARGE PLANNING: NOTE CLINICALS FAXED TO [facility] FOR REVIEW
--- NOTE | 2019-05-12 12:12 | NUR ---
CASE MANAGEMENT: REVIEW 05/12/2019 SI:CP T 97.5 HR 94 RR 18 B/P 103/64 SATS 98% ON 2L/NC WBC 14.7 BUN 39 CR 2 GLU 191 IS: PROTONIX PO Q12H ELIQUIS PO BID CARAFATE PO BID ALLOPURINOL PO QD LISINOPRIL PO QD LASIX IV QD INSULIN ASPART SUBQ AC/HS COREG PO Q12H LEVAQUIN PO Q48H SDU DCP: PATIENT TO BE DISCHARGED TO HOME ONCE MEDICALLY CLEARED. PLAN OF CARE: DOWNGRADE TO M/S
--- NOTE | 2019-05-12 13:12 | Infectious Diseases Prog Note ---
Assessment/Plan Assessment/Plan Abx: None Assessment: Acute bronchitis -CXR: Mild central vascular congestion. Afebrile Leukocytosis; improved KENNETH, worsening LV mass s/p thoracotomy hypothyroidism AOCD CAD CVA Obesity pAfib CHF HLD HTN dilated cardiomyopathy EF 15-20% s/p AICD asthma/COPD DM2 c/w DKA and neuropathy Plan: -Cont PO Levaquin #2/5 -f/u cx -Monitor CBC/CMP, temperatures Thank you for this consultation. Will continue to follow along with you. Discussed with RN. Subjective Allergies: Coded Allergies: SIMVASTATIN (Verified Adverse Reaction, Intermediate, NAUSEA AND VOMITTING , 03/20/19) Subjective afebrile wbc improved Objective Vital Signs Last 24 Hour Vital Signs Date Time Temp Pulse Resp B/P (MAP) Pulse Ox O2 Delivery O2 Flow Rate FiO2 05/12/19 12:00 Nasal Cannula 2.0 05/12/19 11:52 88 05/12/19 11:47 97.5 94 18 103/64 (77) 98 05/12/19 11:43 91 05/12/19 08:35 97/64 05/12/19 08:35 91 97/64 05/12/19 08:00 87 05/12/19 08:00 Nasal Cannula 2.0 05/12/19 08:00 97.9 91 18 97/64 (75) 99 05/12/19 07:28 87 18 96 Nasal Cannula 2.0 28 05/12/19 07:28 96 Nasal Cannula 28.0 28 05/12/19 04:00 Nasal Cannula 2.0 05/12/19 04:00 97.3 90 18 87/61 (70) 96 05/12/19 03:24 91 05/11/19 23:48 Nasal Cannula 2.0 05/11/19 23:47 97.3 87 16 92/63 (73) 100 05/11/19 23:30 83 05/11/19 21:23 88 123/66 05/11/19 20:00 96.8 86 18 84/51 (62) 97 05/11/19 20:00 Nasal Cannula 2.0 05/11/19 20:00 82 05/11/19 19:15 84/51 05/11/19 19:11 71 18 96 Nasal Cannula 2.0 28 05/11/19 16:00 Nasal Cannula 2.0 05/11/19 16:00 96.6 92 20 112/73 (86) 98 05/11/19 15:32 88 05/11/19 13:42 85 20 100 Nasal Cannula 2.0 28 89 22 99 Height (Feet): 5 Height (Inches): 7.00 Weight (Pounds): 221 Objective GENERAL: Slightly anxious in bed, oriented x3, in slight distress. CARDIOVASCULAR: No murmurs. LUNGS: Distant and clear. ABDOMEN: Bowel sounds positive. Nontender. Nondistended. EXTREMITIES: No cyanosis, clubbing, edema. NEUROLOGIC: The patient moves all extremities, slightly weak. Laboratory Tests Test 05/12/19 03:45 05/12/19 04:00 White Blood Count 14.7 K/UL (4.8-10.8) H Red Blood Count 3.98 M/UL (4.20-5.40) L Hemoglobin 11.7 G/DL (12.0-16.0) L Hematocrit 36.8 % (37.0-47.0) L Mean Corpuscular Volume 93 FL (80-99) Mean Corpuscular Hemoglobin 29.3 PG (27.0-31.0) Mean Corpuscular Hemoglobin Concent 31.7 G/DL (32.0-36.0) L Red Cell Distribution Width 15.3 % (11.6-14.8) H Platelet Count 377 K/UL (150-450) Mean Platelet Volume 6.3 FL (6.5-10.1) L Neutrophils (%) (Auto) 76.4 % (45.0-75.0) H Lymphocytes (%) (Auto) 16.0 % (20.0-45.0) L Monocytes (%) (Auto) 6.2 % (1.0-10.0) Eosinophils (%) (Auto) 0.7 % (0.0-3.0) Basophils (%) (Auto) 0.7 % (0.0-2.0) Sodium Level 139 MMOL/L (136-145) Potassium Level 3.5 MMOL/L (3.5-5.1) Chloride Level 101 MMOL/L (98-107) Carbon Dioxide Level 26 MMOL/L (21-32) Anion Gap 12 mmol/L (5-15) Blood Urea Nitrogen 39 mg/dL (7-18) H Creatinine 2.0 MG/DL (0.55-1.30) H Estimat Glomerular Filtration Rate 30.3 mL/min (>60) Glucose Level 191 MG/DL (74-106) H Calcium Level 9.1 MG/DL (8.5-10.1) Urine Eosinophils None seen (NONE SEEN) Current Medications Medications (Trade) Dose Ordered Sig/Cassidy Route PRN Reason Start Time Stop Time Status Last Admin Dose Admin Acetaminophen (Tylenol) 650 mg Q4H PRN ORAL T>100.5 05/09/19 15:00 06/07/19 14:59 Albuterol/ Ipratropium (Albuterol/ Ipratropium) 3 ml Q4H PRN HHN Shortness of Breath 05/09/19 15:00 05/13/19 14:59 05/11/19 13:42 Allopurinol (Allopurinol) 300 mg DAILY ORAL 05/10/19 13:30 06/09/19 13:29 05/12/19 08:36 Apixaban (Eliquis) 5 mg BID ORAL 05/09/19 18:00 06/08/19 17:59 05/12/19 08:36 Benzocaine (Orajel) 1 applic Q6H PRN MOIRA CANKER SORE PAIN 05/10/19 12:00 06/09/19 11:59 05/11/19 18:56 Carvedilol (Coreg) 25 mg Q12HR ORAL 05/09/19 21:00 06/08/19 20:59 05/12/19 08:35 Dextrose (Dextrose 50%) 25 ml Q30M PRN IV Hypoglycemia 05/09/19 15:00 06/07/19 14:59 Dextrose (Dextrose 50%) 50 ml Q30M PRN IV Hypoglycemia 05/09/19 15:00 06/07/19 14:59 Diltiazem HCl (Cardizem) 10 mg Q1H PRN IVP HR>100bpm 05/09/19 14:45 06/07/19 23:44 Furosemide (Lasix) 40 mg DAILY IV 05/13/19 09:00 06/07/19 14:29 Insulin Aspart (NovoLOG) BEFORE MEALS AND HS SUBQ 05/09/19 16:30 06/07/19 20:59 05/12/19 11:44 Levofloxacin (Levaquin) 500 mg Q48H ORAL 05/11/19 14:00 05/18/19 13:59 05/11/19 14:23 Levothyroxine Sodium (Synthroid) 125 mcg ACBREAKFAST ORAL 05/11/19 06:30 06/08/19 06:29 05/12/19 06:07 Lisinopril (Zestril) 2.5 mg DAILY ORAL 05/11/19 19:15 06/10/19 19:14 05/12/19 08:35 Lorazepam (Ativan 2mg/ml 1ml) 1 mg Q6H PRN IV For Anxiety 05/09/19 15:00 05/15/19 14:59 05/12/19 10:30 Ondansetron HCl (Zofran) 4 mg Q6H PRN IVP Nausea & Vomiting 05/09/19 15:00 06/07/19 14:59 Pantoprazole (Protonix) 40 mg EVERY 12 HOURS ORAL 05/10/19 11:00 06/09/19 10:59 05/12/19 08:36 Polyethylene Glycol (Miralax) 17 gm DAILYPRN PRN ORAL Constipation 05/09/19 15:00 06/07/19 14:59 Spironolactone (Aldactone) 12.5 mg DAILY ORAL 05/10/19 09:00 06/08/19 08:59 05/12/19 08:35 Sucralfate (Carafate) 1 gm BID ORAL 05/12/19 18:00 06/09/19 12:59 Temazepam (Restoril) 15 mg HSPRN PRN ORAL Insomnia 05/09/19 21:00 05/15/19 20:59 05/10/19 00:47 Bijal Luque M.D. May 12, 2019 13:12
--- NOTE | 2019-05-12 14:16 | General Progress Note ---
Assessment/Plan Problem List: (1) Dyspnea ICD Codes: R06.00 - Dyspnea, unspecified SNOMED: 045208097 Qualifiers: Qualified Codes: R06.00 - Dyspnea, unspecified (2) COPD (chronic obstructive pulmonary disease) ICD Codes: J44.9 - Chronic obstructive pulmonary disease, unspecified SNOMED: 66136467 Qualifiers: Qualified Codes: J44.1 - Chronic obstructive pulmonary disease with (acute) exacerbation (3) Diabetes mellitus ICD Codes: E11.9 - Type 2 diabetes mellitus without complications SNOMED: 52790740 (4) Hypertension ICD Codes: I10 - Essential (primary) hypertension SNOMED: 66933404 (5) Renal failure (ARF), acute on chronic ICD Codes: N17.9 - Acute kidney failure, unspecified; N18.9 - Chronic kidney disease, unspecified SNOMED: 144642209 (6) Persistent leukocytosis Status: stable, progressing Assessment/Plan: o2 pulm tx abx cbc bmp am dc to [facility] Subjective Constitutional: Reports: weakness Allergies: Coded Allergies: SIMVASTATIN (Verified Adverse Reaction, Intermediate, NAUSEA AND VOMITTING , 03/20/19) All Systems: reviewed and negative except above Subjective o2nc sleepy Objective Last 24 Hour Vital Signs Date Time Temp Pulse Resp B/P (MAP) Pulse Ox O2 Delivery O2 Flow Rate FiO2 05/12/19 12:00 Nasal Cannula 2.0 05/12/19 11:52 88 05/12/19 11:47 97.5 94 18 103/64 (77) 98 05/12/19 11:43 91 05/12/19 08:35 97/64 05/12/19 08:35 91 97/64 05/12/19 08:00 87 05/12/19 08:00 Nasal Cannula 2.0 05/12/19 08:00 97.9 91 18 97/64 (75) 99 05/12/19 07:28 87 18 96 Nasal Cannula 2.0 28 05/12/19 07:28 96 Nasal Cannula 28.0 28 05/12/19 04:00 Nasal Cannula 2.0 05/12/19 04:00 97.3 90 18 87/61 (70) 96 05/12/19 03:24 91 05/11/19 23:48 Nasal Cannula 2.0 05/11/19 23:47 97.3 87 16 92/63 (73) 100 05/11/19 23:30 83 05/11/19 21:23 88 123/66 05/11/19 20:00 96.8 86 18 84/51 (62) 97 05/11/19 20:00 Nasal Cannula 2.0 05/11/19 20:00 82 05/11/19 19:15 84/51 05/11/19 19:11 71 18 96 Nasal Cannula 2.0 28 05/11/19 16:00 Nasal Cannula 2.0 05/11/19 16:00 96.6 92 20 112/73 (86) 98 05/11/19 15:32 88 Intake and Output 05/11/19 05/12/19 19:00 07:00 Intake Total 900 ml 200 ml Output Total 2400 ml 1800 ml Balance -1500 ml -1600 ml Intake Oral 900 ml 200 ml Output Urine Total 2400 ml 1800 ml Laboratory Tests 05/12/19 03:45: White Blood Count 14.7H, Red Blood Count 3.98L, Hemoglobin 11.7L, Hematocrit 36.8L, Mean Corpuscular Volume 93, Mean Corpuscular Hemoglobin 29.3, Mean Corpuscular Hemoglobin Concent 31.7L, Red Cell Distribution Width 15.3H, Platelet Count 377, Mean Platelet Volume 6.3L, Neutrophils (%) (Auto) 76.4H, Lymphocytes (%) (Auto) 16.0L, Monocytes (%) (Auto) 6.2, Eosinophils (%) (Auto) 0.7, Basophils (%) (Auto) 0.7, Sodium Level 139, Potassium Level 3.5, Chloride Level 101, Carbon Dioxide Level 26, Anion Gap 12, Blood Urea Nitrogen 39H, Creatinine 2.0H, Estimat Glomerular Filtration Rate 30.3, Glucose Level 191H, Calcium Level 9.1 05/12/19 04:00: Urine Eosinophils None seen Height (Feet): 5 Height (Inches): 7.00 Weight (Pounds): 221 General Appearance: lethargic EENT: normal ENT inspection Neck: normal alignment Cardiovascular: normal peripheral pulses, normal rate, regular rhythm Respiratory/Chest: chest wall non-tender, lungs clear, normal breath sounds Abdomen: normal bowel sounds, non tender, soft Extremities: normal inspection Edema: no edema noted Arm (L), no edema noted Arm (R), no edema noted Leg (L), no edema noted Leg (R), no edema noted Pedal (L), no edema noted Pedal (R), no edema noted Generalized Neurologic: motor weakness Skin: normal pigmentation, warm/dry Chiki Pimentel DO May 12, 2019 14:16
[2019-05-12 16:00] VITALS: BP 90/66
--- NOTE | 2019-05-12 16:53 | NUR ---
DISCHARGE PLANNING: NOTE CLINICALS RECEIVED BY [facility] C: [phone] AUTH INITIATED WITH LEYLA @ [facility] T: [phone] F: [phone]>> REFERRAL SENT TO [facility] FOR POLO [phone] [id number]
[2019-05-12] MEDS: Miralax 17gm pkt ORAL PRN (17:03)
--- NOTE | 2019-05-12 19:10 | NUR ---
NURSE NOTES: Pt report received from [place] RN BRIONNA. pt remains stable. pt is alert oriented times 4 and is able to follow commands. pt is site monitor shows NSR with no other abnormalities noted. pt is on 2 L NC and able to sat at 100%, no distress noted. pt bed low, locked, armed, bed rails up times 3, call light within reach. will continue plan of care.
--- NOTE | 2019-05-12 19:28 | NUR ---
HAND-OFF: Report given to Ivonne Frank RN.
[2019-05-12 20:00] VITALS: BP 86/61
--- NOTE | 2019-05-12 23:06 | Cardiology Progress Note ---
Assessment/Plan Assessment/Plan 1. Dilated cardiomyopathy, most likely nonischemic. Continue spironolactone, beta-blockers, continue lisinopril, decrease lasix to 20mg IVP. Will continue creat check. 2. Status post [employer] AICD implantation with recent interrogation in this facility. 3. Paroxysmal atrial fibrillation, continue Eliquis. 4. History of cardiac surgery status post removal of LV thrombus versus cardiac mass, no documentation about the nature of cardiac surgery at [facility], will make an attempt to obtain records. 5. History of diabetes mellitus. 6. History of hyperlipidemia. 7. History of COPD. 8. History of CVA. 9. KENNETH on CKD, decrease lasix to 20mg IVP, continue lisinopril for now. Subjective Subjective Sinus rhythm at rate of 86. Objective Last 24 Hour Vital Signs Date Time Temp Pulse Resp B/P (MAP) Pulse Ox O2 Delivery O2 Flow Rate FiO2 05/12/19 20:04 86 85/61 05/12/19 20:00 97.9 85 16 86/61 (69) 99 05/12/19 20:00 Nasal Cannula 2.0 05/12/19 20:00 86 05/12/19 19:51 97 Nasal Cannula 2.0 28 05/12/19 16:00 Nasal Cannula 2.0 05/12/19 16:00 98.2 85 16 90/66 (74) 98 05/12/19 15:35 86 05/12/19 12:00 Nasal Cannula 2.0 05/12/19 11:52 88 05/12/19 11:47 97.5 94 18 103/64 (77) 98 05/12/19 11:43 91 05/12/19 08:35 97/64 05/12/19 08:35 91 97/64 05/12/19 08:00 87 05/12/19 08:00 Nasal Cannula 2.0 05/12/19 08:00 97.9 91 18 97/64 (75) 99 05/12/19 07:28 87 18 96 Nasal Cannula 2.0 28 05/12/19 07:28 96 Nasal Cannula 28.0 28 05/12/19 04:00 Nasal Cannula 2.0 05/12/19 04:00 97.3 90 18 87/61 (70) 96 05/12/19 03:24 91 05/11/19 23:48 Nasal Cannula 2.0 05/11/19 23:47 97.3 87 16 92/63 (73) 100 05/11/19 23:30 83 Intake and Output 05/11/19 05/12/19 18:59 06:59 Intake Total 900 ml 200 ml Output Total 2400 ml 1800 ml Balance -1500 ml -1600 ml Intake Oral 900 ml 200 ml Output Urine Total 2400 ml 1800 ml 2D Echo: LVEF 25%,Global LVHK, RVSP 37, Grade II LVDD (pseudo-normal), Mild MR Laboratory Tests Test 05/12/19 03:45 05/12/19 04:00 White Blood Count 14.7 K/UL (4.8-10.8) H Red Blood Count 3.98 M/UL (4.20-5.40) L Hemoglobin 11.7 G/DL (12.0-16.0) L Hematocrit 36.8 % (37.0-47.0) L Mean Corpuscular Volume 93 FL (80-99) Mean Corpuscular Hemoglobin 29.3 PG (27.0-31.0) Mean Corpuscular Hemoglobin Concent 31.7 G/DL (32.0-36.0) L Red Cell Distribution Width 15.3 % (11.6-14.8) H Platelet Count 377 K/UL (150-450) Mean Platelet Volume 6.3 FL (6.5-10.1) L Neutrophils (%) (Auto) 76.4 % (45.0-75.0) H Lymphocytes (%) (Auto) 16.0 % (20.0-45.0) L Monocytes (%) (Auto) 6.2 % (1.0-10.0) Eosinophils (%) (Auto) 0.7 % (0.0-3.0) Basophils (%) (Auto) 0.7 % (0.0-2.0) Sodium Level 139 MMOL/L (136-145) Potassium Level 3.5 MMOL/L (3.5-5.1) Chloride Level 101 MMOL/L (98-107) Carbon Dioxide Level 26 MMOL/L (21-32) Anion Gap 12 mmol/L (5-15) Blood Urea Nitrogen 39 mg/dL (7-18) H Creatinine 2.0 MG/DL (0.55-1.30) H Estimat Glomerular Filtration Rate 30.3 mL/min (>60) Glucose Level 191 MG/DL (74-106) H Calcium Level 9.1 MG/DL (8.5-10.1) Urine Eosinophils None seen (NONE SEEN) Objective HEENT: Atraumatic and normocephalic. Anicteric. Pupils are equal, round, and reactive to light and accommodation. Extraocular muscles intact. NECK: JVP is elevated about 10 to 12 cm. No carotid bruits. Carotid upstrokes 2+ bilaterally. CVS: Normal S1, S2. Positive S3. A 2/6 mid systolic murmur at left sternal border. Single AICD generator in the left pectoral area. LUNGS: Diminished breath sounds. CHEST: Mid sternotomy plus scar of prior tracheostomy tube placement. ABDOMEN: Soft, nontender, and nondistended. No hepatosplenomegaly. Positive bowel sounds. EXTREMITIES: A 1+ bilateral lower extremity edema. Dexter Zelaya MD May 12, 2019 23:06
[2019-05-13] VITALS (7 sets, daily range): BP systolic 84–128; BP diastolic 53–76
[2019-05-13] MEDS: LORazepam Inj 2mg/ml 1ml IV PRN ×3 (01:36→21:35)
[2019-05-13 04:41] LABS: BASOPHILS % (AUTO) 0.6 % (0.0-2.0); EOSINOPHILS % (AUTO) 0.5 % (0.0-3.0); HEMATOCRIT 35.9 % (37.0-47.0); HEMOGLOBIN 11.4 G/DL (12.0-16.0); LYMPHOCYTES % (AUTO) 18.2 % (20.0-45.0); MEAN CORPUSCULAR VOLUME 94 FL (80-99); MONOCYTES % (AUTO) 6.6 % (1.0-10.0); NEUTROPHILS % (AUTO) 74.1 % (45.0-75.0); PLATELET COUNT 363 K/UL (150-450); RED BLOOD COUNT 3.84 M/UL (4.20-5.40); WHITE BLOOD COUNT 16.5 K/UL (4.8-10.8)
[2019-05-13 04:55] LABS: ANION GAP 11 mmol/L (5-15); BLOOD UREA NITROGEN 39 mg/dL (7-18); CALCIUM 9.2 MG/DL (8.5-10.1); CARBON DIOXIDE 28 MMOL/L (21-32); CHLORIDE 102 MMOL/L (98-107); CREATININE 1.7 MG/DL (0.55-1.30); SODIUM 140 MMOL/L (136-145)
[2019-05-13] MEDS: Levothyroxine 125mcg tab ORAL SCH (05:34)
[2019-05-13] MEDS: NovoLOG Insulin Flexpen SUBQ SCH ×4 (05:36→21:46)
--- NOTE | 2019-05-13 07:29 | NUR ---
HAND-OFF: Report given to Slim MELGOZA ICU SDU. pt remains stable. Addendum: 05/13/19 at 729 by LORIE MARIE RN HAND-OFF: Report given to Delilah MELGOZA ICU SDU. pt remains stable. Addendum: 05/13/19 at 0731 by LORIE MARIE RN HAND-OFF: Report given to Delilah ORNELAS. pt remains stable.
--- NOTE | 2019-05-13 07:41 | NUR ---
NURSE NOTES: received patient report from shannan rn. patient is on bed awake. confused. no arrythmias reported during the night.on 2 Li NC. bed is low and locked for safety. will follow plan of care.
--- NOTE | 2019-05-13 07:47 | Nephrology Progress Note ---
Assessment/Plan Problem List: (1) Rapid atrial fibrillation (2) Renal failure (ARF), acute on chronic (3) Cardiomyopathy Assessment: low Ej Fx (4) Hypothyroidism (5) Diabetes mellitus out of control Assessment: High A1c Assessment rising WBCs Renal failure- atrial fib with FVR at the moment history of heart surgery h/o CHF with systolic dysfunction Cardiomyopathy with EF 15 to 20% AICD h/o Paroxysmal atrial fibrillation leukocytosis Possible pneumonia COPD/asthma Hypertension Coronary artery disease with history of [place] Diabetes mellitus Obesity Hypothyroidism with elevated TSH Anemia of chronic disease Plan down on Lasix dose optimize cardiac / pulm status K and Mag and Phos supplement as needed add allopurinoal goodman urine studies per consultants Per orders consider PO Digoxin? Subjective ROS Limited/Unobtainable: No Constitutional: Reports: malaise, weakness Objective Objective Last 24 Hour Vital Signs Date Time Temp Pulse Resp B/P (MAP) Pulse Ox O2 Delivery O2 Flow Rate FiO2 05/13/19 07:01 96 Nasal Cannula 2.0 28 05/13/19 07:01 84 18 96 Nasal Cannula 2.0 28 05/13/19 04:00 98.1 83 16 84/61 (69) 99 05/13/19 04:00 Nasal Cannula 2.0 05/13/19 04:00 86 05/13/19 00:00 98.0 92 16 102/65 (77) 100 05/13/19 00:00 Nasal Cannula 2.0 05/13/19 00:00 93 05/12/19 20:04 86 85/61 05/12/19 20:00 97.9 85 16 86/61 (69) 99 05/12/19 20:00 Nasal Cannula 2.0 05/12/19 20:00 86 05/12/19 19:51 97 Nasal Cannula 2.0 28 05/12/19 16:00 Nasal Cannula 2.0 05/12/19 16:00 98.2 85 16 90/66 (74) 98 05/12/19 15:35 86 05/12/19 12:00 Nasal Cannula 2.0 05/12/19 11:52 88 05/12/19 11:47 97.5 94 18 103/64 (77) 98 05/12/19 11:43 91 05/12/19 08:35 97/64 05/12/19 08:35 91 97/64 05/12/19 08:00 87 05/12/19 08:00 Nasal Cannula 2.0 05/12/19 08:00 97.9 91 18 97/64 (75) 99 Intake and Output 05/12/19 05/13/19 19:00 07:00 Intake Total 600 ml Output Total 1900 ml 1500 ml Balance -1300 ml -1500 ml Intake Oral 600 ml Output Urine Total 1900 ml 1500 ml Laboratory Tests 05/13/19 03:35: White Blood Count 16.5H, Red Blood Count 3.84L, Hemoglobin 11.4L, Hematocrit 35.9L, Mean Corpuscular Volume 94, Mean Corpuscular Hemoglobin 29.6, Mean Corpuscular Hemoglobin Concent 31.7L, Red Cell Distribution Width 15.0H, Platelet Count 363, Mean Platelet Volume 7.1, Neutrophils (%) (Auto) 74.1, Lymphocytes (%) (Auto) 18.2L, Monocytes (%) (Auto) 6.6, Eosinophils (%) (Auto) 0.5, Basophils (%) (Auto) 0.6, Sodium Level 140, Potassium Level 4.0, Chloride Level 102, Carbon Dioxide Level 28, Anion Gap 11, Blood Urea Nitrogen 39H, Creatinine 1.7H, Estimat Glomerular Filtration Rate 36.6, Glucose Level 196H, Calcium Level 9.2, Cortisol AM Sample [Pending] Height (Feet): 5 Height (Inches): 7.00 Weight (Pounds): 221 General Appearance: no apparent distress Respiratory/Chest: decreased breath sounds Abdomen: distended Objective no change Lee Kuhn MD May 13, 2019 07:47
[2019-05-13] MEDS: Eliquis 5mg tablet ORAL SCH ×2 (08:04→17:08)
[2019-05-13] MEDS: Sucralfate 1gm tab ORAL SCH ×2 (08:04→17:08)
[2019-05-13] MEDS: Lisinopril 2.5mg tab ORAL SCH (08:05)
[2019-05-13] MEDS: Carvedilol 25mg Tab ORAL SCH ×2 (08:05→21:36)
[2019-05-13] MEDS: Spironolactone 25mg tab ORAL SCH (08:05)
--- NOTE | 2019-05-13 09:48 | General Progress Note ---
Assessment/Plan Problem List: (1) Dyspnea ICD Codes: R06.00 - Dyspnea, unspecified SNOMED: 128830428 Qualifiers: Qualified Codes: R06.00 - Dyspnea, unspecified (2) COPD (chronic obstructive pulmonary disease) ICD Codes: J44.9 - Chronic obstructive pulmonary disease, unspecified SNOMED: 28765453 Qualifiers: Qualified Codes: J44.1 - Chronic obstructive pulmonary disease with (acute) exacerbation (3) Diabetes mellitus ICD Codes: E11.9 - Type 2 diabetes mellitus without complications SNOMED: 55456542 (4) Hypertension ICD Codes: I10 - Essential (primary) hypertension SNOMED: 16800182 (5) Renal failure (ARF), acute on chronic ICD Codes: N17.9 - Acute kidney failure, unspecified; N18.9 - Chronic kidney disease, unspecified SNOMED: 756501461 (6) Persistent leukocytosis Status: stable, progressing Assessment/Plan: o2 pulm tx abx cbc bmp am dc to [facility] Subjective Constitutional: Reports: weakness Allergies: Coded Allergies: SIMVASTATIN (Verified Adverse Reaction, Intermediate, NAUSEA AND VOMITTING , 03/20/19) All Systems: reviewed and negative except above Subjective o2nc sleepy Objective Last 24 Hour Vital Signs Date Time Temp Pulse Resp B/P (MAP) Pulse Ox O2 Delivery O2 Flow Rate FiO2 05/13/19 08:05 100/53 05/13/19 08:05 79 100/53 05/13/19 08:00 97.5 79 17 100/53 (69) 100 05/13/19 08:00 Nasal Cannula 2.0 05/13/19 07:01 96 Nasal Cannula 2.0 28 05/13/19 07:01 84 18 96 Nasal Cannula 2.0 28 05/13/19 04:00 98.1 83 16 84/61 (69) 99 05/13/19 04:00 Nasal Cannula 2.0 05/13/19 04:00 86 05/13/19 00:00 98.0 92 16 102/65 (77) 100 05/13/19 00:00 Nasal Cannula 2.0 05/13/19 00:00 93 05/12/19 20:04 86 85/61 05/12/19 20:00 97.9 85 16 86/61 (69) 99 05/12/19 20:00 Nasal Cannula 2.0 05/12/19 20:00 86 05/12/19 19:51 97 Nasal Cannula 2.0 28 05/12/19 16:00 Nasal Cannula 2.0 05/12/19 16:00 98.2 85 16 90/66 (74) 98 05/12/19 15:35 86 05/12/19 12:00 Nasal Cannula 2.0 05/12/19 11:52 88 05/12/19 11:47 97.5 94 18 103/64 (77) 98 05/12/19 11:43 91 Intake and Output 05/12/19 05/13/19 18:59 06:59 Intake Total 600 ml Output Total 1900 ml 1500 ml Balance -1300 ml -1500 ml Intake Oral 600 ml Output Urine Total 1900 ml 1500 ml Laboratory Tests 05/13/19 03:35: White Blood Count 16.5H, Red Blood Count 3.84L, Hemoglobin 11.4L, Hematocrit 35.9L, Mean Corpuscular Volume 94, Mean Corpuscular Hemoglobin 29.6, Mean Corpuscular Hemoglobin Concent 31.7L, Red Cell Distribution Width 15.0H, Platelet Count 363, Mean Platelet Volume 7.1, Neutrophils (%) (Auto) 74.1, Lymphocytes (%) (Auto) 18.2L, Monocytes (%) (Auto) 6.6, Eosinophils (%) (Auto) 0.5, Basophils (%) (Auto) 0.6, Sodium Level 140, Potassium Level 4.0, Chloride Level 102, Carbon Dioxide Level 28, Anion Gap 11, Blood Urea Nitrogen 39H, Creatinine 1.7H, Estimat Glomerular Filtration Rate 36.6, Glucose Level 196H, Calcium Level 9.2, Cortisol AM Sample [Pending] Height (Feet): 5 Height (Inches): 7.00 Weight (Pounds): 221 General Appearance: lethargic EENT: normal ENT inspection Neck: normal alignment Cardiovascular: normal peripheral pulses, normal rate, regular rhythm Respiratory/Chest: chest wall non-tender, lungs clear, normal breath sounds Abdomen: normal bowel sounds, non tender, soft Extremities: normal inspection Edema: no edema noted Arm (L), no edema noted Arm (R), no edema noted Leg (L), no edema noted Leg (R), no edema noted Pedal (L), no edema noted Pedal (R), no edema noted Generalized Neurologic: motor weakness Skin: normal pigmentation, warm/dry Chiki Pimentel DO May 13, 2019 09:48
--- NOTE | 2019-05-13 10:45 | Pulmonology Progress Note ---
Assessment/Plan Problems: (1) Rapid atrial fibrillation (2) Anxiety (3) Cardiomyopathy (4) Hypertension (5) COPD (chronic obstructive pulmonary disease) (6) Chest pain Assessment/Plan doing better converted to sinus for days on Eliquis c/o chest wall pain, wants tramadol respiratory treatment f/u cardio recommendations ativan for anxiety dc planning Subjective ROS Limited/Unobtainable: No Constitutional: Reports: no symptoms HEENT: Repors: no symptoms Respiratory: Reports: no symptoms Allergies: Coded Allergies: SIMVASTATIN (Verified Adverse Reaction, Intermediate, NAUSEA AND VOMITTING , 03/20/19) Objective Last 24 Hour Vital Signs Date Time Temp Pulse Resp B/P (MAP) Pulse Ox O2 Delivery O2 Flow Rate FiO2 05/13/19 08:05 100/53 05/13/19 08:05 79 100/53 05/13/19 08:00 79 05/13/19 08:00 97.5 79 17 100/53 (69) 100 05/13/19 08:00 Nasal Cannula 2.0 05/13/19 07:01 96 Nasal Cannula 2.0 28 05/13/19 07:01 84 18 96 Nasal Cannula 2.0 28 05/13/19 04:00 98.1 83 16 84/61 (69) 99 05/13/19 04:00 Nasal Cannula 2.0 05/13/19 04:00 86 05/13/19 00:00 98.0 92 16 102/65 (77) 100 05/13/19 00:00 Nasal Cannula 2.0 05/13/19 00:00 93 05/12/19 20:04 86 85/61 05/12/19 20:00 97.9 85 16 86/61 (69) 99 05/12/19 20:00 Nasal Cannula 2.0 05/12/19 20:00 86 05/12/19 19:51 97 Nasal Cannula 2.0 28 05/12/19 16:00 Nasal Cannula 2.0 05/12/19 16:00 98.2 85 16 90/66 (74) 98 05/12/19 15:35 86 05/12/19 12:00 Nasal Cannula 2.0 05/12/19 11:52 88 05/12/19 11:47 97.5 94 18 103/64 (77) 98 05/12/19 11:43 91 Intake and Output 05/12/19 05/13/19 18:59 06:59 Intake Total 600 ml Output Total 1900 ml 1500 ml Balance -1300 ml -1500 ml Intake Oral 600 ml Output Urine Total 1900 ml 1500 ml General Appearance: WD/WN HEENT: normocephalic, atraumatic Cardiovascular: normal peripheral pulses Abdomen: soft, non tender, no organomegaly, no scars Extremities: no cyanosis Neurologic/Psychiatric: auto bumper straightener II-XII grossly normal, abnormal gait Lymphatic: no neck adenopathy Microbiology Date/Time Source Procedure Growth Status 05/12/19 04:00 Sputum Induced Gram Stain - Final Resulted 05/12/19 04:00 Sputum Induced Sputum Culture - Preliminary NORMAL UPPER RESPIRATORY MIN AT 24 ... Resulted Laboratory Tests 05/13/19 03:35: White Blood Count 16.5H, Red Blood Count 3.84L, Hemoglobin 11.4L, Hematocrit 35.9L, Mean Corpuscular Volume 94, Mean Corpuscular Hemoglobin 29.6, Mean Corpuscular Hemoglobin Concent 31.7L, Red Cell Distribution Width 15.0H, Platelet Count 363, Mean Platelet Volume 7.1, Neutrophils (%) (Auto) 74.1, Lymphocytes (%) (Auto) 18.2L, Monocytes (%) (Auto) 6.6, Eosinophils (%) (Auto) 0.5, Basophils (%) (Auto) 0.6, Sodium Level 140, Potassium Level 4.0, Chloride Level 102, Carbon Dioxide Level 28, Anion Gap 11, Blood Urea Nitrogen 39H, Creatinine 1.7H, Estimat Glomerular Filtration Rate 36.6, Glucose Level 196H, Calcium Level 9.2, Cortisol AM Sample [Pending] Current Medications Medications (Trade) Dose Ordered Sig/Cassidy Route PRN Reason Start Time Stop Time Status Last Admin Dose Admin Acetaminophen (Tylenol) 650 mg Q4H PRN ORAL T>100.5 05/09/19 15:00 06/07/19 14:59 Albuterol/ Ipratropium (Albuterol/ Ipratropium) 3 ml Q4H PRN HHN Shortness of Breath 05/09/19 15:00 05/13/19 14:59 05/11/19 13:42 Allopurinol (Allopurinol) 300 mg DAILY ORAL 05/10/19 13:30 06/09/19 13:29 05/13/19 08:06 Apixaban (Eliquis) 5 mg BID ORAL 05/09/19 18:00 06/08/19 17:59 05/13/19 08:04 Benzocaine (Orajel) 1 applic Q6H PRN MOIRA CANKER SORE PAIN 05/10/19 12:00 06/09/19 11:59 05/11/19 18:56 Carvedilol (Coreg) 25 mg Q12HR ORAL 05/09/19 21:00 06/08/19 20:59 05/12/19 08:35 Dextrose (Dextrose 50%) 25 ml Q30M PRN IV Hypoglycemia 05/09/19 15:00 06/07/19 14:59 Dextrose (Dextrose 50%) 50 ml Q30M PRN IV Hypoglycemia 05/09/19 15:00 06/07/19 14:59 Diltiazem HCl (Cardizem) 10 mg Q1H PRN IVP HR>100bpm 05/09/19 14:45 06/07/19 23:44 Furosemide (Lasix) 20 mg DAILY IV 05/13/19 09:00 06/12/19 08:59 05/13/19 08:11 Insulin Aspart (NovoLOG) BEFORE MEALS AND HS SUBQ 05/09/19 16:30 06/07/19 20:59 05/13/19 05:36 Levofloxacin (Levaquin) 500 mg Q48H ORAL 05/11/19 14:00 05/18/19 13:59 05/11/19 14:23 Levothyroxine Sodium (Synthroid) 125 mcg ACBREAKFAST ORAL 05/11/19 06:30 06/08/19 06:29 05/13/19 05:34 Lisinopril (Zestril) 2.5 mg DAILY ORAL 05/11/19 19:15 06/10/19 19:14 05/12/19 08:35 Lorazepam (Ativan 2mg/ml 1ml) 1 mg Q6H PRN IV For Anxiety 05/09/19 15:00 05/15/19 14:59 05/13/19 10:33 Ondansetron HCl (Zofran) 4 mg Q6H PRN IVP Nausea & Vomiting 05/09/19 15:00 06/07/19 14:59 Pantoprazole (Protonix) 40 mg EVERY 12 HOURS ORAL 05/10/19 11:00 06/09/19 10:59 05/13/19 08:05 Polyethylene Glycol (Miralax) 17 gm DAILYPRN PRN ORAL Constipation 05/09/19 15:00 06/07/19 14:59 05/12/19 17:03 Spironolactone (Aldactone) 12.5 mg DAILY ORAL 05/10/19 09:00 06/08/19 08:59 05/12/19 08:35 Sucralfate (Carafate) 1 gm BID ORAL 05/12/19 18:00 06/09/19 12:59 05/13/19 08:04 Temazepam (Restoril) 15 mg HSPRN PRN ORAL Insomnia 05/09/19 21:00 05/15/19 20:59 05/12/19 23:04 Shadi Jo MD May 13, 2019 10:45
--- NOTE | 2019-05-13 11:07 | Infectious Diseases Prog Note ---
Assessment/Plan Assessment/Plan Abx: None Assessment: Acute bronchitis -CXR: Mild central vascular congestion. Afebrile Leukocytosis; increased KENNETH, worsening LV mass s/p thoracotomy hypothyroidism AOCD CAD CVA Obesity pAfib CHF HLD HTN dilated cardiomyopathy EF 15-20% s/p AICD asthma/COPD DM2 c/w DKA and neuropathy Plan: -Cont PO Levaquin #3/5 -f/u cx -Monitor CBC/CMP, temperatures -CXR 2v -Cdiff if diarrhea Thank you for this consultation. Will continue to follow along with you. Discussed with RN. Subjective Allergies: Coded Allergies: SIMVASTATIN (Verified Adverse Reaction, Intermediate, NAUSEA AND VOMITTING , 03/20/19) Subjective afebrile wbc increased at 2l NC Objective Vital Signs Last 24 Hour Vital Signs Date Time Temp Pulse Resp B/P (MAP) Pulse Ox O2 Delivery O2 Flow Rate FiO2 05/13/19 08:05 100/53 05/13/19 08:05 79 100/53 05/13/19 08:00 79 05/13/19 08:00 97.5 79 17 100/53 (69) 100 05/13/19 08:00 Nasal Cannula 2.0 05/13/19 07:01 96 Nasal Cannula 2.0 28 05/13/19 07:01 84 18 96 Nasal Cannula 2.0 28 05/13/19 04:00 98.1 83 16 84/61 (69) 99 05/13/19 04:00 Nasal Cannula 2.0 05/13/19 04:00 86 05/13/19 00:00 98.0 92 16 102/65 (77) 100 05/13/19 00:00 Nasal Cannula 2.0 05/13/19 00:00 93 05/12/19 20:04 86 85/61 05/12/19 20:00 97.9 85 16 86/61 (69) 99 05/12/19 20:00 Nasal Cannula 2.0 05/12/19 20:00 86 05/12/19 19:51 97 Nasal Cannula 2.0 28 05/12/19 16:00 Nasal Cannula 2.0 05/12/19 16:00 98.2 85 16 90/66 (74) 98 05/12/19 15:35 86 05/12/19 12:00 Nasal Cannula 2.0 05/12/19 11:52 88 05/12/19 11:47 97.5 94 18 103/64 (77) 98 05/12/19 11:43 91 Height (Feet): 5 Height (Inches): 7.00 Weight (Pounds): 221 Objective GENERAL: Slightly anxious in bed, oriented x3, in slight distress. CARDIOVASCULAR: No murmurs. LUNGS: Distant and clear. ABDOMEN: Bowel sounds positive. Nontender. Nondistended. EXTREMITIES: No cyanosis, clubbing, edema. NEUROLOGIC: The patient moves all extremities, slightly weak. Microbiology Date/Time Source Procedure Growth Status 05/12/19 04:00 Sputum Induced Gram Stain - Final Resulted 05/12/19 04:00 Sputum Induced Sputum Culture - Preliminary NORMAL UPPER RESPIRATORY MIN AT 24 ... Resulted Laboratory Tests Test 05/13/19 03:35 White Blood Count 16.5 K/UL (4.8-10.8) H Red Blood Count 3.84 M/UL (4.20-5.40) L Hemoglobin 11.4 G/DL (12.0-16.0) L Hematocrit 35.9 % (37.0-47.0) L Mean Corpuscular Volume 94 FL (80-99) Mean Corpuscular Hemoglobin 29.6 PG (27.0-31.0) Mean Corpuscular Hemoglobin Concent 31.7 G/DL (32.0-36.0) L Red Cell Distribution Width 15.0 % (11.6-14.8) H Platelet Count 363 K/UL (150-450) Mean Platelet Volume 7.1 FL (6.5-10.1) Neutrophils (%) (Auto) 74.1 % (45.0-75.0) Lymphocytes (%) (Auto) 18.2 % (20.0-45.0) L Monocytes (%) (Auto) 6.6 % (1.0-10.0) Eosinophils (%) (Auto) 0.5 % (0.0-3.0) Basophils (%) (Auto) 0.6 % (0.0-2.0) Sodium Level 140 MMOL/L (136-145) Potassium Level 4.0 MMOL/L (3.5-5.1) Chloride Level 102 MMOL/L (98-107) Carbon Dioxide Level 28 MMOL/L (21-32) Anion Gap 11 mmol/L (5-15) Blood Urea Nitrogen 39 mg/dL (7-18) H Creatinine 1.7 MG/DL (0.55-1.30) H Estimat Glomerular Filtration Rate 36.6 mL/min (>60) Glucose Level 196 MG/DL (74-106) H Calcium Level 9.2 MG/DL (8.5-10.1) Cortisol AM Sample Pending Current Medications Medications (Trade) Dose Ordered Sig/Cassidy Route PRN Reason Start Time Stop Time Status Last Admin Dose Admin Acetaminophen (Tylenol) 650 mg Q4H PRN ORAL T>100.5 05/09/19 15:00 06/07/19 14:59 Albuterol/ Ipratropium (Albuterol/ Ipratropium) 3 ml Q4H PRN HHN Shortness of Breath 05/09/19 15:00 05/13/19 14:59 05/11/19 13:42 Allopurinol (Allopurinol) 300 mg DAILY ORAL 05/10/19 13:30 06/09/19 13:29 05/13/19 08:06 Apixaban (Eliquis) 5 mg BID ORAL 05/09/19 18:00 06/08/19 17:59 05/13/19 08:04 Benzocaine (Orajel) 1 applic Q6H PRN MOIRA CANKER SORE PAIN 05/10/19 12:00 06/09/19 11:59 05/11/19 18:56 Carvedilol (Coreg) 25 mg Q12HR ORAL 05/09/19 21:00 06/08/19 20:59 05/12/19 08:35 Dextrose (Dextrose 50%) 25 ml Q30M PRN IV Hypoglycemia 05/09/19 15:00 06/07/19 14:59 Dextrose (Dextrose 50%) 50 ml Q30M PRN IV Hypoglycemia 05/09/19 15:00 06/07/19 14:59 Diltiazem HCl (Cardizem) 10 mg Q1H PRN IVP HR>100bpm 05/09/19 14:45 06/07/19 23:44 Furosemide (Lasix) 20 mg DAILY IV 05/13/19 09:00 06/12/19 08:59 05/13/19 08:11 Insulin Aspart (NovoLOG) BEFORE MEALS AND HS SUBQ 05/09/19 16:30 06/07/19 20:59 05/13/19 05:36 Levofloxacin (Levaquin) 500 mg Q48H ORAL 05/11/19 14:00 05/18/19 13:59 05/11/19 14:23 Levothyroxine Sodium (Synthroid) 125 mcg ACBREAKFAST ORAL 05/11/19 06:30 06/08/19 06:29 05/13/19 05:34 Lisinopril (Zestril) 2.5 mg DAILY ORAL 05/11/19 19:15 06/10/19 19:14 05/12/19 08:35 Lorazepam (Ativan 2mg/ml 1ml) 1 mg Q6H PRN IV For Anxiety 05/09/19 15:00 05/15/19 14:59 05/13/19 10:33 Ondansetron HCl (Zofran) 4 mg Q6H PRN IVP Nausea & Vomiting 05/09/19 15:00 06/07/19 14:59 Pantoprazole (Protonix) 40 mg EVERY 12 HOURS ORAL 05/10/19 11:00 06/09/19 10:59 05/13/19 08:05 Polyethylene Glycol (Miralax) 17 gm DAILYPRN PRN ORAL Constipation 05/09/19 15:00 06/07/19 14:59 05/12/19 17:03 Spironolactone (Aldactone) 12.5 mg DAILY ORAL 05/10/19 09:00 06/08/19 08:59 05/12/19 08:35 Sucralfate (Carafate) 1 gm BID ORAL 05/12/19 18:00 06/09/19 12:59 05/13/19 08:04 Temazepam (Restoril) 15 mg HSPRN PRN ORAL Insomnia 05/09/19 21:00 05/15/19 20:59 05/12/19 23:04 Bijal Luque M.D. May 13, 2019 11:07
[2019-05-13] MEDS ORDERED: traMADol 50mg tab ORAL PRN (11:45)
--- NOTE | 2019-05-13 12:08 | NUR ---
SUPERVISOR SMOKE CONTROL NOTES SPOKE WITH KRISTIN FROM [facility], PT ACCEPTED PENDING AUTHORIZATION FROM INSURANCE. WILL FOLLOW UP WITH AUTH. Addendum: 05/13/19 at 1442 by JUANPABLO NAYAK RN RN SPOKE WITH PENNY PALACIOS FROM [facility], CURRENTLY WORKING ON AUTHORIZATION FOR [facility]. WILL CALL MA BACK ONCE ANIMAL CARE GIVER HAS SIGNED OFF. WILL FOLLOW UP. ANDRES FROM [facility] MADE AWARE.
--- NOTE | 2019-05-13 12:12 | NUR ---
NEUROSURGERY RESEARCH DIRECTORBOWLING BALL MOLDER SI: CHEST PAIN T. 97.5 HR 79 RR 20 B/P 84/61 WBC 16.5 BUN 39 CR 1.7 IS: LASIX PO ELIQUISE PO PROTONIX PO LEVAQUIN PO STEP DOWN STATUS
--- NOTE | 2019-05-13 12:37 | Diagnostic Imaging Report ---
Indication: Cough Comparison: 05/09/2019 A single view chest radiograph was obtained. Findings: There is chronic elevation of the left hemidiaphragm. Pacemaker and sternotomy are again noted. Cardiomegaly is stable. Some prominence of the central hilar vessels and perihilar vessels noted without definite interstitial edema or airspace disease. IMPRESSION: Mild pulmonary vascular congestion is possible. Suggest clinical clinical correlation and follow-up is needed. Chronic elevation left hemidiaphragm
--- NOTE | 2019-05-13 12:39 | NUR ---
RADIOLOGY DEPT., CHEST X-RAY DONE.-P.DYE
[2019-05-13] MEDS: Levofloxacin 500mg tab ORAL SCH (13:13)
--- NOTE | 2019-05-13 13:31 | NUR ---
*-* INSURANCE /*-* ALL CLINICALS AND REVIEWS HAVE BEEN FAXED TO: [facility]: [place] F: [phone]
--- NOTE | 2019-05-13 15:00 | NUR ---
NURSE NOTES: patient is stable. not in acute distress. per vocational case manager, hold the transfer for today to tele, will try to discharge patient instead. awaits update for now. will continue to monitor.
[2019-05-13] MEDS: Miralax 17gm pkt ORAL PRN (17:08)
--- NOTE | 2019-05-13 17:22 | NUR ---
SAMPLER PICKUP NOTES RECIVED A CALL FROM LEYLA FROM [facility], AUTHORIZATION FOR [facility] RECEIVED. SPOKE WITH ANDRES FROM [facility] AUTH GIVEN. NURSE TO CALL REPORT TO [phone]. [facility] TO TRANSPORT PT. NURSE MADE AWARE. AUTH [id number]
--- NOTE | 2019-05-13 18:40 | NUR ---
NURSE NOTES: [facility] per order by dr heller. circuits engineer removed. IV line removed and bleeding was stopped. belongings checked and signed by the patient and myself. family member (daughter) was informed of the planned discharge. interfacility report done. report given to [facility]. packet will be endorse to [facility] nurse. pickler helper ann @ [phone] per [facility].
--- NOTE | 2019-05-13 18:43 | NUR ---
NURSE NOTES: per fly medina, patient is going to Room 403.
--- NOTE | 2019-05-13 19:29 | NUR ---
HAND-OFF: Report given to shannan hardy.
--- NOTE | 2019-05-13 19:30 | NUR ---
NURSE NOTES: Received patient from Delilah MELGOZA. Patient is awake and oriented x3-x4. Receiving oxygen via room air, patient tolerating well, showing no signs of respiratory distress. Arias catheter is patent and draining. Bed is locked, placed in lowest position, side rails up x3, bed alarm on, call light within reach. Patient is awaiting discharge. Will continue to monitor.
--- NOTE | 2019-05-13 20:00 | NUR ---
NURSE NOTES: Spoke to [facility] over the phone, stated they will arrive 8:45pm to 9:00pm. Will continue to monitor patient.
--- NOTE | 2019-05-13 22:11 | NUR ---
NURSE NOTES: CALLED [facility] SPOKE TO RICHARD ,HE SAID AMBULANCE WILL BE HERE AROUND 30-45 MINUTES.
--- NOTE | 2019-05-13 23:01 | NUR ---
NURSE NOTES: [facility] arrived to transport patient for discharge.
[2019-05-14] MEDS ORDERED: Furosemide 40mg tab ORAL SCH (09:00)
--- NOTE | 2019-05-15 08:56 | NUR ---
CASE MANAGEMENT: CM review and clinical information (face sheet/ ER MD notes/H&P) faxed to [facility] DEPT @ [phone]
--- NOTE | 2019-05-15 11:54 | Discharge Summary ---
Discharge Summary Discharge Summary _ DATE OF ADMISSION: 05/10/2019 DATE OF DISCHARGE: 05/13/2019 DISCHARGED BY: Dr. Chiki Pimentel, CONSULTANTS: Dr. Shadi Zelaya BRIEF HOSPITAL COURSE: Patient is a 63-year-old female, who lives at home, presented to ED complaining of chest pain/pressure intermittently for 3 days. She became very short of breath and was slightly dizzy. She had slight nausea, vomiting and diarrhea. She also endorsed cough, shortness of breath, severity was moderate and constant. She endorses sputum production, no fever or chills. She presented to ED via EMS for evaluation of acute shortness of breath she has medical history significant for hypertension, hyperlipidemia, CHF, MT, AICD, asthma, COPD and diabetes. On evaluation at the ED, vital signs were stable. Blood work showed leukocytosis, WBC 15. Hemoglobin and hematocrit were stable. Electrolytes were normal. BUN was elevated to 24 and creatinine 1.6. Glucose 146. Magnesium 1.6. Troponin negative. proBNP 7745. EKG did not show any acute ST elevation with left axis deviation. Chest x-ray did not show any acute disease. Patient had wheezing on examination that improved with albuterol. She was given magnesium supplement. She was admitted for evaluation of acute COPD and chest pain. She was admitted to telemetry. Cardiac enzymes were monitored. She was given symptomatic treatment. She was placed on nebulizer treatment. She was continued on Eliquis. She was given Coreg. Hemoglobin A1c 9.6. Blood glucose was monitored and was placed on insulin sliding scale. TSH 13. Levothyroxine was increased to 125 mcg. Heart rate was elevated. She was given Cardizem IV which responds to 1 to 2 hours only. She was then transferred to [facility]. Drop Board Worker consulted. Patient has history of left ventricular mass status post thoracotomy and removal of the mass. Unclear whether the mass was a cardiac tumor versus left ventricular thrombus. Also unclear whether patient had bypass graft surgery. EKG was reviewed. Patient was in and out of sinus rhythm. An echocardiogram done on April showed presence of LV systolic dysfunction with LVEF approximately 25 to 30%, pleural effusion in the left side. No evidence of pericardial effusion. Normal LV physiology, significant for moderately elevated left atrial pressure. Patient has dilated cardiomyopathy, most likely, nonischemic, although no documentation of what type of cardiac surgery she had [facility]. Patient required guideline directed medical therapy. She was given Spironolactone, beta -hiro, and PHILIPPE inhibitor. Patient has a Heap AICD with recent interrogation normal. Eliquis dose was increased to 5 mg twice daily. Coreg was optimized to twice daily. Patient eventually converted to sinus rhythm. Lasix dose was decreased. Creatinine was stable. She was given Levaquin for bronchitis. Sputum culture with normal upper respiratory patsy. Venous duplex did not show any acute DVT. Chest x-ray showed stable pulmonary vascular congestion. She was given PT. She was recommended skilled PT services. Patient was eventually transferred to [facility]. FINAL DIAGNOSES: Acute bronchitis Acute kidney injury Acute on chronic renal failure COPD/asthma Possible pneumonia LV mass status post thoracotomy Hypothyroidism AICD Coronary artery disease CVA Obesity Paroxysmal atrial fibrillation with RVR CHF Hyperlipidemia Hypertension Dilated cardiomyopathy Diabetes type 2, [id number] Anemia of chronic disease DISPOSITION: [facility]. DISCHARGE MEDICATIONS: Refer to Discharge Medication List. I have been assigned to complete a discharge summary on this account, I was not involved with the patient's management.--LINH Baez Jacqueline Robles NP May 15, 2019 11:54
--- NOTE | 2019-05-16 11:39 | Cardiology Report ---
APPROVED REPORT EXAM: Two-dimensional and M-mode echocardiogram with Doppler and color Doppler. INDICATION LV FUNCTION M-Mode DIMENSIONS IVSd1.2 (0.7-1.1cm)Left Atrium (MM)2.5 (1.6-4.0cm) LVDd3.2 (3.5-5.6cm)Aortic Root2.9 (2.0-3.7cm) PWd0.8 (0.7-1.1cm)Aortic Cusp Exc.1.8 (1.5-2.0cm) IVSs0.9 cm LVDs3.1 (2.5-4.0cm) PWs1.1 cm Technically difficult study due to poor acoustical windows. Study quality precludes accurate assessment of regional wall motion. Global left ventricular hypokinesis. Mild left ventriuclar enlargement . Left ventricular ejection fraction estimated to be 25-30%. No left ventricular hypertrophy. Possible pericardial effuasion . All other cardiac chamber sizes are within normal limits. Focal aortic valve sclerosis with adequate cusp excursion. Thickened mitral valve leaflets with normal excursion. Mitral annulus and aortic root calcification. Normal pulmonic valve structure. Normal tricuspid valve structure. IVC dilated at 2.4 cm without physiologic collapse suggestive of increased RA pressure. Pacemaker wire present in the right side chambers. A color flow and spectral Doppler study was performed and revealed: No aortic insufficiency. Mild mitral regurgitation. Mitral inflow velocities indicates possible restrictive pattern implying markedly elevated left atrial pressure (Grade III ) Moderate tricuspid regurgitation. Tricuspid systolic velocities suggests peak right ventricular systolic pressure of 37mmHg,consistent with mild pulmonary hypertension.
--- NOTE | 2019-05-16 11:56 | Cardiology Report ---
APPROVED REPORT EKG Measurement Heart [id number] MA 130P [id number] Probably atrial tachycardia Left axis deviation Minimal voltage criteria for LVH, may be normal variant Abnormal ECG
--- NOTE | 2019-05-16 13:01 | NUR ---
*-* INSURANCE /*-* DISCHARGE SUMMARY HAS BEEN FAXED TO: [facility] NCM: MAUREEN F: [phone] Addendum: 05/16/19 at 1541 by MARIPOSA MCDANIELS [id number] - Baylee Robertson Tracking#[id number] [employer]er: Maureen #[phone]
== END 2019-05-13 23:05 | disposition short-term general hospital (02) | DRG 140 ==
LOC: EDBD 14:45 → EMR 16:30 → 2E 16:37 → EDBEDREQ 18:06 → 2W 05-09 13:35 → OBSVTOIN 05-10 13:05
DX: J44.0 Chronic obstructive pulmonary disease with (acute) lower respiratory infection (principal); J20.9 Acute bronchitis, unspecified; J44.1 Chronic obstructive pulmonary disease with (acute) exacerbation; N17.9 Acute kidney failure, unspecified; J18.9 Pneumonia, unspecified organism; R00.0 Tachycardia, unspecified; E03.9 Hypothyroidism, unspecified; E78.5 Hyperlipidemia, unspecified; I25.10 Atherosclerotic heart disease of native coronary artery without angina pectoris; E11.65 Type 2 diabetes mellitus with hyperglycemia; D63.8 Anemia in other chronic diseases classified elsewhere; E66.9 Obesity, unspecified; I13.0 Hypertensive heart and chronic kidney disease with heart failure and stage 1 through stage 4 chronic kidney disease, or unspecified chronic kidney disease; E11.22 Type 2 diabetes mellitus with diabetic chronic kidney disease; N18.9 Chronic kidney disease, unspecified; I50.9 Heart failure, unspecified; I48.0 Paroxysmal atrial fibrillation; I42.0 Dilated cardiomyopathy; Z88.8 Allergy status to other drugs, medicaments and biological substances; Z79.4 Long term (current) use of insulin; Z86.73 Personal history of transient ischemic attack (TIA), and cerebral infarction without residual deficits; Z95.810 Presence of automatic (implantable) cardiac defibrillator
CPT/HCPCS: 36415; 71045; 80048; 80053; 81001; 82378; 82533; 82550; 82553; 82962; 82977; 83036; 83690; 83735; 83880; 84100; 84439; 84443; 84481; 84484; 84550; 85007; 85025; 85060; 85610; 85651; 85730; 86140; 87070; 87205; 89050; 93005; 93306; 93970; 94640; 94664; 96374; 96375; 99285; J1815; J7620